=== PATIENT | female | born 1975 | race Caucasian/White ===

== ENCOUNTER → 2018-01-25 13:51 | Outpatient (CLI) | payer MEDICAID, SELFPAY ==
--- NOTE | 2018-01-25 13:55 | CT_ITS ---
STUDY: CT FACIAL BONES WITHOUT CONTRAST REASON FOR EXAM: Female, 42 years old. Evaluate for facial fracture. RADIATION DOSAGE (If Supplied By Facility): CTDIvol = ( 33.06 ) mGy, DLP = ( 840.25 ) mGycm TECHNIQUE: The patient was scanned in a multi detector CT scanner. Sagittal and coronal images were reconstructed. Individualized dose optimization techniques were used for this CT. COMPARISON: Prior comparison studies are not available for review at this time. FINDINGS: Normal soft tissue structures. Normal orbital shelton and orbital contents. There is deformity of the nasal bone that suggest sequela of fracture. This could be acute. The fracture appears comminuted. The mandible has a normal appearance. There is mild degenerative arthropathy of the temporomandibular joints. The shelton of the frontal sinuses, shelton of maxillary sinuses, pterygoid plates, and zygomatic arches have a normal appearance. There is mild anterolisthesis at C2-3. There is degenerative disc disease at C2-3. Atlantoaxial and atlantooccipital relationships are within normal limits. Normal visualized paranasal sinuses. CT/Sinus/Facial Bone IMPRESSION: Comminuted nasal bone fracture. Electronically Signed: Garima Celis MD at 9:04 EDT , Service support ,
== END ==
PROVIDERS: Family Provider Family Medicine; PCP Family Medicine; Visit Provider Otolaryngology
DX: S02.92XA Unspecified fracture of facial bones, initial encounter for closed fracture (principal)
CPT/HCPCS: 70486

== ENCOUNTER 2018-02-22 12:25 | Emergency (ER) | payer MEDICAID, SELFPAY ==
[2018-02-22 12:26] VITALS: BP 133/79; PULSE 76; RESP 16; TEMP 36.6; O2SAT 95; BMI 34.5
--- NOTE | 2018-02-22 12:42 | EKG12_ITS ---
Test Reason : SOB Blood Pressure : / mmHG Vent. Rate : 073 BPM Atrial Rate : 073 BPM P-R Int : 156 ms QRS Dur : 096 ms QT Int : 402 ms P-R-T Axes : 021 -24 -10 degrees QTc Int : 442 ms Normal sinus rhythm Nonspecific T wave abnormality Abnormal ECG Confirmed by ESAU ANDERSON ([id number]), supervising film or videotape editor ELEANOR FERRARI ([id number]) on 02/25/2018 10:24:37 AM Referred By: RAMÍREZ Confirmed By:ESAU ANDERSON
--- NOTE | 2018-02-22 12:50 | RAD_ITS ---
STUDY: X-RAY CHEST REASON FOR EXAM: Female, 42 years old. Chest pain. TECHNIQUE: Single AP portable view of the chest. COMPARISON: Comparison is made with prior study dated March 15, 2017. FINDINGS: EKG electrodes are seen. Stable mild degree of increased signal markings at the left lung base most likely representing scarring. There is no demonstrated pleural abnormality. Normal size heart. Normal mediastinum and ligia. Normal visualized pulmonary arteries. Normal visualized aortic arch and descending thoracic aorta. Normal visualized thoracic spine. Healed right rib fractures. There is no demonstrated abnormality of the visualized soft tissue structures of the upper abdomen. RAD/Chest 1 View (Portable) IMPRESSION: Stable examination showing probable linear scarring at the left base. Electronically Signed: Haroon Garcia MD at 13:14 EDT Tel [phone], Service support ,
[2018-02-22 13:20] LABS: Absolute Lymphocyte Count 2.57 X10^3/ul (0.83-4.51); Absolute Neutrophil Count 6.2 X10^3/uL (2.0-7.7); Basophil# 0.02 X10^3/uL; Basophil% 0.2 % (0-1); Hematocrit 39.4 % (37-47); Hemoglobin 13.4 g/dl (12.0-15.0); Lymphocyte # 2.57 X10^3/ul (4.0); Lymphocyte % 26.4 % (19-41); Mean Corpuscular Hgb 29.1 pg (27.0-32.0); Mean Corpuscular Volume 85.7 fL (81-99); Mean Platelet Vol. 10.2 fl (6.2-12.0); Monocyte# 0.79 X10^3/uL; Monocyte% 8.1 % (0-10); Neutrophil # 6.19 X10^3/uL (2.7-7.7); Neutrophil % 63.8 % (47-70); POSITIVE COUNT NO; POSITIVE DIFFERENTIAL NO; POSITIVE MORPHOLOGY NO; Platelet Count 363 K/mm3 (150-450); RBC Distribution Width CV 14.2 % (11.6-14.6); RBC Distribution Width SD 43.5 fl (35.1-43.9); White Blood Count 9.7 K/mm3 (4.4-11.0)
[2018-02-22] MEDS: 0.9% Normal Saline 1,000 ML 1000 ML IV (13:28)
[2018-02-22 13:36] LABS: Anion Gap 5 (5-15); BUN 5 mg/dL (7-18); BUN/Creat Ratio 7.6 RATIO (10-20); Calcium,Total 8.6 mg/dL (8.5-10.1); Chloride 107 mmol/L (98-107); Creatinine, Serum 0.65 mg/dL (0.55-1.02); EST Glomerular Filtration Rate 104 mL/min (>60); Est Glom Filt Rate - Afr Amer 126 mL/min (>60); Estimated Creatinine Clearance 107.41 ml/min; Glucose 84 mg/dL (74-106); Potassium 3.6 mmol/L (3.5-5.1); Sodium Level 138 mmol/L (136-145)
--- NOTE | 2018-02-22 14:29 | ED.DCSUM_ITS ---
- ER Visit Summary Date of Service: 02/22/18 Chief Complaint: Medication overdose History of Present Illness: The patient is a 42 F who presents after an accidental medication overdose. The patient takes 900 mg of Seroquel daily for schizophrenia. For some reason, the patient's roommate gave her an extra 800 mg this morning around 7 AM. The patient was sleepy so they took her to the primary care's doctor's office. Dr. Medeiros saw the patient and referred her here for evaluation. Patient is arousable to painful stimuli and will mumble some answers. Physical Examination: Vital signs are reviewed. Well-developed female who is sedated due to medications. She is arousable to painful stimuli. HEENT exam is unremarkable. Heart is regular rate and rhythm. Lungs clear to auscultation. Abdomen soft nontender. Skin exam normal. Neurologic exam reveals that she is alert and oriented to herself only. Arousable to pain. Moves all 4 extremities equally. Test Results: Laboratory studies unremarkable. Chest x-ray reveals chronic changes. EKG is normal sinus rhythm with no ST changes. Emergency Department Course and Treatment: The patient had labs which were normal. Patient was observed. At 1448, the patient was awake and talking. She is able to converse normally. She is asking for something for some pain which is chronic. I will give her naproxen here and for home. She will follow up with her PCP Treatment Plan: [] Disposition: Discharge Impression: Accidental medication overdose This note was generated with [employer] dictation software. It may contain incorrect words, spelling, and punctuation that were not noted in review of the chart prior to signing ED Disposition - Plan for ED Patient: Chief Complaint: Weakness Referrals: Phi Medeiros III, MD [Primary Care Provider] -
[2018-02-22 14:34] VITALS: BP 139/100; PULSE 74; RESP 12; O2SAT 98
--- NOTE | 2018-02-22 14:44 | CM.ED ---
Social Work Note Referral from Dr. Zapata for concerns of transport home. Enter pt's room and she is accompanied by a friend. Introduced self and role at [facility]. Pt states that she does have transportation home, and she needs to contact the transit transportation company to notify them that she has transportation. States she has had difficulty getting a hold of them. Requests that SW contact them. Pt denies that she has further needs. Requests to speak with the doctor to see if she can go home. Notified staff. Placed call to [employer] at [phone] and informed that the pt does not need transportation home. Pt to return home this date via private vehicle. Rand Thibodeaux, OVERNIGHT CASHIER, WATCH MECHANIC
--- NOTE | 2018-02-22 14:51 | ED.DEP ---
ED Disposition - Plan for ED Patient: Disposition: Home or Assisted Living Chief Complaint: Weakness Instructions: ED Drug React Adverse Other Prescriptions: Naproxen [Naprosyn] 500 mg PO BID PRN #20 tab Referrals: Phi Medeiros III, MD [Primary Care Provider] -
[2018-02-22 15:20] VITALS: BP 139/100
--- NOTE | 2018-02-22 16:12 | CASEMGMT ---
Social Work Note Face to face with pt and guest as they are now stating that their transportation fell through. Claim that they have contacted family and friends and do not have anyone that can provide transportation. Deny having money to pay for transportation home. Placed call to [facility] and left a vm. Placed call to [employer] who states that they do not accept vouchers or Medicaid for payment. Placed call to [facility] and spoke with research and development directorRae. States that they do have the pt as a client and she has a disability case manager, but will not provide cm's name. Inquire if she can have the cm reach out to the pt as she is here and has no transportation home. Per Rae she will reach out to the pt's cm and if she is unable to reach him will contact this social worker school to update. Will continue to follow and assist. Rand Thibodeaux, INDUSTRIAL INSULATOR, TRAY WORKER
--- NOTE | 2018-02-22 16:46 | CM.ED ---
Social Work Note Got ahold of [employer] transportation. They will be sending someone out for transport between now and 1809. States that someone will contact the pt within 15 minutes to confirm that transportation time and will pick her up at the main entrance. Information passed along to pt and her friend. Offer to get them snack as the have been here for several hours. Sandwiches, shortbread cookies and sprite provided. No further needs identified. Plan: Home via [employer] transportation. Rand Thibodeaux, FAMILY AND CONSUMER SCIENCE PROFESSOR, CAN CLOSING MACHINE TENDER
== END 2018-02-22 15:22 | disposition home or self-care (01) ==
PROVIDERS: Emergency Provider Emergency Medicine; Family Provider Family Medicine; PCP Family Medicine
DX: T43.591A Poisoning by other antipsychotics and neuroleptics, accidental (unintentional), initial encounter (principal); Y92.009 Unspecified place in unspecified non-institutional (private) residence as the place of occurrence of the external cause; F20.9 Schizophrenia, unspecified; Z72.0 Tobacco use; Z79.899 Other long term (current) drug therapy; Z79.51 Long term (current) use of inhaled steroids
CPT/HCPCS: 71045; 80048; 84484; 85025; 93005; 96360; 96361; 99285; J7030; A4216

== ENCOUNTER 2018-07-17 16:35 | Observation (INO) | payer MEDICAID, SELFPAY ==
[2018-07-17] VITALS (10 sets, daily range): BP systolic 101–144; BP diastolic 58–87; PULSE 71–80; RESP 10–20; TEMP 36.7–37.1; O2SAT 94–99; BMI 35.5
[2018-07-17] MEDS: LORazepam 2 MG/ML Syringe 1 MG IV ×2 (17:10→17:28)
[2018-07-17] MEDS: 0.9% Normal Saline 1,000 ML 150 ML IV (17:10)
[2018-07-17] MEDS: levETIRAcetam IV 100 ML 400 MG IV (17:10)
--- NOTE | 2018-07-17 17:15 | RAD_ITS ---
STUDY: X-RAY - RIGHT ELBOW REASON FOR EXAM: Female, 42 years old. Right elbow pain after seizure. TECHNIQUE: 3 view(s) of the elbow. COMPARISON: None. FINDINGS: Normal visualized humerus, radius and ulna. Normal radiocapitellar and ulnotrochlear articulations. The soft tissue structures are unremarkable. There is no demonstrated fracture. RAD/Elbow min 3 Views IMPRESSION: Normal x-ray examination of the right elbow. Electronically Signed: Robbie Cohen MD at 17:59 EST , Service support ,
[2018-07-17 17:25] LABS: Absolute Lymphocyte Count 2.52 X10^3/ul (0.83-4.51); Absolute Neutrophil Count 5.1 X10^3/uL (2.0-7.7); Basophil# 0.01 X10^3/uL; Basophil% 0.1 % (0-1); Eosinophil# 0.18 X10^3/uL; Eosinophils% 2.1 % (0-5); Hematocrit 37.8 % (37-47); Hemoglobin 12.6 g/dl (12.0-15.0); Lymphocyte # 2.52 X10^3/ul (4.0); Lymphocyte % 29.5 % (19-41); Mean Corp Hgb Conc 33.3 g/gl (32-36); Mean Corpuscular Volume 87.1 fL (81-99); Mean Platelet Vol. 10.2 fl (6.2-12.0); Monocyte# 0.74 X10^3/uL; Monocyte% 8.7 % (0-10); Neutrophil # 5.06 X10^3/uL (2.7-7.7); Neutrophil % 59.2 % (47-70); Platelet Count 377 K/mm3 (150-450); RBC Distribution Width CV 14.6 % (11.6-14.6); RBC Distribution Width SD 46.2 fl (35.1-43.9); Red Blood Count 4.34 M/mm3 (4.2-5.4); White Blood Count 8.5 K/mm3 (4.4-11.0)
[2018-07-17 17:26] LABS: POSITIVE COUNT NO; POSITIVE DIFFERENTIAL NO; POSITIVE MORPHOLOGY NO
[2018-07-17 17:39] LABS: AST(SGOT) 43 U/L (15-37); Alanine Aminotransfer ALT/SGPT 35 U/L (13-56); Albumin, Serum 3.7 g/dL (3.2-5.0); Alkaline Phosphatase 119 U/L (45-117); Anion Gap 8 (5-15); BUN 18 mg/dL (7-18); Calcium,Total 8.6 mg/dL (8.5-10.1); Chloride 102 mmol/L (98-107); Creatinine, Serum 1.38 mg/dL (0.55-1.02); EST Glomerular Filtration Rate 44 mL/min (>60); Est Glom Filt Rate - Afr Amer 53 mL/min (>60); Estimated Creatinine Clearance 50.59 ml/min; Globulin 3.6 g/dL (2.2-4.2); Glucose 72 mg/dL (74-106); Potassium 3.6 mmol/L (3.5-5.1); Protein, Total 7.3 g/dL (6.4-8.2); Sodium Level 135 mmol/L (136-145)
--- NOTE | 2018-07-17 17:57 | ED.RN ---
FRIEND INFORMS THIS RN THAT PT HAD 90 SECOND SEIZURE. PT SITTING IN BED WITH EYES CLOSED, ANSWERS SOME QUESTIONS BUT DOES NOT OPEN EYES. MD AWARE, MORE MEDS ORDERED.
[2018-07-17 18:04] LABS: Bacteria 0 SEEN /hpf (None Seen); Mucous, Urine 0 SEEN /hpf (<or=2+); Red Blood Cells-Urine 0 SEEN /hpf (0-5); Squamous Epithelial Cells - UA 0 SEEN /hpf (5-10); White Blood Cells 0 SEEN /hpf (0-5)
[2018-07-17 18:17] LABS: Color, Urine Yellow (Yellow); Glucose, Dipstick Normal (Normal); Ketone-Dipstick Negative (Negative); Leukocyte Esterase-Dipstick Negative /ul (Negative); Nitrite-Dipstick Negative (Negative); Occult Blood-Urine Negative /ul (Negative); Protein-Dipstick Negative (Negative); Urine Bilirubin Dipstick Negative (Negative); Urine Clarity Clear (Clear); Urine Urobilinogen Normal (Normal)
--- NOTE | 2018-07-17 19:03 | CT_ITS ---
STUDY: CT BRAIN WITHOUT CONTRAST REASON FOR EXAM: Female, 42 years old. Increasing seizures. Scattered cells/bipolar, unresponsive, snoring and gasping. RADIATION DOSAGE (If Supplied By Facility): CTDIvol = ( 44.99 ) mGy, DLP = ( 1625.96 ) mGycm TECHNIQUE: Transaxial CT imaging of the brain was performed without administration of intravenous contrast material. Individualized dose optimization techniques were used for this CT. COMPARISON: Prior head CT exam of January 03, 2016. FINDINGS: Normal soft tissue structures. Normal calvarium. Old nasal fracture deformity. Normal size ventricles and extra-axial spaces for the patient's age. Normal white matter tracts of the cerebral hemispheres. Normal basal ganglia and thalami. Normal brainstem. Normal cerebellum. There is no intracranial hemorrhage. There are no findings of an acute ischemic infarction. Normal visualized paranasal sinuses. CT/Brain/Head without Contrast IMPRESSION: Normal unenhanced CT scan of the brain. Electronically Signed: Leslie Conrad MD at 19:30 EST , Service support ,
--- NOTE | 2018-07-17 19:09 | ED.RN ---
DR. WILSON AWARE OF PATIENT'S BEING VERY SEDATED AFTER THE SECOND DOSE OF ATIVAN PRIOR TO MY ARRIVAL. HE ORDERED A CT OF HER HEAD.
--- NOTE | 2018-07-17 19:24 | NURSING ---
PATIENT DROPPED DOWN TO 85-86% ON NC WHILE IN XRAY. PATIENT WENT RIGHT BACK UP TO 94% WHEN PLACED BACK ON NON REBREATHER AND IS AT 99%. CURRENTLY AT [address] WILSON MADE AWARE.
--- NOTE | 2018-07-17 19:39 | NURSING ---
DR. WILSON REQUESTS BEDSIDE BLOOD GLUCOSE. THIS NURSE DID THAT AND IT WAS 114. DR. WILSON MADE AWARE.
[2018-07-17 19:41] LABS: Bedside Glucose 114 mg/dL (70-110)
--- NOTE | 2018-07-17 19:48 | NURSING ---
PATIENT IS STILL UNRESPONSIVE TO HER NAME OR TOUCH. VITALS ARE STABLE. SHE IS STILL ON A NON REBREATHER AND BREATHING WITH HER MOUTH WIDE OPEN. DR. KATIE SALCIDO.
[2018-07-17 20:06] LABS: Amphetamine Urine VISTA NEGATIVE (<1000 ng/mL); Barbiturate Urine VISTA NEGATIVE (< 200 ng/mL); Benzodiazepine Urine VISTA NEGATIVE (< 200 ng/mL); Cocaine Urine VISTA NEGATIVE (< 300 ng/mL); Ecstacy Urine VISTA NEGATIVE (< 500 ng/mL); Methadone Urine VISTA NEGATIVE (< 300 ng/mL); PCP Urine VISTA NEGATIVE (< 25 ng/mL); THC Urine VISTA POSITIVE (< 50 ng/mL); Vista UDS pH Range 6
--- NOTE | 2018-07-17 21:08 | ED.RN ---
IRINEO AT [phone] WAS CALLED AND TOLD THAT THE PATIENT WOULD BE ADMITTED. SHE DID NOT HAVE ACCESS TO THE PATIENT'S MEDICATIONS MEDICATIONS TO GIVE DOSAGES, BUT SAID PATIENT WOULD KNOW HER MEDICATIONS WHEN SHE WAKES UP. SHE WILL CALL BACK WHEN PATIENT IS ADMITTED TO SEE WHAT ROOM SHE WENT TO.
[2018-07-17] MEDS: 0.9% Normal Saline 1,000 ML 999 ML IV (21:14)
--- NOTE | 2018-07-17 21:14 | NURSING ---
PATIENT RECEIVED 500 CC'S OF NS RUNNING AT 150 CC'S PER HOUR WHEN THE NS BOLUS WAS ORDERED. I OPENED THAT BAG UP TO RUN AT 999CC'S HOUR AND THEN WILL HANG THE OTHER 500 CC'S.
--- NOTE | 2018-07-17 21:20 | HP.PCM_ITS ---
Problem List (1) Seizures Status: Acute History of Present Illness Date of Admission: 07/17/18 Chief Complaint: Multiple seizures History was obtained from the Emergency Department doctor and EMS paper work because patient is somnolent and can not provide History. Emergency department doctor stated that patient received a total of 2 mg of Ativan after which patient became somnolent. The patient is a 42 year old F with a significant history of epilepsy, COPD, paranoid schizophrenia, panic attacks, neuropathy, migraines and multiple hairline fractures who lives at the [facility] and presented because of multiple seizures that started a day before her admission. Also on the day of admission reportedly patient had 4-5 seizures within 2 hours. Patient reportedly told the emergency department doctor that she has grand mal seizures; absent seizures and petit mal seizures. She sees a neurologist in [place]. Patient takes marijuana that helps with her seizure activity. At the ED urine drug screen was positive for marijuana. Patient was noted to have severely elevated creatinine above her baseline. On presentation patient was given 1 mg of Ativan at the ED. Reportedly she had another episode where she was twitching and she was given another 1 mg of Ativan. The nurse at the ED was not convinced that the twitches at the ED were from seizure activity. At my examination patient was somnolent and was responding to painful stimuli by grimacing. She had a breathing mask on. Past Medical History Past Medical History (Chronic Problems): Chronic Problems COPD (chronic obstructive pulmonary disease) (Chronic) Tobacco use disorder (Chronic) Schizoaffective disorder (Chronic) HLD (hyperlipidemia) (Chronic) Type II diabetes mellitus, uncontrolled (Chronic) History of abdominal pain (Chronic) Allergies bupropion HCl [From Wellbutrin] Allergy (Verified 07/17/18 16:46) Other codeine phosphate [From Tylenol-Codeine #3] Allergy (Verified 07/17/18 16:46) Unknown etodolac [From Lodine] Allergy (Verified 07/17/18 16:46) Rash varenicline tartrate [From Chantix] Allergy (Verified 07/17/18 16:46) Other acetaminophen [From Darvocet-N 100] Adverse Reaction (Verified 07/17/18 16:46) Nausea codeine Adverse Reaction (Verified 07/17/18 16:46) Nausea propoxyphene napsylate [From Darvocet-N 100] Adverse Reaction (Verified 07/17/18 16:46) Nausea Home Medications: Ambulatory Orders Medication Instructions Recorded Pregabalin [Lyrica] 200 mg PO TID 01/03/16 Quetiapine Fumarate [Seroquel] 900 mg PO QHS 01/03/16 Albuterol Aerosols [Ventolin 1 dose INHALATION DAILY 03/15/17 Aerosols] Albuterol Inhaler [Ventolin Hfa 2 puff INHALATION Q4H PRN PRN 03/15/17 (SP)] Albuterol Inhaler [Ventolin Hfa] 1 puff INHALATION DAILY PRN 03/15/17 Amitriptyline HCl 100 mg PO QHS 03/15/17 Cetirizine HCl [Zyrtec] 10 mg PO DAILY 03/15/17 Citalopram [Celexa] 60 mg PO DAILY 03/15/17 DiphenhydrAMINE [Benadryl] 50 mg PO QHS PRN PRN 03/15/17 Fluticasone 0.05% [Flonase Nasal 2 sprays NASAL DAILY 03/15/17 [place]] Melatonin 5 mg SL QHS 03/15/17 Simethicone 180 mg PO TID 03/16/17 Topiramate [Topamax] 50 mg PO BID 03/16/17 Benzonatate [Tessalon Perle] 100 mg PO TID PRN PRN 02/22/18 Dexlansoprazole [Dexilant] 60 mg PO DAILY 02/22/18 Ibuprofen 600 mg PO Q6H PRN PRN 02/22/18 Ipratropium [Atrovent (SP)] 1 puff INHALATION 4X/DAY 02/22/18 Ketoconazole [Nizoral] 1 applic TOPICAL DAILY 02/22/18 Levetiracetam 1,000 mg PO BID 02/22/18 Magnesium Hydroxide [Milk Of 15 ml PO DAILY PRN PRN 02/22/18 Magnesia] Naproxen [Naprosyn] 500 mg PO BID PRN #20 tab 02/22/18 Promethazine HCl 25 mg PO Q6H PRN PRN 02/22/18 Surgical History: - - Carpal tunnel surgery, surgery for trigger finger and trigger thumb, facial reconstruction secondary to trauma, exploratory abdominal surgery, partial hysterectomy Psychiatric History: - - Schizoaffective disorder PROFESSIONAL ORGANIZER History: No pertinent PROFESSIONAL ORGANIZER history Lives: - - Lives at [facility]. Smoking Status: Current every day smoker - *Family History Maternal History Items: Hypertension Paternal History Items: Diabetes, High Cholesterol, Heart Disease Review of Systems Unable to obtain accurate/complete ROS d/t: secondary to somnolence VTE Information - Inpt Only VTE Present on Admission: No VTE Mechan Device Prophylaxis: None VTE Pharm Prophylaxis ordered?: Yes Patient Problems: Active and Suspected Problems Seizures (Acute) - Physical Exam General: - - Somnolent HEENT: Atraumatic, PERRLA, EOMI, Normocephalic Neck: Trachea Midline Lungs: Clear to auscultation Cardiovascular: Regular rate, No murmurs Abdomen: Bowel Sounds Present, Soft Extremities: No edema, Capillary Refill Less than 3 Seconds Skin: No rashes, No breakdown Musculoskeletal: No Muscle Wasting Neurological: - - Grimace to pain Psych/Mental Status: - - Somnolent Vital Signs Temp Pulse Resp BP Pulse Ox 98.8 F 75 11 L 134/87 H 96 07/17/18 16:42 07/17/18 20:37 07/17/18 20:37 07/17/18 20:37 07/17/18 20:37 Oxygen Flow Rate (L/min) 12 Oxygen Delivery Method Non-Rebreather Weight: 104.5 kg Body Mass Index (BMI) 35.5 Finger Stick Blood Glucose 88 Laboratory Tests Past 24 Hrs 07/17/18 07/17/18 07/17/18 17:10 17:10 17:45 WBC 8.5 RBC 4.34 Hgb 12.6 Hct 37.8 MCV 87.1 MCH 29.0 MCHC 33.3 RDW 14.6 RDW Differential 46.2 H Plt Count 377 MPV 10.2 Immature Gran % (Auto) 0.400 Neut % (Auto) 59.2 Lymph % (Auto) 29.5 Assumption % (Auto) 8.7 Eos % (Auto) 2.1 Baso % (Auto) 0.1 Absolute Neuts (auto) 5.1 Absolute Lymphs (auto) 2.52 Total Counted Not Reportable Sodium 135 L Potassium 3.6 Chloride 102 Carbon Dioxide 25.0 Anion Gap 8 BUN 18 Creatinine 1.38 H Estim Creat Clear Calc 50.59 Est GFR (MDRD) Af Amer 53 L Est GFR (MDRD) Non-Af 44 L BUN/Creatinine Ratio 13.0 Glucose 72 L Calcium 8.6 Total Bilirubin 0.20 AST 43 H ALT 35 Alkaline Phosphatase 119 H Total Protein 7.3 Albumin 3.7 Globulin 3.6 Albumin/Globulin Ratio 1.0 Urine Color Yellow Urine Clarity Clear Urine pH 6.0 Ur Specific Hollister 1.010 Urine Protein Negative Urine Glucose (UA) Normal Urine Ketones Negative Urine Occult Blood Negative Urine Nitrite Negative Urine Bilirubin Negative Urine Urobilinogen Normal Ur Leukocyte Esterase Negative Urine RBC 0 SEEN Urine WBC 0 SEEN Ur Squamous Epith Cells 0 SEEN Urine Bacteria 0 SEEN Urine Mucus 0 SEEN Urine Opiates Screen Urine Methadone Screen Ur Barbiturates Screen Ur Phencyclidine Scrn Ur Amphetamines Screen U Methamphetamin-MDMA U Benzodiazepines Scrn Urine Cocaine Screen U Cannabinoids Screen Ur Drug Screen Comment 07/17/18 17:45 WBC RBC Hgb Hct MCV MCH MCHC RDW RDW Differential Plt Count MPV Immature Gran % (Auto) Neut % (Auto) Lymph % (Auto) Assumption % (Auto) Eos % (Auto) Baso % (Auto) Absolute Neuts (auto) Absolute Lymphs (auto) Total Counted Sodium Potassium Chloride Carbon Dioxide Anion Gap BUN Creatinine Estim Creat Clear Calc Est GFR (MDRD) Af Amer Est GFR (MDRD) Non-Af BUN/Creatinine Ratio Glucose Calcium Total Bilirubin AST ALT Alkaline Phosphatase Total Protein Albumin Globulin Albumin/Globulin Ratio Urine Color Urine Clarity Urine pH Ur Specific Hollister Urine Protein Urine Glucose (UA) Urine Ketones Urine Occult Blood Urine Nitrite Urine Bilirubin Urine Urobilinogen Ur Leukocyte Esterase Urine RBC Urine WBC Ur Squamous Epith Cells Urine Bacteria Urine Mucus Urine Opiates Screen NEGATIVE Urine Methadone Screen NEGATIVE Ur Barbiturates Screen NEGATIVE Ur Phencyclidine Scrn NEGATIVE Ur Amphetamines Screen NEGATIVE U Methamphetamin-MDMA NEGATIVE U Benzodiazepines Scrn NEGATIVE Urine Cocaine Screen NEGATIVE U Cannabinoids Screen POSITIVE H Ur Drug Screen Comment POC Glucose 07/17/18 19:34 POC Glucose 114 H Assessment/Plan All Active Problems Seizures (Acute) Right foot pain (Acute) Fluid collection right foot (Acute) Rib contusion (Acute) The patient is a 42 year old F with a significant history of epilepsy, COPD, paranoid schizophrenia, panic attacks, neuropathy, migraines and multiple hairline fractures who lives at the [facility] and presented because of multiple seizures that started a day before his admission. Seizure activity Patient received a total of 2 mg Ativan at the ED A total of 1000 mg of Keppra was ordered at emergency department. On patient's home medication list is Keppra 1000 mg PO twice daily. Since patient is somnolent at this time will order 1000 mg Keppra IV twice daily. Since patient's home list shows multiple seizure meds and she still had a seizure will add Valproic acid IV. It is unclear whether she takes her home seizure meds. Ativan prn for seizure activity. Keppra level ordered. EEG ordered Prolactin level and CPK ordered. Will consult neurology to optimize management ERIC Creatinine on admission was 1.38 Review of old records shows baseline creatinine of around 0.7 On admission her blood glucose was 71. Gentle hydration with D5W half-normal saline ordered. Urine studies ordered. Avoid nephrotoxics COPD Does not appear to be in COPD exacerbation at this time. Albuterol as needed ordered. Paranoid Schizophrenia Since patient is somnolent we will hold her schizophrenic medications Tobacco Abuse Too somnolent to discuss tobacco cessation. DVT prophylaxis Subcutaneous heparin. Code Visit Inpatient E&M: 11088 Init Hosp L3
--- NOTE | 2018-07-17 21:28 | ED.VISSUMM ---
- ER Visit Summary Date of Service: 07/17/18 Chief Complaint: [Seizures History of Present Illness: The patient is a 42 F [presents to the emergency department complaint of seizures over the last several days. Patient apparently has had 5 seizures in the last 2 hours. Patient is staying at the [facility] currently and is here with 1 of her roommates who is able to give some of the history. Patient apparently has had twitching spells lasting minutes patient not postictal afterwards and does not soil herself. Patient did fall and have a seizure apparently last evening and she believes she was on the floor for about 2 hours and is now complaining of right elbow pain. Patient tells me that she has been compliant with her medications and normally takes Topamax 100 mg twice a day as well as Keppra thousand milligrams twice a day. Patient sees the neuro care center in [place] but cannot tell me the physician she sees there. Patient denies any recent illness. She denies any trauma to her head. Patient does have a history of bipolar disorder, schizophrenia, anxiety, migraines, asthma, and COPD. Patient tells me that she has seizures every day multiple times a day. Patient has been diagnosed with grand mal seizures as well as petit mal seizures.] Physical Examination: [HEENT-PERRLA, EOMI. Cranial nerves II through XII grossly intact. TMs clear. Mucous membranes moist. No adenopathy. Cardiovascular-regular rate and rhythm without murmur or ectopy Lungs-clear to auscultation, chest wall stable without crepitus or subcu emphysema Abdomen-normoactive bowel sounds, soft, nontender, no rebound or rigidity, no peritoneal signs. Neuro [id number] and heel wang testing within normal limits, negative Romberg, negative pronator drift, fundi benign Extremities-intact ?4, normal range of motion, normal pulses. Right elbow-patient has some diffuse tenderness over the olecranon. There is no obvious deformity. There is some faint erythema noted to the olecranon. She is nervously intact distally. Test Results: [CBC with differential obtained showed a white count of 8.5, hemoglobin 12.6, hematocrit 38, platelets 377. Chemistries unremarkable. BUN was 18 and creatinine 1.38. LFTs were unremarkable. Urinalysis was normal. Toxicology screen was positive for marijuana. X-rays of the right elbow showed no fractures. CT scan of the brain without contrast was unremarkable.] Emergency Department Course and Treatment: [On arrival patient did receive Keppra 500 mg's IV and I gave her 1 mg of Ativan. After initial treatment nursing staff stated that the visit her in the room and stated the patient had had another seizure but was not postictal afterwards. The nurse did see some twitching activity but she did not feel it was consistent with seizure activity. I did give patient another milligram of Ativan IV. After the second dose of Ativan patient became very somnolent and stopped responding appropriately and that is when the CT scan was ordered which was normal. Patient will open her eyes and attempt to speak to sternal rub. Repeat fingerstick blood sugar was in the 140s.] Treatment Plan: [Case was discussed with hospitalist will evaluate patient for admission. I did not witness any further seizure activity in the department.] Disposition: [Admit] Impression: [Recurrent seizures Mental status change-suspect related to Ativan.] This note was generated with [employer] dictation software. It may contain incorrect words, spelling, and punctuation that were not noted in review of the chart prior to signing ED Disposition - Plan for ED Patient: Chief Complaint: Seizure Referrals: Phi Medeiros III, MD [Primary Care Provider] -
--- NOTE | 2018-07-17 21:33 | ED.DCSUM_ITS ---
- ER Visit Summary Date of Service: 07/17/18 Chief Complaint: [Seizures History of Present Illness: The patient is a 42 F [presents to the emergency department complaint of seizures over the last several days. Patient apparently has had 5 seizures in the last 2 hours. Patient is staying at the [facility] currently and is here with 1 of her roommates who is able to give some of the history. Patient apparently has had twitching spells lasting minutes patient not postictal afterwards and does not soil herself. Patient did fall and have a seizure apparently last evening and she believes she was on the floor for about 2 hours and is now complaining of right elbow pain. Patient tells me that she has been compliant with her medications and normally takes Topamax 100 mg twice a day as well as Keppra thousand milligrams twice a day. Patient sees the neuro care center in [place] but cannot tell me the physician she sees there. Patient denies any recent illness. She denies any trauma to her head. Patient does have a history of bipolar disorder, schizophrenia, anxiety, migraines, asthma, and COPD. Patient tells me that she has seizures every day multiple times a day. Patient has been diagnosed with grand mal seizures as well as petit mal seizures.] Physical Examination: [HEENT-PERRLA, EOMI. Cranial nerves II through XII grossly intact. TMs clear. Mucous membranes moist. No adenopathy. Cardiovascular-regular rate and rhythm without murmur or ectopy Lungs-clear to auscultation, chest wall stable without crepitus or subcu emphysema Abdomen-normoactive bowel sounds, soft, nontender, no rebound or rigidity, no peritoneal signs. Neuro [id number] and heel wang testing within normal limits, negative Romberg, negative pronator drift, fundi benign Extremities-intact ?4, normal range of motion, normal pulses. Right elbow- patient has some diffuse tenderness over the olecranon. There is no obvious deformity. There is some faint erythema noted to the olecranon. She is nervously intact distally. Test Results: [CBC with differential obtained showed a white count of 8.5, hemoglobin 12.6, hematocrit 38, platelets 377. Chemistries unremarkable. BUN was 18 and creatinine 1.38. LFTs were unremarkable. Urinalysis was normal. Toxicology screen was positive for marijuana. X-rays of the right elbow showed no fractures. CT scan of the brain without contrast was unremarkable.] Emergency Department Course and Treatment: [On arrival patient did receive Keppra 500 mg's IV and I gave her 1 mg of Ativan. After initial treatment nursing staff stated that the visit her in the room and stated the patient had had another seizure but was not postictal afterwards. The nurse did see some twitching activity but she did not feel it was consistent with seizure activity. I did give patient another milligram of Ativan IV. After the second dose of Ativan patient became very somnolent and stopped responding appropriately and that is when the CT scan was ordered which was normal. Patient will open her eyes and attempt to speak to sternal rub. Repeat fingerstick blood sugar was in the 140s.] Treatment Plan: [Case was discussed with hospitalist will evaluate patient for admission. I did not witness any further seizure activity in the department.] Disposition: [Admit] Impression: [Recurrent seizures Mental status change-suspect related to Ativan.] This note was generated with Melophone dictation software. It may contain incorrect words, spelling, and punctuation that were not noted in review of the chart prior to signing ED Disposition - Plan for ED Patient: Chief Complaint: Seizure Referrals: Phi Medeiros III, MD [Primary Care Provider] -
--- NOTE | 2018-07-17 21:36 | ED.RN ---
PATIENT HASN'T HAD ANY SEIZURE FOR ME SINCE 1900. PATIENT IS STILL NOT RESPONSIVE TO VOICE OR TOUCH. SHE DID NOT WITHDRAWL FROM PAIN WHEN I STARTED ANOTHER IV. VITALS ARE STABLE. SHE IS STILL ON A NON REBREATHER MASK AT 12L O2.
[2018-07-17 21:50] LABS: Urine Sodium 7 mmol/L (Not Establ.)
[2018-07-17 22:41] LABS: CPK Total, Creatine Kinase 490 U/L (26-192); Prolactin 6.8 ng/mL
[2018-07-17] MEDS: Dext 5%-0.45% NS 1,000 ML 100 ML IV (23:05)
--- NOTE | 2018-07-17 23:13 | NURSING ---
Contacted Cali in pharmacy at this time as IV pump does not have a setting for Valproate Sodium 700mg/50mL. Cali said to run the medication using the mL/hr setting.
[2018-07-18] VITALS (13 sets, daily range): BP systolic 99–124; BP diastolic 47–74; PULSE 72–88; RESP 12–20; TEMP 36.4–37.1; O2SAT 93–97; BMI 35.9; BMI 36.0
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
[2018-07-18] MEDS: levETIRAcetam IV 100 ML 400 MG IV ×2 (05:39→22:27)
--- NOTE | 2018-07-18 05:51 | NURSING ---
Several attempts were made to completed medication list. Pt was too somnolent to give accurate information. At this time, pt states she knows some of her medication dosages, but not all of them.
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
[2018-07-18 06:49] LABS: Anion Gap 8 (5-15); BUN 12 mg/dL (7-18); BUN/Creat Ratio 11.7 RATIO (10-20); Calcium,Total 7.8 mg/dL (8.5-10.1); Chloride 108 mmol/L (98-107); Creatinine, Serum 1.03 mg/dL (0.55-1.02); EST Glomerular Filtration Rate 62 mL/min (>60); Est Glom Filt Rate - Afr Amer 75 mL/min (>60); Estimated Creatinine Clearance 67.78 ml/min; Glucose 89 mg/dL (74-106); Potassium 4.1 mmol/L (3.5-5.1); Sodium Level 139 mmol/L (136-145)
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
--- NOTE | 2018-07-18 07:40 | CPS ---
UPON ENTERING PT'S ROOM TO DO EEG, PT REQUESTED BREATHING TREATMENT. STATES SHE TAKES 2 INHALERS AT HOME. PRN ALBUTEROL NEB GIVEN
[2018-07-18] MEDS: Albuterol 2.5 MG/3 ML VIAL.NEB. INHALATION ×2 (07:45→16:02)
[2018-07-18] MEDS: Dext 5%-0.45% NS 1,000 ML 100 ML IV (10:04)
[2018-07-18] MEDS: Enoxaparin 40 MG/0.4 ML Syringe SC (10:04)
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
[2018-07-18] MEDS: LORazepam 2 MG/ML Syringe IV (11:04)
[2018-07-18] MEDS: QUEtiapine 100 MG Tablet 200 MG PO (11:49)
--- NOTE | 2018-07-18 12:06 | EEG ---
- Electroencephalogram Date of service 07/18/18 This is an 18 channel echoencephalogram performed with EKG reference leads. Hyperventilation was not performed the patient was unable to follow commands. Stimulation was not performed. Engine Cowling Installer's report indicates that the patient had apneic episodes during the recording. Patient experienced wakefulness and stage N1 and N2 sleep during the recording with no lateralizing or epileptiform changes. EKG is normal sinus rhythm throughout the recording. Impression: Normal awake and asleep electroencephalogram. It is noted that by history the patient reported 100 seizures on the day prior to this examination as well as daily seizures.
--- NOTE | 2018-07-18 12:11 | EEG_ITS ---
- Electroencephalogram Date of service 07/18/18 This is an 18 channel echoencephalogram performed with EKG reference leads. Hyperventilation was not performed the patient was unable to follow commands. Stimulation was not performed. Natural Gas Shothole Driller's report indicates that the patient had apneic episodes during the recording. Patient experienced wakefulness and stage N1 and N2 sleep during the recording with no lateralizing or epileptiform changes. EKG is normal sinus rhythm throughout the recording. Impression: Normal awake and asleep electroencephalogram. It is noted that by history the patient reported 100 seizures on the day prior to this examination as well as daily seizures.
--- NOTE | 2018-07-18 14:33 | CASEMGMT ---
SW has attempted numerous times to see patient and she has been sleeping. SW will follow up with patient. Karla IBRAHIM MSW
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
--- NOTE | 2018-07-18 16:34 | PCA ---
went into patients room cause bed exit going off. she jumped out of bed told me if i dont take the heart monitor off she will. I told her that she needs to wear it because we need to watch her heart. She jumped out of bed ran into bathroom locked the door wouldnt let me go in. She told me she isnt wearing that monitor that she is going to leave to go home that she isnt wearing anything or staying here. She is fully dressed and getting her coat on. she is leaving that she is fine and dont need to stay.. Gave her new blankets and comb she said she is going to eat and leave. Called the nurse too and let him know. He went to talk to her.
[2018-07-18] MEDS: Pregabalin 50 MG Capsule 200 MG PO ×2 (16:55→22:38)
[2018-07-18] MEDS: Citalopram 20 MG Tablet 60 MG PO (17:07)
[2018-07-18] MEDS: QUEtiapine 100 MG Tablet 400 MG PO ×2 (17:08→22:38)
--- NOTE | 2018-07-18 18:11 | NURSING ---
Patient wanting to leave to smoke and go home states would walk. instructed patient that she agreed with the md this am to stay tonight.
[2018-07-18] MEDS: Haloperidol Lactate 5 MG/ML Vial IV (18:32)
[2018-07-18] MEDS: 0.9% NaCl Peripheral Flush Adult/Peds IV ×3 (18:32→22:51)
--- NOTE | 2018-07-18 19:28 | PN_ITS ---
Patient Problems: Active and Suspected Problems Seizures (Acute) Subjective: Patient was seen and examined today, she became agitated this morning and I asked her if she wanted something for anxiety and she consented I gave her some IV Ativan and asked her to stay until tomorrow to make sure she underwent testing for her seizure disorder and saw the neurologist, patient consented and stated she would stay. 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 EEG did not show a true seizure focus. I received a call from nursing late this afternoon stating the patient was agitated again, I asked nursing to talk with her and see if she wanted something else for anxiety and I have ordered Haldol. Patient wanted to walk out of the hospital and walk home she does not appear to be thinking correctly and this morning she saw an inv isible man in her room. I have requested that crisis see the patient to determine if she would need psychiatric hospitalization. I have gone through her medication reconciliation and eliminated some medications. I talked with her family practitioner Dr. Phi Medeiros today by phone and discussed the medications. - Physical Exam General: Alert, No apparent distress, Well developed HEENT: Atraumatic, PERRLA, EOMI Oral: Moist Mucosa Neck: Supple, No Nuchal Rigidity, Trachea Midline, Thyroid Normal Size and Texture Lungs: Clear to auscultation, Normal air movement, No rhonchi, No wheeze, No rales Cardiovascular: Regular rate, Regular Rhythm, Normal S1, Normal S2, No murmurs, No Ectopic Activity Abdomen: Bowel Sounds Present, Soft, Non Tender, Non-Distended Extremities: No clubbing, No cyanosis, No edema Skin: No rashes, No breakdown Musculoskeletal: No Tenderness to Palpation of Joints or Extremities Neurological: Cranial nerves II-XII grossly intact, Neuro grossly intact, Sensory exam intact to light touch and pain, Coordination normal Psych/Mental Status: Agitated, Delusions Vital Signs Temp Pulse Resp BP Pulse Ox 98.7 F 88 20 H 102/55 L 95 07/18/18 15:09 07/18/18 16:02 07/18/18 16:02 07/18/18 15:09 07/18/18 15:09 Oxygen Flow Rate (L/min) 2 Oxygen Delivery Method Room Air Weight: 104.2 kg Body Mass Index (BMI) 35.9 Finger Stick Blood Glucose 88 Intake and Output for Last 24 Hours 07/16/18 07/17/18 07/18/18 23:59 23:59 23:59 Intake Total 168.1 / 168.1 1418 / 1418 Output Total 0 / 0 1325 / 1325 Balance 168.1 / 168.1 93 / 93 Laboratory Tests Past 24 Hrs 07/17/18 07/17/18 07/17/18 17:10 17:10 17:45 Sodium Potassium Chloride Carbon Dioxide Anion Gap BUN Creatinine Estim Creat Clear Calc Est GFR (MDRD) Af Amer Est GFR (MDRD) Non-Af BUN/Creatinine Ratio Glucose Calcium Total Creatine Kinase 490 H Prolactin 6.8 Ur Random Sodium Urine Creatinine Urine Opiates Screen NEGATIVE Urine Methadone Screen NEGATIVE Ur Barbiturates Screen NEGATIVE Levetiracetam Pending Ur Phencyclidine Scrn NEGATIVE Ur Amphetamines Screen NEGATIVE U Methamphetamin-MDMA NEGATIVE U Benzodiazepines Scrn NEGATIVE Urine Cocaine Screen NEGATIVE U Cannabinoids Screen POSITIVE H 07/17/18 07/17/18 07/18/18 17:45 17:45 06:10 Sodium 139 Potassium 4.1 Chloride 108 H Carbon Dioxide 23.0 Anion Gap 8 BUN 12 Creatinine 1.03 H Estim Creat Clear Calc 67.78 Est GFR (MDRD) Af Amer 75 Est GFR (MDRD) Non-Af 62 BUN/Creatinine Ratio 11.7 Glucose 89 Calcium 7.8 L Total Creatine Kinase Prolactin Ur Random Sodium 7 Urine Creatinine 45.00 Urine Opiates Screen Urine Methadone Screen Ur Barbiturates Screen Levetiracetam Ur Phencyclidine Scrn Ur Amphetamines Screen U Methamphetamin-MDMA U Benzodiazepines Scrn Urine Cocaine Screen U Cannabinoids Screen POC Glucose 07/17/18 19:34 POC Glucose 114 H Medical Necessity - Tobacco Use Smoking Status: Current every day smoker Tobacco Use: Cigarettes Assessment/Plan All Active Problems Seizures (Acute) Right foot pain (Resolved) Fluid collection right foot (Resolved) Rib contusion (Resolved) #1 seizure disorder-neurology feels as though the patient may have a non- epileptic seizure disorder, I will keep her on Keppra for the time being #2 probable schizoaffective disorder-patient may need IV antipsychotics, crisis will see the patient to see if she is appropriate for admission to the psychiatric facility #3 agitation secondary to #2 #4 COPD #5 chronic pain syndrome-I talked to her PCP today by phone, he states he has her on Lyrica for chronic pain, patient complains of diffuse muscle pains (questionable fibromyalgia) Code Visit Inpatient E&M: 61549 Subs Hosp L2
[2018-07-18] MEDS: QUEtiapine 100 MG Tablet PO (22:38)
[2018-07-18] MEDS: Loratadine 10 MG Tablet PO (22:38)
[2018-07-19] VITALS (7 sets, daily range): BP systolic 113–138; BP diastolic 57–80; PULSE 72–84; RESP 16–18; TEMP 36.4–37.1; O2SAT 94–98
[2018-07-19] MEDS: LORazepam 1 MG Tablet PO (05:02)
[2018-07-19] MEDS: Pregabalin 50 MG Capsule 200 MG PO ×2 (05:02→14:49)
[2018-07-19] MEDS: Ibuprofen 600 MG Tablet PO (05:03)
[2018-07-19] MEDS: Citalopram 20 MG Tablet 60 MG PO (09:34)
[2018-07-19] MEDS: Enoxaparin 40 MG/0.4 ML Syringe SC (09:36)
[2018-07-19] MEDS: levETIRAcetam IV 100 ML 400 MG IV (09:36)
[2018-07-19] MEDS: Pantoprazole Sodium 20 MG Tablet PO (09:37)
--- NOTE | 2018-07-19 14:03 | DCINST_ITS ---
- Discharge Diagnoses Current Active Problems: Current Active and Chronic Problems Seizures (Acute) You will use the following diet at home:: No restrictions Your food should be the consistency of: Regular Your liquids should be the consistency of: Regular/Thin Discharge Activity: Return to Normal Activity Weight Bearing Status: Full weight bearing Allergies/Adverse Reactions: Allergies bupropion HCl [From Wellbutrin] Allergy (Verified 07/17/18 16:46) Other codeine phosphate [From Tylenol-Codeine #3] Allergy (Verified 07/17/18 16:46) Unknown etodolac [From Lodine] Allergy (Verified 07/17/18 16:46) Rash varenicline tartrate [From Chantix] Allergy (Verified 07/17/18 16:46) Other acetaminophen [From Darvocet-N 100] Adverse Reaction (Verified 07/17/18 16:46) Nausea codeine Adverse Reaction (Verified 07/17/18 16:46) Nausea milk Adverse Reaction (Verified 07/18/18 05:49) Other propoxyphene napsylate [From Darvocet-N 100] Adverse Reaction (Verified 07/17/18 16:46) Nausea Medications to take at Discharge Pregabalin [Lyrica] 200 mg PO TID 01/03/16 Albuterol Inhaler [Ventolin Hfa] 2 puff INHALATION Q4H PRN PRN 03/15/17 Amitriptyline HCl 100 mg PO QHS 03/15/17 Cetirizine HCl [Zyrtec] 10 mg PO QHS 03/15/17 Ibuprofen 600 mg PO Q6H PRN PRN 02/22/18 Ipratropium [Atrovent Inhaler] 1 puff INHALATION 4X/DAY 02/22/18 Levetiracetam 1,000 mg PO BID 02/22/18 Citalopram [Celexa] 60 mg PO DAILY 07/18/18 Diphenhydramine HCl/Zinc Acet [Anti-Itch 2%-0.1% Cream] 35 gm TP TID PRN PRN 07/18/18 Melatonin 10 mg PO QHS PRN 07/18/18 Omeprazole [Prilosec] 20 mg PO DAILY 07/18/18 Quetiapine Fumarate [Seroquel] 100 mg PO QHS 07/18/18 Quetiapine Fumarate [Seroquel] 400 mg PO BID 07/18/18 Clonazepam [Klonopin] 2 mg PO TID PRN PRN #30 tablet 07/19/18 The following prescriptions were given: Clonazepam [Klonopin] 2 mg PO TID PRN PRN #30 tablet PRN Reason: Anxiety Primary Care Physician: Phi Medeiros III, MD [Primary Care Provider] - Please follow up with your Primary Care Physician in: in two weeks Test Results: Test results from this visit will be discussed in further detail at your follow- up appointment, if applicable. Please Follow Up With: Counseling center When: within next 10 days
--- NOTE | 2018-07-19 14:18 | CASEMGMT ---
Crisis came in and spoke with patient. He cleared her for discharge back to [facility]. He said she is well known to them. He said she wants to leave and is ready to go back to [facility] with her friends and significant other. Karla IBRAHIM MSW
--- NOTE | 2018-07-19 15:03 | CHAPLAIN ---
Type of Pastoral Visit _x__ Initial Visit ___ Follow-up Visit ___ On-call Visit ___ General Patient Visit ___ Spiritual Assessment ___ Family Conference ___ Bereavement ___ Rapid Response ___ Code Blue ___ Other (describe below) Pastoral Care Referral From _x__ Patient ___ Family ___ Nurse ___ Physician ___ Money Order Clerk ___ Sleeve Ironer ___ Other (describe below) Sacrament/Intervention _x__ Active listening ___ Anointing ___ Restorationist ___ Bereavement ___ Communion ___ Michelle exploration ___ ___ Life review _x__ Prayer ___ Reconciliation ___ Sacrament of Sick ___ Supportive presence ___ Wedding ___ Other (describe below) Pastoral Comments patient is dressed and waiting for discharge papers she says; SO of pt is with her in room; pt says that she is feeling better but that she does not have a walker yet and wonders how she will get one; [facility]; pt says that she would like a prayer from television audio engineer
--- NOTE | 2018-07-20 16:27 | DS.PCM_ITS ---
Discharge Date and Diagnosis - Problem List Patient Problems: Active and Suspected Problems Acute respiratory failure (Acute) Aspiration into airway (Acute) Encephalopathy (Acute) Right-sided epistaxis (Acute) Acute encephalopathy (Acute) Date of Admission: 07/17/18 Date of Discharge: 07/19/18 - Primary Discharge Diagnosis Active and Suspected Problems #1 nonepileptic seizures #2 schizophrenia #3 chronic obstructive pulmonary disease - Secondary Discharge Diagnosis Chronic Problems Seizures (Chronic) Tobacco use disorder (Chronic) Schizoaffective disorder (Chronic) HLD (hyperlipidemia) (Chronic) History of abdominal pain (Chronic) Hospital Course and Treatment Consultations 07/18/18 18:06 Crisis [Consult: Mental Health/Crisis] Routine Reason for consult?: feels harm to self Date Notified:: 07/18/18 Time notified:: 18:06 Operations: None, - - OR I&D per Podiatry. Procedures: Electroencephalogram Summary of Care Provided: The patient is a 42 year old F who was seen in the emergency room at [facility] after being brought in from the [facility] where she lives due to recurrent seizure-like activity. Patient is currently on seizure medications, she is a history of schizophrenia. Patient had labs performed in the emergency room which were remarkable for a creatinine of 1.38, CPK was elevated at 490, urinalysis was unremarkable, tox screen was positive for cannabinoids. CT of the brain was unremarkable. Patient received Keppra 500 mg IV and 1 mg of Ativan, patient had repeat seizure activity but was observed not to be post ictal. Nursing reported this activity did not appear to be consistent with seizure activity. Patient was given an additional milligram of Ativan. Patient was placed in observation status on PCU, the following morning the patient became agitated and demanded to leave although she had no way to leave the hospital and whether or was inclement. Patient consented to receive IV Ativan for anxiety, she stayed in the hospital and an EEG was performed which showed no evidence of seizure activity and she was seen by neurology who felt that the patient had non-epileptic seizure activity. The following day, I had case management see the patient who stated that the patient was active with local mental health and had been seen 2 weeks ago by a counselor, plans were made for follow-up at the counseling center and case management felt that the patient was stable for discharge. Patient remained anxious and requested medication for anxiety at the time of discharge, a prescription for Klonopin 2 mg #30 with instructions to use 1 3 times daily as needed severe anxiety was gi rhina to the patient. Physical exam: On examination she appeared in good health and spirits. Vital signs as documented. Skin warm and dry and without overt rashes. Neck without JVD. Lungs clear. Heart exam notable for regular rhythm, normal sounds and absence of murmurs, rubs or gallops. Abdomen unremarkable and without evidence of organomegaly, masses, or abdominal aortic enlargement. Extremities nonedematous. Neuro: Cranial nerves II through XII are grossly intact, there is no evidence of focal motor deficits, no evidence of seizure activity is noted. Psych: Patient appear to be agitated and upset, she was alert and oriented x3. On 07/19/18, patient was seen and examined felt to be in stable condition for discharge back to the [facility]. Patient Problems: Active and Suspected Problems Acute respiratory failure (Acute) Aspiration into airway (Acute) Encephalopathy (Acute) Right-sided epistaxis (Acute) Acute encephalopathy (Acute) - Physical Exam Vital Signs Temp Pulse Resp BP Pulse Ox 98.7 F 81 18 118/80 97 07/19/18 14:41 07/19/18 14:41 07/19/18 14:41 07/19/18 14:41 07/19/18 14:41 Oxygen Flow Rate (L/min) 2 Oxygen Delivery Method Room Air Weight: 104.2 kg Body Mass Index (BMI) 35.9 Finger Stick Blood Glucose 88 Intake and Output for Last 24 Hours 07/18/18 07/19/18 07/20/18 23:59 23:59 23:59 Intake Total 1530 / 1530 240 / 240 Output Total 1325 / 1325 Balance 205 / 205 240 / 240 Discharge Activity: Return to Normal Activity Weight Bearing Status: Full weight bearing Home Medications: Medications to take at Discharge Pregabalin [Lyrica] 200 mg PO TID 01/03/16 Albuterol Inhaler [Ventolin Hfa] 2 puff INHALATION Q4H PRN PRN 03/15/17 Amitriptyline HCl 100 mg PO QHS 03/15/17 Cetirizine HCl [Zyrtec] 10 mg PO QHS 03/15/17 Ibuprofen 600 mg PO Q6H PRN PRN 02/22/18 Ipratropium [Atrovent Inhaler] 1 puff INHALATION 4X/DAY 02/22/18 Levetiracetam 1,000 mg PO BID 02/22/18 Citalopram [Celexa] 60 mg PO DAILY 07/18/18 Diphenhydramine HCl/Zinc Acet [Anti-Itch 2%-0.1% Cream] 35 gm TP TID PRN PRN 07/18/18 Melatonin 10 mg PO QHS PRN 07/18/18 Omeprazole [Prilosec] 20 mg PO DAILY 07/18/18 Quetiapine Fumarate [Seroquel] 100 mg PO QHS 07/18/18 Quetiapine Fumarate [Seroquel] 400 mg PO BID 07/18/18 Clonazepam [Klonopin] 2 mg PO TID PRN PRN #30 tablet 07/19/18 Following Prescrptions Were Given to Patient: Clonazepam [Klonopin] 2 mg PO TID PRN PRN #30 tablet PRN Reason: Anxiety Primary Care Physician: Phi Medeiros III, MD [Primary Care Provider] - Please follow up with your Primary Care Physician in: in two weeks Please Follow Up With: Counseling center When: within next 10 days Please Follow Up With: Phi Medeiros III, MD When: 2 Weeks Disposition: Home Minutes spent on discharge:: 31 Patient Condition:: Stable Medical Necessity - Tobacco Use Smoking Status: Current every day smoker Tobacco Use: Cigarettes Meaningful Use Info Meaningful Use Diagnoses (Choose all that apply): None applicable Code Visit OBSV E&M: 82117 Observation care discharge
[2018-07-22 11:35] LABS: KEPPRA (LEVETIRACETAM) 37.5 ug/mL (10.0-40.0)
== END 2018-07-19 14:02 | disposition home or self-care (01) ==
LOC: ED 18:02 → PCU 21:33
PROVIDERS: Admitting Provider Hospitalist; Emergency Provider Emergency Medicine; Family Provider Family Medicine; PCP Family Medicine; Visit Provider Internal Medicine
DX: G40.89 Other seizures (principal); J96.00 Acute respiratory failure, unspecified whether with hypoxia or hypercapnia; J44.9 Chronic obstructive pulmonary disease, unspecified; F20.0 Paranoid schizophrenia; Z79.899 Other long term (current) drug therapy; G93.40 Encephalopathy, unspecified; G43.909 Migraine, unspecified, not intractable, without status migrainosus; G62.9 Polyneuropathy, unspecified; E78.5 Hyperlipidemia, unspecified; E11.65 Type 2 diabetes mellitus with hyperglycemia; F31.9 Bipolar disorder, unspecified; G40.409 Other generalized epilepsy and epileptic syndromes, not intractable, without status epilepticus; F17.210 Nicotine dependence, cigarettes, uncomplicated; G89.4 Chronic pain syndrome
CPT/HCPCS: 36415; 70450; 73080; 80048; 80053; 80177; 80307; 81001; 82550; 82570; 82962; 84146; 84300; 85025; 94640; 94762; 95819; 97162; 97165; 97802; 99251; 99285; 99406; J7030; J7040; A4216; G0463; J7799

== ENCOUNTER 2018-07-19 20:51 | Inpatient (IN) | payer MEDICAID, SELFPAY ==
[2018-07-18 01:24] VITALS: BMI 35.9
[2018-07-19] VITALS (8 sets, daily range): BP systolic 112–122; BP diastolic 58–76; PULSE 71–85; RESP 14–22; TEMP 35.3–36.1; O2SAT 91–100; BMI 39.7
--- NOTE | 2018-07-19 21:02 | EKG12_ITS ---
Test Reason : UNRESPONSIVE Blood Pressure : / mmHG Vent. Rate : 072 BPM Atrial Rate : 072 BPM P-R Int : 158 ms QRS Dur : 104 ms QT Int : 414 ms P-R-T Axes : 059 007 038 degrees QTc Int : 453 ms Normal sinus rhythm Normal ECG Confirmed by MARITZA CHAUDHARY MD ([id number]), desk editor RACHAEL DIXON ([id number]) on 07/24/2018 11:36:42 AM Referred By: DAVID Confirmed By:MARITZA CHAUDHARY MD
--- NOTE | 2018-07-19 21:02 | CT_ITS ---
STUDY: CT BRAIN WITHOUT CONTRAST REASON FOR EXAM: Female, 42 years old. Unresponsive. RADIATION DOSAGE (If Supplied By Facility): CTDIvol = ( 44.99 ) mGy, DLP = ( 1145.09 ) mGycm TECHNIQUE: Transaxial CT imaging of the brain was performed without administration of intravenous contrast material. Individualized dose optimization techniques were used for this CT. COMPARISON: 07/17/2018 FINDINGS: There is no acute bleed or infarct. There are normal white matter tracts. The ventricles are normal in configuration. There is no hydrocephalus. The visualized paranasal sinuses are clear. The mastoid air cells are well aerated. There is no skull fracture. CT/Brain/Head without Contrast IMPRESSION: No acute intracranial abnormality. Electronically Signed: Marino Cadet, at 22:10 EST Tel , Service support ,
--- NOTE | 2018-07-19 21:02 | ED.RN ---
RN CALLED FOR EKG, PULLED OLD EKGS FOR
[2018-07-19 21:21] LABS: Absolute Lymphocyte Count 2.54 X10^3/ul (0.83-4.51); Absolute Neutrophil Count 3.2 X10^3/uL (2.0-7.7); Basophil# 0.01 X10^3/uL; Basophil% 0.2 % (0-1); Eosinophil# 0.21 X10^3/uL; Eosinophils% 3.3 % (0-5); Hematocrit 37.2 % (37-47); Hemoglobin 11.9 g/dl (12.0-15.0); Lymphocyte # 2.54 X10^3/ul (4.0); Lymphocyte % 39.6 % (19-41); Mean Corpuscular Volume 90.7 fL (81-99); Mean Platelet Vol. 9.9 fl (6.2-12.0); Monocyte# 0.47 X10^3/uL; Monocyte% 7.3 % (0-10); Neutrophil # 3.16 X10^3/uL (2.7-7.7); Neutrophil % 49.3 % (47-70); POSITIVE COUNT NO; POSITIVE DIFFERENTIAL NO; POSITIVE MORPHOLOGY NO; Platelet Count 325 K/mm3 (150-450); RBC Distribution Width CV 14.9 % (11.6-14.6); RBC Distribution Width SD 49.7 fl (35.1-43.9); White Blood Count 6.4 K/mm3 (4.4-11.0)
[2018-07-19] MEDS: 0.9% Normal Saline 1,000 ML 250 ML IV (21:22)
[2018-07-19] MEDS: Propofol 10MG/Ml 1,000 MG/100 ML Bottle 6.708 MG CONT INF (21:22)
[2018-07-19 21:23] LABS: Bacteria 0 SEEN /hpf (None Seen); Mucous, Urine 0 SEEN /hpf (<or=2+); Red Blood Cells-Urine 0 SEEN /hpf (0-5); Squamous Epithelial Cells - UA 0 SEEN /hpf (5-10); White Blood Cells 0 SEEN /hpf (0-5)
[2018-07-19 21:23] LABS: Prothrombin Time (Protime)PT. 13.2 SECONDS (11.7-14.9)
[2018-07-19 21:24] LABS: Partial Thromboplast Time 36.1 Seconds (24.1-36.2)
[2018-07-19 21:35] LABS: AST(SGOT) 24 U/L (15-37); Alanine Aminotransfer ALT/SGPT 30 U/L (13-56); Albumin, Serum 3.4 g/dL (3.2-5.0); Alkaline Phosphatase 102 U/L (45-117); Anion Gap 6 (5-15); BUN 12 mg/dL (7-18); BUN/Creat Ratio 14.1 RATIO (10-20); Calcium,Total 8.3 mg/dL (8.5-10.1); Chloride 109 mmol/L (98-107); Creatinine, Serum 0.85 mg/dL (0.55-1.02); EST Glomerular Filtration Rate 77 mL/min (>60); Est Glom Filt Rate - Afr Amer 93 mL/min (>60); Estimated Creatinine Clearance 79.07 ml/min; Globulin 3.3 g/dL (2.2-4.2); Glucose 129 mg/dL (74-106); Potassium 3.8 mmol/L (3.5-5.1); Protein, Total 6.7 g/dL (6.4-8.2); Sodium Level 140 mmol/L (136-145)
[2018-07-19 21:38] LABS: Color, Urine Yellow (Yellow); Glucose, Dipstick Normal (Normal); Ketone-Dipstick Negative (Negative); Leukocyte Esterase-Dipstick Negative /ul (Negative); Nitrite-Dipstick Negative (Negative); Occult Blood-Urine Negative /ul (Negative); Protein-Dipstick Negative (Negative); Specific Gravity, Urine 1.005 (1.002-1.030); Urine Bilirubin Dipstick Negative (Negative); Urine Clarity Clear (Clear); Urine Urobilinogen Normal (Normal); Urine pH 6.5 (5.0 - 8.0)
--- NOTE | 2018-07-19 21:45 | RAD_ITS ---
STUDY: X-RAY CHEST REASON FOR EXAM: Female, 42 years old. Line placement TECHNIQUE: Frontal view of the chest COMPARISON: 02/22/2019 FINDINGS: There is an endotracheal tube noted with its tip in the right mainstem bronchus. This should be retracted approximately 4 cm. There is an enteric tube noted with its tip in the stomach. The lungs are clear. There are no pleural effusions. There is no pneumothorax. The heart is normal in size. The visualized osseous structures are within normal limits. RAD/Chest 1 View (Portable) IMPRESSION: Endotracheal tube tip in the right mainstem bronchus. This should be retracted approximately 4 cm. Enteric tube tip in the stomach. Clear lungs. N.B. : The above information has been verbally conveyed by Marino Cadet to Kalin Ramirez MD, on 07/19/2018 22:27:27 (ET). Electronically Signed: Marino Cadet, at 22:26 EST Tel , Service support ,
[2018-07-19 21:59] LABS: Amphetamine Urine VISTA NEGATIVE (<1000 ng/mL); Barbiturate Urine VISTA NEGATIVE (< 200 ng/mL); Benzodiazepine Urine VISTA NEGATIVE (< 200 ng/mL); Cocaine Urine VISTA NEGATIVE (< 300 ng/mL); Ecstacy Urine VISTA NEGATIVE (< 500 ng/mL); Methadone Urine VISTA NEGATIVE (< 300 ng/mL); PCP Urine VISTA NEGATIVE (< 25 ng/mL); THC Urine VISTA POSITIVE (< 50 ng/mL); Vista UDS pH Range 6
[2018-07-19 22:12] LABS: Lactic Acid 0.8 mmol/L (0.4-2.0)
[2018-07-19] MEDS: Succinylcholine Chloride 200 MG/10 ML Vial 100 MG IV (22:15)
--- NOTE | 2018-07-19 22:39 | ED.VISSUMM ---
- ER Visit Summary Date of Service: 07/19/18 Chief Complaint: Unresponsive History of Present Illness: The patient is a 42 F presents from [facility] for unresponsive emesis and hypoxia. Patient was discharged today for noted seizure. She is on Keppra. Reported by EMS is there eating dinner at 630. Staff checked on patient there is emesis and patient unresponsive. Patient was in the 70s on pulse ox. She is placed on a nonrebreather into the 80s. She was given Narcan with no response. There is no seizure activity. Right nasal trumpet by EMS. Records reviewed from her admission, she had a normal EEG. She was discharged on clonazepam. Later discussion with [facility] who called reported there was 3 pills missing from her short stay there. No additional information. Physical Examination: General: Patient unresponsive GCS is a 6. HEENT: Normocephalic, atraumatic. Pupils were not pinpoint. Symmetric. Reactive. Patient with emesis around the face nose and torso. Right nasal trumpet. Cardiovascular: Regular rate and rhythm, no murmurs Respiratory: Diminished breath sounds. Abdomen: Soft, nontender, nondistended Extremities: Nontender, no edema, pulses intact ?4 Neuro: Patient withdrawal to pain. Test Results: CT brain: Negative. Chest x-ray right tube and mainstem. OG in stomach region. White count 6.4 hemoglobin 0.9. Creatinine 0.85. INR 0. Liver enzymes normal. UA normal lactate 0.8. EKG sinus rate of [address] or T wave changes. Blood culture x2. Urine culture pending. Tox screen positive for THC. ABG: PH 7.28. PCO2 49. PaO2 29. bicarb 23. Emergency Department Course and Treatment: Patient GCS of 6, with emesis, concerns for aspiration with her hypoxemia. RSI performed direct visualization with no complications for intubation using 7.5 Luxembourgish was 23 cm at the lip. Secured held by respiratory. Sepsis workup initiated. Propofol drip and Unasyn IV started. On chest x-ray noted to be in right mainstem, pulled back 2 cm and reported by respiratory that it was 25 cm of the lips therefore went back to 23 cm. OG in the stomach region. Labs are stable vitals are stable on propofol. Reevaluation the patient reported by nursing after nasal trumpet was removed there was blood being suctioned by respiratory, and from OG in from the oral mucosa membranes. Evaluation noted injury to the right turbinate region. There is blood noted, therefore 5.5 cm Rhino Rocket was placed. Federal Agent Dr. Retana was updated. Will discuss with hospitalist Dr. Jennings for admission. ABG did return slightly acidotic. O2 turned down to 50%. Treatment Plan: [] Disposition: Admission Impression: 1. Acute respiratory failure 2. Aspiration 3. Encephalopathy 4. Iatrogenic right nasal bleed 5. Possible overdose of benzodiazepine This note was generated with [employer] dictation software. It may contain incorrect words, spelling, and punctuation that were not noted in review of the chart prior to signing ED Disposition - Plan for ED Patient: Disposition: Acute Care Hospital [facility] Chief Complaint: Unresponsive Diagnosis: Acute respiratory failure, Aspiration into airway, Encephalopathy, Right-sided epistaxis Referrals: Phi Medeiros III, MD [Primary Care Provider] -
--- NOTE | 2018-07-19 22:47 | ED.DCSUM_ITS ---
- ER Visit Summary Date of Service: 07/19/18 Chief Complaint: Unresponsive History of Present Illness: The patient is a 42 F presents from [facility] for unresponsive emesis and hypoxia. Patient was discharged today for noted seizure. She is on Keppra. Reported by EMS is there eating dinner at 630. Staff checked on patient there is emesis and patient unresponsive. Patient was in the 70s on pulse ox. She is placed on a nonrebreather into the 80s. She was given Narcan with no response. There is no seizure activity. Right nasal trumpet by EMS. Records reviewed from her admission, she had a normal EEG. She was discharged on clonazepam. Later discussion with [facility] who called reported there was 3 pills missing from her short stay there. No additional information. Physical Examination: General: Patient unresponsive GCS is a 6. HEENT: Normocephalic, atraumatic. Pupils were not pinpoint. Symmetric. Reactive. Patient with emesis around the face nose and torso. Right nasal trumpet. Cardiovascular: Regular rate and rhythm, no murmurs Respiratory: Diminished breath sounds. Abdomen: Soft, nontender, nondistended Extremities: Nontender, no edema, pulses intact ?4 Neuro: Patient withdrawal to pain. Test Results: CT brain: Negative. Chest x-ray right tube and mainstem. OG in stomach region. White count 6.4 hemoglobin 0.9. Creatinine 0.85. INR 0. Liver enzymes normal. UA normal lactate 0.8. EKG sinus rate of [address] or T wave changes. Blood culture x2. Urine culture pending. Tox screen positive for THC. ABG: PH 7.28. PCO2 49. PaO2 29. bicarb 23. Emergency Department Course and Treatment: Patient GCS of 6, with emesis, concerns for aspiration with her hypoxemia. RSI performed direct visualization with no complications for intubation using 7.5 Romanian was 23 cm at the lip. Secured held by respiratory. Sepsis workup initiated. Propofol drip and Unasyn IV started. On chest x-ray noted to be in right mainstem, pulled back 2 cm and reported by respiratory that it was 25 cm of the lips therefore went back to 23 cm. OG in the stomach region. Labs are stable vitals are stable on propofol. Reevaluation the patient reported by nursing after nasal trumpet was removed there was blood being suctioned by respiratory, and from OG in from the oral mucosa membranes. Evaluation noted injury to the right turbinate region. There is blood noted, therefore 5.5 cm Rhino Rocket was placed. Extension Service Supervisor Dr. Retana was updated. Will discuss with hospitalist Dr. Jennings for admission. ABG did return slightly acidotic. O2 turned down to 50%. Treatment Plan: [] Disposition: Admission Impression: 1. Acute respiratory failure 2. Aspiration 3. Encephalopathy 4. Iatrogenic right nasal bleed 5. Possible overdose of benzodiazepine This note was generated with [employer] dictation software. It may contain incorrect words, spelling, and punctuation that were not noted in review of the chart prior to signing ED Disposition - Plan for ED Patient: Disposition: Acute Care Hospital [facility] Chief Complaint: Unresponsive Diagnosis: Acute respiratory failure, Aspiration into airway, Encephalopathy, Right-sided epistaxis Referrals: Phi Medeiros III, MD [Primary Care Provider] -
[2018-07-19 22:51] LABS: Allen Test POS; Base Excess -3 mmol/L (-2 to +2); Bicarbonate 23.2 mmol/L (22-26); Blood Gas Specimen Type ART; FI02 100; Mode A-C; O2 Delivery Device Vent; PEEP 5; PO2 279 mmHG (75-100); RR 12; SITE R Radial; SO2 100 % (95-99); Time Given 2250; Total Carbon Dioxide 25 mmol/L; Vt 450; pCO2 49.2 mmHg (35-45); pH 7.28 (7.35-7.45)
--- NOTE | 2018-07-19 23:36 | HP.PCM_ITS ---
Problem List (1) Acute encephalopathy Status: Acute History of Present Illness Date of Admission: 07/19/18 Chief Complaint: unresponsiveness The patient is a 42 year old F with a significant history of epilepsy, COPD, paranoid schizophrenia, panic attacks, neuropathy, migraines and multiple hairline fractures who lives at the [facility] who was admitted for seizures on 07/18/2018 for seizure and discharged on 07/19/2018 back to the [facility]. Patient returned on the same day of discharge 07/19/2018 and at this time around with vomiting and unresponsiveness and with a Ronald coma scale of 6 at the emergency department for which reason she was intubated for airway protection. While at the emergency department a [facility] nurse called that patient is missing 3 of her 2 milligrams Ativan pills prescribed on 07/19/2018. However urinary drug screen at emergency department showed only marijuana without any benzodiazepine. But of note patient received benzodiazepine while inpatient 07/18/16-07/19/18. At emergency department as stated above patient was intubated and placed on propofol because of agitation. Also patient received Unasyn for possible developing aspiration pneumonia. Acute encephalopathy Different diagnosis include benzodiazepine overdose; nonconvulsive status epilepticus; metabolic encephalopathy or other. BMP is not remarkable. CMP ordered CBC is remarkable for mild anemia. Patient is intubated at this time. Importantly chest x-ray post intubation showed adequate endotracheal tube in right main bronchus this was pulled up by respiratory without a repeat chest x-ray. Repeat chest x-ray as necessary. Spontaneous awakening trial when indicated. For nonconvulsive status epilepticus, patient is already on propofol. Triglycerides in a.m. while patient is on propofol. ABGs with vent adjustments. Continue Unasyn prophylaxis for aspiration pneumonia. Importantly with her previous admission neurology was consulted. Neurology thought that the patient's issue was probably from psych; and recommended the patient to follow-up with psych. EEG on her previous admission was unremarkable. Repeat EEG not obtained at this time especially as patient is on propofol which will control seizures. ICU electrolyte replacement protocol as necessary. Audio Visual Facilities Engineer consult to optimize management of critically ill patient. Hypocalcemia Mild Ionized calcium ordered. History of seizures Patient on propofol at this time. Resume home seizure medication when patient is extubated. COPD Serial ABG as necessary to adjust vent settings. Scheduled DuoNeb and albuterol as needed. Paranoid Schizophrenia Home schizophrenia medication held since patient is intubated and sedated. Depression Home medication held secondary to above. Tobacco Abuse Consider smoking physician discussion when patient is alert. Nicotine patch not ordered at this time since patient is intubated and sedated GI prophylaxis Pepcid ordered. Feeding OG tube in place. Consider feeding when appropriate. DVT prophylaxis subcutaneous with Lovenox T Past Medical History Past Medical History (Chronic Problems): Chronic Problems COPD (chronic obstructive pulmonary disease) (Chronic) Tobacco use disorder (Chronic) Schizoaffective disorder (Chronic) HLD (hyperlipidemia) (Chronic) History of abdominal pain (Chronic) Allergies bupropion HCl [From Wellbutrin] Allergy (Verified 07/17/18 16:46) Other codeine phosphate [From Tylenol-Codeine #3] Allergy (Verified 07/17/18 16:46) Unknown etodolac [From Lodine] Allergy (Verified 07/17/18 16:46) Rash varenicline tartrate [From Chantix] Allergy (Verified 07/17/18 16:46) Other acetaminophen [From Darvocet-N 100] Adverse Reaction (Verified 07/17/18 16:46) Nausea codeine Adverse Reaction (Verified 07/17/18 16:46) Nausea milk Adverse Reaction (Verified 07/18/18 05:49) Other propoxyphene napsylate [From Darvocet-N 100] Adverse Reaction (Verified 07/17/18 16:46) Nausea Home Medications: Ambulatory Orders Medication Instructions Recorded Pregabalin [Lyrica] 200 mg PO TID 01/03/16 Albuterol Inhaler [Ventolin Hfa] 2 puff INHALATION Q4H PRN PRN 03/15/17 Amitriptyline HCl 100 mg PO QHS 03/15/17 Cetirizine HCl [Zyrtec] 10 mg PO QHS 03/15/17 Ibuprofen 600 mg PO Q6H PRN PRN 02/22/18 Ipratropium [Atrovent Inhaler] 1 puff INHALATION 4X/DAY 02/22/18 Levetiracetam 1,000 mg PO BID 02/22/18 Citalopram [Celexa] 60 mg PO DAILY 07/18/18 Diphenhydramine HCl/Zinc Acet 35 gm TP TID PRN PRN 07/18/18 [Anti-Itch 2%-0.1% Cream] Melatonin 10 mg PO QHS PRN 07/18/18 Omeprazole [Prilosec] 20 mg PO DAILY 07/18/18 Quetiapine Fumarate [Seroquel] 100 mg PO QHS 07/18/18 Quetiapine Fumarate [Seroquel] 400 mg PO BID 07/18/18 Clonazepam [Klonopin] 2 mg PO TID PRN PRN #30 tablet 07/19/18 Surgical History: - - Carpal tunnel surgery, surgery for trigger finger and trigger thumb, facial reconstruction secondary to trauma, exploratory abdominal surgery, partial hysterectomy Psychiatric History: - - 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 Smoking Status: Current every day smoker - *Family History Maternal History Items: Hypertension Paternal History Items: Diabetes, High Cholesterol, Heart Disease Review of Systems Unable to obtain accurate/complete ROS d/t: Sedation and intubation VTE Information - Inpt Only VTE Present on Admission: No VTE Mechan Device Prophylaxis: None VTE Pharm Prophylaxis ordered?: Yes Patient Problems: Active and Suspected Problems Acute respiratory failure (Acute) Aspiration into airway (Acute) Encephalopathy (Acute) Right-sided epistaxis (Acute) Acute encephalopathy (Acute) - Physical Exam General: - - Patient is sedated and intubated on mechanical ventilation. HEENT: Atraumatic, PERRLA, EOMI, Normocephalic, - - Old blood on nostrils and face from nasal trumpet placed by paramedics. Neck: No JVD, Negative Carotid Bruits, Trachea Midline Lungs: Clear to auscultation, Normal air movement Cardiovascular: Regular rate, No murmurs Abdomen: Bowel Sounds Present, Soft, Non Tender Extremities: No edema, Capillary Refill Less than 3 Seconds Skin: No rashes, No breakdown Musculoskeletal: No Tenderness to Palpation of Joints or Extremities Neurological: - - Intubated and sedated. With gag reflex. Psych/Mental Status: Normal Affect, Appropriate Vital Signs Temp Pulse Resp BP Pulse Ox 95.6 F L 71 14 117/76 100 07/19/18 22:33 07/19/18 22:33 07/19/18 22:33 07/19/18 22:33 07/19/18 22:33 Oxygen Flow Rate (L/min) 15 Oxygen Delivery Method Mechanical Ventilator Weight: 111.8 kg Body Mass Index (BMI) 39.7 Finger Stick Blood Glucose 88 Laboratory Tests Past 24 Hrs 07/19/18 07/19/18 07/19/18 20:55 20:55 20:55 WBC 6.4 RBC 4.10 L Hgb 11.9 L Hct 37.2 MCV 90.7 MCH 29.0 MCHC 32.0 RDW 14.9 H RDW Differential 49.7 H Plt Count 325 MPV 9.9 Immature Gran % (Auto) 0.300 Neut % (Auto) 49.3 Lymph % (Auto) 39.6 Kay % (Auto) 7.3 Eos % (Auto) 3.3 Baso % (Auto) 0.2 Absolute Neuts (auto) 3.2 Absolute Lymphs (auto) 2.54 Total Counted Not Reportable PT 13.2 INR 1.0 APTT 36.1 Specimen Type Sample Site pH Bicarbonate Actual POC Total CO2 Base Excess O2 Saturation O2 % ABG pCO2 ABG pO2 Ajit Test Respiration Rate O2 Delivery Device Vent Mode Tidal Volume POC PEEP Blood Gas Notified Whom Blood Gas Notified Time Sodium 140 Potassium 3.8 Chloride 109 H Carbon Dioxide 25.0 Anion Gap 6 BUN 12 Creatinine 0.85 Estim Creat Clear Calc 79.07 Est GFR (MDRD) Af Amer 93 Est GFR (MDRD) Non-Af 77 BUN/Creatinine Ratio 14.1 Glucose 129 H Lactic Acid Calcium 8.3 L Total Bilirubin 0.20 AST 24 ALT 30 Alkaline Phosphatase 102 Total Protein 6.7 Albumin 3.4 Globulin 3.3 Albumin/Globulin Ratio 1.0 Urine Color Urine Clarity Urine pH Ur Specific [place] Urine Protein Urine Glucose (UA) Urine Ketones Urine Occult Blood Urine Nitrite Urine Bilirubin Urine Urobilinogen Ur Leukocyte Esterase Urine RBC Urine WBC Ur Squamous Epith Cells Urine Bacteria Urine Mucus Urine Opiates Screen Urine Methadone Screen Ur Barbiturates Screen Ur Phencyclidine Scrn Ur Amphetamines Screen U Methamphetamin-MDMA U Benzodiazepines Scrn Urine Cocaine Screen U Cannabinoids Screen Ur Drug Screen Comment 07/19/18 07/19/18 07/19/18 21:15 21:18 21:18 WBC RBC Hgb Hct MCV MCH MCHC RDW RDW Differential Plt Count MPV Immature Gran % (Auto) Neut % (Auto) Lymph % (Auto) Kay % (Auto) Eos % (Auto) Baso % (Auto) Absolute Neuts (auto) Absolute Lymphs (auto) Total Counted PT INR APTT Specimen Type Sample Site pH Bicarbonate Actual POC Total CO2 Base Excess O2 Saturation O2 % ABG pCO2 ABG pO2 Ajit Test Respiration Rate O2 Delivery Device Vent Mode Tidal Volume POC PEEP Blood Gas Notified Whom Blood Gas Notified Time Sodium Potassium Chloride Carbon Dioxide Anion Gap BUN Creatinine Estim Creat Clear Calc Est GFR (MDRD) Af Amer Est GFR (MDRD) Non-Af BUN/Creatinine Ratio Glucose Lactic Acid 0.8 Calcium Total Bilirubin AST ALT Alkaline Phosphatase Total Protein Albumin Globulin Albumin/Globulin Ratio Urine Color Yellow Urine Clarity Clear Urine pH 6.5 Ur Specific [place] 1.005 Urine Protein Negative Urine Glucose (UA) Normal Urine Ketones Negative Urine Occult Blood Negative Urine Nitrite Negative Urine Bilirubin Negative Urine Urobilinogen Normal Ur Leukocyte Esterase Negative Urine RBC 0 SEEN Urine WBC 0 SEEN Ur Squamous Epith Cells 0 SEEN Urine Bacteria 0 SEEN Urine Mucus 0 SEEN Urine Opiates Screen NEGATIVE Urine Methadone Screen NEGATIVE Ur Barbiturates Screen NEGATIVE Ur Phencyclidine Scrn NEGATIVE Ur Amphetamines Screen NEGATIVE U Methamphetamin-MDMA NEGATIVE U Benzodiazepines Scrn NEGATIVE Urine Cocaine Screen NEGATIVE U Cannabinoids Screen POSITIVE H Ur Drug Screen Comment 07/19/18 22:44 WBC RBC Hgb Hct MCV MCH MCHC RDW RDW Differential Plt Count MPV Immature Gran % (Auto) Neut % (Auto) Lymph % (Auto) Kay % (Auto) Eos % (Auto) Baso % (Auto) Absolute Neuts (auto) Absolute Lymphs (auto) Total Counted PT INR APTT Specimen Type ART Sample Site R Radial pH 7.28 L Bicarbonate Actual 23.2 POC Total CO2 25 Base Excess -3 L O2 Saturation 100 H O2 % 100 ABG pCO2 49.2 H ABG pO2 279 H Ajit Test POS Respiration Rate 12 O2 Delivery Device Vent Vent Mode A-C Tidal Volume 450 POC PEEP 5 Blood Gas Notified Whom ED Blood Gas Notified Time 2250 Sodium Potassium Chloride Carbon Dioxide Anion Gap BUN Creatinine Estim Creat Clear Calc Est GFR (MDRD) Af Amer Est GFR (MDRD) Non-Af BUN/Creatinine Ratio Glucose Lactic Acid Calcium Total Bilirubin AST ALT Alkaline Phosphatase Total Protein Albumin Globulin Albumin/Globulin Ratio Urine Color Urine Clarity Urine pH Ur Specific [place] Urine Protein Urine Glucose (UA) Urine Ketones Urine Occult Blood Urine Nitrite Urine Bilirubin Urine Urobilinogen Ur Leukocyte Esterase Urine RBC Urine WBC Ur Squamous Epith Cells Urine Bacteria Urine Mucus Urine Opiates Screen Urine Methadone Screen Ur Barbiturates Screen Ur Phencyclidine Scrn Ur Amphetamines Screen U Methamphetamin-MDMA U Benzodiazepines Scrn Urine Cocaine Screen U Cannabinoids Screen Ur Drug Screen Comment Assessment/Plan All Active Problems Acute respiratory failure (Acute) Aspiration into airway (Acute) Encephalopathy (Acute) Right-sided epistaxis (Acute) Acute encephalopathy (Acute) Seizures (Acute) Right foot pain (Resolved) Fluid collection right foot (Resolved) Rib contusion (Resolved) The patient is a 42 year old F with a significant history of epilepsy, COPD, paranoid schizophrenia, panic attacks, neuropathy, migraines and multiple hairline fractures who lives at the [facility] [employer] who was admitted for seizures on 07/18/2018 for seizure and discharged on 07/19/2018 back to the [facility] [employer] returning because of unresponsiveness in the setting of vomiting; and with medicine Ativan pills. Acute encephalopathy Different diagnosis include benzodiazepine overdose; nonconvulsive status epilepticus; metabolic encephalopathy or other. BMP is not remarkable. CMP ordered CBC is remarkable for mild anemia. Patient is intubated at this time. Importantly chest x-ray post intubation showed adequate endotracheal tube in right main bronchus this was pulled up by respiratory without a repeat chest x-ray. Repeat chest x-ray as necessary. Spontaneous awakening trial when indicated. For nonconvulsive status epilepticus, patient is already on propofol. Triglycerides in a.m. while patient is on propofol. ABGs with vent adjustments. Continue Unasyn prophylaxis for aspiration pneumonia. Importantly with her previous admission neurology was consulted. Neurology thought that the patient's issue was probably from psych; and recommended the patient to follow-up with psych. EEG on her previous admission was unremarkable. Repeat EEG not obtained at this time especially as patient is on propofol which will control seizures. ICU electrolyte replacement protocol as necessary. Audio Visual Facilities Engineer consult to optimize management of critically ill patient. Hypocalcemia Mild Ionized calcium ordered. History of seizures Patient on propofol at this time. Resume home seizure medication when patient is extubated. COPD Serial ABG as necessary to adjust vent settings. Scheduled DuoNeb and albuterol as needed. Paranoid Schizophrenia Home schizophrenia medication held since patient is intubated and sedated. Depression Home medication held secondary to above. Tobacco Abuse Consider smoking physician discussion when patient is alert. Nicotine patch not ordered at this time since patient is intubated and sedated GI prophylaxis Pepcid ordered. Feeding OG tube in place. Consider feeding when appropriate. DVT prophylaxis subcutaneous with Lovenox Code Visit Inpatient E&M: 97133 Init Hosp L3
[2018-07-20] VITALS (45 sets, daily range): BP systolic 122–141; BP diastolic 65–91; PULSE 71–84; RESP 12–25; TEMP 35.4–37.9; O2SAT 93–100; BMI 38.9; BMI 39.8
[2018-07-20] MEDS: Propofol 10MG/Ml 1,000 MG/100 ML Bottle 6.708 MG CONT INF ×4 (00:42→19:34)
[2018-07-20] MEDS: 0.9% Normal Saline 1,000 ML 75 ML IV (00:49)
[2018-07-20 01:11] LABS: Base Excess -4 mmol/L (-2 to +2); Bicarbonate 22.2 mmol/L (22-26); Blood Gas Specimen Type ART; FI02 40; Mode A-C; O2 Delivery Device Vent; PEEP 5; PO2 82 mmHG (75-100); RR 12; SITE L Radial; SO2 94 % (95-99); Time Given 55; Total Carbon Dioxide 24 mmol/L; Vt 450; pCO2 45.9 mmHg (35-45); pH 7.29 (7.35-7.45)
[2018-07-20 01:24] LABS: CPK Total, Creatine Kinase 158 U/L (26-192); Triglycerides 284 mg/dL
[2018-07-20] MEDS: CHLORHEXIDINE GLUC 2% CLOTH 1 EACH TOWELETTE TOPICAL (04:18)
[2018-07-20 04:40] LABS: Hematocrit 33.9 % (37-47); Hemoglobin 10.9 g/dl (12.0-15.0); Mean Corp Hgb Conc 32.2 g/gl (32-36); Mean Corpuscular Hgb 29.4 pg (27.0-32.0); Mean Corpuscular Volume 91.4 fL (81-99); Mean Platelet Vol. 10.2 fl (6.2-12.0); Platelet Count 266 K/mm3 (150-450); RBC Distribution Width CV 14.8 % (11.6-14.6); RBC Distribution Width SD 48.5 fl (35.1-43.9); Red Blood Count 3.71 M/mm3 (4.2-5.4); White Blood Count 10.1 K/mm3 (4.4-11.0)
[2018-07-20 04:46] LABS: Scan Indicated on CBC? Y/N NO
[2018-07-20 04:54] LABS: AST(SGOT) 25 U/L (15-37); Alanine Aminotransfer ALT/SGPT 29 U/L (13-56); Albumin, Serum 2.9 g/dL (3.2-5.0); Alkaline Phosphatase 98 U/L (45-117); Anion Gap 8 (5-15); BUN 13 mg/dL (7-18); BUN/Creat Ratio 18.5 RATIO (10-20); Calcium,Total 8.1 mg/dL (8.5-10.1); Chloride 112 mmol/L (98-107); EST Glomerular Filtration Rate 96 mL/min (>60); Est Glom Filt Rate - Afr Amer 116 mL/min (>60); Estimated Creatinine Clearance 96.01 ml/min; Glucose 119 mg/dL (74-106); Magnesium 1.5 mg/dL (1.6-2.6); Potassium 3.6 mmol/L (3.5-5.1); Protein, Total 5.9 g/dL (6.4-8.2); Sodium Level 142 mmol/L (136-145)
[2018-07-20 04:59] LABS: Phosphorus 3.6 mg/dL (2.5-4.9)
--- NOTE | 2018-07-20 06:57 | RAD_ITS ---
STUDY: X-RAY CHEST REASON FOR EXAM: Female, 42 years old. ET tube repositioning TECHNIQUE: 1 view COMPARISON: July 19, 2018 FINDINGS: An ET tube and NG tube are in place. The tip of the ET tube is 1.5 cm above the kermit. The heart is normal. There is mild vascular congestion and platelike atelectatic changes in the left lung base Normal visualized thoracic spine. Normal visualized ribs, clavicles, and shoulders. There is no demonstrated abnormality of the visualized soft tissue structures of the upper abdomen. RAD/Chest 1 View (Portable) IMPRESSION: An NG tube and ET tube in position with the ET tube 1.5 cm above the kermit. Platelike atelectatic changes in the left lung base Electronically Signed: Willie Ellison MD at 8:04 EST Tel , Service support ,
--- NOTE | 2018-07-20 07:17 | PCM.CON.CC ---
Problem List (1) Acute respiratory failure Status: Acute Qualifiers: Respiratory failure complication: hypercapnia Qualified Code(s): J96.02 - Acute respiratory failure with hypercapnia (2) Aspiration into airway Status: Acute Qualifiers: Encounter type: initial encounter Qualified Code(s): T17.908A - Unspecified foreign body in respiratory tract, part unspecified causing other injury, initial encounter (3) Encephalopathy Status: Acute (4) Right-sided epistaxis Status: Acute (5) Seizures Status: Chronic (6) COPD (chronic obstructive pulmonary disease) Status: Suspected Qualifiers: COPD type: emphysema Emphysema type: centrilobular Qualified Code(s): J43.2 - Centrilobular emphysema (7) Tobacco use disorder Status: Chronic (8) Schizoaffective disorder Status: Chronic (9) HLD (hyperlipidemia) Status: Chronic (10) Type II diabetes mellitus, uncontrolled Status: Inactive Qualifiers: Coma presence: without coma (11) History of abdominal pain Status: Chronic Reason for Consult Date of Consultation: 07/20/18 Reason for Consultation: Acute respiratory failure History of Present Illness: The patient is a 42 year old F, with past medical history listed below, who presented to [facility] on 07/19/2018 after being found unresponsive. Patient was reportedly recently discharged from [facility] secondary to reported seizure activity. Patient is on Keppra at baseline. Patient was reportedly eating dinner at 6:30 PM and when staff checked on the patient she was found in emesis and unresponsive. Patient was reportedly saturating in the 70s on room air, but did improved to 80s and on nonrebreather. Patient was given Narcan with no response. Patient did not have any seizure activity at that time. Patient had a right nasal trumpet placed by EMS. In the emergency room, patient was noted to have a GCS of 6 with emesis. Patient was emergently intubated and initiated on Unasyn IV for presumed aspiration pneumonia. Patient was noted to have a right mainstem intubation, so ET tube was retracted. Significant blood was noted from the right nares and there was reported trauma to the right turbinate region. Patient does have a Rhino Rocket in place. Patient was transferred to the intensive care unit for further evaluation. On my evaluation, patient was not very responsive. Patient does not have any family at the bedside. No further information outside of electronic medical record and discussion with hospitalist are available. Patient reportedly was discharged with a benzodiazepine and reportedly 6 mg of Ativan were not accounted for. Unable to obtain a review of systems at this time. Past Medical History Past Medical History (Chronic Problems): Chronic Problems Seizures (Chronic) Tobacco use disorder (Chronic) Schizoaffective disorder (Chronic) HLD (hyperlipidemia) (Chronic) History of abdominal pain (Chronic) Allergies bupropion HCl [From Wellbutrin] Allergy (Verified 07/17/18 16:46) Other codeine phosphate [From Tylenol-Codeine #3] Allergy (Verified 07/17/18 16:46) Unknown etodolac [From Lodine] Allergy (Verified 07/17/18 16:46) Rash varenicline tartrate [From Chantix] Allergy (Verified 07/17/18 16:46) Other acetaminophen [From Darvocet-N 100] Adverse Reaction (Verified 07/17/18 16:46) Nausea codeine Adverse Reaction (Verified 07/17/18 16:46) Nausea milk Adverse Reaction (Verified 07/18/18 05:49) Other propoxyphene napsylate [From Darvocet-N 100] Adverse Reaction (Verified 07/17/18 16:46) Nausea Home Medications: Ambulatory Orders Medication Instructions Recorded Pregabalin [Lyrica] 200 mg PO TID 01/03/16 Albuterol Inhaler [Ventolin Hfa] 2 puff INHALATION Q4H PRN PRN 03/15/17 Amitriptyline HCl 100 mg PO QHS 03/15/17 Cetirizine HCl [Zyrtec] 10 mg PO QHS 03/15/17 Ibuprofen 600 mg PO Q6H PRN PRN 02/22/18 Ipratropium [Atrovent Inhaler] 1 puff INHALATION 4X/DAY 02/22/18 Levetiracetam 1,000 mg PO BID 02/22/18 Citalopram [Celexa] 60 mg PO DAILY 07/18/18 Diphenhydramine HCl/Zinc Acet 35 gm TP TID PRN PRN 07/18/18 [Anti-Itch 2%-0.1% Cream] Melatonin 10 mg PO QHS PRN 07/18/18 Omeprazole [Prilosec] 20 mg PO DAILY 07/18/18 Quetiapine Fumarate [Seroquel] 100 mg PO QHS 07/18/18 Quetiapine Fumarate [Seroquel] 400 mg PO BID 07/18/18 Clonazepam [Klonopin] 2 mg PO TID PRN PRN #30 tablet 07/19/18 Surgical History: - - Carpal tunnel surgery, surgery for trigger finger and trigger thumb, facial reconstruction secondary to trauma, exploratory abdominal surgery, partial hysterectomy Psychiatric History: - - Schizoaffective disorder 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 Initial chest x-ray did show a right mainstem intubation. Repeat chest x-ray after my evaluation shows a developing right lower lobe infiltrate and endotracheal tube just above the kermit. - Physical Exam General: No apparent distress, Lethargic, Non-Cooperative, - - RASS -3. Morbidly Obese HEENT: Atraumatic, PERRLA, EOMI, Normocephalic, - - Scleral injection Oral: Moist Mucosa, No Gingival or Mucosal Lesions/ Ulcerations Neck: Supple, No JVD, No Nodes, Trachea Midline Lungs: Diminished, Rhonchi - Right > Left Cardiovascular: Regular rate, Regular Rhythm, Normal S1, Normal S2, No murmurs, No rub noted, No Gallop Abdomen: Bowel Sounds Present, Soft, Non Tender, Non-Distended, Obese Extremities: No clubbing, No cyanosis, No edema, Capillary Refill Less than 3 Seconds Skin: No rashes, No breakdown Musculoskeletal: No Tenderness to Palpation of Joints or Extremities, No Muscle Wasting Lymphatic: No Cervical, Supraclavicular, or Inguinal Adenopathy Neurological: Cranial nerves II-XII grossly intact, Neuro grossly intact, Motor Exam 5/5 strength throughout Psych/Mental Status: Flat Affect Vital Signs Temp Pulse Resp BP Pulse Ox 36.9 C 81 18 138/84 H 97 07/20/18 07:00 07/20/18 07:00 07/20/18 07:00 07/20/18 07:00 07/20/18 07:00 Oxygen Flow Rate (L/min) 15 Oxygen Delivery Method Mechanical Ventilator Weight: 110.9 kg Body Mass Index (BMI) 38.9 Finger Stick Blood Glucose 88 Intake and Output for Last 24 Hours 07/18/18 07/19/18 07/20/18 23:59 23:59 23:59 Intake Total 973 / 973 Output Total 300 / 300 Balance 673 / 673 Laboratory Tests Past 24 Hrs 07/19/18 07/19/18 07/19/18 20:55 20:55 20:55 WBC 6.4 RBC 4.10 L Hgb 11.9 L Hct 37.2 MCV 90.7 MCH 29.0 MCHC 32.0 RDW 14.9 H RDW Differential 49.7 H Plt Count 325 MPV 9.9 Immature Gran % (Auto) 0.300 Neut % (Auto) 49.3 Lymph % (Auto) 39.6 [place] % (Auto) 7.3 Eos % (Auto) 3.3 Baso % (Auto) 0.2 Absolute Neuts (auto) 3.2 Absolute Lymphs (auto) 2.54 Total Counted Not Reportable PT 13.2 INR 1.0 APTT 36.1 Specimen Type Sample Site pH Bicarbonate Actual POC Total CO2 Base Excess O2 Saturation O2 % ABG pCO2 ABG pO2 Ajit Test Respiration Rate O2 Delivery Device Minute Volume Vent Mode Tidal Volume POC PEEP Blood Gas Notified Whom Blood Gas Notified Time Sodium 140 Potassium 3.8 Chloride 109 H Carbon Dioxide 25.0 Anion Gap 6 BUN 12 Creatinine 0.85 Estim Creat Clear Calc 79.07 Est GFR (MDRD) Af Amer 93 Est GFR (MDRD) Non-Af 77 BUN/Creatinine Ratio 14.1 Glucose 129 H Lactic Acid Calcium 8.3 L Ionized Calcium Phosphorus Magnesium Total Bilirubin 0.20 AST 24 ALT 30 Alkaline Phosphatase 102 Total Creatine Kinase Total Protein 6.7 Albumin 3.4 Globulin 3.3 Albumin/Globulin Ratio 1.0 Triglycerides Urine Color Urine Clarity Urine pH Ur Specific [place] Urine Protein Urine Glucose (UA) Urine Ketones Urine Occult Blood Urine Nitrite Urine Bilirubin Urine Urobilinogen Ur Leukocyte Esterase Urine RBC Urine WBC Ur Squamous Epith Cells Urine Bacteria Urine Mucus Urine Opiates Screen Urine Methadone Screen Ur Barbiturates Screen Ur Phencyclidine Scrn Ur Amphetamines Screen U Methamphetamin-MDMA U Benzodiazepines Scrn Urine Cocaine Screen U Cannabinoids Screen Ur Drug Screen Comment 07/19/18 07/19/18 07/19/18 20:55 21:15 21:18 WBC RBC Hgb Hct MCV MCH MCHC RDW RDW Differential Plt Count MPV Immature Gran % (Auto) Neut % (Auto) Lymph % (Auto) [place] % (Auto) Eos % (Auto) Baso % (Auto) Absolute Neuts (auto) Absolute Lymphs (auto) Total Counted PT INR APTT Specimen Type Sample Site pH Bicarbonate Actual POC Total CO2 Base Excess O2 Saturation O2 % ABG pCO2 ABG pO2 Ajit Test Respiration Rate O2 Delivery Device Minute Volume Vent Mode Tidal Volume POC PEEP Blood Gas Notified Whom Blood Gas Notified Time Sodium Potassium Chloride Carbon Dioxide Anion Gap BUN Creatinine Estim Creat Clear Calc Est GFR (MDRD) Af Amer Est GFR (MDRD) Non-Af BUN/Creatinine Ratio Glucose Lactic Acid 0.8 Calcium Ionized Calcium Phosphorus Magnesium Total Bilirubin AST ALT Alkaline Phosphatase Total Creatine Kinase 158 Total Protein Albumin Globulin Albumin/Globulin Ratio Triglycerides 284 H Urine Color Urine Clarity Urine pH Ur Specific [place] Urine Protein Urine Glucose (UA) Urine Ketones Urine Occult Blood Urine Nitrite Urine Bilirubin Urine Urobilinogen Ur Leukocyte Esterase Urine RBC Urine WBC Ur Squamous Epith Cells Urine Bacteria Urine Mucus Urine Opiates Screen NEGATIVE Urine Methadone Screen NEGATIVE Ur Barbiturates Screen NEGATIVE Ur Phencyclidine Scrn NEGATIVE Ur Amphetamines Screen NEGATIVE U Methamphetamin-MDMA NEGATIVE U Benzodiazepines Scrn NEGATIVE Urine Cocaine Screen NEGATIVE U Cannabinoids Screen POSITIVE H Ur Drug Screen Comment 07/19/18 07/19/18 07/20/18 21:18 22:44 01:05 WBC RBC Hgb Hct MCV MCH MCHC RDW RDW Differential Plt Count MPV Immature Gran % (Auto) Neut % (Auto) Lymph % (Auto) [place] % (Auto) Eos % (Auto) Baso % (Auto) Absolute Neuts (auto) Absolute Lymphs (auto) Total Counted PT INR APTT Specimen Type ART ART Sample Site R Radial L Radial pH 7.28 L 7.29 L Bicarbonate Actual 23.2 22.2 POC Total CO2 25 24 Base Excess -3 L -4 L O2 Saturation 100 H 94 L O2 % 100 40 ABG pCO2 49.2 H 45.9 H ABG pO2 279 H 82 Ajit Test POS Respiration Rate 12 12 O2 Delivery Device Vent Vent Minute Volume 8.00 Vent Mode A-C A-C Tidal Volume 450 450 POC PEEP 5 5 Blood Gas Notified Whom ED HOSP Blood Gas Notified Time 2250 55 Sodium Potassium Chloride Carbon Dioxide Anion Gap BUN Creatinine Estim Creat Clear Calc Est GFR (MDRD) Af Amer Est GFR (MDRD) Non-Af BUN/Creatinine Ratio Glucose Lactic Acid Calcium Ionized Calcium Phosphorus Magnesium Total Bilirubin AST ALT Alkaline Phosphatase Total Creatine Kinase Total Protein Albumin Globulin Albumin/Globulin Ratio Triglycerides Urine Color Yellow Urine Clarity Clear Urine pH 6.5 Ur Specific [place] 1.005 Urine Protein Negative Urine Glucose (UA) Normal Urine Ketones Negative Urine Occult Blood Negative Urine Nitrite Negative Urine Bilirubin Negative Urine Urobilinogen Normal Ur Leukocyte Esterase Negative Urine RBC 0 SEEN Urine WBC 0 SEEN Ur Squamous Epith Cells 0 SEEN Urine Bacteria 0 SEEN Urine Mucus 0 SEEN Urine Opiates Screen Urine Methadone Screen Ur Barbiturates Screen Ur Phencyclidine Scrn Ur Amphetamines Screen U Methamphetamin-MDMA U Benzodiazepines Scrn Urine Cocaine Screen U Cannabinoids Screen Ur Drug Screen Comment 07/20/18 07/20/18 07/20/18 04:13 04:13 04:13 WBC 10.1 RBC 3.71 L Hgb 10.9 L Hct 33.9 L MCV 91.4 MCH 29.4 MCHC 32.2 RDW 14.8 H RDW Differential 48.5 H Plt Count 266 MPV 10.2 Immature Gran % (Auto) Neut % (Auto) Lymph % (Auto) [place] % (Auto) Eos % (Auto) Baso % (Auto) Absolute Neuts (auto) Absolute Lymphs (auto) Total Counted PT INR APTT Specimen Type Sample Site pH Bicarbonate Actual POC Total CO2 Base Excess O2 Saturation O2 % ABG pCO2 ABG pO2 Ajit Test Respiration Rate O2 Delivery Device Minute Volume Vent Mode Tidal Volume POC PEEP Blood Gas Notified Whom Blood Gas Notified Time Sodium 142 Potassium 3.6 Chloride 112 H Carbon Dioxide 22.0 Anion Gap 8 BUN 13 Creatinine 0.70 Estim Creat Clear Calc 96.01 Est GFR (MDRD) Af Amer 116 Est GFR (MDRD) Non-Af 96 BUN/Creatinine Ratio 18.5 Glucose 119 H Lactic Acid Calcium 8.1 L Ionized Calcium Pending Phosphorus Magnesium 1.5 L Total Bilirubin 0.20 AST 25 ALT 29 Alkaline Phosphatase 98 Total Creatine Kinase Total Protein 5.9 L Albumin 2.9 L Globulin 3.0 Albumin/Globulin Ratio 1.0 Triglycerides Urine Color Urine Clarity Urine pH Ur Specific [place] Urine Protein Urine Glucose (UA) Urine Ketones Urine Occult Blood Urine Nitrite Urine Bilirubin Urine Urobilinogen Ur Leukocyte Esterase Urine RBC Urine WBC Ur Squamous Epith Cells Urine Bacteria Urine Mucus Urine Opiates Screen Urine Methadone Screen Ur Barbiturates Screen Ur Phencyclidine Scrn Ur Amphetamines Screen U Methamphetamin-MDMA U Benzodiazepines Scrn Urine Cocaine Screen U Cannabinoids Screen Ur Drug Screen Comment 07/20/18 04:15 WBC RBC Hgb Hct MCV MCH MCHC RDW RDW Differential Plt Count MPV Immature Gran % (Auto) Neut % (Auto) Lymph % (Auto) [place] % (Auto) Eos % (Auto) Baso % (Auto) Absolute Neuts (auto) Absolute Lymphs (auto) Total Counted PT INR APTT Specimen Type Sample Site pH Bicarbonate Actual POC Total CO2 Base Excess O2 Saturation O2 % ABG pCO2 ABG pO2 Ajit Test Respiration Rate O2 Delivery Device Minute Volume Vent Mode Tidal Volume POC PEEP Blood Gas Notified Whom Blood Gas Notified Time Sodium Potassium Chloride Carbon Dioxide Anion Gap BUN Creatinine Estim Creat Clear Calc Est GFR (MDRD) Af Amer Est GFR (MDRD) Non-Af BUN/Creatinine Ratio Glucose Lactic Acid Calcium Ionized Calcium Phosphorus 3.6 Magnesium Total Bilirubin AST ALT Alkaline Phosphatase Total Creatine Kinase Total Protein Albumin Globulin Albumin/Globulin Ratio Triglycerides Urine Color Urine Clarity Urine pH Ur Specific [place] Urine Protein Urine Glucose (UA) Urine Ketones Urine Occult Blood Urine Nitrite Urine Bilirubin Urine Urobilinogen Ur Leukocyte Esterase Urine RBC Urine WBC Ur Squamous Epith Cells Urine Bacteria Urine Mucus Urine Opiates Screen Urine Methadone Screen Ur Barbiturates Screen Ur Phencyclidine Scrn Ur Amphetamines Screen U Methamphetamin-MDMA U Benzodiazepines Scrn Urine Cocaine Screen U Cannabinoids Screen Ur Drug Screen Comment Clinical Impression(s) from Imaging Studies Brain CT 07/19/18 21:02 IMPRESSION: No acute intracranial abnormality. Electronically Signed: Marino Cadet, at 22:10 EST Tel , Service support , Chest X-Ray 07/19/18 21:45 IMPRESSION: Endotracheal tube tip in the right mainstem bronchus. This should be retracted approximately 4 cm. Enteric tube tip in the stomach. Clear lungs. N.B. : The above information has been verbally conveyed by Marino Cadet to Kalin Ramirez MD, on 07/19/2018 22:27:27 (ET). Electronically Signed: Marino Cadet, at 22:26 EST Tel , Service support , Assessment/Plan Active and Suspected Problems Acute respiratory failure (Acute) Aspiration into airway (Acute) Encephalopathy (Acute) Right-sided epistaxis (Acute) Acute encephalopathy (Acute) RECOMMENDATIONS: 1. Continue empiric antibiotics for aspiration 2. Wean oxygen as tolerated 3. Spontaneous breathing and awakening trials per protocol 4. Increased respiratory rate to 16 5. Monitor for seizure activity 6. Okay to initiate tube feeds IMPRESSIONS: 1. Acute hypoxic respiratory failure secondary to aspiration pneumonia Patient with a developing right lower lobe infiltrate. Patient's endotracheal tube is still at the kermit. This will need to be moved back 2 cm. Patient's minute ventilation will be increased. Patient should be on empiric antibiotics for aspiration pneumonia. No seizure activity has been noted. Spontaneous awakening and breathing trials per protocol. 2. Acute encephalopathy, unclear metabolic versus toxic Patient was found to be significantly hypoxic on EMS presentation. Unclear if this is related to benzodiazepine use versus hypoxemia. Patient is overly sedated at this time. Will attempt to decrease sedation. Patient does have a history of seizures, but no seizure activity is noted. 3. Hypocalcemia/reported COPD/paranoid schizophrenia/depression/history of tobacco abuse/seizure disorder Complicates care, management, recovery and prognosis. Will initiate tube feeds today. Nicotine patch can be provided if requested. Defer to hospitalist on neurology involvement. TIME: 35 minutes critical care time spent addressing patient's acute hypoxic respiratory failure, encephalopathy, review of all data and collaboration with care team (6:30 AM to 7:30 AM) Code Visit [id number]: [id number] Critical care first hour
--- NOTE | 2018-07-20 07:22 | CON.PCM_ITS ---
Problem List (1) Acute respiratory failure Status: Acute Qualifiers: Respiratory failure complication: hypercapnia Qualified Code(s): J96.02 - Acute respiratory failure with hypercapnia (2) Aspiration into airway Status: Acute Qualifiers: Encounter type: initial encounter Qualified Code(s): T17.908A - Unspecified foreign body in respiratory tract, part unspecified causing other injury, initial encounter (3) Encephalopathy Status: Acute (4) Right-sided epistaxis Status: Acute (5) Seizures Status: Chronic (6) COPD (chronic obstructive pulmonary disease) Status: Suspected Qualifiers: COPD type: emphysema Emphysema type: centrilobular Qualified Code(s): J43.2 - Centrilobular emphysema (7) Tobacco use disorder Status: Chronic (8) Schizoaffective disorder Status: Chronic (9) HLD (hyperlipidemia) Status: Chronic (10) Type II diabetes mellitus, uncontrolled Status: Inactive Qualifiers: Coma presence: without coma (11) History of abdominal pain Status: Chronic Reason for Consult Date of Consultation: 07/20/18 Reason for Consultation: Acute respiratory failure History of Present Illness: The patient is a 42 year old F, with past medical history listed below, who pres ented to [facility] on 07/19/2018 after being found unresponsive. Patient was reportedly recently discharged from [facility] secondary to reported seizure activity. Patient is on Keppra at baseline. Patient was reportedly eating dinner at 6:30 PM and when staff checked on the patient she was found in emesis and unresponsive. Patient was reportedly saturating in the 70s on room air, but did improved to 80s and on nonrebreather. Patient was given Narcan with no response. Patient did not have any seizure activity at that time. Patient had a right nasal trumpet placed by EMS. In the emergency room, patient was noted to have a GCS of 6 with emesis. Patient was emergently intubated and initiated on Unasyn IV for presumed aspiration pneumonia. Patient was noted to have a right mainstem intubation, so ET tube was retracted. Significant blood was noted from the right nares and there was reported trauma to the right turbinate region. Patient does have a Rhino Rocket in place. Patient was transferred to the intensive care unit for further evaluation. On my evaluation, patient was not very responsive. Patient does not have any family at the bedside. No further information outside of electronic medical record and discussion with hospitalist are available. Patient reportedly was discharged with a benzodiazepine and reportedly 6 mg of Ativan were not accounted for. Unable to obtain a review of systems at this time. Past Medical History Past Medical History (Chronic Problems): Chronic Problems Seizures (Chronic) Tobacco use disorder (Chronic) Schizoaffective disorder (Chronic) HLD (hyperlipidemia) (Chronic) History of abdominal pain (Chronic) Allergies bupropion HCl [From Wellbutrin] Allergy (Verified 07/17/18 16:46) Other codeine phosphate [From Tylenol-Codeine #3] Allergy (Verified 07/17/18 16:46) Unknown etodolac [From Lodine] Allergy (Verified 07/17/18 16:46) Rash varenicline tartrate [From Chantix] Allergy (Verified 07/17/18 16:46) Other acetaminophen [From Darvocet-N 100] Adverse Reaction (Verified 07/17/18 16:46) Nausea codeine Adverse Reaction (Verified 07/17/18 16:46) Nausea milk Adverse Reaction (Verified 07/18/18 05:49) Other propoxyphene napsylate [From Darvocet-N 100] Adverse Reaction (Verified 07/17/18 16:46) Nausea Home Medications: Ambulatory Orders Medication Instructions Recorded Pregabalin [Lyrica] 200 mg PO TID 01/03/16 Albuterol Inhaler [Ventolin Hfa] 2 puff INHALATION Q4H PRN PRN 03/15/17 Amitriptyline HCl 100 mg PO QHS 03/15/17 Cetirizine HCl [Zyrtec] 10 mg PO QHS 03/15/17 Ibuprofen 600 mg PO Q6H PRN PRN 02/22/18 Ipratropium [Atrovent Inhaler] 1 puff INHALATION 4X/DAY 02/22/18 Levetiracetam 1,000 mg PO BID 02/22/18 Citalopram [Celexa] 60 mg PO DAILY 07/18/18 Diphenhydramine HCl/Zinc Acet 35 gm TP TID PRN PRN 07/18/18 [Anti-Itch 2%-0.1% Cream] Melatonin 10 mg PO QHS PRN 07/18/18 Omeprazole [Prilosec] 20 mg PO DAILY 07/18/18 Quetiapine Fumarate [Seroquel] 100 mg PO QHS 07/18/18 Quetiapine Fumarate [Seroquel] 400 mg PO BID 07/18/18 Clonazepam [Klonopin] 2 mg PO TID PRN PRN #30 tablet 07/19/18 Surgical History: - - Carpal tunnel surgery, surgery for trigger finger and trigger thumb, facial reconstruction secondary to trauma, exploratory abdominal surgery, partial hysterectomy Psychiatric History: - - Schizoaffective disorder 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 Initial chest x-ray did show a right mainstem intubation. Repeat chest x-ray after my evaluation shows a developing right lower lobe infiltrate and endotracheal tube just above the kermit. - Physical Exam General: No apparent distress, Lethargic, Non-Cooperative, - - RASS -3. Morbidly Obese HEENT: Atraumatic, PERRLA, EOMI, Normocephalic, - - Scleral injection Oral: Moist Mucosa, No Gingival or Mucosal Lesions/ Ulcerations Neck: Supple, No JVD, No Nodes, Trachea Midline Lungs: Diminished, Rhonchi - Right > Left Cardiovascular: Regular rate, Regular Rhythm, Normal S1, Normal S2, No murmurs, No rub noted, No Gallop Abdomen: Bowel Sounds Present, Soft, Non Tender, Non-Distended, Obese Extremities: No clubbing, No cyanosis, No edema, Capillary Refill Less than 3 Seconds Skin: No rashes, No breakdown Musculoskeletal: No Tenderness to Palpation of Joints or Extremities, No Muscle Wasting Lymphatic: No Cervical, Supraclavicular, or Inguinal Adenopathy Neurological: Cranial nerves II-XII grossly intact, Neuro grossly intact, Motor Exam 5/5 strength throughout Psych/Mental Status: Flat Affect Vital Signs Temp Pulse Resp BP Pulse Ox 36.9 C 81 18 138/84 H 97 07/20/18 07:00 07/20/18 07:00 07/20/18 07:00 07/20/18 07:00 07/20/18 07:00 Oxygen Flow Rate (L/min) 15 Oxygen Delivery Method Mechanical Ventilator Weight: 110.9 kg Body Mass Index (BMI) 38.9 Finger Stick Blood Glucose 88 Intake and Output for Last 24 Hours 07/18/18 07/19/18 07/20/18 23:59 23:59 23:59 Intake Total 973 / 973 Output Total 300 / 300 Balance 673 / 673 Laboratory Tests Past 24 Hrs 07/19/18 07/19/18 07/19/18 20:55 20:55 20:55 WBC 6.4 RBC 4.10 L Hgb 11.9 L Hct 37.2 MCV 90.7 MCH 29.0 MCHC 32.0 RDW 14.9 H RDW Differential 49.7 H Plt Count 325 MPV 9.9 Immature Gran % (Auto) 0.300 Neut % (Auto) 49.3 Lymph % (Auto) 39.6 [place] % (Auto) 7.3 Eos % (Auto) 3.3 Baso % (Auto) 0.2 Absolute Neuts (auto) 3.2 Absolute Lymphs (auto) 2.54 Total Counted Not Reportable PT 13.2 INR 1.0 APTT 36.1 Specimen Type Sample Site pH Bicarbonate Actual POC Total CO2 Base Excess O2 Saturation O2 % ABG pCO2 ABG pO2 Ajit Test Respiration Rate O2 Delivery Device Minute Volume Vent Mode Tidal Volume POC PEEP Blood Gas Notified Whom Blood Gas Notified Time Sodium 140 Potassium 3.8 Chloride 109 H Carbon Dioxide 25.0 Anion Gap 6 BUN 12 Creatinine 0.85 Estim Creat Clear Calc 79.07 Est GFR (MDRD) Af Amer 93 Est GFR (MDRD) Non-Af 77 BUN/Creatinine Ratio 14.1 Glucose 129 H Lactic Acid Calcium 8.3 L Ionized Calcium Phosphorus Magnesium Total Bilirubin 0.20 AST 24 ALT 30 Alkaline Phosphatase 102 Total Creatine Kinase Total Protein 6.7 Albumin 3.4 Globulin 3.3 Albumin/Globulin Ratio 1.0 Triglycerides Urine Color Urine Clarity Urine pH Ur Specific [place] Urine Protein Urine Glucose (UA) Urine Ketones Urine Occult Blood Urine Nitrite Urine Bilirubin Urine Urobilinogen Ur Leukocyte Esterase Urine RBC Urine WBC Ur Squamous Epith Cells Urine Bacteria Urine Mucus Urine Opiates Screen Urine Methadone Screen Ur Barbiturates Screen Ur Phencyclidine Scrn Ur Amphetamines Screen U Methamphetamin-MDMA U Benzodiazepines Scrn Urine Cocaine Screen U Cannabinoids Screen Ur Drug Screen Comment 07/19/18 07/19/18 07/19/18 20:55 21:15 21:18 WBC RBC Hgb Hct MCV MCH MCHC RDW RDW Differential Plt Count MPV Immature Gran % (Auto) Neut % (Auto) Lymph % (Auto) [place] % (Auto) Eos % (Auto) Baso % (Auto) Absolute Neuts (auto) Absolute Lymphs (auto) Total Counted PT INR APTT Specimen Type Sample Site pH Bicarbonate Actual POC Total CO2 Base Excess O2 Saturation O2 % ABG pCO2 ABG pO2 Ajit Test Respiration Rate O2 Delivery Device Minute Volume Vent Mode Tidal Volume POC PEEP Blood Gas Notified Whom Blood Gas Notified Time Sodium Potassium Chloride Carbon Dioxide Anion Gap BUN Creatinine Estim Creat Clear Calc Est GFR (MDRD) Af Amer Est GFR (MDRD) Non-Af BUN/Creatinine Ratio Glucose Lactic Acid 0.8 Calcium Ionized Calcium Phosphorus Magnesium Total Bilirubin AST ALT Alkaline Phosphatase Total Creatine Kinase 158 Total Protein Albumin Globulin Albumin/Globulin Ratio Triglycerides 284 H Urine Color Urine Clarity Urine pH Ur Specific [place] Urine Protein Urine Glucose (UA) Urine Ketones Urine Occult Blood Urine Nitrite Urine Bilirubin Urine Urobilinogen Ur Leukocyte Esterase Urine RBC Urine WBC Ur Squamous Epith Cells Urine Bacteria Urine Mucus Urine Opiates Screen NEGATIVE Urine Methadone Screen NEGATIVE Ur Barbiturates Screen NEGATIVE Ur Phencyclidine Scrn NEGATIVE Ur Amphetamines Screen NEGATIVE U Methamphetamin-MDMA NEGATIVE U Benzodiazepines Scrn NEGATIVE Urine Cocaine Screen NEGATIVE U Cannabinoids Screen POSITIVE H Ur Drug Screen Comment 07/19/18 07/19/18 07/20/18 21:18 22:44 01:05 WBC RBC Hgb Hct MCV MCH MCHC RDW RDW Differential Plt Count MPV Immature Gran % (Auto) Neut % (Auto) Lymph % (Auto) [place] % (Auto) Eos % (Auto) Baso % (Auto) Absolute Neuts (auto) Absolute Lymphs (auto) Total Counted PT INR APTT Specimen Type ART ART Sample Site R Radial L Radial pH 7.28 L 7.29 L Bicarbonate Actual 23.2 22.2 POC Total CO2 25 24 Base Excess -3 L -4 L O2 Saturation 100 H 94 L O2 % 100 40 ABG pCO2 49.2 H 45.9 H ABG pO2 279 H 82 Ajit Test POS Respiration Rate 12 12 O2 Delivery Device Vent Vent Minute Volume 8.00 Vent Mode A-C A-C Tidal Volume 450 450 POC PEEP 5 5 Blood Gas Notified Whom ED HOSP Blood Gas Notified Time 2250 55 Sodium Potassium Chloride Carbon Dioxide Anion Gap BUN Creatinine Estim Creat Clear Calc Est GFR (MDRD) Af Amer Est GFR (MDRD) Non-Af BUN/Creatinine Ratio Glucose Lactic Acid Calcium Ionized Calcium Phosphorus Magnesium Total Bilirubin AST ALT Alkaline Phosphatase Total Creatine Kinase Total Protein Albumin Globulin Albumin/Globulin Ratio Triglycerides Urine Color Yellow Urine Clarity Clear Urine pH 6.5 Ur Specific [place] 1.005 Urine Protein Negative Urine Glucose (UA) Normal Urine Ketones Negative Urine Occult Blood Negative Urine Nitrite Negative Urine Bilirubin Negative Urine Urobilinogen Normal Ur Leukocyte Esterase Negative Urine RBC 0 SEEN Urine WBC 0 SEEN Ur Squamous Epith Cells 0 SEEN Urine Bacteria 0 SEEN Urine Mucus 0 SEEN Urine Opiates Screen Urine Methadone Screen Ur Barbiturates Screen Ur Phencyclidine Scrn Ur Amphetamines Screen U Methamphetamin-MDMA U Benzodiazepines Scrn Urine Cocaine Screen U Cannabinoids Screen Ur Drug Screen Comment 07/20/18 07/20/18 07/20/18 04:13 04:13 04:13 WBC 10.1 RBC 3.71 L Hgb 10.9 L Hct 33.9 L MCV 91.4 MCH 29.4 MCHC 32.2 RDW 14.8 H RDW Differential 48.5 H Plt Count 266 MPV 10.2 Immature Gran % (Auto) Neut % (Auto) Lymph % (Auto) [place] % (Auto) Eos % (Auto) Baso % (Auto) Absolute Neuts (auto) Absolute Lymphs (auto) Total Counted PT INR APTT Specimen Type Sample Site pH Bicarbonate Actual POC Total CO2 Base Excess O2 Saturation O2 % ABG pCO2 ABG pO2 Ajit Test Respiration Rate O2 Delivery Device Minute Volume Vent Mode Tidal Volume POC PEEP Blood Gas Notified Whom Blood Gas Notified Time Sodium 142 Potassium 3.6 Chloride 112 H Carbon Dioxide 22.0 Anion Gap 8 BUN 13 Creatinine 0.70 Estim Creat Clear Calc 96.01 Est GFR (MDRD) Af Amer 116 Est GFR (MDRD) Non-Af 96 BUN/Creatinine Ratio 18.5 Glucose 119 H Lactic Acid Calcium 8.1 L Ionized Calcium Pending Phosphorus Magnesium 1.5 L Total Bilirubin 0.20 AST 25 ALT 29 Alkaline Phosphatase 98 Total Creatine Kinase Total Protein 5.9 L Albumin 2.9 L Globulin 3.0 Albumin/Globulin Ratio 1.0 Triglycerides Urine Color Urine Clarity Urine pH Ur Specific [place] Urine Protein Urine Glucose (UA) Urine Ketones Urine Occult Blood Urine Nitrite Urine Bilirubin Urine Urobilinogen Ur Leukocyte Esterase Urine RBC Urine WBC Ur Squamous Epith Cells Urine Bacteria Urine Mucus Urine Opiates Screen Urine Methadone Screen Ur Barbiturates Screen Ur Phencyclidine Scrn Ur Amphetamines Screen U Methamphetamin-MDMA U Benzodiazepines Scrn Urine Cocaine Screen U Cannabinoids Screen Ur Drug Screen Comment 07/20/18 04:15 WBC RBC Hgb Hct MCV MCH MCHC RDW RDW Differential Plt Count MPV Immature Gran % (Auto) Neut % (Auto) Lymph % (Auto) [place] % (Auto) Eos % (Auto) Baso % (Auto) Absolute Neuts (auto) Absolute Lymphs (auto) Total Counted PT INR APTT Specimen Type Sample Site pH Bicarbonate Actual POC Total CO2 Base Excess O2 Saturation O2 % ABG pCO2 ABG pO2 Ajit Test Respiration Rate O2 Delivery Device Minute Volume Vent Mode Tidal Volume POC PEEP Blood Gas Notified Whom Blood Gas Notified Time Sodium Potassium Chloride Carbon Dioxide Anion Gap BUN Creatinine Estim Creat Clear Calc Est GFR (MDRD) Af Amer Est GFR (MDRD) Non-Af BUN/Creatinine Ratio Glucose Lactic Acid Calcium Ionized Calcium Phosphorus 3.6 Magnesium Total Bilirubin AST ALT Alkaline Phosphatase Total Creatine Kinase Total Protein Albumin Globulin Albumin/Globulin Ratio Triglycerides Urine Color Urine Clarity Urine pH Ur Specific [place] Urine Protein Urine Glucose (UA) Urine Ketones Urine Occult Blood Urine Nitrite Urine Bilirubin Urine Urobilinogen Ur Leukocyte Esterase Urine RBC Urine WBC Ur Squamous Epith Cells Urine Bacteria Urine Mucus Urine Opiates Screen Urine Methadone Screen Ur Barbiturates Screen Ur Phencyclidine Scrn Ur Amphetamines Screen U Methamphetamin-MDMA U Benzodiazepines Scrn Urine Cocaine Screen U Cannabinoids Screen Ur Drug Screen Comment Clinical Impression(s) from Imaging Studies Brain CT 07/19/18 21:02 IMPRESSION: No acute intracranial abnormality. Electronically Signed: Marino Cadet, at 22:10 EST Tel , Service support , Chest X-Ray 07/19/18 21:45 IMPRESSION: Endotracheal tube tip in the right mainstem bronchus. This should be retracted approximately 4 cm. Enteric tube tip in the stomach. Clear lungs. N.B. : The above information has been verbally conveyed by Marino Cadet to Kalin Ramirez MD, on 07/19/2018 22:27:27 (ET). Electronically Signed: Marino Cadet, at 22:26 EST Tel , Service support , Assessment/Plan Active and Suspected Problems Acute respiratory failure (Acute) Aspiration into airway (Acute) Encephalopathy (Acute) Right-sided epistaxis (Acute) Acute encephalopathy (Acute) RECOMMENDATIONS: 1. Continue empiric antibiotics for aspiration 2. Wean oxygen as tolerated 3. Spontaneous breathing and awakening trials per protocol 4. Increased respiratory rate to 16 5. Monitor for seizure activity 6. Okay to initiate tube feeds IMPRESSIONS: 1. Acute hypoxic respiratory failure secondary to aspiration pneumonia Patient with a developing right lower lobe infiltrate. Patient's endotracheal tube is still at the kermit. This will need to be moved back 2 cm. Patient's minute ventilation will be increased. Patient should be on empiric antibiotics for aspiration pneumonia. No seizure activity has been noted. Spontaneous awakening and breathing trials per protocol. 2. Acute encephalopathy, unclear metabolic versus toxic Patient was found to be significantly hypoxic on EMS presentation. Unclear if this is related to benzodiazepine use versus hypoxemia. Patient is overly sedated at this time. Will attempt to decrease sedation. Patient does have a history of seizures, but no seizure activity is noted. 3. Hypocalcemia/reported COPD/paranoid schizophrenia/depression/history of tobacco abuse/seizure disorder Complicates care, management, recovery and prognosis. Will initiate tube feeds today. Nicotine patch can be provided if requested. Defer to hospitalist on neurology involvement. TIME: 35 minutes critical care time spent addressing patient's acute hypoxic r espiratory failure, encephalopathy, review of all data and collaboration with care team (6:30 AM to 7:30 AM) Code Visit [id number]: [id number] Critical care first hour
--- NOTE | 2018-07-20 10:00 | CM.UR ---
This RN participated in interdisciplinary rounds on this patient. Patient is a readmission as she was discharged yesterday after being cleared by crisis. Was found unresponsive by staff at [facility]. currently intubated and plan for SBT tomorrow am. Did vomit during whatever happened leading her to be unresponsive and has aspiration pneumonia. CM will continue to follow for discharge planning. ? back to [facility]. Lucia Lopez RN, CCM.
[2018-07-20] MEDS: Famotidine 20 MG Tablet GT ×2 (10:37→21:30)
[2018-07-20] MEDS: Enoxaparin 40 MG/0.4 ML Syringe SC (10:37)
[2018-07-20] MEDS: Chlorhexidine 15 ML PO ×2 (10:38→21:30)
[2018-07-20] MEDS: fentaNYL drip 100 ML 5 MCG IV (13:07)
--- NOTE | 2018-07-20 13:31 | PN_ITS ---
Patient Problems: Active and Suspected Problems Acute respiratory failure (Acute) Aspiration into airway (Acute) Encephalopathy (Acute) Right-sided epistaxis (Acute) Acute encephalopathy (Acute) Subjective: Patient was seen and examined today in the ICU, I talked with pulmonary medicine about her care. Patient was admitted late last night through the emergency room and had to be intubated there due to being found unresponsive at the [facility] with a low pulse ox. Patient had been discharged yesterday afternoon from my service in the hospital after being admitted with seizure disorder. Patient has paranoid schizophrenia and was given a prescription for Klonopin at the time of discharge yesterday due to anxiety. She had been seen by crisis intervention yesterday afternoon and had been cleared for discharge back to live at the [facility]. Patient has a psychiatric history and is being seen by a psychiatrist and a psychologist at the counseling center. During her workup for seizure disorder before being discharged yesterday from the hospital here, patient had an EEG which show no evidence of seizure ac tivity. She was seen by neurology who felt that the patient had a nonepileptic seizure disorder but recommended continuation of her Keppra. Patient is currently on the ventilator and under light sedation at this time, her chest x-ray does not show any active infiltrates, she is being treated for presumed aspiration pneumonia. - Physical Exam General: No apparent distress, Well developed HEENT: Atraumatic, PERRLA, Normocephalic Oral: Moist Mucosa Neck: Supple, No Nuchal Rigidity, Trachea Midline, Thyroid Normal Size and Texture Lungs: Clear to auscultation, Normal air movement, No rhonchi, No wheeze, No rales Cardiovascular: Regular rate, Regular Rhythm, Normal S1, Normal S2, No murmurs, No Ectopic Activity, PMI Normal, No rub noted, No Gallop Abdomen: Bowel Sounds Present, Soft, Non Tender, Non-Distended Extremities: No clubbing, No cyanosis, No edema, Capillary Refill Less than 3 Seconds Skin: No rashes, No breakdown Neurological: - - Patient is sedated on ventilator Psych/Mental Status: - - Patient is sedated and on the ventilator Vital Signs Temp Pulse Resp BP Pulse Ox 99.3 F H 80 16 135/76 H 99 07/20/18 10:00 07/20/18 11:05 07/20/18 11:05 07/20/18 11:00 07/20/18 11:05 Oxygen Flow Rate (L/min) 15 Oxygen Delivery Method Mechanical Ventilator Weight: 110.9 kg Body Mass Index (BMI) 38.9 Finger Stick Blood Glucose 88 Intake and Output for Last 24 Hours 07/18/18 07/19/18 07/20/18 23:59 23:59 23:59 Intake Total 1003 / 1003 Output Total 300 / 300 Balance 703 / 703 Microbiology Past 72 Hours 07/19/18 21:18 Urine Culture - Preliminary Urine Catheter - Catheter Culture exhibits no growth. Laboratory Tests Past 24 Hrs 07/19/18 07/19/18 07/19/18 20:55 20:55 20:55 WBC 6.4 RBC 4.10 L Hgb 11.9 L Hct 37.2 MCV 90.7 MCH 29.0 MCHC 32.0 RDW 14.9 H RDW Differential 49.7 H Plt Count 325 MPV 9.9 Immature Gran % (Auto) 0.300 Neut % (Auto) 49.3 Lymph % (Auto) 39.6 Carbon % (Auto) 7.3 Eos % (Auto) 3.3 Baso % (Auto) 0.2 Absolute Neuts (auto) 3.2 Absolute Lymphs (auto) 2.54 Total Counted Not Reportable PT 13.2 INR 1.0 APTT 36.1 Specimen Type Sample Site pH Bicarbonate Actual POC Total CO2 Base Excess O2 Saturation O2 % ABG pCO2 ABG pO2 Ajit Test Respiration Rate O2 Delivery Device Minute Volume Vent Mode Tidal Volume POC PEEP Blood Gas Notified Whom Blood Gas Notified Time Sodium 140 Potassium 3.8 Chloride 109 H Carbon Dioxide 25.0 Anion Gap 6 BUN 12 Creatinine 0.85 Estim Creat Clear Calc 79.07 Est GFR (MDRD) Af Amer 93 Est GFR (MDRD) Non-Af 77 BUN/Creatinine Ratio 14.1 Glucose 129 H Lactic Acid Calcium 8.3 L Ionized Calcium Phosphorus Magnesium Total Bilirubin 0.20 AST 24 ALT 30 Alkaline Phosphatase 102 Total Creatine Kinase Total Protein 6.7 Albumin 3.4 Globulin 3.3 Albumin/Globulin Ratio 1.0 Triglycerides Urine Color Urine Clarity Urine pH Ur Specific [place] Urine Protein Urine Glucose (UA) Urine Ketones Urine Occult Blood Urine Nitrite Urine Bilirubin Urine Urobilinogen Ur Leukocyte Esterase Urine RBC Urine WBC Ur Squamous Epith Cells Urine Bacteria Urine Mucus Urine Opiates Screen Urine Methadone Screen Ur Barbiturates Screen Ur Phencyclidine Scrn Ur Amphetamines Screen U Methamphetamin-MDMA U Benzodiazepines Scrn Urine Cocaine Screen U Cannabinoids Screen Ur Drug Screen Comment 07/19/18 07/19/18 07/19/18 20:55 21:15 21:18 WBC RBC Hgb Hct MCV MCH MCHC RDW RDW Differential Plt Count MPV Immature Gran % (Auto) Neut % (Auto) Lymph % (Auto) Carbon % (Auto) Eos % (Auto) Baso % (Auto) Absolute Neuts (auto) Absolute Lymphs (auto) Total Counted PT INR APTT Specimen Type Sample Site pH Bicarbonate Actual POC Total CO2 Base Excess O2 Saturation O2 % ABG pCO2 ABG pO2 Ajit Test Respiration Rate O2 Delivery Device Minute Volume Vent Mode Tidal Volume POC PEEP Blood Gas Notified Whom Blood Gas Notified Time Sodium Potassium Chloride Carbon Dioxide Anion Gap BUN Creatinine Estim Creat Clear Calc Est GFR (MDRD) Af Amer Est GFR (MDRD) Non-Af BUN/Creatinine Ratio Glucose Lactic Acid 0.8 Calcium Ionized Calcium Phosphorus Magnesium Total Bilirubin AST ALT Alkaline Phosphatase Total Creatine Kinase 158 Total Protein Albumin Globulin Albumin/Globulin Ratio Triglycerides 284 H Urine Color Urine Clarity Urine pH Ur Specific [place] Urine Protein Urine Glucose (UA) Urine Ketones Urine Occult Blood Urine Nitrite Urine Bilirubin Urine Urobilinogen Ur Leukocyte Esterase Urine RBC Urine WBC Ur Squamous Epith Cells Urine Bacteria Urine Mucus Urine Opiates Screen NEGATIVE Urine Methadone Screen NEGATIVE Ur Barbiturates Screen NEGATIVE Ur Phencyclidine Scrn NEGATIVE Ur Amphetamines Screen NEGATIVE U Methamphetamin-MDMA NEGATIVE U Benzodiazepines Scrn NEGATIVE Urine Cocaine Screen NEGATIVE U Cannabinoids Screen POSITIVE H Ur Drug Screen Comment 07/19/18 07/19/18 07/20/18 21:18 22:44 01:05 WBC RBC Hgb Hct MCV MCH MCHC RDW RDW Differential Plt Count MPV Immature Gran % (Auto) Neut % (Auto) Lymph % (Auto) Carbon % (Auto) Eos % (Auto) Baso % (Auto) Absolute Neuts (auto) Absolute Lymphs (auto) Total Counted PT INR APTT Specimen Type ART ART Sample Site R Radial L Radial pH 7.28 L 7.29 L Bicarbonate Actual 23.2 22.2 POC Total CO2 25 24 Base Excess -3 L -4 L O2 Saturation 100 H 94 L O2 % 100 40 ABG pCO2 49.2 H 45.9 H ABG pO2 279 H 82 Ajit Test POS Respiration Rate 12 12 O2 Delivery Device Vent Vent Minute Volume 8.00 Vent Mode A-C A-C Tidal Volume 450 450 POC PEEP 5 5 Blood Gas Notified Whom ED MD [facility] Blood Gas Notified Time 2250 55 Sodium Potassium Chloride Carbon Dioxide Anion Gap BUN Creatinine Estim Creat Clear Calc Est GFR (MDRD) Af Amer Est GFR (MDRD) Non-Af BUN/Creatinine Ratio Glucose Lactic Acid Calcium Ionized Calcium Phosphorus Magnesium Total Bilirubin AST ALT Alkaline Phosphatase Total Creatine Kinase Total Protein Albumin Globulin Albumin/Globulin Ratio Triglycerides Urine Color Yellow Urine Clarity Clear Urine pH 6.5 Ur Specific [place] 1.005 Urine Protein Negative Urine Glucose (UA) Normal Urine Ketones Negative Urine Occult Blood Negative Urine Nitrite Negative Urine Bilirubin Negative Urine Urobilinogen Normal Ur Leukocyte Esterase Negative Urine RBC 0 SEEN Urine WBC 0 SEEN Ur Squamous Epith Cells 0 SEEN Urine Bacteria 0 SEEN Urine Mucus 0 SEEN Urine Opiates Screen Urine Methadone Screen Ur Barbiturates Screen Ur Phencyclidine Scrn Ur Amphetamines Screen U Methamphetamin-MDMA U Benzodiazepines Scrn Urine Cocaine Screen U Cannabinoids Screen Ur Drug Screen Comment 07/20/18 07/20/18 07/20/18 04:13 04:13 04:13 WBC 10.1 RBC 3.71 L Hgb 10.9 L Hct 33.9 L MCV 91.4 MCH 29.4 MCHC 32.2 RDW 14.8 H RDW Differential 48.5 H Plt Count 266 MPV 10.2 Immature Gran % (Auto) Neut % (Auto) Lymph % (Auto) Carbon % (Auto) Eos % (Auto) Baso % (Auto) Absolute Neuts (auto) Absolute Lymphs (auto) Total Counted PT INR APTT Specimen Type Sample Site pH Bicarbonate Actual POC Total CO2 Base Excess O2 Saturation O2 % ABG pCO2 ABG pO2 Ajit Test Respiration Rate O2 Delivery Device Minute Volume Vent Mode Tidal Volume POC PEEP Blood Gas Notified Whom Blood Gas Notified Time Sodium 142 Potassium 3.6 Chloride 112 H Carbon Dioxide 22.0 Anion Gap 8 BUN 13 Creatinine 0.70 Estim Creat Clear Calc 96.01 Est GFR (MDRD) Af Amer 116 Est GFR (MDRD) Non-Af 96 BUN/Creatinine Ratio 18.5 Glucose 119 H Lactic Acid Calcium 8.1 L Ionized Calcium Pending Phosphorus Magnesium 1.5 L Total Bilirubin 0.20 AST 25 ALT 29 Alkaline Phosphatase 98 Total Creatine Kinase Total Protein 5.9 L Albumin 2.9 L Globulin 3.0 Albumin/Globulin Ratio 1.0 Triglycerides Urine Color Urine Clarity Urine pH Ur Specific [place] Urine Protein Urine Glucose (UA) Urine Ketones Urine Occult Blood Urine Nitrite Urine Bilirubin Urine Urobilinogen Ur Leukocyte Esterase Urine RBC Urine WBC Ur Squamous Epith Cells Urine Bacteria Urine Mucus Urine Opiates Screen Urine Methadone Screen Ur Barbiturates Screen Ur Phencyclidine Scrn Ur Amphetamines Screen U Methamphetamin-MDMA U Benzodiazepines Scrn Urine Cocaine Screen U Cannabinoids Screen Ur Drug Screen Comment 07/20/18 04:15 WBC RBC Hgb Hct MCV MCH MCHC RDW RDW Differential Plt Count MPV Immature Gran % (Auto) Neut % (Auto) Lymph % (Auto) Carbon % (Auto) Eos % (Auto) Baso % (Auto) Absolute Neuts (auto) Absolute Lymphs (auto) Total Counted PT INR APTT Specimen Type Sample Site pH Bicarbonate Actual POC Total CO2 Base Excess O2 Saturation O2 % ABG pCO2 ABG pO2 Ajit Test Respiration Rate O2 Delivery Device Minute Volume Vent Mode Tidal Volume POC PEEP Blood Gas Notified Whom Blood Gas Notified Time Sodium Potassium Chloride Carbon Dioxide Anion Gap BUN Creatinine Estim Creat Clear Calc Est GFR (MDRD) Af Amer Est GFR (MDRD) Non-Af BUN/Creatinine Ratio Glucose Lactic Acid Calcium Ionized Calcium Phosphorus 3.6 Magnesium Total Bilirubin AST ALT Alkaline Phosphatase Total Creatine Kinase Total Protein Albumin Globulin Albumin/Globulin Ratio Triglycerides Urine Color Urine Clarity Urine pH Ur Specific [place] Urine Protein Urine Glucose (UA) Urine Ketones Urine Occult Blood Urine Nitrite Urine Bilirubin Urine Urobilinogen Ur Leukocyte Esterase Urine RBC Urine WBC Ur Squamous Epith Cells Urine Bacteria Urine Mucus Urine Opiates Screen Urine Methadone Screen Ur Barbiturates Screen Ur Phencyclidine Scrn Ur Amphetamines Screen U Methamphetamin-MDMA U Benzodiazepines Scrn Urine Cocaine Screen U Cannabinoids Screen Ur Drug Screen Comment Medical Necessity - Tobacco Use Smoking Status: Current every day smoker Assessment/Plan All Active Problems Acute respiratory failure (Acute) Aspiration into airway (Acute) Encephalopathy (Acute) Right-sided epistaxis (Acute) Acute encephalopathy (Acute) Right foot pain (Resolved) Fluid collection right foot (Resolved) Rib contusion (Resolved) #1 acute hypoxic respiratory failure-pulmonary medicine is managing her vent, patient's pulse ox is stable at this time #2 acute encephalopathy-most probably toxic in nature, it was documented that the patient was missing 3 Ativan from her medicine bottle, I was not aware the patient was taking Ativan, I gave her a prescription for Klonopin 2 mg to use 3 times daily as needed anxiety when she left the hospital yesterday. #3 nonepileptic seizure disorder #4 COPD #5 paranoid schizophrenia #6 presumed aspiration pneumonia-patient is currently on IV Unasyn Code Visit Inpatient E&M: 96568 Subs Hosp L2
[2018-07-20] MEDS: Vital AF 1.2 Cal Liquid 1,000 ML 20 ML GT (16:55)
[2018-07-20] MEDS: 0.9% NaCl IVPB Med Flush (250 mL) 15 ML IV (18:35)
[2018-07-21] VITALS (17 sets, daily range): BP systolic 100–137; BP diastolic 68–113; PULSE 72–80; RESP 12–23; TEMP 37.3–37.5; O2SAT 93–100
[2018-07-21] MEDS: Propofol 10MG/Ml 1,000 MG/100 ML Bottle 6.708 MG CONT INF (02:11)
[2018-07-21 04:31] LABS: Absolute Lymphocyte Count 1.73 X10^3/ul (0.83-4.51); Absolute Neutrophil Count 4.1 X10^3/uL (2.0-7.7); Basophil# 0.02 X10^3/uL; Basophil% 0.3 % (0-1); Eosinophil# 0.19 X10^3/uL; Eosinophils% 2.9 % (0-5); Hematocrit 33.3 % (37-47); Hemoglobin 10.7 g/dl (12.0-15.0); Lymphocyte # 1.73 X10^3/ul (4.0); Lymphocyte % 26.8 % (19-41); Mean Corp Hgb Conc 32.1 g/gl (32-36); Mean Corpuscular Volume 90.2 fL (81-99); Mean Platelet Vol. 10.3 fl (6.2-12.0); Monocyte% 6.2 % (0-10); Neutrophil # 4.11 X10^3/uL (2.7-7.7); Neutrophil % 63.6 % (47-70); Platelet Count 289 K/mm3 (150-450); RBC Distribution Width CV 14.8 % (11.6-14.6); RBC Distribution Width SD 48.1 fl (35.1-43.9); Red Blood Count 3.69 M/mm3 (4.2-5.4); White Blood Count 6.5 K/mm3 (4.4-11.0)
[2018-07-21 04:40] LABS: Anion Gap 9 (5-15); BUN 8 mg/dL (7-18); BUN/Creat Ratio 12.1 RATIO (10-20); Calcium,Total 7.6 mg/dL (8.5-10.1); Chloride 112 mmol/L (98-107); Creatinine, Serum 0.66 mg/dL (0.55-1.02); EST Glomerular Filtration Rate 103 mL/min (>60); Est Glom Filt Rate - Afr Amer 125 mL/min (>60); Estimated Creatinine Clearance 101.83 ml/min; Glucose 105 mg/dL (74-106); Magnesium 1.7 mg/dL (1.6-2.6); Phosphorus 2.7 mg/dL (2.5-4.9); Potassium 3.2 mmol/L (3.5-5.1); Sodium Level 144 mmol/L (136-145)
[2018-07-21 04:42] LABS: POSITIVE COUNT NO; POSITIVE DIFFERENTIAL NO; POSITIVE MORPHOLOGY NO
[2018-07-21] MEDS: CHLORHEXIDINE GLUC 2% CLOTH 1 EACH TOWELETTE TOPICAL (05:21)
[2018-07-21] MEDS: 0.9% NaCl Peripheral Flush Adult/Peds IV (05:21)
[2018-07-21 06:31] LABS: Base Excess -1 mmol/L (-2 to +2); Bicarbonate 23.9 mmol/L (22-26); Blood Gas Specimen Type ART; FI02 30; Mode CPAP PS; O2 Delivery Device Vent; PEEP 5; PO2 45 mmHG (75-100); PS 5; SITE R Radial; SO2 81 % (95-99); Time Given 624; Total Carbon Dioxide 25 mmol/L
--- NOTE | 2018-07-21 06:47 | PCM.PN.INT ---
Subjective: Patient did well overnight. No acute issues were reported. Patient able to tolerate spontaneous breathing trial this morning and was successfully extubated under my direct supervision. Patient is hoarse, but denies any pain at this time. Patient did have some fever overnight, but remained hemodynamically stable. General: Alert, Cooperative, No apparent distress, - - Obese. Hoarse voice. HEENT: Atraumatic, PERRLA, EOMI, Normocephalic, - - No scleral icterus or injection noted. Oral: Moist Mucosa, No Gingival or Mucosal Lesions/ Ulcerations Neck: Supple, No JVD, No Nodes, Trachea Midline Lungs: No wheeze, No rales, Diminished, Rhonchi - Right Cardiovascular: Regular rate, Regular Rhythm, Normal S1, Normal S2, No murmurs, No rub noted, No Gallop Abdomen: Bowel Sounds Present, Soft, Non Tender, Non-Distended, Obese Extremities: No cyanosis, Capillary Refill Less than 3 Seconds, Clubbing, Edema - Trace Skin: - - No significant change compared to previous Musculoskeletal: No Tenderness to Palpation of Joints or Extremities, No Muscle Wasting Lymphatic: No Cervical, Supraclavicular, or Inguinal Adenopathy Neurological: Cranial nerves II-XII grossly intact, Neuro grossly intact, Motor Exam 5/5 strength throughout Psych/Mental Status: Normal Affect, Appropriate Vital Signs Temp Pulse Resp BP Pulse Ox 37.4 C H 73 15 100/85 H 97 07/21/18 06:00 07/21/18 06:00 07/21/18 06:00 07/21/18 06:00 07/21/18 06:00 Oxygen Flow Rate (L/min) 15 Oxygen Delivery Method Mechanical Ventilator Weight: 109.6 kg Body Mass Index (BMI) 38.9 Finger Stick Blood Glucose 88 Intake and Output for Last 24 Hours 07/19/18 07/20/18 07/21/18 23:59 23:59 23:59 Intake Total 2923.5 / 2923.5 584.6 / 584.6 Output Total 2900 / 2900 400 / 400 Balance 23.5 / 23.5 184.6 / 184.6 Labs (Last 48 Hours) 07/19/18 07/19/18 07/19/18 20:55 20:55 20:55 WBC 6.4 RBC 4.10 L Hgb 11.9 L Hct 37.2 MCV 90.7 MCH 29.0 MCHC 32.0 RDW 14.9 H RDW Differential 49.7 H Plt Count 325 MPV 9.9 Immature Gran % (Auto) 0.300 Neut % (Auto) 49.3 Lymph % (Auto) 39.6 [place] % (Auto) 7.3 Eos % (Auto) 3.3 Baso % (Auto) 0.2 Absolute Neuts (auto) 3.2 Absolute Lymphs (auto) 2.54 Total Counted Not Reportable PT 13.2 INR 1.0 APTT 36.1 Specimen Type Sample Site pH Bicarbonate Actual POC Total CO2 Base Excess O2 Saturation O2 % ABG pCO2 ABG pO2 Ajit Test Respiration Rate O2 Delivery Device Minute Volume Vent Mode Tidal Volume POC PEEP POC Pressure Suppt Blood Gas Notified Whom Blood Gas Notified Time Sodium 140 Potassium 3.8 Chloride 109 H Carbon Dioxide 25.0 Anion Gap 6 BUN 12 Creatinine 0.85 Estim Creat Clear Calc 79.07 Est GFR (MDRD) Af Amer 93 Est GFR (MDRD) Non-Af 77 BUN/Creatinine Ratio 14.1 Glucose 129 H Lactic Acid Calcium 8.3 L Ionized Calcium Phosphorus Magnesium Total Bilirubin 0.20 AST 24 ALT 30 Alkaline Phosphatase 102 Total Creatine Kinase Total Protein 6.7 Albumin 3.4 Globulin 3.3 Albumin/Globulin Ratio 1.0 Triglycerides Urine Color Urine Clarity Urine pH Ur Specific [place] Urine Protein Urine Glucose (UA) Urine Ketones Urine Occult Blood Urine Nitrite Urine Bilirubin Urine Urobilinogen Ur Leukocyte Esterase Urine RBC Urine WBC Ur Squamous Epith Cells Urine Bacteria Urine Mucus Urine Opiates Screen Urine Methadone Screen Ur Barbiturates Screen Ur Phencyclidine Scrn Ur Amphetamines Screen U Methamphetamin-MDMA U Benzodiazepines Scrn Urine Cocaine Screen U Cannabinoids Screen Ur Drug Screen Comment 07/19/18 07/19/18 07/19/18 20:55 21:15 21:18 WBC RBC Hgb Hct MCV MCH MCHC RDW RDW Differential Plt Count MPV Immature Gran % (Auto) Neut % (Auto) Lymph % (Auto) [place] % (Auto) Eos % (Auto) Baso % (Auto) Absolute Neuts (auto) Absolute Lymphs (auto) Total Counted PT INR APTT Specimen Type Sample Site pH Bicarbonate Actual POC Total CO2 Base Excess O2 Saturation O2 % ABG pCO2 ABG pO2 Ajit Test Respiration Rate O2 Delivery Device Minute Volume Vent Mode Tidal Volume POC PEEP POC Pressure Suppt Blood Gas Notified Whom Blood Gas Notified Time Sodium Potassium Chloride Carbon Dioxide Anion Gap BUN Creatinine Estim Creat Clear Calc Est GFR (MDRD) Af Amer Est GFR (MDRD) Non-Af BUN/Creatinine Ratio Glucose Lactic Acid 0.8 Calcium Ionized Calcium Phosphorus Magnesium Total Bilirubin AST ALT Alkaline Phosphatase Total Creatine Kinase 158 Total Protein Albumin Globulin Albumin/Globulin Ratio Triglycerides 284 H Urine Color Urine Clarity Urine pH Ur Specific [place] Urine Protein Urine Glucose (UA) Urine Ketones Urine Occult Blood Urine Nitrite Urine Bilirubin Urine Urobilinogen Ur Leukocyte Esterase Urine RBC Urine WBC Ur Squamous Epith Cells Urine Bacteria Urine Mucus Urine Opiates Screen NEGATIVE Urine Methadone Screen NEGATIVE Ur Barbiturates Screen NEGATIVE Ur Phencyclidine Scrn NEGATIVE Ur Amphetamines Screen NEGATIVE U Methamphetamin-MDMA NEGATIVE U Benzodiazepines Scrn NEGATIVE Urine Cocaine Screen NEGATIVE U Cannabinoids Screen POSITIVE H Ur Drug Screen Comment 07/19/18 07/19/18 07/20/18 21:18 22:44 01:05 WBC RBC Hgb Hct MCV MCH MCHC RDW RDW Differential Plt Count MPV Immature Gran % (Auto) Neut % (Auto) Lymph % (Auto) [place] % (Auto) Eos % (Auto) Baso % (Auto) Absolute Neuts (auto) Absolute Lymphs (auto) Total Counted PT INR APTT Specimen Type ART ART Sample Site R Radial L Radial pH 7.28 L 7.29 L Bicarbonate Actual 23.2 22.2 POC Total CO2 25 24 Base Excess -3 L -4 L O2 Saturation 100 H 94 L O2 % 100 40 ABG pCO2 49.2 H 45.9 H ABG pO2 279 H 82 Ajit Test POS Respiration Rate 12 12 O2 Delivery Device Vent Vent Minute Volume 8.00 Vent Mode A-C A-C Tidal Volume 450 450 POC PEEP 5 5 POC Pressure Suppt Blood Gas Notified Whom ED HOSP Blood Gas Notified Time 2250 55 Sodium Potassium Chloride Carbon Dioxide Anion Gap BUN Creatinine Estim Creat Clear Calc Est GFR (MDRD) Af Amer Est GFR (MDRD) Non-Af BUN/Creatinine Ratio Glucose Lactic Acid Calcium Ionized Calcium Phosphorus Magnesium Total Bilirubin AST ALT Alkaline Phosphatase Total Creatine Kinase Total Protein Albumin Globulin Albumin/Globulin Ratio Triglycerides Urine Color Yellow Urine Clarity Clear Urine pH 6.5 Ur Specific [place] 1.005 Urine Protein Negative Urine Glucose (UA) Normal Urine Ketones Negative Urine Occult Blood Negative Urine Nitrite Negative Urine Bilirubin Negative Urine Urobilinogen Normal Ur Leukocyte Esterase Negative Urine RBC 0 SEEN Urine WBC 0 SEEN Ur Squamous Epith Cells 0 SEEN Urine Bacteria 0 SEEN Urine Mucus 0 SEEN Urine Opiates Screen Urine Methadone Screen Ur Barbiturates Screen Ur Phencyclidine Scrn Ur Amphetamines Screen U Methamphetamin-MDMA U Benzodiazepines Scrn Urine Cocaine Screen U Cannabinoids Screen Ur Drug Screen Comment 07/20/18 07/20/18 07/20/18 04:13 04:13 04:13 WBC 10.1 RBC 3.71 L Hgb 10.9 L Hct 33.9 L MCV 91.4 MCH 29.4 MCHC 32.2 RDW 14.8 H RDW Differential 48.5 H Plt Count 266 MPV 10.2 Immature Gran % (Auto) Neut % (Auto) Lymph % (Auto) [place] % (Auto) Eos % (Auto) Baso % (Auto) Absolute Neuts (auto) Absolute Lymphs (auto) Total Counted PT INR APTT Specimen Type Sample Site pH Bicarbonate Actual POC Total CO2 Base Excess O2 Saturation O2 % ABG pCO2 ABG pO2 Ajit Test Respiration Rate O2 Delivery Device Minute Volume Vent Mode Tidal Volume POC PEEP POC Pressure Suppt Blood Gas Notified Whom Blood Gas Notified Time Sodium 142 Potassium 3.6 Chloride 112 H Carbon Dioxide 22.0 Anion Gap 8 BUN 13 Creatinine 0.70 Estim Creat Clear Calc 96.01 Est GFR (MDRD) Af Amer 116 Est GFR (MDRD) Non-Af 96 BUN/Creatinine Ratio 18.5 Glucose 119 H Lactic Acid Calcium 8.1 L Ionized Calcium Pending Phosphorus Magnesium 1.5 L Total Bilirubin 0.20 AST 25 ALT 29 Alkaline Phosphatase 98 Total Creatine Kinase Total Protein 5.9 L Albumin 2.9 L Globulin 3.0 Albumin/Globulin Ratio 1.0 Triglycerides Urine Color Urine Clarity Urine pH Ur Specific [place] Urine Protein Urine Glucose (UA) Urine Ketones Urine Occult Blood Urine Nitrite Urine Bilirubin Urine Urobilinogen Ur Leukocyte Esterase Urine RBC Urine WBC Ur Squamous Epith Cells Urine Bacteria Urine Mucus Urine Opiates Screen Urine Methadone Screen Ur Barbiturates Screen Ur Phencyclidine Scrn Ur Amphetamines Screen U Methamphetamin-MDMA U Benzodiazepines Scrn Urine Cocaine Screen U Cannabinoids Screen Ur Drug Screen Comment 07/20/18 07/21/18 07/21/18 04:15 04:10 04:10 WBC 6.5 RBC 3.69 L Hgb 10.7 L Hct 33.3 L MCV 90.2 MCH 29.0 MCHC 32.1 RDW 14.8 H RDW Differential 48.1 H Plt Count 289 MPV 10.3 Immature Gran % (Auto) 0.200 Neut % (Auto) 63.6 Lymph % (Auto) 26.8 [place] % (Auto) 6.2 Eos % (Auto) 2.9 Baso % (Auto) 0.3 Absolute Neuts (auto) 4.1 Absolute Lymphs (auto) 1.73 Total Counted Not Reportable PT INR APTT Specimen Type Sample Site pH Bicarbonate Actual POC Total CO2 Base Excess O2 Saturation O2 % ABG pCO2 ABG pO2 Ajit Test Respiration Rate O2 Delivery Device Minute Volume Vent Mode Tidal Volume POC PEEP POC Pressure Suppt Blood Gas Notified Whom Blood Gas Notified Time Sodium 144 Potassium 3.2 L Chloride 112 H Carbon Dioxide 23.0 Anion Gap 9 BUN 8 Creatinine 0.66 Estim Creat Clear Calc 101.83 Est GFR (MDRD) Af Amer 125 Est GFR (MDRD) Non-Af 103 BUN/Creatinine Ratio 12.1 Glucose 105 Lactic Acid Calcium 7.6 L Ionized Calcium Phosphorus 3.6 2.7 Magnesium 1.7 Total Bilirubin AST ALT Alkaline Phosphatase Total Creatine Kinase Total Protein Albumin Globulin Albumin/Globulin Ratio Triglycerides Urine Color Urine Clarity Urine pH Ur Specific [place] Urine Protein Urine Glucose (UA) Urine Ketones Urine Occult Blood Urine Nitrite Urine Bilirubin Urine Urobilinogen Ur Leukocyte Esterase Urine RBC Urine WBC Ur Squamous Epith Cells Urine Bacteria Urine Mucus Urine Opiates Screen Urine Methadone Screen Ur Barbiturates Screen Ur Phencyclidine Scrn Ur Amphetamines Screen U Methamphetamin-MDMA U Benzodiazepines Scrn Urine Cocaine Screen U Cannabinoids Screen Ur Drug Screen Comment 07/21/18 06:25 WBC RBC Hgb Hct MCV MCH MCHC RDW RDW Differential Plt Count MPV Immature Gran % (Auto) Neut % (Auto) Lymph % (Auto) [place] % (Auto) Eos % (Auto) Baso % (Auto) Absolute Neuts (auto) Absolute Lymphs (auto) Total Counted PT INR APTT Specimen Type ART Sample Site R Radial pH 7.40 Bicarbonate Actual 23.9 POC Total CO2 25 Base Excess -1 O2 Saturation 81 L O2 % 30 ABG pCO2 39.0 ABG pO2 45 L Ajit Test NA Respiration Rate O2 Delivery Device Vent Minute Volume Vent Mode CPAP PS Tidal Volume POC PEEP 5 POC Pressure Suppt 5 Blood Gas Notified Whom ICU Blood Gas Notified Time 624 Sodium Potassium Chloride Carbon Dioxide Anion Gap BUN Creatinine Estim Creat Clear Calc Est GFR (MDRD) Af Amer Est GFR (MDRD) Non-Af BUN/Creatinine Ratio Glucose Lactic Acid Calcium Ionized Calcium Phosphorus Magnesium Total Bilirubin AST ALT Alkaline Phosphatase Total Creatine Kinase Total Protein Albumin Globulin Albumin/Globulin Ratio Triglycerides Urine Color Urine Clarity Urine pH Ur Specific [place] Urine Protein Urine Glucose (UA) Urine Ketones Urine Occult Blood Urine Nitrite Urine Bilirubin Urine Urobilinogen Ur Leukocyte Esterase Urine RBC Urine WBC Ur Squamous Epith Cells Urine Bacteria Urine Mucus Urine Opiates Screen Urine Methadone Screen Ur Barbiturates Screen Ur Phencyclidine Scrn Ur Amphetamines Screen U Methamphetamin-MDMA U Benzodiazepines Scrn Urine Cocaine Screen U Cannabinoids Screen Ur Drug Screen Comment Microbiology 07/19/18 21:18 Urine Catheter - Catheter Urine Culture - Preliminary Culture exhibits no growth. Clinical Impression(s) from Imaging Studies Chest X-Ray 07/20/18 06:57 IMPRESSION: An NG tube and ET tube in position with the ET tube 1.5 cm above the kermit. Platelike atelectatic changes in the left lung base Electronically Signed: Willie Ellison MD at 8:04 EST Tel , Service support , Medical Necessity - Tobacco Use Smoking Status: Current every day smoker Assessment/Plan All Active Problems Acute respiratory failure (Acute) Aspiration into airway (Acute) Encephalopathy (Acute) Right-sided epistaxis (Acute) Acute encephalopathy (Acute) Right foot pain (Resolved) Fluid collection right foot (Resolved) Rib contusion (Resolved) RECOMMENDATIONS: 1. Continue empiric antibiotics for aspiration for another 4 days 2. Wean oxygen as tolerated 3. Await bedside swallow evaluation, possibly transition to Augmentin 4. Increase activity as tolerated 5. Monitor for seizure activity IMPRESSIONS: 1. Acute hypoxic respiratory failure secondary to aspiration pneumonia Patient with a developing right lower lobe infiltrate. Patient able to be extubated earlier this morning. We will continue to monitor. Patient does have significant rhonchi, so pulmonary toileting will be vital. Possibly transition to p.o. antibiotics once patient passes bedside swallow evaluation. 2. Acute encephalopathy, unclear metabolic versus toxic Resolved > patient was found to be significantly hypoxic on EMS presentation. Unclear if this is related to benzodiazepine use versus hypoxemia. Patient is appropriate at this time. Patient does have a history of seizures, but no seizure activity is noted. 3. Hypocalcemia/reported COPD/paranoid schizophrenia/depression/history of tobacco abuse/seizure disorder Complicates care, management, recovery and prognosis. Will initiate tube feeds today. Nicotine patch can be provided if requested. Defer to hospitalist on neurology involvement. TIME: 32 minutes critical care time spent addressing patient's acute hypoxic respiratory failure, encephalopathy, review of all data and collaboration with care team (5:50 AM to 6:30 AM) Code Visit 9xxxx: [id number] Critical care first hour
--- NOTE | 2018-07-21 06:59 | NURSING ---
Patient extubated via respiratory therapist at 0634. Fentanyl, Propofol, and restraints discontinued at this time,2L NC placed, patient tolerated well.
--- NOTE | 2018-07-21 11:44 | NURSING ---
1120- AIR QUALITY SPECIALIST came and told RN that pt wishes to leave AMA. Pt had previously asked MD if she could go home and he advised against it. RN went to see pt who said that she was sure that she wanted to leave. RN tried to encourage pt to stay and due to being extubated hours ago. Pt persistent to leave. Dr. Dewey paged and notified. Advised by MD to remove rhinorocket before departure. 1130- rhinorocket removed by Darlene Carver RN 1136- pt left AMA with belongings, home medications, and dealmaker in hand.
--- NOTE | 2018-07-21 17:05 | DS.PCM_ITS ---
Discharge Date and Diagnosis Date of Admission: 07/19/18 Date of Discharge: 07/21/18 - Primary Discharge Diagnosis #1 acute hypoxic respiratory failure #2 acute encephalopathy-most probably toxic in nature secondary to medication (Klonopin, Lyrica, Seroquel), possibly overdose of Klonopin unintentional #3 nonepileptic seizure disorder #4 COPD #5 paranoid schizophrenia #6 presumed aspiration pneumonia - Secondary Discharge Diagnosis Chronic Problems Seizures (Chronic) Tobacco use disorder (Chronic) Schizoaffective disorder (Chronic) HLD (hyperlipidemia) (Chronic) History of abdominal pain (Chronic) Hospital Course and Treatment Operations: None, - - OR I&D per Podiatry. Procedures: None Summary of Care Provided: The patient is a 42 year old F seen in the emergency room at [facility] after being brought in from [facility] at which she resides due to unresponsiveness, hypoxia, and mental status change. Patient was found at the [facility] and it appeared that she had an episode of unwitnessed emesis and she was unresponsive. Patient's pulse ox was in the 70s, she was placed on a nonrebreather by squad and her pulse ox was in the 80s. A right nasal trumpet was placed by EMS and she was given Narcan with no response. In the emergency room, she underwent intubation due to hypoxia and concerns for aspiration, she underwent a CT of the brain which was unremarkable for any acute process, white blood cell count was normal at 6.4, liver enzymes were unremarkable, lactate was unremarkable, EKG showed normal sinus rhythm at 72, tox screen was positive for cannabinoids. ABG showed a pH of 7.28, PCO2 of 49, and PO2 of 279 on the ventilator. A Rhino Rocket was placed in the right nares due to epistaxis, Patient was given IV antibiotics due to concerns of aspiration pneumonia, she was transferred to ICU where she was seen by pulmonary medicine and monitor, she remained stable, on 07/21/18, she was extubated and was able be weaned off oxygen. Patient denied overdosing on any prescription drugs. Patient was examined by me on that date and initially agreed to stay and the plan was to transfer the patient to PCU for further care and reevaluate the patient on 07/22/18 for possible discharge back to the [facility]. However, patient felt that she wanted to be discharged AMA, she appeared to be alert enough to make that determination and understood that there were definite risks in taking this course. She called for transportation and was discharged AMA. I directed nursing to remove her Rhino Rocket before she was discharged. Physical exam: On examination she appeared in good health and spirits. Vital signs as documented. Skin warm and dry and without overt rashes. Neck without JVD. Lungs clear. Heart exam notable for regular rhythm, normal sounds and absence of murmurs, rubs or gallops. Abdomen unremarkable and without evidence of organomegaly, masses, or abdominal aortic enlargement. Extremities nonedematous. Neuro: Cranial nerves II through XII are grossly intact, no focal motor deficits were noted. Psych: Patient appeared calm at the time of my examination, she was alert, she was appropriate, and was oriented as to person and place. - Physical Exam Vital Signs Temp Pulse Resp BP Pulse Ox 99.3 F H 80 16 137/113 H 96 07/21/18 09:00 07/21/18 11:00 07/21/18 11:00 07/21/18 11:00 07/21/18 11:00 Oxygen Flow Rate (L/min) 2 Oxygen Delivery Method Room Air Weight: 109.6 kg Body Mass Index (BMI) 38.9 Finger Stick Blood Glucose 88 Intake and Output for Last 24 Hours 07/19/18 07/20/18 07/21/18 23:59 23:59 23:59 Intake Total 2923.5 / 2923.5 584.6 / 584.6 Output Total 2900 / 2900 400 / 400 Balance 23.5 / 23.5 184.6 / 184.6 Microbiology Past 72 Hours 07/20/18 19:45 Gram Stain - Final Sputum, Induced/Lukens 07/19/18 21:18 Urine Culture - Preliminary Urine Catheter - Catheter Culture exhibits no growth. Laboratory Tests Past 24 Hrs 07/21/18 07/21/18 07/21/18 04:10 04:10 06:25 WBC 6.5 RBC 3.69 L Hgb 10.7 L Hct 33.3 L MCV 90.2 MCH 29.0 MCHC 32.1 RDW 14.8 H RDW Differential 48.1 H Plt Count 289 MPV 10.3 Immature Gran % (Auto) 0.200 Neut % (Auto) 63.6 Lymph % (Auto) 26.8 [place] % (Auto) 6.2 Eos % (Auto) 2.9 Baso % (Auto) 0.3 Absolute Neuts (auto) 4.1 Absolute Lymphs (auto) 1.73 Total Counted Not Reportable Specimen Type ART Sample Site R Radial pH 7.40 Bicarbonate Actual 23.9 POC Total CO2 25 Base Excess -1 O2 Saturation 81 L O2 % 30 ABG pCO2 39.0 ABG pO2 45 L Ajit Test NA O2 Delivery Device Vent Vent Mode CPAP PS POC PEEP 5 POC Pressure Suppt 5 Blood Gas Notified Whom ICU MD Blood Gas Notified Time 624 Sodium 144 Potassium 3.2 L Chloride 112 H Carbon Dioxide 23.0 Anion Gap 9 BUN 8 Creatinine 0.66 Estim Creat Clear Calc 101.83 Est GFR (MDRD) Af Amer 125 Est GFR (MDRD) Non-Af 103 BUN/Creatinine Ratio 12.1 Glucose 105 Calcium 7.6 L Phosphorus 2.7 Magnesium 1.7 Home Medications: Medications to take at Discharge Pregabalin [Lyrica] 200 mg PO TID 01/03/16 Albuterol Inhaler [Ventolin Hfa] 2 puff INHALATION Q4H PRN PRN 03/15/17 Amitriptyline HCl 100 mg PO QHS 03/15/17 Cetirizine HCl [Zyrtec] 10 mg PO QHS 03/15/17 Ibuprofen 600 mg PO Q6H PRN PRN 02/22/18 Ipratropium [Atrovent Inhaler] 1 puff INHALATION 4X/DAY 02/22/18 Levetiracetam 1,000 mg PO BID 02/22/18 Citalopram [Celexa] 60 mg PO DAILY 07/18/18 Diphenhydramine HCl/Zinc Acet [Anti-Itch 2%-0.1% Cream] 35 gm TP TID PRN PRN 07/18/18 Melatonin 10 mg PO QHS PRN 07/18/18 Omeprazole [Prilosec] 20 mg PO DAILY 07/18/18 Quetiapine Fumarate [Seroquel] 100 mg PO QHS 07/18/18 Quetiapine Fumarate [Seroquel] 400 mg PO BID 07/18/18 Clonazepam [Klonopin] 2 mg PO TID PRN PRN #30 tablet 07/19/18 Primary Care Physician: Phi Medeiros III, MD [Primary Care Provider] - Disposition: Against Medical Advice Minutes spent on discharge:: 32 Patient Condition:: Stable Medical Necessity - Tobacco Use Smoking Status: Current every day smoker Meaningful Use Info Meaningful Use Diagnoses (Choose all that apply): None applicable Code Visit Inpatient E&M: 06370 Disch Hosp
== END 2018-07-21 11:35 | disposition left against medical advice (07) | DRG 133 ==
LOC: ED 22:48 → ICU 23:31
PROVIDERS: Internal Medicine Critical Care Medicine; Admitting Provider Hospitalist; Emergency Provider Emergency Medicine; Family Provider Family Medicine; PCP Family Medicine; Visit Provider Internal Medicine
DX: J96.01 Acute respiratory failure with hypoxia (principal); E83.51 Hypocalcemia; J69.0 Pneumonitis due to inhalation of food and vomit; T42.4X1A Poisoning by benzodiazepines, accidental (unintentional), initial encounter; G92 Toxic encephalopathy; F20.0 Paranoid schizophrenia; R04.0 Epistaxis; S09.92XA Unspecified injury of nose, initial encounter; Y84.8 Other medical procedures as the cause of abnormal reaction of the patient, or of later complication, without mention of misadventure at the time of the procedure; J44.9 Chronic obstructive pulmonary disease, unspecified; E78.5 Hyperlipidemia, unspecified; R40.2432 Glasgow coma scale score 3-8, at arrival to emergency department; Z79.899 Other long term (current) drug therapy; G43.909 Migraine, unspecified, not intractable, without status migrainosus; G62.9 Polyneuropathy, unspecified; E11.65 Type 2 diabetes mellitus with hyperglycemia; F31.9 Bipolar disorder, unspecified; G40.909 Epilepsy, unspecified, not intractable, without status epilepticus; F17.210 Nicotine dependence, cigarettes, uncomplicated; G89.4 Chronic pain syndrome
CPT/HCPCS: 31500; 31720; 36415; 36600; 51702; 70450; 71045; 73080; 80048; 80053; 80177; 80307; 81001; 82330; 82550; 82570; 82803; 82962; 83605; 83735; 84100; 84146; 84300; 84478; 85025; 85027; 85610; 85730; 87040; 87070; 87086; 87205; 93005; 94002; 94003; 94640; 94660; 94762; 95819; 95831; 96361; 96365; 96366; 96367; 96372; 96375; 96376; 97162; 97165; 97802; 99218; 99251; 99285; 99406; J7030; J7040; J7050; A4216; G0378; G0463; J0295; J7799

== ENCOUNTER 2018-07-25 22:58 | Emergency (ER) | payer MEDICAID, SELFPAY ==
[2018-07-20 00:22] VITALS: BMI 38.9
[2018-07-25 22:59] VITALS: BP 134/87; PULSE 71; RESP 18; TEMP 36.5; O2SAT 92; BMI 35.5
[2018-07-25 23:29] VITALS: O2SAT 77
--- NOTE | 2018-07-25 23:50 | EKG12_ITS ---
Test Reason : SOB Blood Pressure : / mmHG Vent. Rate : 067 BPM Atrial Rate : 067 BPM P-R Int : 168 ms QRS Dur : 104 ms QT Int : 452 ms P-R-T Axes : 047 000 033 degrees QTc Int : 477 ms Normal sinus rhythm Normal ECG Confirmed by JET VELÁZQUEZ, MARITZA ([id number]), newspaper editor managing ELEANOR FERRARI ([id number]) on 07/29/2018 10:20:37 AM Referred By: MIHAELA Confirmed By:MARITZA CHAUDHARY MD
--- NOTE | 2018-07-25 23:51 | ED.VISSUMM ---
- ER Visit Summary Date of Service: 07/25/18 Chief Complaint: Shortness of breath History of Present Illness: The patient is a 42 F with recent admission for respiratory failure and pneumonia who presents for shortness of breath. History is limited secondary to patient's somnolence due to taking her nighttime medications. Patient presents from the [facility] with complaint of shortness of breath. She has history of COPD, recent aspiration pneumonia, seizure disorder and schizophrenia. She states she has not felt well since she was discharged. She has a cough productive of green chunks with red streaks. She denies fever, chest pain, abdominal pain, nausea or vomiting. She is a smoker and uses marijuana. Denies any other drug use or alcohol use. Patient took her nighttime medications including antiseizure medications and Klonopin prior to presentation, and thus states she is very sleepy and groggy from this. Physical Examination: Vital signs: afebrile, hemodynamically stable,hypoxia on room air while sleeping, 96% on nasal cannula General: well nourished, well developed, in no distress, somnolent but awakens to tactile stimulation Skin: warm, dry, no rash, no pallor HEENT: normocephalic and atraumatic; PERRL, EOMI, dry mucous membranes Cardiovascular: regular rate and rhythm without murmurs, no peripheral edema, 2+ pulses all distal extremities Respiratory: No increased work of breathing, lungs are clear to auscultation bilaterally, no rales, rhonchi or wheezing Abdominal: Abdomen is soft, nontender with normoactive bowel sounds, no guarding or rebound, no masses MSK: Moves all extremities, no deformities, normal strength Neuro: somnolent but wakens to tactile stimulation, speech slow and slurred, oriented ?4. No facial droop, sensation and motor function intact and symmetric Test Results: [] Emergency Department Course and Treatment: Workup was initiated, including breathing treatments due to patient's complaint of shortness of breath. Shortly after the workup was initiated, while the nurse was trying to get patient to change into a gown, the patient became irate at having to change and chose to leave without any further treatment. She left prior to me being able to discuss her decision to leave AGAINST MEDICAL ADVICE. Patient did not sign any AMA paperwork. Treatment Plan: [] Disposition: [] Impression: Left AMA This note was generated with [employer] dictation software. It may contain incorrect words, spelling, and punctuation that were not noted in review of the chart prior to signing ED Disposition - Plan for ED Patient: Disposition: Against Medical Advice Chief Complaint: Shortness of Breath Referrals: Phi Medeiros III, MD [Primary Care Provider] -
[2018-07-26] MEDS: Ipratropium/Albuterol Sulfate 3 ML AMPUL.NEB INHALATION (00:03)
[2018-07-26] MEDS: Albuterol 2.5 MG/3 ML VIAL.NEB. INHALATION ×3 (00:03→00:12)
[2018-07-26 00:16] VITALS: PULSE 68; RESP 18
--- NOTE | 2018-07-26 00:19 | NURSING ---
PT REFUSED TO CHANGE INTO GOWN THEN BECAME VERBALLY ABUSIVE AND REFUSED ALL OTHER TREATMENT. PULLED OFF ALL MONITORS. REFUSED TO SIGN AMA FORM. LEFT ED AMBULATORY PRIOR TO SPEAKING WITH ER DR. NO S/S DISTRESS NOTED AT TIME OF ELOPEMENT.
== END 2018-07-26 00:24 | disposition left against medical advice (07) ==
PROVIDERS: Emergency Provider Emergency Medicine; Family Provider Family Medicine; PCP Family Medicine
DX: R06.02 Shortness of breath (principal); J44.9 Chronic obstructive pulmonary disease, unspecified; F20.9 Schizophrenia, unspecified; G40.909 Epilepsy, unspecified, not intractable, without status epilepticus; F17.200 Nicotine dependence, unspecified, uncomplicated; Z79.51 Long term (current) use of inhaled steroids; Z79.899 Other long term (current) drug therapy
CPT/HCPCS: 93005; 94640; 99283

== ENCOUNTER 2018-07-26 19:13 | Emergency (ER) | payer MEDICAID, SELFPAY ==
[2018-07-25 22:59] VITALS: BMI 35.5
[2018-07-26 19:13] VITALS: BP 90/50; PULSE 79; RESP 22; TEMP 36.4; O2SAT 98; BMI 37.3
--- NOTE | 2018-07-26 19:27 | CT_ITS ---
STUDY: CT BRAIN WITHOUT CONTRAST REASON FOR EXAM: Female, 42 years old. Seizures. Headaches. RADIATION DOSAGE (If Supplied By Facility): CTDIvol = ( 44.99 ) mGy, DLP = ( 829.85 ) mGycm TECHNIQUE: Transaxial CT imaging of the brain was performed without administration of intravenous contrast material. Individualized dose optimization techniques were used for this CT. COMPARISON: 07/19/2018. FINDINGS: Normal soft tissue structures. Normal calvarium. Normal size ventricles and extra-axial spaces for the patient's age. Normal white matter tracts of the cerebral hemispheres. Normal basal ganglia and thalami. Normal brainstem. Normal cerebellum. There is no intracranial hemorrhage. There are no findings of an acute ischemic infarction. Normal visualized paranasal sinuses. CT/Brain/Head without Contrast IMPRESSION: Normal unenhanced CT scan of the brain. Electronically Signed: Miles Hi MD at 20:30 EST , Service support ,
[2018-07-26] MEDS: Metoclopramide 10 MG/2 ML Vial 5 MG IV (19:37)
[2018-07-26] MEDS: 0.9% Normal Saline 1,000 ML 1000 ML IV (19:37)
[2018-07-26 19:38] LABS: Absolute Lymphocyte Count 2.76 X10^3/ul (0.83-4.51); Absolute Neutrophil Count 3.1 X10^3/uL (2.0-7.7); Basophil# 0.03 X10^3/uL; Basophil% 0.5 % (0-1); Eosinophil# 0.29 X10^3/uL; Eosinophils% 4.4 % (0-5); Hematocrit 36.1 % (37-47); Hemoglobin 11.9 g/dl (12.0-15.0); Lymphocyte # 2.76 X10^3/ul (4.0); Lymphocyte % 41.4 % (19-41); Mean Corpuscular Hgb 29.1 pg (27.0-32.0); Mean Corpuscular Volume 88.3 fL (81-99); Mean Platelet Vol. 9.3 fl (6.2-12.0); Monocyte# 0.43 X10^3/uL; Monocyte% 6.5 % (0-10); Neutrophil % 46.4 % (47-70); POSITIVE COUNT NO; POSITIVE DIFFERENTIAL NO; POSITIVE MORPHOLOGY NO; Platelet Count 396 K/mm3 (150-450); RBC Distribution Width CV 14.9 % (11.6-14.6); RBC Distribution Width SD 48.1 fl (35.1-43.9); Red Blood Count 4.09 M/mm3 (4.2-5.4); White Blood Count 6.7 K/mm3 (4.4-11.0)
[2018-07-26] MEDS: DiphenhydrAMINE 50 MG/ML Syringe 25 MG IV (19:38)
[2018-07-26] MEDS: Ketorolac 30 MG/ML Syringe IV (19:39)
--- NOTE | 2018-07-26 19:45 | NURSING ---
PT WATCHING TV AT A VERY LOUD LEVEL. ABLE TO HEAR TV ACROSS THE [place].
[2018-07-26 19:49] LABS: AST(SGOT) 14 U/L (15-37); Alanine Aminotransfer ALT/SGPT 28 U/L (13-56); Albumin, Serum 3.4 g/dL (3.2-5.0); Alkaline Phosphatase 128 U/L (45-117); Anion Gap 9 (5-15); BUN 11 mg/dL (7-18); BUN/Creat Ratio 13.2 RATIO (10-20); Calcium,Total 9.1 mg/dL (8.5-10.1); Chloride 109 mmol/L (98-107); Creatinine, Serum 0.83 mg/dL (0.55-1.02); EST Glomerular Filtration Rate 79 mL/min (>60); Est Glom Filt Rate - Afr Amer 95 mL/min (>60); Estimated Creatinine Clearance 84.11 ml/min; Globulin 3.6 g/dL (2.2-4.2); Glucose 100 mg/dL (74-106); Lipase 114 U/L (73-393); Potassium 3.8 mmol/L (3.5-5.1); Sodium Level 140 mmol/L (136-145)
[2018-07-26] MEDS: 0.9% Normal Saline 1,000 ML 150 ML IV (20:46)
[2018-07-26 21:13] VITALS: BP 112/61; PULSE 73; RESP 16; O2SAT 93
--- NOTE | 2018-07-26 21:39 | ED.VISSUMM ---
- ER Visit Summary Date of Service: 07/26/18 Chief Complaint: Increased frequency of seizures and a migraine History of Present Illness: The patient is a 42 F who reports vomiting this evening and having a migraine. She states she took her normal Topamax but the headache did not improve. She states that she has seizures that is worsened by anxiety. She is currently staying at the [facility] is under more stress than normal. She states that she has seizures daily. She is currently on Klonopin and Keppra. She states her last seizure was this morning. Past history significant for COPD, diabetes, high cholesterol, seizures, schizoaffective disorder. Physical Examination: Blood pressure is 90/50, temperature 97.6, heart rate 79, respiratory rate 20, pulse ox 98% on room air. Patient sitting upright in bed. She is alert and talkative. She is nontoxic appearing. Head neck examination is unremarkable with no meningismus. Heart is regular rate and rhythm. Lung sounds are clear. Abdomen is soft nontender. Neuro exam is unremarkable. Test Results: CT head is normal. CBC was normal white count. Hemoglobin is 11.9. Chemistry studies normal. LFTs significant only for alk phos of 128. Emergency Department Course and Treatment: Patient was given Toradol, Reglan, Benadryl, and IV fluids. On repeat evaluation she is sleeping comfortably. Once were able to get her awake she states her headache is improved. She will be discharged back to the [facility]. Treatment Plan: [] Disposition: Discharge Impression: Migraine, improved This note was generated with [employer] dictation software. It may contain incorrect words, spelling, and punctuation that were not noted in review of the chart prior to signing ED Disposition - Plan for ED Patient: Disposition: Home or Assisted Living Chief Complaint: Seizure Instructions: ED Headache Migraine Referrals: Phi Medeiros III, MD [Primary Care Provider] - 1 Week
[2018-07-26 22:00] VITALS: BP 105/72; PULSE 77; RESP 16
== END 2018-07-26 22:01 | disposition home or self-care (01) ==
PROVIDERS: Emergency Provider Emergency Medicine; Family Provider Family Medicine; PCP Family Medicine
DX: G43.909 Migraine, unspecified, not intractable, without status migrainosus (principal); R56.9 Unspecified convulsions; J44.9 Chronic obstructive pulmonary disease, unspecified; F25.9 Schizoaffective disorder, unspecified; E78.00 Pure hypercholesterolemia, unspecified; Z72.0 Tobacco use; Z79.51 Long term (current) use of inhaled steroids; Z79.899 Other long term (current) drug therapy
CPT/HCPCS: 70450; 80048; 80076; 83690; 85025; 96361; 96374; 96375; 99285; J7030; A4216

== ENCOUNTER 2018-09-08 14:57 | Emergency (ER) | payer MEDICAID, SELFPAY ==
[2018-09-08 14:59] VITALS: BP 126/95; PULSE 89; RESP 18; TEMP 37.3; O2SAT 96; BMI 35.3
--- NOTE | 2018-09-08 15:01 | ED.RN ---
PT ASKING TO LEAVE AGAINST MEDICAL ADVICE
--- NOTE | 2018-09-08 15:11 | ED.DCSUM_ITS ---
- ER Visit Summary Date of Service: 09/08/18 Chief Complaint: Chest pain History of Present Illness: The patient is a 42 F who reports sudden onset of stabbing left lower chest pain this afternoon. Patient states she had walked to a friend's house and had no pain while walking. After sitting there for luis armando roximately 20 minutes she had sudden onset of sharp stabbing pain to the left chest that radiated to her left arm. She denies shortness of breath. She denies cardiac history or history of PE. She does have history of COPD, diabetes, high cholesterol, seizures, schizoaffective disorder. Physical Examination: Vital signs are unremarkable. Patient is sitting upright in bed. She appears uncomfortable but she is in no acute distress. Head neck examination is normal. Heart is regular rate and rhythm. Lungs sounds are clear. She does have reproducible tenderness along the left sternal border. There is no crepitus. Abdomen is soft and nontender. Lower extremity examination reveals no calf tenderness or edema. Test Results: [] Emergency Department Course and Treatment: Prehospital EKG was reviewed and shows no sign of acute ischemia. I discussed with the patient the plan for blood work, x-ray, repeat EKG. At this time she is refusing any further workup. When asked why she simply states there is no point. I did discuss with her concern for cardiac etiology or pulmonary embolism. I did express to her that she can walk out the door and from these conditions. She voices understanding and agreement and can make her own decisions. She is choosing to sign out AGAINST MEDICAL ADVICE. Treatment Plan: [] Disposition: AMA Impression: Chest pain Addendum: When nurse took paperwork back to have the patient sign out AMA, she s tates she called for a ride but her ride refuses to pick her up until she gets checked out. She is now consenting to workup. CBC and chemistry studies are unremarkable. Troponin is negative. D-dimer is elevated at 1.67. Portable chest x-ray shows no acute disease. EKG is sinus at 77 with no sign of acute ischemia. CTA of the chest shows no evidence of PE or dissection. Groundglass opacities are noted in the lung base that is suspicious for pneumonia. Patient was given morphine, Toradol, Zofran here and is more comfortable on repeat evaluation. She had received aspirin and nitroglycerin with squad. Test results are discussed with the patient. She has had recurrent aspiration pneumonia and may very well have some scarring at her lung bases. At this time she has no fever, white count, cough, or shortness of breath. She will continue to monitor her symptoms and if she develops symptoms of pneumonia she will return for repeat exam. Disposition: Discharge Impression: Chest wall pain This note was generated with [employer] dictation software. It may contain incorrect words, spelling, and punctuation that were not noted in review of the chart prior to signing ED Disposition - Plan for ED Patient: Disposition: Home or Assisted Living Chief Complaint: Chest Pain Referrals: Phi Medeiros III, MD [Primary Care Provider] - As soon as possible Additional Instructions: You are choosing to sign out against medical advice. Medical work-up to determine the cause of your pain has not been performed. You have voiced understanding that you may be having a life-threatening condition and choose to not have a work-up performed. You may return at any time.
--- NOTE | 2018-09-08 15:17 | EKG12_ITS ---
Test Reason : CHEST PAIN Blood Pressure : / mmHG Vent. Rate : 077 BPM Atrial Rate : 077 BPM P-R Int : 144 ms QRS Dur : 096 ms QT Int : 376 ms P-R-T Axes : 052 002 027 degrees QTc Int : 425 ms Normal sinus rhythm Normal ECG Confirmed by JET VELÁZQUEZ, MARITZA ([id number]), assignment desk editor RACHAEL DIXON ([id number]) on 09/10/2018 9:22:30 AM Referred By: COLLEEN Confirmed By:MARITZA CHAUDHARY MD
--- NOTE | 2018-09-08 15:22 | RAD_ITS ---
STUDY: X-RAY CHEST REASON FOR EXAM: Female, 42 years old. Chest pain TECHNIQUE: AP COMPARISON: 07/20/2018 FINDINGS: The lungs are clear and expanded. There is no demonstrated pleural abnormality. Normal size heart. Normal mediastinum and ligia. Normal visualized pulmonary arteries. Normal visualized aortic arch and descending thoracic aorta. Normal visualized thoracic spine. Old right rib fractures noted. There is no demonstrated abnormality of the visualized soft tissue structures of the upper abdomen. RAD/Chest 1 View (Portable) IMPRESSION: Nonacute portable x-ray examination of the chest. Electronically Signed: Gustavo Tineo MD at 15:49 EST , Service support ,
[2018-09-08] MEDS: 0.9% Normal Saline 1,000 ML 150 ML IV (15:28)
[2018-09-08] MEDS: Ondansetron 4 MG/2 ML Vial IV (15:28)
--- NOTE | 2018-09-08 15:28 | ED.RN ---
RN IN TO SIGN AMA PAPERWORK WITH PATIENT. PATIENT STATES SHE JUST GOT OFF THE PHONE WITH FRIEND AND HER FRIEND WANTS HER TO BE TREATED. PATIENT NOW WISHES TO BE TREATED. DR. MACIAS NOTIFIED.
[2018-09-08] MEDS: Ketorolac 30 MG/ML Syringe IV (15:29)
[2018-09-08] MEDS: Morphine 4 MG/ML Syringe IV (15:30)
[2018-09-08 15:32] VITALS: O2SAT 97
[2018-09-08 15:37] LABS: Absolute Lymphocyte Count 0.92 X10^3/ul (0.83-4.51); Absolute Neutrophil Count 3.3 X10^3/uL (2.0-7.7); Basophil# 0.01 X10^3/uL; Basophil% 0.2 % (0-1); Eosinophil# 0.03 X10^3/uL; Eosinophils% 0.7 % (0-5); Hematocrit 38.8 % (37-47); Hemoglobin 12.8 g/dl (12.0-15.0); Lymphocyte # 0.92 X10^3/ul (4.0); Mean Corpuscular Hgb 28.8 pg (27.0-32.0); Mean Corpuscular Volume 87.2 fL (81-99); Mean Platelet Vol. 9.6 fl (6.2-12.0); Monocyte% 6.5 % (0-10); Neutrophil # 3.32 X10^3/uL (2.7-7.7); Neutrophil % 72.2 % (47-70); Platelet Count 294 K/mm3 (150-450); RBC Distribution Width CV 13.4 % (11.6-14.6); RBC Distribution Width SD 42.8 fl (35.1-43.9); Red Blood Count 4.45 M/mm3 (4.2-5.4); White Blood Count 4.6 K/mm3 (4.4-11.0)
[2018-09-08 15:41] LABS: POSITIVE COUNT NO; POSITIVE DIFFERENTIAL NO
[2018-09-08 15:42] LABS: POSITIVE MORPHOLOGY NO
[2018-09-08 15:47] LABS: D-Dimer Quantitative (DVT/PE) 1.67 FEU/ug/m (0.27-0.49)
--- NOTE | 2018-09-08 15:49 | CT_ITS ---
STUDY: CTA CHEST REASON FOR EXAM: Female, 42 years old. Standing chest pain radiating to the left arm. RADIATION DOSAGE (If Supplied By Facility): CTDIvol = ( 16 ) mGy, DLP = ( 590.77 ) mGycm TECHNIQUE: The examination was performed with the intravenous administration of 100CC ml of Isovue 370 contrast material. Post-processing of the angiographic images was performed, with multiplanar reformation and 3D reconstruction. Individualized dose optimization techniques were used for this CT. COMPARISON: None. FINDINGS: The heart and pericardium are normal. The aorta is normal in caliber, with no aneurysm or dissection. There is no mediastinal mass or adenopathy. There is no hilar or axillary adenopathy. There is no evidence of pulmonary embolus. Pulmonary arteries are unremarkable. There is no pleural effusion. Mild groundglass opacities are noted in the lung bases, greater on the left, suspicious for acute pneumonia. There is a 2.8 x 2.6 cm left adrenal nodule. CT density measures -3 Hounsfield units. This is consistent with benign adenoma. Demonstrated abdomen is otherwise unremarkable. There is no acute osseous abnormality. Old ununited fractures of the right seventh and eighth ribs are noted. There is no acute osseous abnormality. CT/CTA Chest W/WO Contrast IMPRESSION: No pulmonary embolism or arterial dissection. Groundglass opacities in the lung bases, suspicious for acute pneumonia. Left adrenal adenoma. Electronically Signed: Ninfa Henderson MD at 18:04 EST Tel , Service support ,
[2018-09-08 15:55] LABS: Anion Gap 6 (5-15); BUN 5 mg/dL (7-18); BUN/Creat Ratio 8.1 RATIO (10-20); Calcium,Total 8.3 mg/dL (8.5-10.1); Chloride 106 mmol/L (98-107); Creatinine, Serum 0.62 mg/dL (0.55-1.02); EST Glomerular Filtration Rate 112 mL/min (>60); Est Glom Filt Rate - Afr Amer 135 mL/min (>60); Glucose 90 mg/dL (74-106); Potassium 4.3 mmol/L (3.5-5.1); Sodium Level 137 mmol/L (136-145)
[2018-09-08 17:15] VITALS: BP 108/67; PULSE 78; RESP 14; O2SAT 96
--- NOTE | 2018-09-08 18:45 | ED.DEP ---
ED Disposition - Plan for ED Patient: Disposition: Home or Assisted Living Chief Complaint: Chest Pain Instructions: ED Strain Chest Wall Prescriptions: Ketorolac [Toradol] 10 mg PO Q6H PRN #14 tablet PRN Reason: Pain Referrals: Phi Medeiros III, MD [Primary Care Provider] - As soon as possible
[2018-09-08 18:47] VITALS: BP 100/62; PULSE 77; RESP 18; O2SAT 97
== END 2018-09-08 18:49 | disposition home or self-care (01) ==
PROVIDERS: Emergency Provider Emergency Medicine; Family Provider Family Medicine; PCP Family Medicine
DX: R07.89 Other chest pain (principal); J44.9 Chronic obstructive pulmonary disease, unspecified; F25.9 Schizoaffective disorder, unspecified; Z79.51 Long term (current) use of inhaled steroids; Z79.899 Other long term (current) drug therapy
CPT/HCPCS: 71045; 71275; 80048; 84484; 85025; 85379; 93005; 96361; 96374; 96375; 99285; Q9967; A4216; J2405

== ENCOUNTER → 2021-08-10 12:25 | Outpatient (CLI) | payer MEDICAID, SELFPAY ==
[2021-08-10 15:18] LABS: Absolute Lymphocyte Count 3.08 X10^3/uL (0.83-4.51); Absolute Neutrophil Count 4.8 X10^3/uL (2.0-7.7); Basophil# 0.05 X10^3/uL; Basophil% 0.6 % (0-1); Eosinophils% 4.5 % (0-5); Hematocrit 44.1 % (37-47); Hemoglobin 14.4 g/dL (12.0-15.0); Lymphocyte # 3.08 X10^3/ul (0.83-4.51); Lymphocyte % 34.5 % (19-41); Mean Corp Hgb Conc 32.7 g/dL (32-36); Mean Corpuscular Volume 85.6 fL (81-99); Mean Platelet Vol. 10.3 fl (6.2-12.0); Monocyte# 0.58 X10^3/uL; Monocyte% 6.5 % (0-10); NRBC Flagged by Analyzer 0 % (0-5); Neutrophil # 4.76 X10^3/uL (2.7-7.7); Neutrophil % 53.3 % (47-70); Platelet Count 388 K/mm3 (150-450); RBC Distribution Width CV 13.4 % (11.6-14.6); RBC Distribution Width SD 42.1 fl (35.1-43.9); Red Blood Count 5.15 M/mm3 (4.2-5.4); White Blood Count 8.9 K/mm3 (4.4-11.0)
[2021-08-10 15:36] LABS: Vitamin D,25 Hydroxy 24.4 ng/mL
[2021-08-10 15:42] LABS: ALB/GLOB Ratio 0.8 RATIO (0.9-2.4); AST(SGOT) 17 U/L (15-37); Alanine Aminotransfer ALT/SGPT 25 U/L (13-56); Albumin, Serum 3.5 g/dL (3.2-5.0); Alkaline Phosphatase 121 U/L (45-117); Anion Gap 8 (5-15); BUN 8 mg/dL (7-18); BUN/Creat Ratio 10.8 RATIO (10-20); Calcium,Total 9.1 mg/dL (8.5-10.1); Chloride 107 mmol/L (98-107); Creatinine, Serum 0.74 mg/dL (0.55-1.02); EST Glomerular Filtration Rate 89 mL/min (>60); Est Glom Filt Rate - Afr Amer 107 mL/min (>60); Globulin 4.3 g/dL (2.2-4.2); Glucose 92 mg/dL (74-106); Potassium 4.1 mmol/L (3.5-5.1); Protein, Total 7.8 g/dL (6.4-8.2); Sodium Level 137 mmol/L (136-145); Thyroid Stim Hormone (TSH) 0.69 uIU/mL (0.358-3.74)
[2021-08-10 15:47] LABS: Hemoglobin A1c 5.7 % (3.8-5.6)
== END ==
PROVIDERS: PCP Internal Medicine; Visit Provider Internal Medicine
DX: R10.12 Left upper quadrant pain (principal)
CPT/HCPCS: 36415; 80053; 82306; 83036; 84443; 85025

== ENCOUNTER → 2021-08-16 07:12 | Outpatient (CLI) | payer MEDICAID, SELFPAY ==
--- NOTE | 2021-08-16 07:15 | US_ITS ---
STUDY: ABDOMINAL ULTRASOUND REASON FOR EXAM: Female, 45 years old. One year history of mid abdominal pain. TECHNIQUE: Transabdominal ultrasound was performed with real-time and static garg scale imaging. TECHNICAL QUALITY: Adequate. COMPARISON: None. FINDINGS: Liver: The liver measures 17.9 cm. There is increased echogenicity consistent with fatty infiltration. The bile ducts are within normal limits. There is hepatic color flow. The direction of portal flow is hepatopetal. There is no demonstrated mass lesion. Portal vein measurement: Gallbladder: The patient is status post cholecystectomy. Common Bile Duct (C.B.D.): The common bile duct measures 3.7 mm. Pancreas: Normal size of the head, body and tail of the pancreas. There is increased echogenicity of the pancreas. There is no demonstrated pancreatic mass or cyst. Spleen: Normal size of the spleen. The spleen measures 10 cm x 4.7 cm x 4.7 cm. Right Kidney: Normal size of the right kidney. The right kidney measures 11.8 cm x 5.1 cm x 3.9 cm. Normal renal cortex. The right cortex measures 1.3 cm. There is no demonstrated renal mass or cyst. There is no right hydronephrosis. Left Kidney: Normal size of the left kidney. The left kidney measures 11 cm x 4.9 cm x 4.1 cm. Normal renal cortex. The left cortex measures 1.3 cm. There is no demonstrated renal mass or cyst. There is no left hydronephrosis. Aorta: Unremarkable I.V.C.: The IVC is patent. There is no ascites. US/Abdomen Complete IMPRESSION: Fatty infiltration of the liver. Status post cholecystectomy. Electronically Signed: Haroon Garcia MD at 9:36 EST , Service support ,
[2021-08-16 11:04] LABS: HIV - WCH Non-Reactive (Nonreactive); Hepatitis B Surface Antigen Non-Reactive (Nonreactive); Hepatitis C Antibody Non-Reactive (Nonreactive); Syphilis Antibodies Non-reactive
[2021-08-17 09:42] LABS: HSV 1 IgG 3.47 index (0.00-0.90); HSV 2 IgG 7.36 index (0.00-0.90)
[2021-08-18 00:06] LABS: Chlamydia By Nucleic Acid AMP Negative (Negative)
[2021-08-18 07:27] LABS: Gonococcus By Nucleic Acid AMP Negative (Negative)
[2021-08-22 20:05] LABS: HPV APTIMA, High Risk Negative (Negative)
== END ==
PROVIDERS: Nurse Practitioner Women's Health; PCP Internal Medicine; Referring Provider Surgery; Visit Provider Surgery
DX: N76.0 Acute vaginitis (principal); K76.0 Fatty (change of) liver, not elsewhere classified; R10.84 Generalized abdominal pain; Z20.2 Contact with and (suspected) exposure to infections with a predominantly sexual mode of transmission; Z90.49 Acquired absence of other specified parts of digestive tract
CPT/HCPCS: 36415; 76700; 86695; 86696; 86703; 86780; 86803; 87070; 87205; 87340; 87491; 87591; 87624; 88175; G0145

== ENCOUNTER → 2021-08-23 12:03 | Outpatient (CLI) | payer MEDICAID, SELFPAY ==
--- NOTE | 2021-08-23 12:06 | BI_ITS ---
MAMMOGRAPHY - BILATERAL SCREENING REASON FOR EXAM: Female, 45 years old. Routine annual screening examination. PERTINENT HISTORY: Great grandfather with breast cancer. TECHNIQUE: Digital bilateral breast celio (3D mammographic acquisition) in the CC and MLO projections. 2-D mediolateral oblique (MLO) and craniocaudad (CC) views of both breasts were obtained. CAD: Full Field Digital Mammography with Computer Added Detection was performed. COMPARISON: No comparison mammograms available at this time. If any prior films become available, an addendum to this report can be generated. FINDINGS: Breast Composition: There are scattered areas of fibroglandular density. There are no dominant masses or suspicious calcifications. No other significant abnormalities are identified. BI/SCRN MAMM (CAD)W/CELIO BILAT IMPRESSION: Negative screening mammogram. Yearly followup mammogram recommended. (A) ASSESSMENT CATEGORY: BIRADS Category 1: Negative. A letter regarding these results will be sent to the patient by the facility within 30 days. Approximately 10% of breast cancers are not detected by mammography. A normal mammogram should not delay biopsy of a clinically suspicious abnormality. [id number] Electronically Signed: Haroon Garcia MD at 12:55 EST , Service support ,
== END ==
PROVIDERS: PCP Internal Medicine; Referring Provider Nurse Practitioner Women's Health; Visit Provider Nurse Practitioner Women's Health
DX: Z12.31 Encounter for screening mammogram for malignant neoplasm of breast (principal)
CPT/HCPCS: 77063; 77067

== ENCOUNTER → 2021-09-01 08:04 | Outpatient (CLI) | payer MEDICAID, SELFPAY ==
--- NOTE | 2021-09-01 08:06 | CT_ITS ---
STUDY: CT ABDOMEN AND PELVIS WITH CONTRAST REASON FOR EXAM: Female, 45 years old. Cramping for one year RADIATION DOSAGE (If Supplied By Facility): CTDIvol = ( 17.76 ) mGy, DLP = ( 1251.35 ) mGycm TECHNIQUE: Transaxial images were obtained from the dome of the diaphragm to the symphysis pubis with oral contrast. Oral and amp; IV Readi-CAT and amp; 100mL Isovue-300 was administered. Sagittal and coronal images were reconstructed. Individualized dose optimization techniques were used for this CT. COMPARISON: Multiple prior comparison studies dating back to 2013 FINDINGS: The visualized lung bases are unremarkable. The visualized portions of the heart are within normal limits. Normal liver. Gallbladder is absent. Normal spleen. Normal pancreas. There is a small, circumscribed, smooth, low attenuation left adrenal mass, consistent with an adrenal adenoma, stable since 2013 (benign). No required imaging follow-up needed given high likelihood of benign nature. Normal right adrenal gland. Normal right kidney. Normal left kidney. Normal visualized stomach. Normal small intestine. There are multiple colonic diverticula consistent with diverticulosis. There is non-visualization of the appendix. There is diffuse atherosclerotic calcification of the abdominal aorta, without a demonstrated aneurysm. Normal inferior vena cava. Normal retroperitoneum. Normal urinary bladder. No pelvic adenopathy/mass. There is a small umbilical hernia containing fat. Normal osseous structures. CT/Abdomen/Pelvis WITH Contrast IMPRESSION: 1. No inflammatory process or bowel obstruction. 2. Colonic diverticulosis without evidence of diverticulitis. Electronically Signed: Gustavo Tineo MD (Brooks) at 10:53 EST , Service support ,
== END ==
PROVIDERS: PCP Internal Medicine; Referring Provider Surgery; Visit Provider Surgery
DX: R10.84 Generalized abdominal pain (principal)
CPT/HCPCS: 74177; Q9967

== ENCOUNTER 2021-09-19 06:12 | Day surgery (SDC) | payer MEDICAID, SELFPAY ==
--- NOTE | 2021-09-19 06:28 | HP.PCM_ITS ---
History and Physical Date of Admission: 09/19/21 Intake Visit Reasons: Upper Scope/Abdominal Pain Chief Complaint: abd pain, change in bowel habits Info Print Press Operator Required: No Is patient in pain?: Yes (generalized abd pain ) Pain scale (1-10): 5 Allergies Bleach (Sodium Hypochlorite) Allergy (Mild, Verified 08/12/21 08:23) short of breath lithium Allergy (Mild, Verified 08/12/21 08:23) unknown bupropion HCl [From Wellbutrin] Allergy (Verified 08/12/21 08:23) Other codeine phosphate [From Tylenol-Codeine #3] Allergy (Verified 08/12/21 08:23) Unknown etodolac [From Lodine] Allergy (Verified 08/12/21 08:23) Rash varenicline tartrate [From Chantix] Allergy (Verified 08/12/21 08:23) Other acetaminophen [From Darvocet-N 100] Adverse Reaction (Verified 08/12/21 08:23) Nausea codeine Adverse Reaction (Verified 08/12/21 08:23) Nausea propoxyphene napsylate [From Darvocet-N 100] Adverse Reaction (Verified 08/12/21 08:23) Nausea Medications albuterol sulfate 90 mcg/actuation aerosol inhaler 2 puff INHALATION Q6H PRN #8.5 g 08/10/21 [Rx Confirmed 08/12/21] buspirone 10 mg tablet 10 mg PO BID 08/10/21 [History Confirmed 08/12/21] clotrimazole-betamethasone 1 %-0.05 % topical cream 1 applic TOPICAL BID 10 Days #15 g 08/10/21 [Rx Confirmed 08/12/21] diphenhydramine HCl 25 mg tablet 25 mg PO QHS 08/10/21 [History Confirmed 08/12/21] ibuprofen 400 mg tablet 400 mg PO BID PRN #60 tab 08/10/21 [Rx Confirmed 08/12/21] lurasidone 20 mg tablet 20 mg PO DAILY 08/10/21 [History Confirmed 08/12/21] lurasidone 80 mg tablet 80 mg PO DAILY 08/10/21 [History Confirmed 08/12/21] melatonin 3 mg capsule 3 mg PO HS PRN 08/10/21 [History Confirmed 08/12/21] omeprazole 40 mg capsule,delayed release 40 mg PO DAILY #30 cap 08/10/21 [Rx Confirmed 08/12/21] sucralfate 1 gram tablet 1 g PO QACHS #30 tab 08/10/21 [Rx Confirmed 08/12/21] topiramate 50 mg tablet 50 mg PO BID 08/10/21 [History Confirmed 08/12/21] Is last menstrual period known: No Post menopausal: No Patient : No PFSH Medical History Cholecystectomy planned Neck fracture Surgical History History of carpal tunnel surgery History of colonoscopy Hx of appendectomy Status post emergency tracheotomy for assistance in breathing Status post reconstruction procedure Family History Other Asthma Cancer Heart disease Myocardial infarction Seizures Social History Smoking Status: Current every day smoker alcohol intake: never substance use type: does not use HPI HPI HPI: LOUIS BOO, is a 45 F who presents to the office today for surgical consultation regarding left upper quadrant pain. The patient is referred by Dr. Anali Dolan and a written copy my surgical consult recommendations will be returned to him. Chronic medical problems include schizoaffective disorder and hyperlipidemia and type 2 diabetes mellitus and chronic tobacco use and COPD. She is on ibuprofen for her milligrams twice daily as needed and omeprazole 40 mg daily in addition to her other medications. She apparently has moved here recently from [place]. She had been living on the streets there. She is on multiple psychiatric meds. She thinks she had a colonoscopy 6 or 7 years ago at the [facility]. She has had a previous cholecystectomy. As of August 10, 2021 white count was 8.9 with a hemoglobin 14.4 hematocrit 44.1 platelet count 388,000 with a normal shift. BUN 8 and creatinine 0.74. Liver function tests normal except for an alkaline phosphatase of 121 minimally elevated. The patient states that standing up sometimes will help with her severe crampy pain. She does noted bright red blood per rectum or melena. She points to the mid abdomen area. Only previous surgery was a laparoscopic cholecystectomy and remote appendectomy. She has a family history notable for grandfather who had colon cancer. She has had weight gain since her return from [place] as she has been eating better. She now is actually overweight. ROS General General: Yes weight change and fatigue; No appetite, colon cancer, breast cancer or weakness HEENT HEENT: Yes difficulty swallowing; No eye injury, eye surgery, swollen glands or hoarseness Endo Endocrine: No thyroid disease, diabetes mellitus, thyroid cancer, Hair loss, heat intolerance or cold intolerance Musc Musculoskeletal: Yes back problems and arthritis; No rheumatoid arthritis, gout or joint pain Cardio Cardiovascular: No murmur, pacemaker, heart disease, atrial fibrillation, high blood pressure, heart attack, heart stent, palpitations, shortness of breat with exertion or chest pain Psych Psychiatric: Yes depression and anxiety; No hearing voices Resp Respiratory: Yes shortness of breath, Yes sleep apnea, Yes cough, Yes COPD, Yes asthma, Yes emphysema and No wheezing Gastro Gastrointestinal: Yes abdominal pain, No nausea or vomiting, No diarrhea, Yes constipation, No blood in stool, Yes acid reflux, Yes hemorrhoids, No ulcers, No gallbladder problem and No black,tarry stools Kam Hematologic: No blood thinners, No blood disorders, No bleeding, No anemia and No blood clots Neuro Neurologic: No weakness Exam Const General: cooperative, comfortable and no acute distress Nutritional Appearance: obese Orientation: alert and awake Eyes General: appearance normal, both eyes and all related structures Neck Neck: normal visual inspection Chest Other: Increased anterior posterior diameter Resp Effort & Inspection: normal respiratory effort Other: Coarse bilaterally, Cardio Rate: regular rate Rhythm: regular rhythm GI Palpation: soft Other: Mildly tender to palpation left lower quadrant overlying the sigmoid colon, slight guarding, no mass, mild tenderness epigastric area. Normal bowel sounds Musc Cervical Spine: normal cervical lordosis Skin General: no rashes or lesions noted Neuro General: patient alert, patient awake and patient oriented x3 Extrem General: no calf tenderness Psych Speech and Movement: restless Assessment and Plan Assessment and Plan (1) Generalized abdominal pain: Status: Acute (2) COPD (chronic obstructive pulmonary disease): Status: Suspected Qualifiers: COPD type: emphysema Emphysema type: centrilobular Qualified Code(s): J43.2 - Centrilobular emphysema (3) Tobacco use disorder: Status: Chronic Plan - Dr. Americo Medeiros MD: Patient has coarse breath sounds. She does not use a home respiratory treatment as she does not have machinery. The patient reports that Dr. Anali Dolan is just prescribed for her an inhaler. I have strongly encouraged her to immediately initiate utilization. She is a chronic long-term cigarette smoker. I have vigorously encouraged her to cease Generalized abdominal pain. By Dr. Anali Dolan's report the patient was more tender overlying the epigastric left upper quadrant area. On my exam today she is most tender in the left lower quadrant. The patient herself generalizes the pain to the general mid abdomen complaining of severe cramping pain. Etiology is not clear. Symptoms ongoing for a year. I propose for her a abdominal pelvic CT scan with contrast. I propose for her a esophagogastroduodenoscopy with possible biopsy and colonoscopy with possible biopsy or polypectomy as indicated. She does present with a support person today. They are aware of technique, benefit, risk of alternatives. We will use monitored anesthesia care. I anticipate 2 days of clear liquids and 2-day bowel prep. I appreciate the opportunity of assisting with her surgical care Copy: Dr. Anali Medeiros M.D., F.A.C.S. Plan Details September 01, 2021 STUDY: CT ABDOMEN AND PELVIS WITH CONTRAST REASON FOR EXAM: Female, 45 years old. Cramping for one year RADIATION DOSAGE (If Supplied By Facility): CTDIvol = ( 17.76 ) mGy, DLP = ( 1251.35 ) mGycm TECHNIQUE: Transaxial images were obtained from the dome of the diaphragm to the symphysis pubis with oral contrast. Oral and amp; IV Readi-CAT and amp; 100mL Isovue-300 was administered. Sagittal and coronal images were reconstructed. Individualized dose optimization techniques were used for this CT. COMPARISON: Multiple prior comparison studies dating back to 2013 FINDINGS: The visualized lung bases are unremarkable. The visualized portions of the heart are within normal limits. Normal liver. Gallbladder is absent. Normal spleen. Normal pancreas. There is a small, circumscribed, smooth, low attenuation left adrenal mass, consistent with an adrenal adenoma, stable since 2013 (benign). No required imaging follow-up needed given high likelihood of benign nature. Normal right adrenal gland. Normal right kidney. Normal left kidney. Normal visualized stomach. Normal small intestine. There are multiple colonic diverticula consistent with diverticulosis. There is non-visualization of the appendix. There is diffuse atherosclerotic calcification of the abdominal aorta, without a demonstrated aneurysm. Normal inferior vena cava. Normal retroperitoneum. Normal urinary bladder. No pelvic adenopathy/mass. There is a small umbilical hernia containing fat. Normal osseous structures. CT/Abdomen/Pelvis WITH Contrast IMPRESSION: 1. No inflammatory process or bowel obstruction. 2. Colonic diverticulosis without evidence of diverticulitis. Electronically Signed: Gustavo Tineo MD ([place]) at 10:53 EST , Service support , I have re-examined the patient. There are no clinical changes since date of exam.
[2021-09-19 06:50] VITALS: BP 116/93; PULSE 85; RESP 16; TEMP 36.9; O2SAT 98; BMI 31.4
[2021-09-19] MEDS: Lactated Ringers 1,000 ML 15 ML IV (07:09)
--- NOTE | 2021-09-19 07:15 | EGD_PTH ---
PATIENT: LOUIS BOO LOC: EN U#:[id number] AGE/SX: 45/F ROOM: RE09/19/[address]: Dr. Americo Medeiros MD : 1975 BED: DIS: 09/19/2021 SPEC #: [id number] RECD: 09/19/21 09:45 STATUS: BISMARK GROVEFreddie #: [id number] LUIS: 09/19/21 07:[address]: Americo Medeiros DEPT: SURGICAL PATHOLOGY RECD BY: Laine Sharma ENTERED: 09/19/21 11:12 SP TYPE: EGD [facility] DR: Dr. Anali Dolan MD Tissues: A - Duodenum, NOS B - Gastric mucous membrane C - Esophagus, NOS D - Esophagus, NOS Procedures: Surgery Specimen Level IV HEADER OPERATION: Colonoscopy, EGD ([facility]) PRE-OP DIAGNOSIS: Generalized abdominal pain TISSUE SUBMITTED: A ? Duodenum biopsy, B ? Antrum biopsy for H. pylori and path, C ? Distal esophagus biopsy, D ? Mid esophagus biopsy MICROSCOPIC DIAGNOSIS A. Duodenum, biopsy: A fragment of duodenal mucosa, no pathologic diagnosis. B. Antrum, biopsy: Mild to moderate gastritis. See microscopic description and comment. C. Distal esophagus, biopsy: A fragment of squamous mucosa with mild chronic inflammation. D. Mid esophagus, biopsy: A fragment of squamous epithelium, no pathologic diagnosis. SJ:lissette 09/20/2021 COMMENT B. The results of immunohistochemistry for Helicobacter pylori will be reported separately ([id number]). MICROSCOPIC DESCRIPTION Slides are reviewed. B. The specimen shows fragments of gastric mucosa with chronic inflammatory cell infiltrates in the lamina propria consisting of lymphocytes and plasma cells, consistent with mild to moderate chronic gastritis. GROSS DESCRIPTION A - Received in fixative is one container labeled with the patient's name and designated duodenum biopsy. The specimen consists of one irregular fragment of light carmen soft tissue that measures 0.5 x 0.2 x 0.1 cm. The specimen is totally submitted in one cassette. B - Received in fixative is one container labeled with the patient's name and designated antrum biopsy. The specimen consists of one irregular fragment of light carmen soft tissue that measures 0.3 x 0.3 x .1 cm. The specimen is totally submitted in one cassette. C - Received in fixative is one container labeled with the patient's name and designated distal esophagus biopsy. The specimen consists of one irregular fragment of light carmen soft tissue that measures 0.3 x 0.3 x 0.1 cm. The specimen is totally submitted in one cassette. D - Received in fixative is one container labeled with the patient's name and designated mid esophagus biopsy. The specimen consists of one irregular fragment of light carmen soft tissue that measures 0.4 x 0.2 x 0.1 cm. The specimen is totally submitted in one cassette. / SJ:rg 09/19/2021 TC:3 CPT: 81134 x4
--- NOTE | 2021-09-19 07:15 | IMM_PTH ---
PATIENT: LOUIS BOO LOC: EN U#:[id number] AGE/SX: 45/F ROOM: RE09/19/[address]: Dr. Americo Medeiros MD : 1975 BED: DIS: 09/19/2021 SPEC #: [id number] RECD: 09/19/21 13:01 STATUS: BISMARK REFreddie #: [id number] LUIS: 09/19/21 07:[address]: Americo Medeiros DEPT: IMMUNOHISTOCHEMISTRY RECD BY: Merry Medeiros ENTERED: 09/19/21 13:02 SP TYPE: IMMUNO OTHR DR: Dr. Anali Dolan MD Tissues: B - Stomach, NOS Procedures: H Pylori (initial) PHYSICIAN & [place] [address] SPECIMEN INFORMATION: Tissue Source: B ? Antrum biopsy Clinical Info: Generalized abdominal pain Specimen Number: [id number] CPT code: 81229 METHODOLOGY: Deparaffinized sections of prefer/formalin-fixed tissue or PAP/DQ stained slides are incubated with monoclonal/polyclonal antibodies/oligonucleotide probes. Localization is made via biotin free immunoperoxidase method. Appropriate controls are performed and reacted as expected. Results on target cell population are indicated in the following table: RESULTS: ANTIBODY / CLONE RESULT Block B H Pylori (polyclonal) negative These tests were developed and their performance characteristics determined by [facility]. They may not have been cleared or approved by the U.S. Food and Drug Administration. The FDA has determined that such clearance or approval is not necessary. INTERPRETATION: B. Antrum biopsy: Negative for Helicobacter pylori organisms. SJ:lissette 09/20/2021
[2021-09-19 07:45] LABS: Amphetamine Urine VISTA NEGATIVE (<1000 ng/mL); Barbiturate Urine VISTA NEGATIVE (< 200 ng/mL); Benzodiazepine Urine VISTA NEGATIVE (< 200 ng/mL); Cocaine Urine VISTA NEGATIVE (< 300 ng/mL); Ecstacy Urine VISTA NEGATIVE (< 500 ng/mL); Methadone Urine VISTA NEGATIVE (< 300 ng/mL); PCP Urine VISTA NEGATIVE (< 25 ng/mL); THC Urine VISTA NEGATIVE (< 50 ng/mL); Vista UDS pH Range 6
--- NOTE | 2021-09-19 07:48 | OP.CCLET_ITS ---
09/19/2021 Anali Dolan [facility] [address] [place] [address] Re : Upper GI endoscopy procedure for Rae Bran Dear Dr. Dolan This procedure was performed on Sunday, September 19, 2021. My impressions and recommendations are as follows: Impressions : - LA Grade A reflux esophagitis. Biopsied. - Normal middle third of esophagus. Biopsied. - Small hiatal hernia. - Erythematous mucosa in the stomach. Biopsied. - Normal examined duodenum. Biopsied. Recommendations : - Discharge patient to home. - Resume previous diet. - Continue present medications. - Use sucralfate tablets 1 gram PO QID. My findings are described in the full procedure note, which is enclosed. If I can be of further assistance, please feel free to contact me at Doctor phone number(s): Work: . Sincerely, Americo Medeiros MD 09/19/2021 7:47:33 AM This report has been signed electronically.
--- NOTE | 2021-09-19 07:48 | OP.EGD_ITS ---
Patient Name: Rae Bran Procedure Date: 09/19/2021 7:14 AM Date of : 1975 Age: 45 Procedure: Upper GI endoscopy Indications: Generalized abdominal pain Providers: Americo Medeiros MD Medicines: See the Anesthesia note for documentation of the administered medications Complications: No immediate complications. Procedure: Pre-Anesthesia Assessment: - Prior to the procedure, a History and Physical was performed, and patient medications and allergies were reviewed. The patient's tolerance of previous anesthesia was also reviewed. The risks and benefits of the procedure and the sedation options and risks were discussed with the patient. All questions were answered, and informed consent was obtained. Prior Anticoagulants: The patient has taken no previous anticoagulant or antiplatelet agents. ASA Grade Assessment: II - A patient with mild systemic disease. After reviewing the risks and benefits, the patient was deemed in satisfactory condition to undergo the procedure. After obtaining informed consent, the endoscope was passed under direct vision. Throughout the procedure, the patient's blood pressure, pulse, and oxygen saturations were monitored continuously. The Endoscope was introduced through the mouth, and advanced to the second part of duodenum. The upper GI endoscopy was accomplished without difficulty. The patient tolerated the procedure well. Scope In: 7:22:40 AM Scope Out: 7:28:23 AM Total Procedure Duration Time 0 hours 5 minutes 43 seconds Findings: LA Grade A (one or more mucosal breaks less than 5 mm, not extending between tops of 2 mucosal folds) esophagitis with no bleeding was found 36 cm from the incisors. Biopsies were taken with a cold forceps for histology. The middle third of the esophagus was normal. Biopsies were taken with a cold forceps for histology. A small hiatal hernia was present. Diffuse mildly erythematous mucosa without bleeding was found in the entire examined stomach. Biopsies were taken with a cold forceps for histology. The examined duodenum was normal. Biopsies were taken with a cold forceps for histology. Impression: - LA Grade A reflux esophagitis. Biopsied. - Normal middle third of esophagus. Biopsied. - Small hiatal hernia. - Erythematous mucosa in the stomach. Biopsied. - Normal examined duodenum. Biopsied. Recommendation: - Discharge patient to home. - Resume previous diet. - Continue present medications. - Use sucralfate tablets 1 gram PO QID. Procedure Code(s): --- Professional --- 97059, Esophagogastroduodenoscopy, flexible, transoral; with biopsy, single or multiple Diagnosis Code(s): --- Professional --- K21.0, Gastro-esophageal reflux disease with esophagitis K44.9, Diaphragmatic hernia without obstruction or gangrene K31.89, Other diseases of stomach and duodenum R10.84, Generalized abdominal pain CPT copyright 2017 [employer]. All rights reserved. The codes documented in this report are preliminary and upon medical services assistant review may be revised to meet current compliance requirements. Americo Medeiros MD 09/19/2021 7:47:33 AM This report has been signed electronically. Number of Addenda: 0 Note Initiated On: 09/19/2021 7:14 AM
[2021-09-19 07:50] VITALS: BP 116/93; BP 93/71; PULSE 83; RESP 16; TEMP 36.2; O2SAT 96
--- NOTE | 2021-09-19 07:53 | OP.COLON_ITS ---
Patient Name: Rae Bran Procedure Date: 09/19/2021 7:28 AM Date of : 1975 Age: 45 Procedure: Colonoscopy Indications: Generalized abdominal pain Providers: Americo Medeiros MD Medicines: See the Anesthesia note for documentation of the administered medications Patient Profile: Last Colonoscopy: 5 years ago. Complications: No immediate complications. Procedure: Pre-Anesthesia Assessment: - Prior to the procedure, a History and Physical was performed, and patient medications and allergies were reviewed. The patient's tolerance of previous anesthesia was also reviewed. The risks and benefits of the procedure and the sedation options and risks were discussed with the patient. All questions were answered, and informed consent was obtained. Prior Anticoagulants: The patient has taken no previous anticoagulant or antiplatelet agents. ASA Grade Assessment: II - A patient with mild systemic disease. After reviewing the risks and benefits, the patient was deemed in satisfactory condition to undergo the procedure. After I obtained informed consent, the scope was passed under direct vision. Throughout the procedure, the patient's blood pressure, pulse, and oxygen saturations were monitored continuously. The colonoscope was introduced through the anus and advanced to the cecum, identified by appendiceal orifice and ileocecal valve. The colonoscopy was performed without difficulty. The patient tolerated the procedure well. The quality of the bowel preparation was good. The ileocecal valve and the appendiceal orifice were photographed. Scope In: 7:30:48 AM Scope Withdrawal Time 0 hours 6 minutes 28 seconds Scope Out: 7:43:15 AM Total Procedure Duration Time 0 hours 12 minutes 27 seconds Findings: Hemorrhoids were found on perianal exam. Multiple diverticula were found in the sigmoid colon and descending colon. The left colon was mildly tortuous. The exam was otherwise without abnormality. Impression: - Hemorrhoids found on perianal exam. - Diverticulosis in the sigmoid colon and in the descending colon. - Tortuous colon. - The examination was otherwise normal. - No specimens collected. Recommendation: - Discharge patient to home. - Resume previous diet. - Continue present medications. - Repeat colonoscopy in 10 years for screening purposes. Procedure Code(s): --- Professional --- 22735, Colonoscopy, flexible; diagnostic, including collection of specimen(s) by brushing or washing, when performed (separate procedure) Diagnosis Code(s): --- Professional --- K64.9, Unspecified hemorrhoids R10.84, Generalized abdominal pain K57.30, Diverticulosis of large intestine without perforation or abscess without bleeding Q43.8, Other specified congenital malformations of intestine CPT copyright 2017 [employer]. All rights reserved. The codes documented in this report are preliminary and upon certified professional coder review may be revised to meet current compliance requirements. Americo Medeiros MD 09/19/2021 7:52:39 AM This report has been signed electronically. Number of Addenda: 0 Note Initiated On: 09/19/2021 7:28 AM
--- NOTE | 2021-09-19 07:54 | OP.CCLET_ITS ---
09/19/2021 Anali Dolan [facility] [address] [place] [address] Re : Colonoscopy procedure for Rae Bran Dear Dr. Dolan This procedure was performed on Sunday, September 19, 2021. My impressions and recommendations are as follows: Impressions : - Hemorrhoids found on perianal exam. - Diverticulosis in the sigmoid colon and in the descending colon. - Tortuous colon. - The examination was otherwise normal. - No specimens collected. Recommendations : - Discharge patient to home. - Resume previous diet. - Continue present medications. - Repeat colonoscopy in 10 years for screening purposes. My findings are described in the full procedure note, which is enclosed. If I can be of further assistance, please feel free to contact me at Doctor phone number(s): Work: . Sincerely, Americo Medeiros MD 09/19/2021 7:52:39 AM This report has been signed electronically.
[2021-09-19 07:55] VITALS: BP 116/93; BP 94/61; PULSE 81; RESP 16; O2SAT 94
[2021-09-19 08:00] VITALS: BP 116/93; BP 99/74; PULSE 93; RESP 16; O2SAT 93
[2021-09-19 08:05] VITALS: BP 116/93; BP 96/61; PULSE 94; RESP 16; TEMP 36.2; O2SAT 95
[2021-09-19 08:44] VITALS: BP 116/93
== END 2021-09-19 23:59 | disposition home or self-care (01) ==
LOC: EN 06:13 → AC 06:17
PROVIDERS: Anesthesiology; PCP Internal Medicine; Referring Provider Internal Medicine; Visit Provider Surgery
PROC: 0DJD8ZZ Inspection of Lower Intestinal Tract, Via Natural or Artificial Opening Endoscopic (ICD-10-PCS; CPT 45378; principal; 2021-09-19 07:10)
DX: K29.70 Gastritis, unspecified, without bleeding (principal); F25.9 Schizoaffective disorder, unspecified; J44.9 Chronic obstructive pulmonary disease, unspecified; F31.9 Bipolar disorder, unspecified; E11.9 Type 2 diabetes mellitus without complications; K57.30 Diverticulosis of large intestine without perforation or abscess without bleeding; K64.9 Unspecified hemorrhoids; Z80.0 Family history of malignant neoplasm of digestive organs; E78.5 Hyperlipidemia, unspecified; K44.9 Diaphragmatic hernia without obstruction or gangrene; K21.00 Gastro-esophageal reflux disease with esophagitis, without bleeding; Z85.41 Personal history of malignant neoplasm of cervix uteri; F41.9 Anxiety disorder, unspecified; M19.90 Unspecified osteoarthritis, unspecified site; G43.909 Migraine, unspecified, not intractable, without status migrainosus; Z79.899 Other long term (current) drug therapy; Q43.8 Other specified congenital malformations of intestine
CPT/HCPCS: 45378; 43239; 80307; 88305; 88342; J7120; J2405

== ENCOUNTER → 2022-06-02 | Outpatient (CLI) | payer MEDICAID, SELFPAY ==
[2022-06-02 08:22] LABS: Absolute Lymphocyte Count 2.76 X10^3/uL (0.83-4.51); Absolute Neutrophil Count 5.3 X10^3/uL (2.0-7.7); Basophil# 0.05 X10^3/uL; Basophil% 0.5 % (0-1); Eosinophil# 0.37 X10^3/uL; Hematocrit 43.8 % (37-47); Hemoglobin 14.1 g/dL (12.0-15.0); Lymphocyte # 2.76 X10^3/ul (0.83-4.51); Lymphocyte % 29.6 % (19-41); Mean Corp Hgb Conc 32.2 g/dL (32-36); Mean Corpuscular Hgb 27.5 pg (27.0-32.0); Mean Corpuscular Volume 85.4 fL (81-99); Mean Platelet Vol. 9.7 fl (6.2-12.0); Monocyte% 8.6 % (0-10); NRBC Flagged by Analyzer 0 % (0-5); Neutrophil # 5.27 X10^3/uL (2.7-7.7); Neutrophil % 56.4 % (47-70); Platelet Count 437 K/mm3 (150-450); RBC Distribution Width CV 13.2 % (11.6-14.6); RBC Distribution Width SD 41.1 fl (35.1-43.9); Red Blood Count 5.13 M/mm3 (4.2-5.4); White Blood Count 9.3 K/mm3 (4.4-11.0)
[2022-06-02 08:37] LABS: Hemoglobin A1c 6.6 % (3.8-5.6)
[2022-06-02 08:50] LABS: Vitamin D,25 Hydroxy 23.8 ng/mL
[2022-06-02 09:02] LABS: ALB/GLOB Ratio 0.8 RATIO (0.9-2.4); AST(SGOT) 19 U/L (15-37); Alanine Aminotransfer ALT/SGPT 27 U/L (13-56); Albumin, Serum 3.4 g/dL (3.2-5.0); Alkaline Phosphatase 151 U/L (45-117); Anion Gap 6 (5-15); BUN 8 mg/dL (7-18); BUN/Creat Ratio 10.6 RATIO (10-20); Calcium,Total 9.1 mg/dL (8.5-10.1); Chloride 105 mmol/L (98-107); Cholesterol 229 mg/dL (200); Creatinine, Serum 0.76 mg/dL (0.55-1.02); EST Glomerular Filtration Rate 87 mL/min (>60); Est Glom Filt Rate - Afr Amer 105 mL/min (>60); Free T3 2.7 pg/mL (2.18-3.98); Globulin 4.2 g/dL (2.2-4.2); Glucose 152 mg/dL (74-106); High Density Lipoprotein 49 mg/dL; Potassium 3.9 mmol/L (3.5-5.1); Protein, Total 7.6 g/dL (6.4-8.2); Sodium Level 139 mmol/L (136-145); T4 Free Direct 1.19 ng/dL (0.76-1.46); Thyroid Stim Hormone (TSH) 1.25 uIU/mL (0.358-3.74); Triglycerides 283 mg/dL; Very Low Density Lipoprotein 57 mg/dL (5-40)
== END | disposition home or self-care (01) ==
PROVIDERS: PCP Internal Medicine; Referring Provider Internal Medicine; Visit Provider Internal Medicine
DX: E11.65 Type 2 diabetes mellitus with hyperglycemia (principal); F25.9 Schizoaffective disorder, unspecified; J44.9 Chronic obstructive pulmonary disease, unspecified; E78.5 Hyperlipidemia, unspecified; F17.200 Nicotine dependence, unspecified, uncomplicated
CPT/HCPCS: 36415; 80053; 80061; 82306; 83036; 84439; 84443; 84481; 85025

== ENCOUNTER → 2024-02-15 | Outpatient (CLI) | payer MEDICAID, SELFPAY ==
[2024-02-15 07:55] LABS: Absolute Lymphocyte Count 2.64 X10^3/uL (0.83-4.51); Absolute Neutrophil Count 4.9 X10^3/uL (2.0-7.7); Basophil# 0.05 X10^3/uL; Basophil% 0.6 % (0-1); Eosinophils% 4.6 % (0-5); Hematocrit 43.1 % (37-47); Hemoglobin 13.7 g/dL (12.0-15.0); Lymphocyte # 2.64 X10^3/ul (0.83-4.51); Lymphocyte % 30.6 % (19-41); Mean Corp Hgb Conc 31.8 g/dL (32-36); Mean Corpuscular Hgb 26.6 pg (27.0-32.0); Mean Corpuscular Volume 83.7 fL (81-99); Mean Platelet Vol. 9.8 fl (6.2-12.0); Monocyte# 0.54 X10^3/uL; Monocyte% 6.3 % (0-10); NRBC Flagged by Analyzer 0 % (0-5); Neutrophil # 4.94 X10^3/uL (2.7-7.7); Neutrophil % 57.2 % (47-70); Platelet Count 439 K/mm3 (150-450); RBC Distribution Width CV 14.2 % (11.6-14.6); RBC Distribution Width SD 43.6 fl (35.1-43.9); Red Blood Count 5.15 M/mm3 (4.2-5.4); White Blood Count 8.6 K/mm3 (4.4-11.0)
[2024-02-15 08:54] LABS: Vitamin B12 401 pg/mL (211-911); Vitamin D,25 Hydroxy 17.4 ng/mL
[2024-02-15 20:38] LABS: Hemoglobin A1c 7.6 % (3.8-5.6)
[2024-02-16 06:51] LABS: ALB/GLOB Ratio 0.8 RATIO (0.9-2.4); AST(SGOT) 21 U/L (15-37); Alanine Aminotransfer ALT/SGPT 27 U/L (13-56); Albumin, Serum 3.2 g/dL (3.2-5.0); Alkaline Phosphatase 145 U/L (45-117); Anion Gap 6 (5-15); BUN 5 mg/dL (7-18); BUN/Creat Ratio 7.4 RATIO (10-20); Chloride 106 mmol/L (98-107); Cholesterol 209 mg/dL (200); Creatinine, Serum 0.67 mg/dL (0.55-1.02); EST Glomerular Filtration Rate 99 mL/min (>60); Est Glom Filt Rate - Afr Amer 119 mL/min (>60); Globulin 3.9 g/dL (2.2-4.2); Glucose 200 mg/dL (74-106); High Density Lipoprotein 30 mg/dL; Potassium 4.3 mmol/L (3.5-5.1); Protein, Total 7.1 g/dL (6.4-8.2); Sodium Level 139 mmol/L (136-145); Thyroid Stim Hormone (TSH) 0.65 uIU/mL (0.358-3.74); Triglycerides 395 mg/dL; Very Low Density Lipoprotein 79 mg/dL (5-40)
== END | disposition home or self-care (01) ==
LOC: PAVLAB 07:40
PROVIDERS: PCP Internal Medicine; Visit Provider Internal Medicine
DX: R73.09 Other abnormal glucose (principal); F17.200 Nicotine dependence, unspecified, uncomplicated; R10.13 Epigastric pain; Z13.220 Encounter for screening for lipoid disorders; E55.9 Vitamin D deficiency, unspecified; E53.8 Deficiency of other specified B group vitamins
CPT/HCPCS: 36415; 80053; 80061; 82306; 82607; 83036; 84443; 85025

== ENCOUNTER → 2024-02-19 | Outpatient (CLI) | payer MEDICAID, SELFPAY ==
[2024-02-21 16:10] LABS: Alkaline Phosphatase, Serum 164 IU/L (44-121); Bone Fraction 33 % (14-68); Intestinal Fraction 0 % (0-18); Liver Fraction 67 % (18-85)
== END | disposition home or self-care (01) ==
LOC: LAB 07:32
PROVIDERS: PCP Internal Medicine; Referring Provider Internal Medicine; Visit Provider Internal Medicine
DX: R74.8 Abnormal levels of other serum enzymes (principal)
CPT/HCPCS: 36415; 84075; 84080

== ENCOUNTER → 2024-02-22 | Outpatient (CLI) | payer MEDICAID, SELFPAY ==
--- NOTE | 2024-02-22 07:32 | BI_ITS ---
MAMMOGRAPHY - BILATERAL SCREENING REASON FOR EXAM: Female, 48 years old. Routine annual screening examination. PERTINENT HISTORY: Great grandfather with breast cancer. TECHNIQUE: Digital bilateral breast celio (3D mammographic acquisition) in the CC and MLO projections. 2-D mediolateral oblique (MLO) and craniocaudad (CC) views of both breasts were obtained. CAD: Full Field Digital Mammography with Computer Added Detection was performed. COMPARISON: Comparison is made with prior study dated August 23, 2021. FINDINGS: Breast Composition: There are scattered areas of fibroglandular density. There are no dominant masses or suspicious calcifications. Stable small benign-appearing bilateral axillary lymph nodes. No other significant abnormalities are identified. There has been no significant change since the prior study. BI/SCRN MAMM (CAD)W/CELIO BILAT IMPRESSION: Stable bilateral screening mammogram. Yearly follow-up mammogram recommended. (A) ASSESSMENT CATEGORY: BIRADS Category 2: Benign. A letter regarding these results will be sent to the patient by the facility within 30 days. Approximately 10% of breast cancers are not detected by mammography. A normal mammogram should not delay biopsy of a clinically suspicious abnormality. [id number] Electronically Signed: Haroon Garcia MD at 8:37 EDT ,
== END | disposition home or self-care (01) ==
LOC: OPBI 07:30
PROVIDERS: PCP Internal Medicine; Visit Provider Internal Medicine
DX: Z12.31 Encounter for screening mammogram for malignant neoplasm of breast (principal); Z80.3 Family history of malignant neoplasm of breast
CPT/HCPCS: 77063; 77067

== ENCOUNTER → 2024-08-19 | Outpatient (CLI) | payer MEDICAID, SELFPAY ==
[2024-08-19 08:26] LABS: Absolute Lymphocyte Count 3.19 X10^3/uL (0.83-4.51); Absolute Neutrophil Count 6.8 X10^3/uL (2.0-7.7); Basophil# 0.06 X10^3/uL; Basophil% 0.5 % (0-1); Eosinophil# 0.31 X10^3/uL; Eosinophils% 2.8 % (0-5); Hematocrit 43.1 % (37-47); Hemoglobin 14.3 g/dL (12.0-15.0); Lymphocyte # 3.19 X10^3/ul (0.83-4.51); Lymphocyte % 28.4 % (19-41); Mean Corp Hgb Conc 33.2 g/dL (32-36); Mean Corpuscular Hgb 27.4 pg (27.0-32.0); Mean Corpuscular Volume 82.6 fL (81-99); Mean Platelet Vol. 9.6 fl (6.2-12.0); Monocyte# 0.81 X10^3/uL; Monocyte% 7.2 % (0-10); NRBC Flagged by Analyzer 0 % (0-5); Neutrophil # 6.79 X10^3/uL (2.7-7.7); Neutrophil % 60.4 % (47-70); Platelet Count 439 K/mm3 (150-450); RBC Distribution Width SD 41.8 fl (35.1-43.9); Red Blood Count 5.22 M/mm3 (4.2-5.4); White Blood Count 11.2 K/mm3 (4.4-11.0)
[2024-08-19 08:46] LABS: ALB/GLOB Ratio 0.8 RATIO (0.9-2.4); AST(SGOT) 14 U/L (15-37); Alanine Aminotransfer ALT/SGPT 27 U/L (13-56); Albumin, Serum 3.3 g/dL (3.2-5.0); Alkaline Phosphatase 158 U/L (45-117); Anion Gap 5 (5-15); BUN 7 mg/dL (7-18); BUN/Creat Ratio 9.2 RATIO (10-20); CPK Total, Creatine Kinase 58 U/L (26-192); Calcium,Total 9.1 mg/dL (8.5-10.1); Chloride 105 mmol/L (98-107); Cholesterol 207 mg/dL (200); Creatinine, Serum 0.76 mg/dL (0.55-1.02); EST Glomerular Filtration Rate 85 mL/min (>60); Est Glom Filt Rate - Afr Amer 103 mL/min (>60); Globulin 4.2 g/dL (2.2-4.2); Glucose 195 mg/dL (74-106); High Density Lipoprotein 40 mg/dL; Potassium 3.9 mmol/L (3.5-5.1); Protein, Total 7.5 g/dL (6.4-8.2); Sodium Level 136 mmol/L (136-145); Triglycerides 252 mg/dL; Very Low Density Lipoprotein 50 mg/dL (5-40)
[2024-08-19 08:52] LABS: Hemoglobin A1c 7.9 % (3.8-5.6)
[2024-08-19 09:16] LABS: Vitamin D,25 Hydroxy 27.2 ng/mL
[2024-08-20 04:07] LABS: Insulin Level 24.6 uIU/mL (2.6-24.9)
== END | disposition home or self-care (01) ==
PROVIDERS: PCP Internal Medicine; Referring Provider Internal Medicine; Visit Provider Internal Medicine
DX: R74.8 Abnormal levels of other serum enzymes (principal); J43.2 Centrilobular emphysema; E11.65 Type 2 diabetes mellitus with hyperglycemia; E78.5 Hyperlipidemia, unspecified; F17.200 Nicotine dependence, unspecified, uncomplicated; Z13.220 Encounter for screening for lipoid disorders; E55.9 Vitamin D deficiency, unspecified; M62.838 Other muscle spasm
CPT/HCPCS: 36415; 80053; 80061; 82306; 82550; 83036; 83525; 85025

== ENCOUNTER → 2024-11-20 | Outpatient (CLI) | payer MEDICAID, SELFPAY ==
[2024-11-20 08:36] LABS: Hemoglobin A1c 7.7 % (<=5.6)
[2024-11-20 16:17] LABS: Xtra Tube EP Lab EXTRA TUBE
== END | disposition home or self-care (01) ==
PROVIDERS: PCP Internal Medicine; Referring Provider Internal Medicine; Visit Provider Internal Medicine
DX: R73.9 Hyperglycemia, unspecified (principal)
CPT/HCPCS: 36415; 83036

== ENCOUNTER 2025-08-07 20:10 | Emergency (ER) | payer MEDICAID, SELFPAY ==
[2025-08-07 20:12] VITALS: BP 150/108; PULSE 74; RESP 20; TEMP 36.6; O2SAT 97; BMI 38.5
--- NOTE | 2025-08-07 20:36 | ED.VIS.LOWEX ---
HPI History of Present Illness HPI Narrative: Patient with bilateral hip and leg pain that began yesterday. Patient states she was started on prednisone for back pain. Patient states that approximately 4 hours after starting the prednisone she developed pain in her hips that radiated into her thighs. Patient describes it as sharp and stabbing. Patient states nothing makes it better nothing makes it worse. Patient admits to some numbness and tingling into her legs. Patient denies any trauma or injury. Patient denies any fevers or chills. 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 Patient is certain that there could be an infection with this. Patient has been using Neosporin ointment and a dressing for this. Chief Complaint: Lower Extremity Injury Informant: patient Onset/Context/Timing Onset: Yesterday Context: Sudden Onset Timing: Continuous Quality of Pain: Sharp Location: Bilateral hips Worsened by: Nothing Relieved by: Nothing Associated Symptoms Associated Symptoms: Positive for Parasthesia; Negative for Weakness or Loss of Funtion PFSH [facility] Medical History Rash Muscle spasm Wears glasses Wears dentures Cancer Schizophrenia Bipolar disorder Depression Anxiety Alcohol use Substance abuse Diabetes Arthritis Restless legs Back pain Migraine headache Injury of head and neck Seizures History of diverticulitis Gastric reflux Smoker CPAP (continuous positive airway pressure) dependence Shortness of breath on exertion COPD (chronic obstructive pulmonary disease) Chronic cough Leg cramps History of trigger finger 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 Neck fracture Cholecystectomy planned Home Medications ?Medication ?Instructions ?Recorded ?Last Taken ?Type nebulizer accessories #1 ea 10/03/21 Unknown Rx nebulizer and compressor #1 ea 10/03/21 Unknown Rx lurasidone 80 mg tablet (Latuda) 80 mg PO DAILY Mental health 02/14/24 Unknown History omeprazole 40 mg capsule,delayed 40 mg PO DAILY #90 caps 07/23/24 Unknown Rx release ibuprofen 400 mg tablet 400 mg PO BID PRN pain #60 tabs 09/30/24 Unknown Rx rizatriptan 10 mg tablet (Maxalt) See Rx Instructions PO .COMPLEX 01/12/25 Unknown Rx #10 tabs sitagliptin phosphate 50 1 tab PO ONCE #90 tabs 02/02/25 Unknown Rx mg-metformin 500 mg tablet cholecalciferol (vitamin D3) 50 50 mcg PO DAILY #90 caps 02/13/25 Unknown Rx mcg (2,000 unit) capsule cyclobenzaprine 10 mg tablet 10 mg PO BID PRN muscle spasm #30 05/26/25 Unknown Rx tabs hydrocodone-acetaminophen 5-325mg 1 tab PO Q6H PRN PRN Pain 3 days 08/07/25 Unknown Rx 5mg-325mg #10 TABLETS prednisone 10 mg tablet See Taper PO DAILY 08/07/25 Unknown History Allergy/AdvReac Type Severity Reaction Status Date / Time Bleach (Sodium Hypochlorite) Allergy Mild short of Verified 08/07/25 20:14 breath lithium Allergy Mild unknown Verified 08/07/25 20:14 bupropion HCl (From Allergy Other Verified 08/07/25 20:14 Wellbutrin) codeine phosphate (From Allergy Unknown Verified 08/07/25 20:14 Tylenol-Codeine #3) etodolac (From [place]) Allergy Rash Verified 08/07/25 20:14 varenicline tartrate (From Allergy Other Verified 08/07/25 20:14 Chantix) acetaminophen (From AdvReac Nausea Verified 08/07/25 20:14 Darvocet-N 100) codeine AdvReac Nausea Verified 08/07/25 20:14 propoxyphene napsylate (From AdvReac Nausea Verified 08/07/25 20:14 Darvocet-N 100) Family History Other Asthma Cancer Heart disease Myocardial infarction Seizures Surgical History History of partial hysterectomy Hx of foot surgery Hx laparoscopic cholecystectomy History of colonoscopy Status post emergency tracheotomy for assistance in breathing Status post reconstruction procedure History of carpal tunnel surgery Hx of appendectomy Social History household members: none current occupational status: unemployed Smoking Status: Current every day smoker tobacco type: cigarettes alcohol intake: never substance use type: does not use what type of physical activity do you participate in: none seatbelt use: always do you feel safe at home: Yes additional social history: single ROS ROS ED Constitutional Constitutional ED: Denies chills or fever(s) Eyes Eyes: Denies blurry vision or change in vision ENT ENT ED: Denies rhinorrhea or sore throat Cardiovascular Cardiovascular: Denies chest pain or palpitations Respiratory/Chest Respiratory/Chest: Denies cough or dyspnea Gastrointestinal Gastrointestinal: Denies nausea or vomiting Genitourinary Genitourinary ED: Denies dysuria or hematuria Musculoskeletal Musculoskeletal: Reports back pain; Denies neck pain Integumentary Denies abscess or rash Neurologic Neurologic: Denies headache(s) or weakness Allergic/Immunologic Allergic/Immunologic ED: Denies mouth swelling or urticaria EXAM Physical Exam Const Vital Signs: 08/07/25 20:12 08/07/25 20:40 Temperature 97.9 F Temperature Source Oral Pulse Rate 74 75 Respiratory Rate 20 H 18 Blood Pressure 150/108 H 114/74 Blood Pressure Mean 122 87 Pulse Ox 97 98 Oxygen Delivery Method Room Air Positive well nourished and well developed Constitutional Narrative: BMI is 38.6. General Appearance ED: well developed and NAD HEENT Reports moist mucous membranes Neck full ROM and supple GI non-tender and non-distended Palpation: soft Extremity Extremity Narrative: There is mild tenderness over the anterior aspects of the hips bilaterally. There is no bony crepitance or step-off. There is no pain with internal/external rotation of the lower extremities. Strength is 5/5 bilaterally in the lower extremities. There are no sensory deficits noted. There is a small puncture wound on the plantar aspect of the left foot near the calcaneus. There is no surrounding erythema. There is no minimal tenderness. There is no active bleeding noted. Neuro oriented x3, CN's II-XII intact bilaterally, moves all extremities and no sensory deficits noted Sensorium / Orientation: alert Motor Exam: strength 5/5 throughout MDM MDM MDM Narrative Medical decision making narrative: Differential diagnosis includes occult fracture, sprain, contusion, and radicular pain. X-rays of the pelvis will be obtained to assess for occult fracture. Lab Data Attestation: I reviewed the patient's lab results. Radiography Diagnostic Testing: Clinical Impression(s) from Imaging Studies Pelvis X-Ray 08/07/25 20:45 IMPRESSION: No acute osseous abnormalities. Reading Location: [address] X-rays of the pelvis were obtained. There is 1 view. On my independent interpretation, there is no acute fracture. There are no degenerative changes noted. Radiologist also interpreted the x-rays and agrees. Treatment and Re-Evaluation Narrative: Patient was given a dose of [place] here. Patient is feeling better on reevaluation. Patient was concerned that her blood sugar has been elevated recently. Patient was advised that this is from her prednisone. Patient was instructed to continue to monitor her blood sugars at home. Patient was instructed to follow-up with her primary care physician in 5 to 7 days. Patient was given a prescription for a short course of [place]. Patient and family understood and were agreeable with the plan. All questions were answered. Discharge Plan Triage Chief Complaint: Lower Extremity Injury ED Provider: Cali Goodman Dx/Rx/DC Orders Clinical Impression: Acute hip pain, bilateral, Tobacco use disorder Instructions: ED Arthralgia Prescriptions: New hydrocodone-acetaminophen 5-325 mg tablet 1 tab PO Q6H PRN PRN (Reason: Pain) 3 Days Qty: 10 0RF No Action (DME) nebulizer and compressor Device See Rx Instructions .ROUTE .MEDSUPPLY Qty: 1 0RF Rx Instructions: As directed (DME) nebulizer accessories Kit See Rx Instructions .ROUTE .MEDSUPPLY Qty: 1 0RF Rx Instructions: As directed lurasidone [Latuda] 80 mg tablet 80 mg PO DAILY prednisone 10 mg tablet See Taper PO DAILY Taper: Prednisone Taper 50 mg WITH BREAKFAST for 1 Day 40 mg WITH BREAKFAST for 1 Day 30 mg WITH BREAKFAST for 1 Day 20 mg WITH BREAKFAST for 1 Day 10 mg WITH BREAKFAST for 1 Day omeprazole 40 mg capsule,delayed release(DR/EC) 40 mg PO DAILY Qty: 90 3RF ibuprofen 400 mg tablet 400 mg PO BID PRN (Reason: pain) Qty: 60 1RF rizatriptan [Maxalt] 10 mg tablet See Rx Instructions PO .COMPLEX Qty: 10 2RF Rx Instructions: take 1 tab at onset of headache; if no relief may repeat 1 tab after at least 2 hrs; max = 2 tabs/24 hr PO sitagliptin phos-metformin 50-500 mg tablet 1 tab PO ONCE Qty: 90 3RF Rx Instructions: Take with supper. cholecalciferol (vitamin D3) 50 mcg (2,000 unit) capsule 50 mcg PO DAILY Qty: 90 3RF cyclobenzaprine 10 mg tablet 10 mg PO BID PRN (Reason: muscle spasm) Qty: 30 0RF Rx Instructions: Take 1/2 to 1 tab twice daily as needed for spasm. Primary Care Provider: Anali Dolan Referrals: Anali Dolan MD [Primary Care Provider, Internal Medicine - [facility]] - 5-7 Days Print Language: Telugu Disposition Disposition: Home, Self Care
[2025-08-07] MEDS: HYDROcodone Bitartrate/Apap 5/325 Tablet PO (20:37)
[2025-08-07 20:40] VITALS: BP 114/74; PULSE 75; RESP 18; O2SAT 98
--- NOTE | 2025-08-07 20:45 | RAD_ITS ---
PROCEDURE: PELVIS 1 OR 2 VIEWS 08/07/2025 REASON FOR EXAM: INJURY/PAIN TECHNIQUE: Procedure Code: RADPEL Modality: DX Procedure: PELVIS 1 OR 2 VIEWS FINDINGS: No evidence of acute fracture or dislocation. Mild degenerative changes of the bilateral hips. Degenerative changes of the partially visualized spine. RAD/Pelvis 1 or 2 Views IMPRESSION: No acute osseous abnormalities. Reading Location: [id number]
--- OUTSIDE RECORDS SUMMARY | 2025-08-07 20:59 | XMS RPT_ITS | CCD ---
Demographics Address [address] [place] [address] Home Phone Mobile Phone Preferred Language en Marital Status Single Uatsdin Affiliation Unknown Race White Ethnic Group Not or Lati no Author Organization [facility] Care Team Providers Care Medical Reception Name Role Phone CEBUL, LOWELL A III Unavailable Unavailable HUMBLE, IFDENCIO A Unavailable Unavailable HUMBLE, FIDENCIO A Unavailable Unavailable HUMBLE, FIDENCIO A Unavailable Unavailable JOSE CHAMBERLAIN Unavailable Unavailable DODSON, QASIM Unavailable Unavailable TABET, GILDARDO JOSHUA Unavailable Unavail able JOSE RAMON SHERMAN Unavailable Unavailable CEBUL, LOWELL A III Unavailable Unavailable CEBUL, LOWELL A III Unavailable Unavailable GAGARIN, LETY Unavailable Unavailable TINAJERO, CARINA Unavailable Unavailable JAMMOUL, ADHAM Unavailable Unavailable CEBUL, LOWELL A III Unavailable Unavailable DODSON, QASIM Unavailable Unavailable NO REFERRING DR Unavailable Unavailable HOUSE MED, AJIT Unavailable Unavailable HOUSE MED, AJIT Unavailable Unavailable Cresencio Hatch Unavailable Unavailabl e TESTRAKE, MICHAEL Unavailable Unavailable TESTRAKE, MICHAEL Unavailable Unavailable Iltchev, Mayco Unavailable Unavailable Iltchev, Mayco Unavailable Unavailable Iltchev, Mayco Unavailable Unavailable Kwan More Unavailable Unavailable Kimmy Lam Unavailable Unavailable DIXON, MELBA Unavailable Unavailable DIXON, MELBA Unavailable Unavailable CEBUL, LOWELL III Unavailable Unavailable DIXON, MELBA Unavailable Unavailable PROVIDER, UNKNOWN Unavailable Unavailable DIXON, MELBA Unavailable Unavailable DIXON, MELBA Unavailable Unavailable CEBUL, LOWELL III Unavailable Unavailable DIXON, MELBA Unavailable Unavailable PROVIDER, UNKNOWN Unavailable Unavailable EZRA, DARRON E Unavailable Unavailable EZRA, DARRON E Unavailable Unavailable CEBUL, LOWELL III Unavailable Unavailable CEBUL, LOWELL III Unavailable Unavailable EZRA, DARRON E Unavailable Unavailable PROVIDER, UNKNOWN Unavailable Unavailable CANTRELL, GUANAKO C Unavailable Unavailable CANTRELL, GUANAKO C Unavailable Unavailable CEBUL, LOWELL III Unavailable Unavailable CEBUL, LOWELL III Unavailable Unavailable CANTRELL, GUANAKO C Unavailable Unavailable PROVIDER, UNKNOWN Unavailable Unavailable ROSELYN, NATALIA T Unavailable Unavailable ROSELYN, NATALIA T Unavailable Unavailable CEBUL, LOWELL III Unavailable Unavailable ROSELYN, NATALIA T Unavailable Unavailable PROVIDER, UNKNOWN Unavailable Unavailable EZRA, DARRON E Unavailable Unavailable EZRA, DARRON E Unavailable Unavailable CEBUL, LOWELL III Unavailable Unavailable CEBUL, LOWELL III Unavailable Unavailable EZRA, DARRON E Unavailable Unavailable PROVIDER, UNKNOWN Unavailable Unavailable ROSELYN, NATALIA T Unavailable Unavailable ROSELYN, NATALIA T Unavailable Unavailable CEBUL, LOWELL III Unavailable Unavailable ROSELYN, NATALIA T Unavailable Unavailable PROVIDER, UNKNOWN Unavailable Unavailable EZRA, DARRON E Unavailable Unavailable EZRA, DARRON E Unavailable Unavailable CEBUL, LOWELL III Unavailable Unavailable CEBUL, LOWELL III Unavailable Unavailable EZRA, DARRON E Unavailable Unavailable PROVIDER, UNKNOWN Unavailable Unavailable DIDUR, LYDIA DO Unavailable Unavailable DIDUR, LYDIA DO Unavailable Unavailable CEBUL, LOWELL III Unavailable Unavailable CEBUL, LOWELL III Unavailable Unavailable DIDUR, LYDIA DO Unavailable Unavailable PROVIDER, UNKNOWN Unavailable Unavailable DIXON, MELBA Unavailable Unavailable DIXON, MELBA Unavailable Unavailable CEBUL, LOWELL III Unavailable Unavailable DIXON, MELBA Unavailable Unavailable PROVIDER, UNKNOWN Unavailable Unavailable DIXON, MELBA Unavailable Unavailable DIXON, MELBA Unavailable Unavailable CEBUL, LOWELL III Unavailable Unavailable CEBUL, LOWELL III Unavailable Unavailable DIXON, MELBA Unavailable Unavailable PROVIDER, UNKNOWN Unavailable Unavailable FELDMAN, DINESH DO Unavailable Unavailable FELDMAN, DINESH DO Unavailable Unavailable CEBUL, LOWELL III Unavailable Unavailable CEBUL, LOWELL III Unavailable Unavailable FELDMAN, DINESH DO Unavailable Unavailable PROVIDER, UNKNOWN Unavailable Unavailable POLLY BARKER MD Unavailable Unavailable POLLY BARKER MD Unavailable Unavailable CEBUL, LOWELL III Unavailable Unavailable CEBUL, LOWELL III Unavailable Unavailable POLLY BARKER MD Unavailable Unavailable PROVIDER, UNKNOWN Unavailable Unavailable Blaz FACILITIES AND GROUNDS DIRECTOR.[employer] Daniel Primary Care Provider Dr. Anali Dolan Primary Care Provider Dr. Anali Dolan Attending Provider [phone] Dr. Anali Dolan Referring Provider Blaalise FACILITIES AND GROUNDS DIRECTOR.[employer] Daniel Primary Care Provider Joyce FACILITIES AND GROUNDS DIRECTOR.[employer] Daniel Primary Care Provider MICHAEL JOHNSON Referring Unavailable MAYCO COOK Primary Care Unavailable MAYCO COOK Primary Care Unavailable MAYCO COOK Primary Care Unavailable MICHAEL JOHNSON Referring Unavailable MICHAEL JOHNSON Attending Unavailable MAYCO COOK Primary Care Unavailable Dr. Anali Dolan MD Primary Care Provider Magdaleno VELÁZQUEZ, Dr. Briones Attending Provider Dr. Anali Dolan MD Referring Provider Anali Dolan Primary Care Unavailable Anali Dolan Attending Unavailable Anali Dolan Referring Unavailable Anali Dolan Attending Unavailable Anali Dolan Primary Care Unavailable Anali Dolan Attending Unavailable Anali Dolan Primary Care Unavailable Anali Dolan Primary Care Unavailable Anali Dolan Attending Unavailable Anali Dolan Attending Unavailable Anali Dolan Primary Care Unavailable Anali Dolan Referring Unavailable Anali Dolan Attending Unavailable Anali Dolan Primary Care Unavailable Allergies Allergy Classification Reported Allergen(s) Allergy Type Date of Onset Reaction(s) Facility (3 sources) buPROPion; Translations: [WELLBUTRIN] Drug Allergy [facility] Repository (13 sources) codeine; Translations: [CODEINE] Drug Allergy 8 GI Upset [facility] Repository (1 source) etodolac; Translations: [LODINE] Drug Allergy [facility] Repository (2 sources) FLUoxetine; Translations: [PROZAC] Drug Allergy [facility] Repository (2 sources) gabapentin; Translations: [GABAPENTIN] Drug Allergy [facility] Repository (12 sources) lithium; Translations: [LITHIUM] Drug Allergy 5 Unknown [facility] Repository (1 source) metroNIDAZOLE; Translations: [FLAGYL] Drug Allergy [facility] Repository (1 source) simvastatin; Translations: [ZOCOR] Drug Allergy [facility] Repository (1 source) traMADol; Translations: [TRAMADOL] Drug Allergy [facility] Repository (2 sources) varenicline; Translations: [CHANTIX] Drug Allergy [facility] Repository (1 source) TYLENOL-CODEINE #3; Translations: [TYLENOL-CODEINE #3] Propensity to adverse reactions (disorder) [facility] Repository (1 source) DARVOCET-N 100; Translations: [DARVOCET-N 100] Propensity to adverse reactions (disorder) [facility] Repository (11 sources) buPROPion; Translations: [BUPROPION HCL] Drug Allergy 2 Other: See Comments [facility] Repository (12 sources) etodolac; Translations: [ETODOLAC] Drug Allergy 0 AOF, Rash [facility] Repository (8 sources) FLUoxetine; Translations: [FLUOXETINE HCL] Drug Allergy 5 Mental Status Change [facility] Repository (8 sources) metroNIDAZOLE; Translations: [METRONIDAZOLE HCL] Drug Allergy 4 Vomiting [facility] Repository (8 sources) simvastatin; Translations: [SIMVASTATIN] Drug Allergy 5 Other: See Comments [facility] Repository (8 sources) varenicline; Translations: [VARENICLINE] Drug Allergy 1 Mental Status Change [facility] Repository (8 sources) PROPOXYPHENE N-ACETAMINOPHEN; Translations: [PROPOXYPHENE N-ACETAMINOPHEN] Propensity to adverse reactions to drug (disorder) 0 GI Upset [facility] Repository (2 sources) acetaminophen Drug Allergy 7 AOF [facility] Repository (2 sources) propoxyphene Drug Allergy 7 AOF [facility] Repository (1 source) acetaminophen / propoxyphene Drug Allergy [facility] Repository (1 source) propoxyphene Drug Allergy [facility] Repository (1 source) TYLENOL W/CODEINE #3 Drug allergy (disorder) [facility] Repository (1 source) chanix Drug allergy (disorder) [facility] Repository (1 source) 12/12/16 (-) MRSA SCREEN; Translations: [12/12/16 (-) MRSA SCREEN] Propensity to adverse reactions (disorder) [facility] Repository (2 sources) Acetaminophen Drug Allergy 2 Nausea [facility] (3 sources) Codeine; Translations: [codeine phosphate] Drug Allergy 2 Unknown [facility] (2 sources) Hypochlorite Drug Allergy 2 short of breath [facility] (2 sources) Propoxyphene Drug Allergy 2 Nausea [facility] (3 sources) varenicline; Translations: [varenicline tartrate] Drug Allergy 2 Other [facility] (1 source) Bleach (Sodium Hypochlorite) Drug allergy (disorder) 5 [facility] Repository Medications Current Medications Medication Drug Class(es) Dates Sig (Normalized) Sig (Original) benzonatate 100 mg oral capsule (3 sources) Non-narcotic Antitussive Start: 10-15-2024 End: 10-30-2024 take 1 capsule by mouth every eight hours as needed for cough benzonatate (TESSALON PERLE) 100 mg capsule Indications: Influenza-like illness Take 1 capsule by mouth every 8 hours as needed for cough for up to 15 days. 30 capsule 10/15/2024 10/30/2024 Active Start: 02-22-2018 End: 07-19-2018 take 1 capsule by mouth three times daily as needed for cough Benzonatate 100 MG capsule Discontinued 100 mg PO 3 TIMES DAILY NEEDED as needed for Cough February 22, 2018 12:00am July 19, 2018 2:56pm benztropine mesylate 0.5 mg oral tablet (5 sources) Anticholinergic, Antihistamine Start: 09-16-2024 take 1 tablet by mouth every eight hours as needed benztropine (COGENTIN) 0.5 mg tablet Take 0.5 mg by mouth three times a day as needed. 09/16/2024 Active Start: 02-14-2024 End: 11-24-2024 Benztropine 0.5 mg tablet Di scontinued mg PO February 14, 2024 12:00am November 24, 2024 2:50pm cholecalciferol 0.05 mg oral capsule (5 sources) Vitamin D Start: 08-11-2024 take 1 capsule by mouth once Cholecalciferol, Vitamin D3, 50 mcg (2,000 unit) cap Take 1 capsule by mouth every afternoon. 08/11/2024 Active Start: 02-18-2024 take 1 capsule by mo [facility] once daily Cholecalciferol (Vitamin D3) 50 mcg (2,000 unit) capsule Active 50 ug PO DAILY 90 February 18, 2024 12:00am cyclobenzaprine hydrochloride 10 mg oral tablet (6 sources) Muscle Relaxant Start: 08-18-2024 End: 10-24-2024 take 0.5-1 tablets by mouth twice daily as needed for muscle spasms Cyclobenzaprine 10 mg tablet Active 10 mg PO TWICE A DAY as needed for muscle spasm October 24, 2024 12:40pm Take 1/2 to 1 tab twice daily as needed for spasm. ibuprofen 400 mg oral tablet (20 sources) Nonsteroidal Anti-inflammatory Drug Start: 08-10-2021 End: 08-10-2021 Ibuprofen 600 mg tablet Discontinued 400 mg PO EVERY 6 HOURS NEEDED as needed for Pain August 10, 2021 11:46am August 10, 2021 12:59pm Start: 08-10-2021 End: 08-10-2021 take 400 mg by mouth every six hours as needed Ibuprofen Discontinued 400 MG PO EVERY 6 HOURS NEEDED August 10, 2021 11:46am August 10, 2021 12:59pm Start: 08-10-2021 End: 09-30-2024 take 1 tablet by mouth twice daily as needed for pain Ibuprofen 400 mg tablet Active 400 mg PO TWICE A DAY as needed for pain September 30, 2024 11:04am Start: 03-15-2021 take 1 tablet by stalin th every six hours as needed ibuprofen (MOTRIN) 400 mg tablet Take 1 tablet by mouth every 6 hours as needed for Pain. 100 tablet 1 03/15/2021 Active Start: 02-22-2018 End: 08-10-2021 take 1 tablet by mouth every six hours as needed for pain Ibuprofen 600 MG tablet Discontinued 600 mg PO EVERY 6 HOURS NEEDED as needed for Pain February 22, 2018 12:00am August 10, 2021 11:47am Comment on above: Take 1 tablet by stalin th every 6 hours as needed for Pain. Inhalational Spacing Device (1 source) Start: 10-15-19 End: 10-15-19 Inhalational Spacing Device Indications: Asthma with COPD with exacerbation (HCC) 1 Device one time only for 1 dose. 1 Each 10/15/2024 10/15/2024 Active lurasidone hydrochloride 80 mg oral tablet (12 sources) Atypical Antipsychotic Start: 02-14-20 take 1 tablet by mouth once daily Lurasidone (Latuda) 80 mg tablet Active 80 mg PO DAILY February 14, 2024 12:00am Start: 08-10-2021 End: 08-10-2021 Lurasidone (Latuda) 80 mg ta blet Discontinued 80 mg PO DAILY August 10, 2021 1:00am August 10, 2021 12:01pm must administer with food (at least 350 calories) Start: 08-10-2021 End: 02-14-2024 Lurasidone (Latuda) 20 mg ta blet Discontinued 100 mg PO DAILY August 10, 2021 12:00pm February 14, 2024 12:55pm must administer with food (at least 350 calories) lurasidone (LATU DA) 20 mg tablet Take by mouth. Active Comment on above: Take by mouth. 24 hr metFORMIN hydrochloride 500 mg / SITagliptin 50 mg extended release oral tablet (6 sources) Biguanide, Dipeptidyl Peptidase 4 Inhibitor Start: 09-24-2024 take 1 tablet by mouth once daily JANUMET XR 50-500 mg TM24 TAKE ONE TABLET BY MOUTH EVERY DAY with SUPPER 09/24/2024 Active Start: 08-25-2024 Sitagliptin Ph os-Metformin 50-500 mg tablet Active 1 {tbl} PO ONCE August 25, 2024 1:00am Take with supper. Start: 08-25-2024 End: 08-25-2024 Sitagliptin Phos-Metformin 5 0-1,000 mg tablet, ER multiphase 24 hr Discontinued 1 {tbl} PO daily August 25, 2024 1:00am August 25, 2024 4:28pm Nebulizer Accessories (1 source) Start: 10-03-2021 Nebulizer Accessories Active 0 .ROUTE .MEDSUPPLY October 03, 2021 1:00am As directed Nebulizer Accessories kit (1 source) Start: 10-03-2021 Nebulizer Accessories kit Active 0 .ROUTE .MEDSUPPLY October 03, 2021 1:00am As directed Nebulizer And Compressor (1 source) Start: 10-03-2021 Nebulizer And Compressor Active 0 .ROUTE .MEDSUPPLY October 03, 2021 1:00am As directed Nebulizer And Compressor device (1 source) Start: 10-03-2021 Nebulizer And Compressor device Active 0 .ROUTE .MEDSUPPLY October 03, 2021 1:00am As directed omeprazole 40 mg delayed release oral capsule (17 sources) Proton Pump Inhibitor Start: 08-10-2021 End: 07-23-2024 take 1 capsule by mouth once daily Omeprazole 40 mg capsule,delayed release(DR/EC) Active 40 mg PO DAILY July 23, 2024 11:45am Start: 07-01-2018 End: 10-15-2024 omeprazole (PRILOSEC) 20 mg capsule Take 20 mg by mouth. 07/01/2018 10/15/2024 Discontinued omeprazole magne sium (PRILOSEC ORAL) Take by mouth. Active omeprazole magne sium (PRILOSEC ORAL) Take by mouth. 0 Active Comment on above: Take by mouth. rizatriptan 10 mg oral tablet (7 sources) Serotonin-1b and Serotonin-1d Receptor Agonist Start: 02-14-2024 End: 09-29-2024 take 1 tablet by mouth every two hours rizatriptan (MAXALT) 10 mg tablet take 1 tab at onset of headache; if no relief may repeat 1 tab after at least 2 hrs; max = 2 tabs/24 hr PO 09/29/2024 Active valbenazine 40 mg oral capsule (1 source) Start: 11-24-2024 take 1 capsule by mouth once daily Valbenazine (Ingrezza) 40 mg capsule Active 40 mg PO daily November 24, 2024 12:00am Completed/Discontinued Medications Medication Drug Class(es) Dates Sig (Normalized) Sig (Original) [id number] 200 actuat albuterol 0.09 mg/actuat metered dose inhaler (12 sources) beta2-Adrenergic Agonist Start: 08-10-2021 End: 02-14-2024 Albuterol Sulfate 90 mcg/actuation HFA aerosol inhaler Discontinued 2 NMA INHALATION EVERY 6 HOURS as needed for shortness of breath or wheezing 8.August 10, 2021 1:00pm February 14, 2024 12:58pm Start: 08-10-2021 End: 08-10-2021 take 1 puff(s) by inhalation every six hours Albuterol Sulfate Active 2 PUFF INHALATION EVERY 6 HOURS 8.August 10, 2021 1:00pm Start: 11-08-2020 End: 02-12-2025 take 2 puff(s) by inhalation every four hours as needed for wheezing albuterol HFA (PROVENTIL HFA, VENTOLIN HFA) 90 mcg/actuation inhaler Indications: Asthma with COPD with exacerbation (HCC) Inhale 2 Puffs as instructed every 4 hours as needed for wheezing/shortness of breath. 18 g 10/15/2024 Active Start: 03-15-2017 End: 08-10-2021 Albuterol Sulfate (Ventolin Hfa) 1 INHALER inhaler Discontinued 2 NMA INHALATION EVERY 4 HOURS NEEDED as needed for Sob &/Or Wheezing March 15, 2017 12:00am August 10, 2021 11:46am Start: 03-15-2017 End: 08-10-2021 take 1 puff(s) by inhalation every four hours as needed Albuterol Sulfate (Ventolin Hfa) 1 INHALER inhaler Discontinued 2 PUFF INHALATION EVERY 4 HOURS NEEDED March 15, 2017 12:00am August 10, 2021 11:46am Comment on above: Inhale 2 Puffs as in structed every 4 hours as needed for Wheezing/Shortness of Breath. albuterol 0.833 mg/ml / ipratropium bromide 0.167 mg/ml inhalation solution (2 sources) Anticholinergic, beta2-Adrenergic Agonist Start: End: take 1 mL by inhalation every eight hours as needed for wheezing Ipratropium-Albute rol 0.5 mg-3 mg(2.5 mg base)/3 mL solution for nebulization Discontinued 3 mL INHALATION Q8H as needed for shortness of breath or wheezing October 03, 2021 1:00am February 14, 2024 12:55pm Start: 10-03-2021 take 1 mL by inhalat ion every eight hours Ipratropium-Albuterol Active 3 ML INHALATION Q8H October 03, 2021 1:00am amitriptyline hydrochloride 100 mg oral tablet (10 sources) Tricyclic Antidepressant Start: 12-07-2017 End: 10-15-2024 take 1 tablet by mouth once daily at bedtime amitriptyline (ELAVIL) 100 mg tablet Take 100 mg by mouth daily at bedtime. 0 12/07/2017 10/15/2024 Discontinued Start: 06-05-2016 End: 10-15-2024 take 2 tablets by mouth once daily at bedtime amitriptyline (ELAVIL) 50 mg tablet Indications: Bipolar disorder, current episode mixed, moderate (HCC) Take 2 tablets by mouth daily at bedtime. 60 tablet 11 06/05/2016 10/15/2024 Discontinued Comment on above: Take 2 tablets by mo [facility] daily at bedtime. Take 100 mg by mouth daily at bedtime. amoxicillin 875 mg / clavulanate 125 mg oral tablet (5 sources) Penicillin-class Antibacterial Start: 10-10-2024 End: 10-17-2024 amoxicillin-clavulanate potassium (AUGMENTIN) 875-125 mg per tablet Take 1 tablet by mouth two times a day for 7 days. FOR 7 DAYS. 14 tablet 10/10/2024 10/15/2024 Discontinued Start: 10-14-2022 End: 10-21-2022 take 1 tablet by mouth twice daily amoxicillin-clavulanic acid (AUGMENTIN) 875-125 mg per tablet Take 1 tablet by mouth twice daily for 7 days. 14 tablet 0 10/14/2022 10/21/2022 Active Comment on above: Take 1 tablet by stalin twice daily for 7 days. azithromycin 250 mg oral tablet (2 sources) Macrolide Antimicrobial Start: 10-03-2021 End: 11-08-2021 Azithromycin 250 mg tablet Discontinued 0 PO .COMPLEX October 03, 2021 1:00am November 08, 2021 2:12pm For 250 mg dose pack: take 500 mg today (day 1), then 250 mg for 4 days (days 2-5) PO Start: 10-03-2021 End: 11-08-2021 Azithromycin Discontinued 0 PO .COMPLEX October 03, 2021 1:00am November 08, 2021 2:12pm For 250 mg dose pack: take 500 mg today (day 1), then 250 mg for 4 days (days 2-5) PO Benzotropine (1 source) Start: 08-25-2013 End: 08-25-2013 take 1 mg by mouth twice daily Benzotropine Discontinued 1 MG PO TWICE A DAY August 25, 2013 1:00am August 25, 2013 12:20pm Benzotropine 1 MG tablet (1 source) Start: 08-25-2013 End: 08-25-2013 take 1 tablet by mouth twice daily Benzotropine 1 MG tablet Discontinued 1 mg PO TWICE A DAY August 25, 2013 1:00am August 25, 2013 12:20pm betamethasone 0.5 mg/ml / clotrimazole 10 mg/ml topical cream (3 sources) Azole Antifungal, Corticosteroid Start: 08-18-2024 End: 11-24-2024 Clotrimazole-Betam ethasone 1-0.05 % cream Discontinued 1 NMA TOPICAL TWICE A DAY August 18, 2024 1:00am November 24, 2024 2:50pm apply to affected areas 7-10 days then stop. Start: 08-10-2021 End: 02-14-2024 Clotrimazole-Betamethasone 1 -0.05 % cream Discontinued 1 NMA TOPICAL TWICE A DAY 17 06August 10, 2021 1:00am February 14, 2024 12:55pm Start: 08-10-2021 Clotrimazole-B etamethasone Active 1 APPLIC TOPICAL TWICE A DAY 15 August 10, 2021 1:00am busPIRone hydrochloride 10 mg oral tablet (10 sources) Start: 08-10-2021 End: 05-10-2022 take 1 tablet by mouth twice daily Buspirone 10 mg tablet Discontinued 10 mg PO TWICE A DAY August 10, 2021 12:00pm May 10, 2022 1:56pm [facility] Start: 11-08-2020 take 1 tablet by stalin th three times daily as needed busPIRone (BUSPAR) 10 mg tablet Indications: Anxiety with depression Take 1 tablet by mouth three times daily as needed. 90 tablet 1 11/08/2020 Active Comment on above: Take 1 tablet by stalin th three times daily as needed. clotrimazole 10 mg/ml topical cream (5 sources) Azole Antifungal Start: 11-08-2020 End: 10-15-2024 clotrimazole (LOTRIMIN, CLOTRIM) 1 % cream Apply to affected area twice daily. 28 g 1 11/08/2020 10/15/2024 Discontinued Comment on above: Apply to affected ar ea twice daily. COMPOUNDED PRESCRIPTION (20 sources) Start: 11-26-2017 End: 10-15-2024 COMPOUNDED PRESCRIPTION Indications: Foot pain, right right ankle soft brace 1 Each 11/26/2017 10/15/2024 Discontinued Start: 11-26-2017 COMPOUNDED PRE SCRIPTION Indications: Foot pain, right right ankle soft brace 1 Each 11/26/2017 Active Start: 11-26-2017 COMPOUNDED PRE SCRIPTION Indications: Foot pain, right right ankle soft brace 1 Each 0 11/26/2017 Active Start: 09-24-2017 End: 10-15-2024 COMPOUNDED PRESCRIPTION Melanie cations: Degeneration of cervical intervertebral disc , Idiopathic peripheral neuropathy , Chronic pain of both knees Rollator for a large person, with seat and brakes 1 Each 09/24/2017 10/15/2024 Discontinued Start: 09-24-2017 End: 10-15-2024 COMPOUNDED PRESCRIPTION Melanie cations: COPD with chronic bronchitis (HCC) NEBULIZER FOR HOME USE. DX: J44.9 1 Each 09/24/2017 10/15/2024 Discontinued Start: 09-24-2017 COMPOUNDED PRE SCRIPTION Indications: Degeneration of cervical intervertebral disc , Idiopathic peripheral neuropathy , Chronic pain of both knees Rollator for a large person, with seat and brakes 1 Each 09/24/2017 Active Start: 09-24-2017 COMPOUNDED PRE SCRIPTION Indications: COPD with chronic bronchitis (HCC) NEBULIZER FOR HOME USE. DX: J44.9 1 Each 09/24/2017 Active Start: 09-24-2017 COMPOUNDED PRE SCRIPTION Indications: Degeneration of cervical intervertebral disc , Idiopathic peripheral neuropathy , Chronic pain of both knees Rollator for a large person, with seat and brakes 1 Each 0 09/24/2017 Active Start: 09-24-2017 COMPOUNDED PRE SCRIPTION Indications: COPD with chronic bronchitis (HCC) NEBULIZER FOR HOME USE. DX: J44.9 1 Each 0 09/24/2017 Active Start: 07-28-2016 End: 10-15-2024 COMPOUNDED PRESCRIPTION Melanie cations: Idiopathic peripheral neuropathy , Degeneration of cervical intervertebral disc shower bench 1 Each 0 07/28/2016 10/15/2024 Discontinued Start: 07-28-2016 COMPOUNDED PRE SCRIPTION Indications: Idiopathic peripheral neuropathy , Degeneration of cervical intervertebral disc shower bench 1 Each 0 07/28/2016 Active Start: 01-08-2015 End: 10-15-2024 COMPOUNDED PRESCRIPTION New mask and tubing for nebulizer. 2 Each 1 01/08/2015 10/15/2024 Discontinued Start: 01-08-2015 COMPOUNDED PRE SCRIPTION New mask and tubing for nebulizer. 2 Each 1 01/08/2015 Active Comment on above: New mask and tubing for nebulizer. shower bench Rollator for a large person, with seat and brakes NEBULIZER FOR HOME U SE. DX: J44.9 right ankle soft bra ce Diaper,Brief, Adult,Disposable (ADULT BRIEF - EXTRA LARGE) misc (5 sources) Start: 07-01-2018 End: 10-15-2024 Diaper,Brief, Adult,Disposable (ADULT BRIEF - EXTRA LARGE) misc Indications: Seizure disorder (HCC) , Urinary incontinence, unspecified type Large briefs ( one case of 60) Use as directed- change 3-4 times a day PRN incontinence. Diagnosis: G40.909 60 Each 11 07/01/2018 10/15/2024 Discontinued Start: 07-01-2018 Diaper,Brief, Adult,Disposable (ADULT BRIEF - EXTRA LARGE) misc Indications: Seizure disorder (HCC) , Urinary incontinence, unspecified type Large briefs ( one case of 60) Use as directed- change 3-4 times a day PRN incontinence. Diagnosis: G40.909 60 Each 11 07/01/2018 Active Comment on above: Large briefs ( one c ase of 60) Use as directed- change 3-4 times a day PRN incontinence. Diagnosis: G40.909 dicyclomine hydrochloride 20 mg oral tablet (2 sources) Anticholinergic Start: 013 End: take 1 tablet by mouth four times daily Dicyclomine (Bentyl) 20 MG tablet Discontinued 20 mg PO 4 TIMES DAILY July 10, 2013 1:00am August 25, 2013 12:20pm diphenhydrAMINE hydrochloride 25 mg oral tablet (4 sources) Histamine-1 Receptor Antagonist Start: 021 End: take 1 tablet by mouth at bedtime Diphenhydramine Hcl (Benadryl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 (From Wellbutrin) Allergy (Verified 11/24/24 14:45) Other codeine phosphate (From Tylenol-Codeine #3) Allergy (Verified 11/24/24 14:45) Unknown etodolac (From Lodine) Allergy (Verified 11/24/24 14:45) Rash varenicline tartrate (From Chantix) Allergy (Verified 11/24/24 14:45) Other acetaminophen (From Darvocet-N 100) Adverse Reaction (Verified 11/24/24 14:45) Nausea codeine Adverse Reaction (Verified 11/24/24 14:45) Nausea propoxyphene napsylate (From Darvocet-N 100) Adverse Reaction (Verified 11/24/24 14:45) Nausea Medications ???Medication ???Instructions ???Recorded ???Confirmed ???Type nebulizer accessories #1 ea 10/03/21 11/24/24 Rx nebulizer and compressor #1 ea 10/03/21 11/24/24 Rx lurasidone 80 mg tablet (Latuda) 80 mg PO DAILY Mental health 02/1311/24/24 History cholecalciferol (vitamin D3) 50 50 mcg PO DAILY #90 caps 02/18/24 11/24/24 Rx mcg (2,000 unit) capsule omeprazole 40 mg capsule,delayed 40 mg PO DAILY #90 caps 07/23/24 0 11/24/24 Rx release sitagliptin phosphate 50 1 tab PO ONCE #30 tabs 08/25/24 Rx mg-metformin 500 mg tablet rizatriptan 10 mg tablet (Maxalt) See Rx Instructions PO .COMPLEX 0 09/29/24 11/24/24 Rx #10 tabs ibuprofen 400 mg tablet 400 mg PO BID PRN pain #60 tabs 11/24/24 Rx cyclobenzaprine 10 mg tablet 10 mg PO BID PRN muscle spasm #30 10/24/24 11/24/24 Rx tabs valbenazine 40 mg capsule 40 mg PO QDAY 11/24/24 11/24/24 Hi story (Albert) [facility] Medical History Rash Muscle spasm Wears glasses Wears dentures Cancer Schizophrenia Bipolar disorder Depression Anxiety Alcohol use Substance abuse Diabetes Arthritis Restless legs Back pain Migraine headache Injury of head and neck Seizures History of diverticulitis Gastric reflux Smoker CPAP (continuous positive airway pressure) dependence Shortness of breath on exertion COPD (chronic obstructive pulmonary disease) Chronic cough Leg cramps History of trigger finger 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 Neck fracture Cholecystectomy planned Surgical History History of partial hysterectomy Hx of foot surgery Hx laparoscopic cholecystectomy History of colonoscopy Status post emergency tracheotomy for assistance in breathing Status post reconstruction procedure History of carpal tunnel surgery Hx of appendectomy Family History Other Asthma Cancer Heart disease Myocardial infarction Seizures Social History household members: none current occupational status: unemployed Smoking Status: Current every day smoker tobacco type: cigarettes alcohol intake: never substance use type: does not use what type of physical activity do you participate in: none seatbelt use: always do you feel safe at home: Yes additional social history: single Female Reproductive History Menstrual Ab spontaneous: 1 HPI HPI Chief Complaint: 3 M FU Details: LOUIS BRAN, is a 49 F who presents to the office today for short-term follow-up visit. 49-year-old female with a history of schizoaffective disorder followed by psychiatry. They manage her medications as per the chart. She has been borderline type II diabetic. We were watching A1c which had been typically right around 6 or little above. She was making good progress and continues to slowly make reasonable progress in terms of her diet. She was increasing her activity and again A1c has been stable, borderline. However in 2023, her A1c peri to 7.4 and then 7 (more content not included)... Normal [facility] Hemoglobin A1con 11-20-2024 HbA1c (Bld) [Mass fraction] 7.7 % Normal <=5.6 [facility] Comment on above: Performed By: #### L [id number] #### [facility] [address] [place], [address] Hemoglobin A1c percentageOrd ered By: Anali Dolan on 11-20-2024 HbA1c (Bld) [Mass fraction] 7.7 % >5.7 [facility] PVR ANK PRESS ANISHA VAS LABon 10-29-2024 PVR ANK PRESS ANISHA VAS LAB Non-Invasive Vascular Laboratory [facility] Lower Extremity Arterial Physiology Study Bilateral/Complete Date of service/time: 10/29/2024 3:39:40 PM Name: MS. LOUIS BRAN Date of : 1975 Age: 49 years Gender: F Clinical Indication Decreased pulses. TECHNIQUE -------- An arterial physiological examination was performed, including measurement of blood pressures using continuous wave Doppler and recording of plethysmographic with or without Doppler waveforms at the below-mentioned limb segments. FINDINGS -------- RIGHT SIDE AT REST Right Doppler Waveforms Dorsalis pedis: Multiphasic. Post tibial: Multiphasic. Right Pressures Brachial: 113 mmHg Ankle dorsalis pedis: 155 mmHg DORIS: 1.28 Ankle posterior tibial: 159 mmHg DORIS: 1.31 Digit: 116 mmHg Right PVR Waveforms Ankle: Normal. Digit: Normal. LEFT SIDE AT REST Left Doppler Waveforms Dorsalis pedis: Multiphasic. Post tibial: Multiphasic. Left Pressures Brachial: 121 mmHg Ankle dorsalis pedis: 133 mmHg DORIS: 1.10 Ankle posterior tibial: 147 mmHg DORIS: 1.21 Digit: 134 mmHg Left PVR Waveforms Ankle: Normal. Digit: Normal. IMPRESSION RIGHT SIDE Resting right ankle brachial index: 1.31 Right toe brachial index: 0.96 Normal ankle brachial index at rest in the right leg. Normal toe brachial index at rest in the right leg. Right ankle: Normal at rest. LEFT SIDE Resting left ankle brachial index: 1.21 Left toe brachial index: 1.11 Normal ankle brachial index at rest in the left leg. Normal toe brachial index at rest in the left leg. Left ankle: Normal at rest. Technologist: Otilia Platt RVT, RDTX Ordering physician: MICHAEL JOHNSON Interpreting physician: FRANCOIS Wong DO Final CC [employer] Medical Image : [id number] amicsSISUID See Link below for Image Normal [facility] CNOVon 10-15-2024 [facility] LOUIS BRAN ([id number]) 1975 F Date Time Provider Department 10/15/24 10:00 AM WILL ROSS [facility] During your visit today, we recorded the following information about you: Temperature Pulse Respiration Blood pressure 98.2 degrees 65/minute 21/minute 110/72 Weight 101.8 kg Will Ross MD 10/15/2024 10:19 AM Signed Patient presents with: Cough: Congestion, sore throat, NUNO x 3 days HPI: Feeling sick for starting 3 days ago. Positive symptoms: Cough, Sore throat, Nasal Congestion, Headache, Shortness of breath, Earache, Chills, Malaise, abdomen is sore from coughing, Negative symptoms: Vomiting, Diarrhea, OTC: Nyquil, Dayquil. 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 Cholecalciferol, Vitamin D3, 50 mcg (2,000 unit) cap Take 1 capsule by mouth every afternoon. cyclobenzaprine (FLEXERIL) 10 mg tablet Take ONE-HALF TO ONE tab twice daily as needed FOR spasm. rizatriptan (MAXALT) 10 mg tablet take 1 tab at onset of headache; if no relief may repeat 1 tab after at least 2 hrs; max = 2 tabs/24 hr PO JANUMET XR 50-500 mg TM24 TAKE ONE TABLET BY MOUTH EVERY DAY with SUPPER omeprazole magnesium (PRILOSEC ORAL) Take by mouth. lurasidone (LATUDA) 20 mg tablet Take by mouth. ibuprofen (MOTRIN) 400 mg tablet Take 1 tablet by mouth every 6 hours as needed for Pain. busPIRone (BUSPAR) 10 mg tablet Take 1 tablet by mouth three times daily as needed. (Patient not taking: Reported on 05/15/2022) No current facility-administered medications for this visit. ALLERGIES: ALLERGIES Allergen Reactions Chantix [Vareniclin* Mental Status Change Codeine GI Upset Darvocet A500 [Prop* GI Upset Flagyl [Metronidazo* Vomiting [place] Unknown Lodine [Etodolac] rash Prozac [Fluoxetine * Mental Status Change Wellbutrin [Bupropi* Other: See Comments lowers seizure threshold Zocor [Simvastatin] Other: See Comments myalgia VITALS: BP 110/72 Pulse 65 Temp 36.8 ?C (98.2 ?F) Resp 21 Wt 101.8 kg (224 lb 6.9 oz) LMP 02/01/2017 (LMP Unknown) SpO2 93% BMI 36.63 kg/m? PHYSICAL EXAM: GEN: mildly ill appearing HEENT: PERRL, EOMI, conjunctiva clear Ears: canals clear. TMs without erythema, bulge, or effusion Sinuses: non-tender frontal sinus, non-tender maxillary sinuses Throat: dry mucous membranes, mild erythema, no exudate Neck: supple, no thyromegaly, no lymphadenopathy HEART: regular rate, regular rhythm, no murmurs LUNGS: clear to auscultation, no wheezes or crackles, no increased WOB ASSESSMENT/PLAN: 1. Influenza-like illness - ICD9: 487.1, ICD10: J11.1 (primary diagnosis) - suspect influenza which is prevalent in the community. - Discussed supportive care treatment with rest, cold medicine, and analgesia. He is beyond the therapeutic window for Tamiflu and defers testing. - Red flags to seek further treatment include chest pain, shortness of breath, and lethargy; in the ER if severe. Requests - BENZONATATE 100 MG CAPSULE 2. Asthma with COPD with exacerbation ([facility]) - ICD9: 493.22, ICD10: J44.1 - ALBUTEROL SULFATE HFA 90 MCG/ACTUATION AEROSOL INHALER - INHALATIONAL SPACING DEVICE Will Ross MD Allergies As of Date: 10/15/2024 Noted Allergy Reaction CHANTIX (VARENICLINE) 01/12/2011 1 - Mental Status Change CODEINE 04/01/2008 8 - GI Upset DARVOCET A500 (PROPOXYPHENE N-VELVET*08/08/2010 8 - GI Upset FLAGYL (METRONIDAZOLE HCL) 11/12/2013 11 - Vomiting LITHIUM 09/01/2015 16 - Unknown LODINE (ETODOLAC) 02/03/2010 Comments: rash PROZAC (FLUOXETINE HCL) 09/01/2015 1 - Mental Status Change WELLBUTRIN (BUPROPION HCL) 08/07/2012 14 - Other: See Comments Comments: lowers seizure threshold ZOCOR (SIMVASTATIN) 09/30/2014 14 - Other: See Comments Comments: myalgia Date Reviewed: 10/15/2024 Reviewed by: Mary Bush MA - Fully Assessed Reason for Visit: Cough [28] Cmt: Congestion, sore throat, NUNO x 3 days Primary Visit Diagnosis:Influenza-l ginna illness [J11.1] Other Visit Diagnosis:Asthma with COPD with exacerbation (HCC) [J44.1] Order(s):albuterol HFA (PROVENTIL HFA, VENTOLIN HFA) (more content not included)... Normal [facility] CNOVon 10-10-2024 CNOV Office Visit ([facility] ) LOUIS BRAN ([id number]) 1975 F Date Time Provider Department 10/10/24 11:00 AM MICHAEL JOHNSON [facility] During your visit today, we recorded the following information about you: Rosanna Almaraz LPN 10/11/2024 7:10 AM Signed AMB ROOMING INTAKE FLOWSHEET DATA Risk Screening Do you have concerns about personal safety or safety in the home?: No Pain Pain Level: 6 Pain Location: Toe Description: Stabbing Duration Amount of Time: 4 Duration Units: Weeks Frequency: Intermittent Intervention/Comfort measure: Relaxation, Reposition Patient presents with: Right Great Toe - Nail Check, Established Patient, Follow Up [facility] Matthew 10/11/2024 7:10 AM Signed Initial Podiatric Office Visit: Chief Complaint: This 49 year old female who presents with chief complaint:right great toenail pain HPI Patient presents to clinic for evaluation of right hallux Complains of pain and swelling to right great toe, proximal nail fold This has been going on for 3 days or so. Patient denies any drainage Believes the nail is going to fall off. Newly diagnosed diabetic Smokes 1 pack of cigarettes/day. 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 Bipolar disorder, unspecified ([facility]) Fracture, talus closed 08/10/2010 Gastroesophageal reflux disease without esophagitis 04/06/2015 Hyperlipidemia LDL goal <100 06/16/2015 Obesity, unspecified 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 Cholecalciferol, Vitamin D3, 50 mcg (2,000 unit) cap Take 1 capsule by mouth every afternoon. omeprazole (PRILOSEC) 20 mg capsule Take 20 mg by mouth. rizatriptan (MAXALT) 10 mg tablet take 1 tab at onset of headache; if no relief may repeat 1 tab after at least 2 hrs; max = 2 tabs/24 hr PO JANUMET XR 50-500 mg TM24 TAKE ONE TABLET BY MOUTH EVERY DAY with SUPPER lurasidone (LATUDA) 20 mg tablet Take by mouth. ibuprofen (MOTRIN) 400 mg tablet Take 1 tablet by mouth every 6 hours as needed for Pain. cyclobenzaprine (FLEXERIL) 10 mg tablet Take ONE-HALF TO ONE tab twice daily as needed FOR spasm. melatonin 3 mg tablet Take by mouth. (Patient not taking: Reported on 10/10/2024) omeprazole magnesium (PRILOSEC ORAL) Take by mouth. albuterol HFA (PROVENTIL HFA, VENTOLIN HFA) 90 mcg/actuation inhaler Inhale 2 Puffs as instructed every 4 hours as needed for Wheezing/Shortness of Breath. (Patient not taking: Reported on 10/10/2024) busPIRone (BUSPAR) 10 mg tablet Take 1 tablet by mouth three times daily as needed. (Patient not taking: Reported on 05/15/2022) clotrimazole (LOTRIMIN, CLOTRIM) 1 % cream Apply to affected area twice daily. (Patient not taking: Reported on 05/15/2022) ATROVENT HFA 17 mcg/actuation inhaler INHALE 2 PUFFS DIRECTED FOUR TIMES A DAY (Patient not taking: No sig reported) Diaper,Brief, Adult,Disposable (ADULT BRIEF - EXTRA LARGE) misc Large briefs ( one case of 60) Use as directed- change 3-4 times a day PRN incontinence. Diagnosis: G40.909 (Patient not taking: No sig reported) Underpads 23 X 24 pads Use as directed, change 3-4 times a day PRN incontinence ( case of 200 ), Diagnosis: G40.909 (Patient not taking: No sig reported) Latex Gloves (LATEX GLOVES, LARGE) misc 2 Each twice daily. MILK OF MAGNESIA 400 mg/5 mL suspension Take 15 mL by mouth once daily as needed for Constipation. (Patient not taking: Reported on 05/15/2022) promethazine (PHENERGAN) 25 mg tablet Take 1 tablet by mouth every 6 hours as needed for Nausea/Vomiting. (Patient not taking: No sig reported) amitriptyline (ELAVIL) 100 mg tablet Take 100 mg by mouth daily at bedtime. (Patient not taking: No sig reported) COMPOUNDED PRESCRIPTION right ankle soft brace (Patient not taking: No sig reported) ketotifen fumarate (ZADITOR) 0.025 % (0.035 %) ophthalmic solution Use 1 Drop in both eyes twice daily. (Patient not taking: No sig reported) COMPOUNDED PRESCRIPTION Rollator for a large person, with seat and brakes (Patient not taking: No sig repo (more content not included)... Normal [facility] XR TOE 3V AP/LAT/OBL RTon XR TOE 3V AP/LAT/OBL RT * * *Final Repor t* * * DATE OF EXAM: Oct 10 2024 12:08PM [id number] [id number] - XR TOE 3V AP/LAT/OBL RT / PROCEDURE REASON: Ingrowing toenail of right foot * * * * Physician Interpretation * * * * EXAMINATION / TECHNIQUE: XR TOE 3V AP/LAT/OBL RT HISTORY: PT STATES RIGHT FOOT GREAT TOE NAIL INFECTION. ATTENTION PROXIMAL PHALANX OF GREAT TOE ON OBLI VIEW Ingrowing toenail of right foot COMPARISON: 04/04/2017. RESULT: No acute fracture or dislocation. Mild first MTP joint osteoarthritis. No osseous erosion or soft tissue calcifications. IMPRESSION: Mild first MTP joint osteoarthritis. Body And Frame Technician: PSCB Transcribe Date/Time: Oct 14 2024 9:21A Dictated by : GOLDEN KELSEY MD This examination was interpreted and the report reviewed and electronically signed by: GOLDEN KELSEY MD on Oct 14 2024 9:21AM EST [id number] Normal [facility] MR/BMS.[facility] 08-25-2024 MR/BMS.[facility] [address] [place] [address] OFFICE VISIT Date of Service: 08/25/24 MR#: [id number] Acct: [id number] Name: LOUIS BRAN Rep #: [id number] : 1975 Provider: Dr. Anali verdugo MD Age/Sex: 48/F Location: [facility] Status: Signed Intake Vital Signs 08/18/24 12:52 08/25/24 14:32 Height 5 ft 10 in 5 ft 10 in Weight: 225 lb 6 oz 230 lb 2 oz BMI 32.3 33.0 BP 124/84 H 122/82 H Blood Pressure Location Lt brachial Lt brachial Position Sitting Sitting Respiration 16 16 Pulse 86 77 Pulse Source Monitor Monitor Temp 98.4 F 98.2 F Temp Source Temporal Temporal Pulse Oximetry (%) 91 92 Oxygen Delivery Method room air room air Intake Visit Reasons: Discuss Type 2 Diabetes Chief Complaint: discuss type 2 diabetes Core Piler Required: No Accompanied by: Self Is patient in pain?: No Allergies Bleach (Sodium Hypochlorite) Allergy (Mild, Verified 08/25/24 14:18) short of breath lithium Allergy (Mild, Verified 08/25/24 14:18) unknown bupropion HCl (From Wellbutrin) Allergy (Verified 08/25/24 14:18) Other codeine phosphate (From Tylenol-Codeine #3) Allergy (Verified 08/25/24 14:18) Unknown etodolac (From Lodine) Allergy (Verified 08/25/24 14:18) Rash varenicline tartrate (From Chantix) Allergy (Verified 08/25/24 14:18) Other acetaminophen (From Darvocet-N 100) Adverse Reaction (Verified 08/25/24 14:18) Nausea codeine Adverse Reaction (Verified 08/25/24 14:18) Nausea propoxyphene napsylate (From Darvocet-N 100) Adverse Reaction (Verified 08/25/24 14:18) Nausea Medications ???Medication ???Instructions ???Recorded ???Confirmed ???Type nebulizer accessories #1 ea 10/03/21 08/25/24 Rx nebulizer and compressor #1 ea 10/03/21 08/25/24 Rx ibuprofen 400 mg tablet 400 mg PO BID PRN pain #60 tabs 02/12/23 08/25/24 Rx benztropine 0.5 mg tablet mg PO 02/14/24 08/25/24 History lurasidone 80 mg tablet (Latuda) 80 mg PO DAILY Mental health 02/14/24 08/25/24 History cholecalciferol (vitamin D3) 50 50 mcg PO DAILY #90 caps 02/18/24 08/25/24 Rx mcg (2,000 unit) capsule omeprazole 40 mg capsule,delayed 40 mg PO DAILY #90 caps 07/23/24 08/25/24 Rx release rizatriptan 10 mg tablet (Maxalt) See Rx Instructions PO .COMPLEX 07/23/24 08/25/24 Rx #10 tabs triamcinolone acetonide 0.1 % 1 applic topical BID #30 grams 07/23/24 08/25/24 Rx topical cream clotrimazole-betameth asone 1 1 applic topical BID #15 grams 08/18/24 08/25/24 Rx %-0.05 % topical cream cyclobenzaprine 10 mg tablet 10 mg PO BID PRN muscle spasm #30 08/18/24 08/25/24 Rx tabs sitagliptin phosphate 50 1 tab PO ONCE #30 tabs 08/25/24 08/25/24 Rx mg-metformin 500 mg tablet PFSH Medical History Rash Muscle spasm Wears glasses Wears dentures Cancer Schizophrenia Bipolar disorder Depression Anxiety Alcohol use Substance abuse Diabetes Arthritis Restless legs Back pain Migraine headache Injury of head and neck Seizures History of diverticulitis Gastric reflux Smoker CPAP (continuous positive airway pressure) dependence Shortness of breath on exertion COPD (chronic obstructive pulmonary disease) Chronic cough Leg cramps History of trigger finger 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 Neck fracture Cholecystectomy planned Surgical History History of partial hysterectomy Hx of foot surgery Hx laparoscopic cholecystectomy History of colonoscopy Status post emergency tracheotomy for assistance in breathing Status post reconstruction procedure History of carpal tunnel surgery Hx of appendectomy Family History Other Asthma Cancer Heart disease Myocardial infarction Seizures Social History household members: none current occupational status: unemployed Smoking Status: Current every day smoker tobacco type: cigarettes alcohol intake: never substance use type: does not use what type of physical activity do you participate in: none seatbelt use: always do you feel safe at home: Yes additional social history: single Female Reproductive History Menstrual Ab spontaneous: 1 HPI HPI Chief Complaint: discuss type 2 diabetes Details: LOUIS BRAN, is a 48 F who presents to the office today for short-term follow-up. Labs revealed A1c climbing, 7.9. This has been gradually increasing over the last several years. We spent considerable time discussing this. I think that is what is made this such a gradual climb because she actually was doing better in terms of her physical activ (more content not included)... Normal [facility] Miscellaneous Lab Procedureo n 08-21-20[place] [facility] [place] [facility] Comment on above: Order Comment: Labco rp: [id number] OxLDL LAV TOP FRZ PLASMALabco: [id number] OxLDL LAV TOP FRZ PLASMA Result Comment: TEST RESULTS LIMITS Oxidized LDL 47 ng/mL 10-170 TESTING PERFORMED AT [facility]. ORIGINAL REPORT ON FILE IN LAB CONTAINS ADDITIONAL TEST SITE INFORMATION. Performed By: #### L 500.4050, L100.0100, L500.4100, L501.3620, L501.9985, L3300.3500, L506.1000, L801.1541 ####[facility] [id number] [place], [place], [id number] Insulin Levelon 08-20-2024 INSULIN,FASTING 24.6 uIU/mL Normal 2.6-24.9 [facility] Comment on above: Result Comment: Perf ormed at: [address] [id number] Supervisor Dehydrogenation: Abrahan Conner PhD, Phone: [phone] Performed By: #### L 500.4050, L100.0100, L500.4100, L501.3620, L501.9985, L3300.3500, L506.1000, L801.1541 ####[facility] [id number] [place], [place], [id number] DOrdered By: Yuli Dolan on 08-19-2024 Vitamin D 25-Hydroxy 27.2 ng/mL [facility] Comment on above: Vitamin D 25(OH) Sta tus Range Deficiency <20 ng/mL (50nmol/L) Insufficiency 20 - 30 ng/mL (50 - 75 nmol/L) Sufficiency 30 - 100 ng/mL (75 - 250 nmol/L) Toxicity >100 ng/mL (>250 nmol/L) Absolute neutrophil countOrd ered By: Anali Hinojosachner on 08-19-2024 Neutrophils (Bld) [#/Vol] 6.8 10*3/uL 2.0-7.7 [facility] Albumin to globulin ratioOrd ered By: Anali Magdaleno on 08-19-2024 Albumin/Globulin [Mass ratio] 0.8 {ratio} Low 0.9-2.4 [facility] Basophil percentageOrdered B y: Anali Dolan on 08-19-2024 Basophils/100 WBC (Bld) 0.5 % 0-1 [facility] Bilirubin, totalOrdered By: Anali Magdaleno on 08-19-2024 Bilirubin [Mass/Vol] 0.50 mg/dL 0.20-1.00 [facility] Comment on above: For patients on eltr ombopag therapy, use of Dimension [place] TBIL is not recommended. Blood urea nitrogen (BUN)/cr eatinine ratioOrdered By: Anali Dolan on 08-19-2024 Urea nitrogen/Creatinine [Mass ratio] 9.2 mg/mg Low 10-20 [facility] CBC W/Diff, Automatedon 08-03 Absolute Lymph 3.19 X10 3/uL Normal 0.83-4.51 [facility] Comment on above: Performed By: #### L 500.4050, L100.0100, L500.4100, L501.3620, L501.9985, L3300.3500, L506.1000, L801.1541 #### [facility] [address] [place], [address] Absolute Neut 6.8 X10 3/uL Normal 2.0-7.7 [facility] Comment on above: Performed By: #### L 500.4050, L100.0100, L500.4100, L501.3620, L501.9985, L3300.3500, L506.1000, L801.1541 #### [facility] [address] [place], [address] Basophils/100 WBC (Bld) 0.5 % Normal 0-1 [facility] Comment on above: Performed By: #### L 500.4050, L100.0100, L500.4100, L501.3620, L501.9985, L3300.3500, L506.1000, L801.1541 #### [facility] [address] [place], [address] Eosinophils/100 WBC (Bld) 2.8 % Normal 0-5 [facility] Comment on above: Performed By: #### L 500.4050, L100.0100, L500.4100, L501.3620, L501.9985, L3300.3500, L506.1000, L801.1541 #### [facility] [address] [place], [address] Erythrocyte distribution width (RBC) [Ratio] 14.0 % Normal 11.6-14.6 [facility] Comment on above: Performed By: #### L 500.4050, L100.0100, L500.4100, L501.3620, L501.9985, L3300.3500, L506.1000, L801.1541 #### [facility] [address] [place], [address] Hematocrit (Bld) [Volume fraction] 43.1 % Normal 37-47 [facility] Comment on above: Performed By: #### L 500.4050, L100.0100, L500.4100, L501.3620, L501.9985, L3300.3500, L506.1000, L801.1541 #### [facility] [address] [place], [address] Hemoglobin (Bld) [Mass/Vol] 14.3 g/dL Normal 12.0-15.0 [facility] Comment on above: Performed By: #### L 500.4050, L100.0100, L500.4100, L501.3620, L501.9985, L3300.3500, L506.1000, L801.1541 #### [facility] [address] [place], [address] IG% 0.700 Normal 0.0-0.9 [facility] Comment on above: Result Comment: IG% - Immature Granulocytes (promyelocytes, myelocytes and metamyelocytes) > 1% indicates that a LEFT SHIFT is Present. Performed By: #### L 500.4050, L100.0100, L500.4100, L501.3620, L501.9985, L3300.3500, L506.1000, L801.1541 #### [facility] [address] [place], [address] Lymphocytes/100 WBC (Bld) 28.4 % Normal 19-41 [facility] Comment on above: Performed By: #### L 500.4050, L100.0100, L500.4100, L501.3620, L501.9985, L3300.3500, L506.1000, L801.1541 #### [facility] [address] [place], [address] MCH (RBC) [Entitic mass] 27.4 pg Normal 27.0-32.0 [facility] Comment on above: Performed By: #### L 500.4050, L100.0100, L500.4100, L501.3620, L501.9985, L3300.3500, L506.1000, L801.1541 #### [facility] [address] [facility] [address] [place], [address] MCHC (RBC) [Mass/Vol] 33.2 g/dL Normal 32-36 [facility] Comment on above: Performed By: #### L 500.4050, L100.0100, L500.4100, L501.3620, L501.9985, L3300.3500, L506.1000, L801.1541 #### [facility] [address] [place], [address] MCV (RBC) [Entitic vol] 82.6 fL Normal 81-99 [facility] Comment on above: Performed By: #### L 500.4050, L100.0100, L500.4100, L501.3620, L501.9985, L3300.3500, L506.1000, L801.1541 #### [facility] [address] [place], [address] Monocytes/100 WBC (Bld) 7.2 % Normal 0-10 [facility] Comment on above: Performed By: #### L 500.4050, L100.0100, L500.4100, L501.3620, L501.9985, L3300.3500, L506.1000, L801.1541 #### [facility] [address] [place], [address] Neutrophils/100 WBC (Bld) 60.4 % Normal 47-70 [facility] Comment on above: Performed By: #### L 500.4050, L100.0100, L500.4100, L501.3620, L501.9985, L3300.3500, L506.1000, L801.1541 #### [facility] [address] [place], [address] Nucleated RBC (Bld) [#/Vol] 0 10*3/uL Normal 0-5 [facility] Comment on above: Performed By: #### L 500.4050, L100.0100, L500.4100, L501.3620, L501.9985, L3300.3500, L506.1000, L801.1541 #### [facility] [address] [place], [address] Platelet mean volume (Bld) [Entitic vol] 9.6 fL Normal 6.2-12.0 [facility] Comment on above: Performed By: #### L 500.4050, L100.0100, L500.4100, L501.3620, L501.9985, L3300.3500, L506.1000, L801.1541 #### [facility] [address] [place], [address] Platelets (Bld) [#/Vol] 439 10*3/uL Normal 150-450 [facility] Comment on above: Performed By: #### L 500.4050, L100.0100, L500.4100, L501.3620, L501.9985, L3300.3500, L506.1000, L801.1541 #### [facility] [address] [place], [address] RBC (Bld) [#/Vol] 5.22 10*6/uL Normal 4.2-5.4 [facility] Comment on above: Performed By: #### L 500.4050, L100.0100, L500.4100, L501.3620, L501.9985, L3300.3500, L506.1000, L801.1541 #### [facility] [address] [place], [address] RDW SD 41.8 fl Normal 35.1-43.9 [facility] Comment on above: Performed By: #### L 500.4050, L100.0100, L500.4100, L501.3620, L501.9985, L3300.3500, L506.1000, L801.1541 #### [facility] [address] [place], [address] WBC (Bld) [#/Vol] 11.2 10*3/uL High 4.4-11.0 [facility] Comment on above: Performed By: #### L 500.4050, L100.0100, L500.4100, L501.3620, L501.9985, L3300.3500, L506.1000, L801.1541 #### [facility] [address] [place], [place], [id number] CPK Total, Creatine Kinaseon 08-19-2024 CPK TOTAL 58 U/L Normal 26-192 [facility] Comment on above: Performed By: #### L 500.4050, L100.0100, L500.4100, L501.3620, L501.9985, L3300.3500, L506.1000, L801.1541 #### [facility] [address] [place], [place], [id number] Carbon dioxide measurementOr dered By: Anali Dolan on 08-19-2024 CO2 [Moles/Vol] 26.0 mmol/L 21.0-32.0 [facility] Chloride measurementOrdered By: Anali Dolan on 08-19-2024 Chloride [Moles/Vol] 105 mmol/L 98-107 [facility] Comprehensive Metabolic Prof ilon 08-19-2024 Albumin [Mass/Vol] 3.3 g/dL Normal 3.2-5.0 [facility] Comment on above: Performed By: #### L 500.4050, L100.0100, L500.4100, L501.3620, L501.9985, L3300.3500, L506.1000, L801.1541 #### [facility] [address] [place], [place], [id number] (874) Albumin/Globulin [Mass ratio] 0.8 {ratio} Low 0.9-2.4 [facility] Comment on above: Performed By: #### L 500.4050, L100.0100, L500.4100, L501.3620, L501.9985, L3300.3500, L506.1000, L801.1541 #### [facility] [address], [address] ALK P 158 U/L High 45-117 [facility] Comment on above: Performed By: #### L 500.4050, L100.0100, L500.4100, L501.3620, L501.9985, L3300.3500, L506.1000, L801.1541 #### [facility] [address] [place], [address] ALT [Catalytic activity/Vol] 27 U/L Normal 13-56 [facility] Comment on above: Performed By: #### L 500.4050, L100.0100, L500.4100, L501.3620, L501.9985, L3300.3500, L506.1000, L801.1541 #### [facility] [address] [place], [address] AST [Catalytic activity/Vol] 14 U/L Low 15-37 [facility] Comment on above: Performed By: #### L 500.4050, L100.0100, L500.4100, L501.3620, L501.9985, L3300.3500, L506.1000, L801.1541 #### [facility] [address] [place], [address] Bilirubin [Mass/Vol] 0.50 mg/dL Normal 0.20-1.00 [facility] Comment on above: Result Comment: For patients on eltrombopag therapy, use of Dimension [place] TBIL is not recommended. Performed By: #### L 500.4050, L100.0100, L500.4100, L501.3620, L501.9985, L3300.3500, L506.1000, L801.1541 #### [facility] [address] [place], [address] BUN/CRE 9.2 RATIO Low 10-20 [facility] Comment on above: Performed By: #### L 500.4050, L100.0100, L500.4100, L501.3620, L501.9985, L3300.3500, L506.1000, L801.1541 #### [facility] [address] [place], [address] CA,Total 9.1 mg/dL Normal 8.5-10.1 [facility] Comment on above: Performed By: #### L 500.4050, L100.0100, L500.4100, L501.3620, L501.9985, L3300.3500, L506.1000, L801.1541 #### [facility] [address] [place], [address] Chloride [Moles/Vol] 105 mmol/L Normal 98-107 [facility] Comment on above: Performed By: #### L 500.4050, L100.0100, L500.4100, L501.3620, L501.9985, L3300.3500, L506.1000, L801.1541 #### [facility] [address] [place], [address] CO2 [Moles/Vol] 26.0 mmol/L Normal 21.0-32.0 [facility] Comment on above: Performed By: #### L 500.4050, L100.0100, L500.4100, L501.3620, L501.9985, L3300.3500, L506.1000, L801.1541 #### [facility] [address] [place], [address] Creatinine [Mass/Vol] 0.76 mg/dL Normal 0.55-1.02 [facility] Comment on above: Result Comment: The validity of the calculated GFR GFRAA in patients over 70 years has not been determined. Clinical correlation is essential. Performed By: #### L 500.4050, L100.0100, L500.4100, L501.3620, L501.9985, L3300.3500, L506.1000, L801.1541 #### [facility] [address] [place], [address] EST GFR - AA 103 mL/min Normal >60 [facility] Comment on above: Result Comment: Afri can Danish GFR Calc Performed By: #### L 500.4050, L100.0100, L500.4100, L501.3620, L501.9985, L3300.3500, L506.1000, L801.1541 #### [facility] [address] [place], [address] GAP 5 Normal 5-15 [facility] Comment on above: Performed By: #### L 500.4050, L100.0100, L500.4100, L501.3620, L501.9985, L3300.3500, L506.1000, L801.1541 #### [facility] [address] [place], [address] GFR/1.73 sq M.predicted among non-blacks MDRD (S/P/Bld) [Vol rate/Area] 85 mL/min/{1.73_m2} Normal >60 [facility] Comment on above: Result Comment: Non- GFR Calc Performed By: #### L 500.4050, L100.0100, L500.4100, L501.3620, L501.9985, L3300.3500, L506.1000, L801.1541 #### [facility] [address] [place], [address] Globulin (S) [Mass/Vol] 4.2 g/dL Normal 2.2-4.2 [facility] Comment on above: Performed By: #### L 500.4050, L100.0100, L500.4100, L501.3620, L501.9985, L3300.3500, L506.1000, L801.1541 #### [facility] [address] [place], [address] Glucose [Mass/Vol] 195 mg/dL High 74-106 [facility] Comment on above: Result Comment: Fast ing Glucose result greater than or equal to 126 mg/dL suggests DIABETES MELLITUS per A.D.A. criteria. Performed By: #### L 500.4050, L100.0100, L500.4100, L501.3620, L501.9985, L3300.3500, L506.1000, L801.1541 #### [facility] [address] [place], [address] Potassium [Moles/Vol] 3.9 mmol/L Normal 3.5-5.1 [facility] Comment on above: Performed By: #### L 500.4050, L100.0100, L500.4100, L501.3620, L501.9985, L3300.3500, L506.1000, L801.1541 #### [facility] [address] [place], [address] Sodium [Moles/Vol] 136 mmol/L Normal 136-145 [facility] Comment on above: Performed By: #### L 500.4050, L100.0100, L500.4100, L501.3620, L501.9985, L3300.3500, L506.1000, L801.1541 #### [facility] [address] [place], [address] T PROT 7.5 g/dL Normal 6.4-8.2 [facility] Comment on above: Performed By: #### L 500.4050, L100.0100, L500.4100, L501.3620, L501.9985, L3300.3500, L506.1000, L801.1541 #### [facility] [address] [place], [address] Urea nitrogen [Mass/Vol] 7 mg/dL Normal 7-18 [facility] Comment on above: Performed By: #### L 500.4050, L100.0100, L500.4100, L501.3620, L501.9985, L3300.3500, L506.1000, L801.1541 #### [facility] [address] [place], [address] Eosinophil percentageOrdered By: Anali Dolan on 08-19-2024 Eosinophils/100 WBC (Bld) 2.8 % 0-5 [facility] Erythrocyte distribution wid th ratioOrdered By: Anali Dolan on 08-19-2024 Erythrocyte distribution width (RBC) [Ratio] 14.0 % 11.6-14.6 [facility] Erythrocyte distribution wid th standard deviationOrdered By: Anali Dolan on 08-19-2024 Erythrocyte distribution width (RBC) [Entitic vol] 41.8 fL 35.1-43.9 [facility] Estimated glomerular filtrat ion rate (GFR) AmericanOrdered By: Anali Dolan on 08-19-2024 Estimated GFR (MDRD) Amer 103 mL/min >60 [facility] Comment on above: GFR Calc Glomerular filtration rate ( GFR) estimationOrdered By: Anali Dolan on 08-19-2024 Estimated GFR (MDRD) Non-Af Amer 85 mL/min >60 [facility] Comment on above: Non- GFR Calc Glucose measurementOrdered B y: Anali Dolan on 08-19-2024 Glucose [Mass/Vol] 195 mg/dL High 74-106 [facility] Comment on above: Fasting Glucose resu lt greater than or equal to 126 mg/dL suggests DIABETES MELLITUS per A.D.A. criteria. Hematocrit Auto (Bld) [Volum e fraction]Ordered By: Anali Dolan on 08-19-2024 Hematocrit (Bld) [Volume fraction] 43.1 % 37-47 [facility] Hemoglobin A1con 08-19-2024 HbA1c (Bld) [Mass fraction] 7.9 % High 3.8-5.6 [facility] Comment on above: Result Comment: Norm al < 5.7 % Prediabetic 5.7 - 6.4 % Diabetic >or= 6.5 % Please note range changes. Performed By: #### L 500.4050, L100.0100, L500.4100, L501.3620, L501.9985, L3300.3500, L506.1000, L801.1541 #### [facility] [address] [place], [place], [id number] Hemoglobin A1c percentageOrd ered By: Anali Dolan on 08-19-2024 HbA1c (Bld) [Mass fraction] 7.9 % High 3.8-5.6 [facility] Comment on above: Normal < 5.7 % Predi abetic 5.7 - 6.4 % Diabetic >or= 6.5 % Please note range changes. Hemoglobin measurementOrdere d By: Anali Dolan on 08-19-2024 Hemoglobin (Bld) [Mass/Vol] 14.3 g/dL 12.0-15.0 [facility] High density lipoprotein (HD L) measurementOrdered By: Anali Dolan on 08-19-2024 Cholesterol in HDL [Mass/Vol] 40 mg/dL >40 [facility] Comment on above: The drugs N-Acetylcy steine and Metamizole may falsely depress this assay. Reference Range HDL <40 mg/dL Low HDL Cholesterol HDL >or= 60 mg/dL High HDL Cholesterol Immature granulocytes/100 WB C Auto (Bld)Ordered By: Anali Dolan on 08-19-2024 Immature granulocytes/100 WBC (Bld) 0.700 % 0.0-0.9 [facility] Comment on above: IG% - Immature Granu locytes (promyelocytes, myelocytes and metamyelocytes) > 1% indicates that a LEFT SHIFT is Present. Insulin [Mass/Vol]Ordered By : Anali Dolan on 08-19-2024 Insulin Level 24.6 uIU/mL 2.6-24.9 [facility] Comment on above: Performed at: [address] [id number] Director: Abrahan Conner PhD, Phone: [phone] Laboratory - Chemistry and C hemistry - challengeOrdered By: Anali Dolan on 08-19-2024 AST [Catalytic activity/Vol] 14 U/L Low 15-37 [facility] Lipid Profileon 08-19-2024 Cholesterol [Mass/Vol] 207 mg/dL High 200 [facility] Comment on above: Result Comment: <200 mg/dL Desirable 200-240 mg/dL Borderline >240 mg/dL High Risk Performed By: #### L 500.4050, L100.0100, L500.4100, L501.3620, L501.9985, L3300.3500, L506.1000, L801.1541 #### [facility] [address] [place], [address] Cholesterol in HDL [Mass/Vol] 40 mg/dL Normal [facility] Comment on above: Result Comment: The drugs N-Acetylcysteine and Metamizole may falsely depress this assay. Reference Range HDL <40 mg/dL Low HDL Cholesterol HDL >or= 60 mg/dL High HDL Cholesterol Performed By: #### L 500.4050, L100.0100, L500.4100, L501.3620, L501.9985, L3300.3500, L506.1000, L801.1541 #### [facility] [address] [place], [address] Cholesterol in LDL [Mass/Vol] 117 mg/dL Normal 0-130 [facility] Comment on above: Performed By: #### L 500.4050, L100.0100, L500.4100, L501.3620, L501.9985, L3300.3500, L506.1000, L801.1541 #### [facility] [address] [place], [address] Cholesterol in VLDL [Mass/Vol] 50 mg/dL High 5-40 [facility] Comment on above: Performed By: #### L 500.4050, L100.0100, L500.4100, L501.3620, L501.9985, L3300.3500, L506.1000, L801.1541 #### [facility] [address] [place], [address] Triglyceride [Mass/Vol] 252 mg/dL High [facility] Comment on above: Result Comment: The drugs N-Acetylcysteine and Metamizole may falsely depress this assay. Serum Triglycerides Reference Interval Normal <150 mg/dL Borderline high 150 - 199 mg/dL High 200 - 499 mg/dL Very High > or = 500 mg/dL Performed By: #### L 500.4050, L100.0100, L500.4100, L501.3620, L501.9985, L3300.3500, L506.1000, L801.1541 #### [facility] [address] [facility] [address] [place], [address] Low density lipoprotein (LDL ) cholesterol measurementOrdered By: Anali Dolan on 08-19-2024 Cholesterol in LDL [Mass/Vol] 117 mg/dL 0-130 [facility] Lymphocytes Auto (Unsp spec) [#/Vol]Ordered By: Anali Dolan on 08-19-2024 Lymphocytes (Bld) [#/Vol] 3.19 10*3/uL 0.83-4.51 [facility] Lymphocytes/100 WBC Auto (Un sp spec)Ordered By: Anali Dolan on 08-19-2024 Lymphocytes/100 WBC (Bld) 28.4 % 19-41 [facility] MCV (mean corpuscular volume ) determinationOrdered By: Anali Dolan on 08-19-2024 MCV (RBC) [Entitic vol] 82.6 fL 81-99 [facility] Mean corpuscular hemoglobin (MCH) determinationOrdered By: Anali Dolan on 08-19-2024 MCH (RBC) [Entitic mass] 27.4 pg 27.0-32.0 [facility] Mean corpuscular hemoglobin concentration (MCHC) determinationOrdered By: Anali Dolan on 08-19-2024 MCHC (RBC) [Mass/Vol] 33.2 g/dL 32-36 [facility] Mean platelet volume determi nationOrdered By: Anali Dolan on 08-19-2024 Platelet mean volume (Bld) [Entitic vol] 9.6 fL 6.2-12.0 [facility] Miscellaneous procedureOrder ed By: Anali Dolan on 08-19-2024 Miscellaneous Test See comment [facility] Comment on above: TEST RESULTS LIMITSO xidized LDL 47 ng/mL 10-170 TESTING PERFORMED AT [facility]. ORIGINAL REPORT ON FILE IN LAB CONTAINS ADDITIONAL TEST SITE INFORMATION. Monocyte percentageOrdered B y: Anali Dolan on 08-19-2024 Monocytes/100 WBC (Bld) 7.2 % 0-10 [facility] Neutrophil percentageOrdered By: Anali Dolan on 08-19-2024 Neutrophils/100 WBC (Bld) 60.4 % 47-70 [facility] Nucleated red blood cell per centageOrdered By: Anali Dolan on 08-19-2024 Nucleated RBC/100 WBC (Bld) [Ratio] 0 % 0-5 [facility] Platelet countOrdered By: Tatiana Dolan on 08-19-2024 Platelets (Bld) [#/Vol] 439 10*3/uL 150-450 [facility] Potassium measurementOrdered By: Anali Dolan on 08-19-2024 Potassium [Moles/Vol] 3.9 mmol/L 3.5-5.1 [facility] RBC Auto (Bld) [#/Vol]Ordere d By: Anali Dolan on 08-19-2024 RBC (Bld) [#/Vol] 5.22 10*6/uL 4.2-5.4 [facility] Serum anion gap measurementO rdered By: Anali Dolan on 08-19-2024 Anion gap [Moles/Vol] 5 mmol/L 5-15 [facility] Serum globulin measurementOr dered By: Anali Dolan on 08-19-2024 Globulin (S) [Mass/Vol] 4.2 g/dL 2.2-4.2 [facility] Serum or plasma alanine elizabeth otransferase (ALT) measurementOrdered By: Anali Dolan on 08-19-2024 ALT [Catalytic activity/Vol] 27 U/L 13-56 [facility] Serum or plasma albumin ruy urement (mass/volume)Ordered By: Anali Dolan on 08-19-2024 Albumin [Mass/Vol] 3.3 g/dL 3.2-5.0 [facility] Serum or plasma alkaline susan sphatase measurementOrdered By: Anali Dolan on 08-19-2024 ALP [Catalytic activity/Vol] 158 U/L High 45-117 [facility] Serum or plasma calcium ruy urement (mass/volume)Ordered By: Anali Dolan on 08-19-2024 Calcium [Mass/Vol] 9.1 mg/dL 8.5-10.1 [facility] Serum or plasma cholesterol measurement (mass/volume)Ordered By: Anali Dolan on 08-19-2024 Cholesterol [Mass/Vol] 207 mg/dL High <200 [facility] Comment on above: <200 mg/dL Desirable 200-240 mg/dL Borderline >240 mg/dL High Risk Serum or plasma creatinine m easurement (mass/volume)Ordered By: Anali Dolan on 08-19-2024 Creatinine [Mass/Vol] 0.76 mg/dL 0.55-1.02 [facility] Comment on above: The validity of the calculated GFR & GFRAA in patients over 70 years has not been determined. Clinical correlation is essential. Serum or plasma urea nitroge n measurement (mass/volume)Ordered By: Anali Dolan on 08-19-2024 Urea nitrogen [Mass/Vol] 7 mg/dL 7-18 [facility] Sodium levelOrdered By: Lashawn Dolan on 08-19-2024 Sodium [Moles/Vol] 136 mmol/L 136-145 [facility] Total creatine kinase measur ementOrdered By: Anali Dolan on 08-19-2024 CK [Catalytic activity/Vol] 58 U/L 26-192 [facility] Total proteinOrdered By: Meche Dolan on 08-19-2024 Protein [Mass/Vol] 7.5 g/dL 6.4-8.2 [facility] Triglycerides measurementOrd ered By: Anali Dolan on 08-19-2024 Triglyceride [Mass/Vol] 252 mg/dL High <199 [facility] Comment on above: The drugs N-Acetylcy steine and Metamizole may falsely depress this assay.Serum Triglycerides Reference Interval Normal <150 mg/dL Borderline high 150 - 199 mg/dL High 200 - 499 mg/dL Very High > or = 500 mg/dL Very low density lipoprotein (VLDL) cholesterol measurementOrdered By: Anali Dolan on 08-19-2024 VLDL Cholesterol 50 mg/dL High 5-40 [facility] Vitamin D,25 Hydroxyon 08-19 Vitamin D 25-OH 27.2 ng/mL Normal [facility] Comment on above: Result Comment: Kari min D 25(OH) Status Range Deficiency <20 ng/mL (50nmol/L) Insufficiency 20 - 30 ng/mL (50 - 75 nmol/L) Sufficiency 30 - 100 ng/mL (75 - 250 nmol/L) Toxicity >100 ng/mL (>250 nmol/L) Performed By: #### L 500.4050, L100.0100, L500.4100, L501.3620, L501.9985, L3300.3500, L506.1000, L801.1541 #### [facility] [address] [place], [address] White blood cell (WBC) count Ordered By: Anali Dolan on 08-19-2024 WBC (Bld) [#/Vol] 11.2 10*3/uL High 4.4-11.0 [facility] MR/DANN.Tye 08-18-2024 MR/DANN.LINDA [facility] [address] [facility] [place] [address] OFFICE VISIT Date of Service: 08/18/24 MR#: [id number] Acct: [id number] Name: LOUIS BRAN Rep #: [id number] : 1975 Provider: Dr. Anali verdugo MD Age/Sex: 48/F [place] [facility] [place] Status: Signed Intake Vital Signs 02/14/24 13:01 08/18/24 12:52 Height 5 ft 10 in 5 ft 10 in Weight: 232 lb 225 lb 6 oz BMI 33.3 32.3 BP 115/79 124/84 H Blood Pressure Location Lt brachial Lt brachial Position Sitting Sitting Respiration 16 16 Pulse 58 L 86 Pulse Source Monitor Monitor Temp 98 F 98.4 F Temp Source Temporal Temporal Pulse Oximetry (%) 92 91 Oxygen Delivery Method room air Intake Visit Reasons: 6 M FU Chief Complaint: 6 m fu Core Piler Required: No Accompanied by: Self Is patient in pain?: No Allergies Bleach (Sodium Hypochlorite) Allergy (Mild, Verified 08/18/24 12:39) short of breath lithium Allergy (Mild, Verified 08/18/24 12:39) unknown bupropion HCl (From Wellbutrin) Allergy (Verified 08/18/24 12:39) Other codeine phosphate (From Tylenol-Codeine #3) Allergy (Verified 08/18/24 12:39) Unknown etodolac (From Lodine) Allergy (Verified 08/18/24 12:39) Rash varenicline tartrate (From Chantix) Allergy (Verified 08/18/24 12:39) Other acetaminophen (From Darvocet-N 100) Adverse Reaction (Verified 08/18/24 12:39) Nausea codeine Adverse Reaction (Verified 08/18/24 12:39) Nausea propoxyphene napsylate (From Darvocet-N 100) Adverse Reaction (Verified 08/18/24 12:39) Nausea Medications ???Medication ???Instructions ???Recorded ???Confirmed ???Type nebulizer accessories #1 ea 10/03/21 08/18/24 Rx nebulizer and compressor #1 ea 10/03/21 08/18/24 Rx ibuprofen 400 mg tablet 400 mg PO BID PRN pain #60 tabs 02/12/23 08/18/24 Rx benztropine 0.5 mg tablet mg PO 02/14/24 08/18/24 History lurasidone 80 mg tablet (Latuda) 80 mg PO DAILY Mental health 02/14/24 08/18/24 History cholecalciferol (vitamin D3) 50 50 mcg PO DAILY #90 caps 02/18/24 08/18/24 Rx mcg (2,000 unit) capsule omeprazole 40 mg capsule,delayed 40 mg PO DAILY #90 caps 07/23/24 08/18/24 Rx release rizatriptan 10 mg tablet (Maxalt) See Rx Instructions PO .COMPLEX 07/23/24 08/18/24 Rx #10 tabs triamcinolone acetonide 0.1 % 1 applic topical BID #30 grams 07/23/24 08/18/24 Rx topical cream clotrimazole-betameth asone 1 1 applic topical BID #15 grams 08/18/24 08/18/24 Rx %-0.05 % topical cream cyclobenzaprine 10 mg tablet 10 mg PO BID PRN muscle spasm #30 08/18/24 08/18/24 Rx tabs PFSH Medical History (Updated 08/18/24 @ 14:[address] 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 Neck fracture Cholecystectomy planned Surgical History History of partial hysterectomy Hx of foot surgery Hx laparoscopic cholecystectomy History of colonoscopy Status post emergency tracheotomy for assistance in breathing Status post reconstruction procedure History of carpal tunnel surgery Hx of appendectomy Family History Other Asthma Cancer Heart disease Myocardial infarction Seizures Social History household members: none current occupational status: unemployed Smoking Status: Current every day smoker tobacco type: cigarettes alcohol intake: never substance use type: does not use what type of physical activity do you participate in: none seatbelt use: always do you feel safe at home: Yes additional social history: single Female Reproductive History Menstrual Ab spontaneous: 1 HPI HPI Chief Complaint: 6 m fu Details: LOUIS BRAN, is a 48 F who presents to the office today for 6-month follow-up. 48-year-old female, type 2 diabetes, obesity, insulin resistance. She is also vitamin D deficient. She does follow with psychiatry as well. She is on Latuda, benztropine. She does get some spasm, muscle cramps around the rib cage area which is unusual. She states that is why they gave her benztropine but it does not seem to help she states. Would like to try a muscle relaxer. She is a long-term smoker. She has COPD, on nebulizer. (more content not included)... Normal [facility] Absolute lymphocyte counton 06-02-2022 Lymphocytes Auto (Unsp spec) [#/Vol] 2.76 10*3/uL 0.83-4.51 [facility] Work Phone: Basophil percentageon 2021 Basophils/100 WBC (Bld) 0.5 % 0-1 [facility] Work Phone: Bilirubin [Mass/Vol] 0.50 mg/dL 0.20-1.00 [facility] Work Phone: Comment on above: For patients on eltr ombopag therapy, use of Dimension [place] TBIL is not recommended. Chloride [Moles/Vol] 105 mmol/L 98-107 [facility] Work Phone: Cholesterol [Mass/Vol] 229 mg/dL <200 [facility] Work Phone: Comment on above: <200 mg/dL Desirable 200-240 mg/dL Borderline >240 mg/dL High Risk Eosinophils/100 WBC (Bld) 4.0 % 0-5 [facility] Work Phone: Glucose [Mass/Vol] 152 mg/dL 74-106 [facility] Work Phone: Comment on above: Fasting Glucose resu lt greater than or equal to 126 mg/dL suggests DIABETES MELLITUS per A.D.A. criteria. Neutrophils (Bld) [#/Vol] 5.3 10*3/uL 2.0-7.7 [facility] Work Phone: Neutrophils/100 WBC (Bld) 56.4 % 47-70 [facility] Work Phone: Potassium [Moles/Vol] 3.9 mmol/L 3.5-5.1 [facility] Work Phone: Protein [Mass/Vol] 7.6 g/dL 6.4-8.2 [facility] Work Phone: Sodium [Moles/Vol] 139 mmol/L 136-145 [facility] Work Phone: Triglyceride [Mass/Vol] 283 mg/dL <199 [facility] Work Phone: Comment on above: The drugs N-Acetylcy steine and Metamizole may falsely depress this assay.Serum Triglycerides Reference Interval Normal <150 mg/dL Borderline high 150 - 199 mg/dL High 200 - 499 mg/dL Very High > or = 500 mg/dL WBC (Bld) [#/Vol] 9.3 10*3/uL 4.4-11.0 [facility] Work Phone: Blood erythrocytes count (nu mber/volume)on 06-02-2022 RBC (Bld) [#/Vol] 5.13 10*6/uL 4.2-5.4 [facility] Work Phone: Blood hemoglobin measurement (mass/volume)on 06-02-2022 Hemoglobin (Bld) [Mass/Vol] 14.1 g/dL 12.0-15.0 [facility] Work Phone: Blood lymphocytes/100 leukoc yteson 06-02-2022 Lymphocytes/100 WBC (Bld) 29.6 % 19-41 [facility] Work Phone: Blood monocytes/100 leukocyt eson 06-02-2022 Monocytes/100 WBC (Bld) 8.6 % 0-10 [facility] Work Phone: Blood platelet mean volumeon 06-02-2022 Platelet mean volume (Bld) [Entitic vol] 9.7 fL 6.2-12.0 [facility] Work Phone: Determination of erythrocyte mean corpuscular volume (MCV)on 06-02-2022 MCV (RBC) [Entitic vol] 85.4 fL 81-99 [facility] Work Phone: Hematocrit Auto (Bld) [Volum e fraction]on 06-02-2022 Hematocrit (Bld) [Volume fraction] 43.8 % 37-47 [facility] Work Phone: Laboratory - Chemistry and C hemistry - challengeon 06-02-2022 ALP [Catalytic activity/Vol] 151 U/L 45-117 [facility] Work Phone: ALT [Catalytic activity/Vol] 27 U/L 13-56 [facility] Work Phone: CO2 [Moles/Vol] 28.0 mmol/L 21.0-32.0 [facility] Work Phone: [phone] Free T4 [Mass/Vol] 1.19 ng/dL 0.76-1.46 [facility] Work Phone: Globulin (S) [Mass/Vol] 4.2 g/dL 2.2-4.2 [facility] Work Phone: Urea nitrogen/Creatinine [Mass ratio] 10.6 mg/mg 10-20 [facility] Work Phone: Laboratory - Hematology and Cell countson 06-02-2022 Erythrocyte distribution width (RBC) [Entitic vol] 41.1 fL 35.1-43.9 [facility] Work Phone: Erythrocyte distribution width (RBC) [Ratio] 13.2 % 11.6-14.6 [facility] Work Phone: Immature granulocytes/100 WBC (Bld) 0.900 % 0.0-0.9 [facility] Work Phone: Comment on above: IG% - Immature Granu locytes (promyelocytes, myelocytes and metamyelocytes) > 1% indicates that a LEFT SHIFT is Present. MCH (RBC) [Entitic mass] 27.5 pg 27.0-32.0 [facility] Work Phone: Nucleated RBC/100 WBC (Bld) [Ratio] 0 % 0-5 [facility] Work Phone: MCHC Auto (RBC) [Mass/Vol]on 06-02-2022 MCHC (RBC) [Mass/Vol] 32.2 g/dL 32-36 [facility] Work Phone: No Panel Informationon 06-02 Estimated GFR (MDRD) Amer 105 mL/min >60 [facility] Work Phone: Comment on above: GFR Calc Estimated GFR (MDRD) Non-Af Amer 87 mL/min >60 [facility] Work Phone: Comment on above: Non- GFR Calc Free Triiodothyronine (T3) pg/dL 2.7 pg/mL 2.18-3.98 [facility] Work Phone: Thyroid Stimulating Hormone (TSH) 1.25 uIU/mL 0.358-3.74 [facility] Work Phone: Vitamin D 25-Hydroxy 23.8 ng/mL [facility] Work Phone: Comment on above: Vitamin D 25(OH) Sta tus Range Deficiency <20 ng/mL (50nmol/L) Insufficiency 20 - 30 ng/mL (50 - 75 nmol/L) Sufficiency 30 - 100 ng/mL (75 - 250 nmol/L) Toxicity >100 ng/mL (>250 nmol/L) Platelets bldon 06-02-2022 Platelets (Bld) [#/Vol] 437 10*3/uL 150-450 [facility] Work Phone: Serum or plasma albumin ruy urement (mass/volume)on 06-02-2022 Albumin [Mass/Vol] 3.4 g/dL 3.2-5.0 [facility] Work Phone: Serum or plasma albumin/glob ulin mass ratioon 06-02-2022 Albumin/Globulin [Mass ratio] 0.8 {ratio} 0.9-2.4 [facility] Work Phone: Serum or plasma calcium ruy urement (mass/volume)on 06-02-2022 Calcium [Mass/Vol] 9.1 mg/dL 8.5-10.1 [facility] Work Phone: Serum or plasma cholesterol in HDL measurement (mass/volume)on 06-02-2022 Cholesterol in HDL [Mass/Vol] 49 mg/dL >40 [facility] Work Phone: Comment on above: The drugs N-Acetylcy steine and Metamizole may falsely depress this assay. Reference Range HDL <40 mg/dL Low HDL Cholesterol HDL >or= 60 mg/dL High HDL Cholesterol Serum or plasma cholesterol in VLDL measurement (mass/volume)on 06-02-2022 Cholesterol in VLDL [Mass/Vol] 57 mg/dL 5-40 [facility] Work Phone: Serum or plasma creatinine m easurement (mass/volume)on 06-02-2022 Creatinine [Mass/Vol] 0.76 mg/dL 0.55-1.02 [facility] Work Phone: Comment on above: The validity of the calculated GFR & GFRAA in patients over 70 years has not been determined. Clinical correlation is essential. Serum or plasma low density lipoprotein (LDL) cholesterol measurement (mass/volume)on 06-02-2022 Cholesterol in LDL [Mass/Vol] 123 mg/dL 0-130 [facility] Work Phone: Serum or plasma urea nitroge n measurement (mass/volume)on 06-02-2022 Urea nitrogen [Mass/Vol] 8 mg/dL 7-18 [facility] Work Phone: Thin prep Papanicolaou smear with manual screeningon 06-02-2022 Thin prep Papanicolaou smear with manual screening 19 U/L 15-37 [facility] Work Phone: Thin prep Papanicolaou smear with manual screening 6 5-15 [facility] Work Phone: Whole blood hemoglobin A1c/t otal hemoglobin ratio (mass fraction)on 06-02-2022 HbA1c (Bld) [Mass fraction] 6.6 % 3.8-5.6 [facility] Work Phone: Comment on above: Normal < 5.7 % Predi abetic 5.7 - 6.4 % Diabetic >or= 6.5 % Please note range changes. EMERGENCY REPORTon 8 EMERGENCY REPORT [facility] EMERGENCY ROOM REPORT NAME ACCOUNT SEX AGE ADMIT DISCHARGE PT MED. RECORD# NUMBER DATE DATE TYPE SHANT [id number] F 42 05/29/18 05/29/18 3 LOUIS Yadav [id number] ROOM: ER DATE OF : 1975 DICTATING PHYSICIAN: Guanako Cantrell ADDENDUM: I assumed care of this patient upon my arrival at 7 o'clock. She was awaiting laboratory studies at that time. Those returned and were quite unremarkable. DIAGNOSTIC DATA: She had a troponin of less than 0.01. CBC and CMP were unremarkable. Magnesium was normal. Portable chest x-ray, per my reading, showed some possible atelectasis, possibility of a minimal left lower lobe infiltrate cannot be ruled out though felt unlikely. EMERGENCY DEPARTMENT COURSE/TREATMENT: I did give her another aerosol treatment. She was complaining of some heartburn type symptoms, which she has had recently. She was given some Protonix IV and some Zofran orally for complaint of nausea. She does have some cardiac risk factors, so probably does need further evaluation for heart disease. DIAGNOSIS: Chest discomfort, which seems most likely secondary to chronic obstructive pulmonary disease exacerbation and/or gastroesophageal reflux disease. PLAN/DISPOSITION: She will be discharged with a prescription for omeprazole, Zithromax, prednisone, and Compazine. She is to follow up with her family physician within the next several days, returning if symptoms worsen. Dictated By: Guanako Cantrell MD 05/29/18 07:56 JOB #: [id number] Transcribed By: am 05/29/18 15:05 Electronically signed by: POLINA Cantrell M.D. 06/12/18 07:38 Page 1 of 2 LOUIS BRAN Emergency Room Report Normal [facility] EMERGENCY REPORTon 8 EMERGENCY REPORT [facility] EMERGENCY ROOM REPORT NAME ACCOUNT SEX AGE ADMIT DISCHARGE PT MED. RECORD# NUMBER DATE DATE TYPE SHANT [id number] F 42 05/29/18 05/29/18 3 LOUIS Yadav [id number] ROOM: ER DATE OF : 1975 DICTATING PHYSICIAN: Polly Barker CHIEF COMPLAINT: Shortness of breath. HISTORY OF PRESENT ILLNESS: Louis Bran is a 42-year-old female with a past medical history significant for COPD, not on home oxygen, hypertension, obesity, and current every day smoker who presents for evaluation of shortness of breath. The patient states these symptoms started approximately midnight, 3 hours prior to presentation to the emergency department. She states that she does not know what she was doing when symptoms started, believes that she was already awake at the time of onset. The patient states that she does have a history of COPD, does have breathing treatments at home; however, did not use any medications prior to calling EMS. She states that she has some burning sensation to her left upper chest that radiates to her left shoulder. She states the pain is a 2 out of 10 in severity, she again did not take anything to try and alleviate symptoms prior to presentation. The patient denies any recent fever or chills. She states that she does not have a cough, denies any sputum production. She does complain of some nausea. She states that since having a cholecystectomy a few weeks ago, she has had significant problems with GERD, acid reflux, and nausea. She states that she has not had any episode of emesis. She did eat after onset of symptoms, prior to presenting to the emergency department. The patient denies any hemoptysis, leg swelling, recent travel. She denies any personal history of PE or DVT. PAST MEDICAL HISTORY: Significant for COPD, hypertension, obesity, and current smoker. MEDICATIONS: Per medication reconciliation list. ALLERGIES: The patient is allergic to Chantix, Darvocet, gabapentin, Prozac, and codeine. PHYSICAL EXAMINATION: This an obese female sitting comfortable on the cot, noted to be in no acute distress. She is hemodynamically stable, afebrile. Vital signs: The patient's blood pressure is 125/73, heart rate 84, respiratory rate 20, pulse oximetry 94% on room air, temperature 98.1. The patient does have chest tenderness to palpation to the left upper chest where she indicated that she had pain earlier. Lungs sounds are clear to auscultation. No wheezing, rales, or rhonchi. Abdomen is obese, soft with mild epigastric tenderness to palpation. No rebound or guarding. No c.v.a. Page 1 of 2 LOUIS BRAN Emergency Room Report tenderness or flank pain. The patient is moving all 4 extremities, no neurologic deficit. The patient with pulses that are bilaterally symmetric and equal to extremities x4. DIAGNOSTIC DATA: On patient arrival, triage EKG obtained that shows normal sinus rhythm. No ectopy or aberrancy. No acute ST or T wave changes indicative of ischemia, ventricular rate of 84 beats per minute. Portable chest x-ray done that shows no acute pulmonary process. At this time, laboratories were ordered to evaluate for COPD exacerbation versus possible ACS. EMERGENCY DEPARTMENT COURSE AND TREATMENT: At this time, we will obtain laboratories and imaging. EKG as above. We will obtain basic laboratory work, as well as a troponin secondary to patient complaining of chest pain. She does have a HEART score of 3. DIAGNOSIS: Pending. PLAN/DISPOSITION: At this time, the patient was signed out to morning team. Plan is for laboratory work follow up. The patient has a HEART score of 3, low risk at this time as long as workup is negative. If initial troponin is negative, we will plan for 3 hour troponin, delta troponin, to be obtained. If this value remains unchanged, the patient can follow up outpatient with her primary care physician in 2 to 3 days for further evaluation and management of her symptoms. She will be treated as a COPD exacerbation with plan for steroid burst at home, directed to continue home breathing treatments. Dictated By: Polly Barker MD 05/29/18 06:47 JOB #: [id number] Transcribed By: am 05/29/18 14:48 Electronically signed by: E-SIGN: DR. POLLY BARKER M.D. 05/31/18 00:27 Page 2 of 2 LOUIS BRAN Emergency Room Report Normal [facility] CBCon 05-29-2018 Basophils Auto #/vol (Bld) 0.10 x10EE3/UL Normal 0.00 - 0.10 [facility] Comment on above: Performed By: #### 2 [id number] ####[facility],[address] [place] [address]10 Basophils/100 WBC Auto (Bld) 1.0 % Normal 0.0 - 2.0 [facility] Comment on above: Performed By: #### 2 [id number] ####[facility] [place],[address] [place] [address] 70218 CBC Normal [facility] Comment on above: Result Comment: CBC- COMPLETE BLOOD COUNT Performed By: #### 2 [id number] ####[facility],[address] [place] [address] 52516 Eosinophils Auto #/vol (Bld) 0.20 x10EE3/UL Normal 0.00 - 0.50 [facility] Comment on above: Performed By: #### 2 [id number] ####[facility] [place],[address] [place] [address] 42186 Eosinophils/100 WBC Auto (Bld) 3.2 % Normal 0.0 - 7.0 [facility] Comment on above: Performed By: #### 2 [id number] ####[facility],[address] [place] [address] 96115 Erythrocyte distribution width Auto Ratio (RBC) 15.1 % Normal 12.0 - 15.6 [facility] Comment on above: Performed By: #### 2 [id number] ####[facility] [place],[address] [place] [address] 08528 Hematocrit Auto Volume Fraction (Bld) 37.1 % Normal 34.0 - 46.0 [facility] Comment on above: Performed By: #### 2 [id number] ####[facility],[address] [place] [address] 64663 Hemoglobin mass conc (Bld) 12.4 g/dL Normal 12.0 - 16.0 [facility] Comment on above: Performed By: #### 2 46793 ####[facility],[address] [place] [address] Lymphocytes Auto #/vol (Bld) 2.50 x10EE3/UL Normal 0.80 - 2.80 [facility] Comment on above: Performed By: #### 2 [id number] ####[facility],[address] [place] [address] Lymphocytes/100 WBC Auto (Bld) 36.0 % Normal 20.0 - 45.0 [facility] Comment on above: Performed By: #### 2 [id number] ####[facility],[address] [place] [address] MANUAL DIFF N/A Normal [facility] Comment on above: Performed By: #### 2 [id number] ####[facility],[address] [place] [address] MCH Auto Entitic mass (RBC) 29 pg Normal 27 - 33 [facility] Comment on above: Performed By: #### 2 [id number] ####[facility] [place],[address] [place] [address] MCHC Auto mass conc (RBC) 34 X10 3 Normal 32 - 36 [facility] Comment on above: Performed By: #### 2 [id number] ####[facility] [place],[address] [place] [address] MCV Auto Entitic volume (RBC) 86 fL Normal 80 - 99 [facility] Comment on above: Performed By: #### 2 82133 ####[place] [address] Monocytes Auto #/vol (Bld) 0.50 x10EE3/UL Normal 0.20 - 1.00 [facility] Comment on above: Performed By: #### 2 83458 ####[facility],[address] [place] [address] MONOS % 7.4 % Normal 0.0 - 10.0 [facility] Comment on above: Performed By: #### 2 76734 ####[facility] [place],[address] [place] [address] 39275 Morphology Interp Jonathan (Bld) N/A Normal [facility] Comment on above: Result Comment: {CD] Performed By: #### 2 20827 ####[facility] [place],[address] [place], [place] [id number] Neutrophils Auto #/vol (Bld) 3.70 x10EE3/UL Normal 1.50 - 7.10 [facility] Comment on above: Performed By: #### 2 74133 ####[facility] [place],[address] [place], [place] [id number] Neutrophils/100 WBC Auto (Bld) 52.4 % Normal 46.0 - 76.0 [facility] Comment on above: Performed By: #### 2 04452 ####[facility] [place],[address] [place], [place] [id number] Platelet mean volume Auto Entitic volume (Bld) 8.4 fL Normal 6.6 - 10.5 [facility] Comment on above: Result Comment: AUTO MATED DIFFERENTIAL Performed By: #### 2 70966 ####[facility],[address] [place] [address] 05188 Platelets Auto #/vol (Bld) 291 x10EE3/UL Normal 150 - 450 [facility] Comment on above: Performed By: #### 2 17000 ####[facility],[address] [place] [address] 05567 RBC Auto #/vol (Bld) 4.32 x 10EE6/UL Normal 4.10 - 5.3 0 [facility] Comment on above: Performed By: #### 2 28616 ####[facility] [place],[address] [place], [place] [id number] WBC Auto #/vol (Bld) 7.1 x 10EE3/UL Normal 4.5 - 10.8 [facility] Comment on above: Performed By: #### 2 92917 ####[facility] [place],[address] [place] [address] 47862 CHEST 1 VIEWon 05-29-2018 CHEST 1 VIEW [facility] [address] [place], [place] [address] Patient: LOUIS BRAN Phone#: : 1975 Age: 42 Gender: F Pt. Type: ER Account: [id number] Location: [id number] Ordering: POLLY BARKER Exam Date: 05/29/2018/5:56 Family Phys: LOWELL HINKLE Charge Code: [id number] Physician: Rock Order #: [id number] DLP Dose#: PROCEDURE: X-RAY CHEST 1 VIEW COMPARISON: [facility], XR, CHEST PA/LAT, 12/14/2016, 14:22. [facility], XR, CHEST 1 VIEW, 02/16/2018, 23:21. INDICATIONS: Chest Pain FINDINGS: LUNGS: Linear density along the left lung base, most likely represent atelectasis. Scarring in the left lung base. Patchy density in the right lung base. VASCULATURE: Normal. Unremarkable pulmonary vasculature. CARDIAC: Normal. No cardiac silhouette abnormality or cardiomegaly. MEDIASTINUM: Normal. No visible mass or adenopathy. PLEURA: Normal. No effusion or pleural thickening. BONES: There is evidence for remote right 7 rib fracture. OTHER: Monitoring leads project across the thorax. CONCLUSION: 1. Bibasilar atelectasis versus infiltrate. Dictated by: Tammy Julien MD on 05/29/2018 at 10:45 Approved by: Tammy Julien MD on 05/29/2018 at 10:45 Normal [facility] CMP with eGFRon 05-29-2018 Age Reported 42 years Normal [facility] Comment on above: Performed By: #### 2 [id number] ####[facility] [place],[address] [place] [address] 77072 Albumin mass conc 3.5 g/dL Normal 3.4 - 4.8 [facility] Comment on above: Performed By: #### 2 [id number] ####[facility],[address] [place] [address] 39462 Albumin/Globulin mass ratio 1.2 {ratio} Normal 0.9 - 1.6 [facility] [facility] [place] Comment on above: Performed By: #### 2 [id number] ####[facility] [place],[address] [place] [address] [id number] ALK PHOS 106 U/L Normal 38 - 126 [facility] [place] Comment on above: Performed By: #### 2 [id number] ####[facility] [place],[address] [place] [address] 68355 ALT/SGPT 13 U/L Normal 8 - 35 [facility] [place] Comment on above: Performed By: #### 2 [id number] ####[facility] [place],[address] [place] [address] 24654 Anion gap 3 molar conc 10 mmol/L Normal 10 - 20 [facility] Comment on above: Performed By: #### 2 03705 ####[facility] [place],[address] [place] [address] 57110 AST/SGOT 11 U/L Low 13 - 39 [facility] [place] Comment on above: Performed By: #### 2 07171 ####[facility] [place],[address] [place] [address] 54652 B/C RATIO 12 ratio Normal 0 - 30 [facility] [place] Comment on above: Performed By: #### 2 [id number] ####[facility] [place],[address] [place] [address] 10244 Bilirubin mass conc 0.3 mg/dL Normal 0.0 - 1.5 [facility] [place] Comment on above: Performed By: #### 2 78353 ####[facility] [place],[address] [place] [address] 02679 Calcium mass conc 8.7 mg/dL Normal 8.6 - 10.2 [facility] Comment on above: Performed By: #### 2 68580 ####[facility] [place],[address] [place] [address] 10100 Chloride molar conc 109 mmol/L High 98 - 107 [facility] [place] Comment on above: Performed By: #### 2 73309 ####[facility] [place],[address] [place] [address] 10771 CO2 molar conc 21.5 mmol/L Normal 21.0 - 31.0 [facility] Comment on above: Performed By: #### 2 [id number] ####[facility] [place],[address] [place] [address] 35518 Creatinine mass conc 0.6 mg/dL Normal 0.6 - 1.2 [facility] [place] Comment on above: Performed By: #### 2 49361 ####[facility] [place],[address] [place] [address] 05659 GFR/1.73 sq M predicted among non-blacks MDRD vol rate/area (S/P/Bld) Normal [facility] Comment on above: Result Comment: COMP REHENSIVE METABOLIC PANEL Performed By: #### 2 03201 ####[facility] [place],[address] [place] [address] 46405 GFR/1.73 sq M predicted among non-blacks MDRD vol rate/area (S/P/Bld) mL/min/{1.73_m2} Normal 60 - 999 [facility] Comment on above: Result Comment: ACCO RDING TO THE NATIONAL KIDNEY DISEASE EDUCATION PROGRAM(NKDE), A NORMAL eGFRIS A VALUE GREATER THAN OR EQUAL TO 60 ML/MIN/1.73 SQ METERS.CHRONIC KIDNEY DISEASE: <60mL/MIN/1.73 SQ METERSKIDNEY FAILURE: <15mL/MIN/1.73 SQ METERSTHIS TEST SHOULD ONLY BE USED FOR PATIENTS 18 YEARS OF AGE AND OLDER. Performed By: #### 2 77362 ####[facility] [place],[address] [place] [address] 10121 Globulin Calculated mass conc (S) 3.0 g/dL Normal 1.5 - 3.8 [facility] [place] Comment on above: Performed By: #### 2 50412 ####[facility] [place],[address] [place] [address] Glucose mass conc 118 mg/dL High 74 - 106 [facility] Comment on above: Performed By: #### 2 98583 ####[facility] [place],[address] [place] [address] Potassium molar conc 3.8 mmol/L Normal 3.5 - 5.1 [facility] [place] Comment on above: Performed By: #### 2 14437 ####[facility] [place],[address] [place] [address] Protein mass conc 6.5 g/dL Normal 6.4 - 8.3 [facility] Comment on above: Performed By: #### 2 64116 ####[facility] [place],[address] [place] [address] Sodium molar conc 137 mmol/L Normal 136 - 145 [facility] Comment on above: Performed By: #### 2 56092 ####[facility] [place],[address] [place] [address] Urea nitrogen mass conc 7 mg/dL Normal 6 - 20 [facility] Comment on above: Performed By: #### 2 12964 ####[facility] [place],[address] [place] [address] MAGNESIUMon 05-29-2018 Magnesium mass conc 2.2 mg/dL Normal 1.6 - 2.6 [facility] [place] Comment on above: Performed By: #### 2 59129 ####[facility] [place],[address] [place] [address] TROPONINon 05-29-2018 Troponin I.cardiac mass conc ng/mL Normal 0.00 - 0.05 [facility] [place] Comment on above: Result Comment: Elev ated troponin (above the 99th percentile) usually indicates myocardialischemia. Results must be interpreted within the clinical setting.1.Non-ischemic pathology can also cause elevated troponin levels (e.g., acute pulmonary embolism, myocarditis, pericarditis, heart failure, intracranial injury, rhabdomyolisis, sepsis, shock and renal insufficiency).2.Approximately 1% of healthy adults have elevated troponin levels.3.Analytical false positive results rarely occur(due to multiple interferences such as heterophile antibodies). Performed By: #### 2 71638 ####Jose Ramon [facility],[address] [place] [address] 84511 EMERGENCY REPORTon 8 EMERGENCY REPORT [facility] EMERGENCY ROOM REPORT NAME ACCOUNT SEX AGE ADMIT DISCHARGE PT MED. RECORD# NUMBER DATE DATE TYPE SHANT [id number] F 42 04/19/18 04/19/18 3 LOUIS Yadav [id number] ROOM: ER DATE OF : 1975 DICTATING PHYSICIAN: Dinesh Feldman CHIEF COMPLAINT: Pain at the incision site of where her gallbladder was removed 7 days ago. HISTORY OF PRESENT ILLNESS: Patient is well-known to the emergency room for coming in for multiple painful complaints on multiple visits multiple times per year. But she did in fact have her gallbladder removed by Dr. Melba Dixon on 04/12/2018. This was done laparoscopically and she is complaining that the most superior incision area is painful and tender. She states she had Percocet after surgery and she ran out of these on Sunday, and she cannot take the pain anymore so she called the ambulance which brought her to the emergency room tonight. Patient denies fever or chills. Patient states that movement makes her pain worse and laying still decreases her pain. She states she called her primary care doctor who told her to call her surgeon, and her surgeon said he could not call her in any pain medications and if she was that bad she should seek further medical care from her family doctor or go to the emergency room. PAST MEDICAL HISTORY: Patient has back pain, coronary artery disease, COPD, history of facial reconstruction surgery, history of multiple abdominal surgeries. She has also had tonsillectomy, appendectomy, cholecystectomy, and orthopedic surgeries. ALLERGIES: The patient has multiple allergies to medications. SOCIAL HISTORY: Patient lives with her fiance. She does smoke approximately 1 pack of cigarettes per day. She denies alcohol or recreational drug use. She states her immunizations are up to date. REVIEW OF SYSTEMS: Ten systems were reviewed as documented on the paper chart. PHYSICAL EXAMINATION: Patient is alert and oriented to person, place and time. Blood pressure 103/56, respirations 14, pulse 82, pulse oximetry 96% on room air. Head normal. Ears normal. Oral and nose negative. Eyes normal. Neck is soft and supple, negative nodes. Full range of motion. Heart is regular rate and rhythm without murmurs. Lungs scattered crackles at the bases and bronchovesicular sounds with forced cough. Patient states this is always how her lungs sound. Abdomen is protuberant. There are surgical scars consistent with her previous surgeries as well as a laparoscopic cholecystectomy that was performed 7 days ago. There are no nodes. There is no streaking. There is no discharge. There is minimal incision border Page 1 of 2 [facility] RB[facility] Emergency Room Report erythema that is consistent with healing incisions of this type. EMERGENCY DEPARTMENT COURSE AND TREATMENT: Patient was given 2 Percocet 5/325 mg to go 1 every 6 hours as needed for pain. She was given a prescription for 8 more. She should call her family doctor and her surgeon as soon as possible. Her OARRS was checked and is very questionable. She gets multiple prescriptions from multiple doctors. A number of these are very small amounts indicating that everyone is cautiously treating this patient for her subjective complaints with small amounts of medication to try to help her avoid becoming addicted. DIAGNOSIS: Postoperative pain status post cholecystectomy 7 days ago. PLAN/DISPOSITION: With this, all of the patient's questions were answered in detail and she was discharged to home in stable and unchanged condition. Dictated By: Dinesh Feldman DO 04/20/18 01:11 JOB #: [id number] Transcribed By: 04/20/18 15:45 Electronically signed by: DINESH FELDMAN DO 04/23/18 22:29 Page 2 of 2 [facility] Emergency Room Report Normal [facility] [place] OPERATIVE PROCEDURESon 04-15 Protein mass [facility] OPERATIVE REPORT NAME ACCOUNT SEX AGE ADMIT DISCHARGE PT MED. RECORD# NUMBER DATE DATE TYPE SHANT [id number] F 42 04/12/18 04/12/18 2 LOUIS Yadav [id number] ROOM: [facility] DATE OF : 1975 DICTATING PHYSICIAN: Melba Dixon DATE OF SURGERY: April 12, 2018. SURGEON: Melba Dixon M.D. CONTROL VALVE MECHANIC: BHARAT Reddy ANESTHESIOLOGIST: Armando Chaney M.D. ANESTHETIC: Local anesthesia approximately 40 mL of 0.25% Sensorcaine plain. PREOPERATIVE DIAGNOSIS: POSTOPERATIVE DIAGNOSIS: (1) Cholelithiasis. (2) Biliary colic. (3) Chronic cholecystitis. (4) Adhesions. OPERATION PERFORMED: (1) Laparoscopic cholecystectomy. (2) Lysis of adhesions. COMPLICATIONS: INTRAVENOUS FLUIDS: 2000 mL of crystalloid. ESTIMATED BLOOD LOSS: 8 mL. URINE OUTPUT: 500 mL. SPECIMEN: Gallbladder to pathology. DISPOSITION: Stable to Recovery. INDICATION: Louis Bran is a 42-year-old lady with abdominal pain worrisome for biliary colic. Cholelithiasis documented by radiology. DESCRIPTION OF OPERATION: After informed consent, intravenous fluids and antibiotics she was brought to the Operating Room and placed on the table in supine position with adequate padding at pressure points and time out verification was done. Page 1 of 3 [facility] BRAN Operative Report She was placed under anesthesia, prepped and draped in the usual sterile fashion and the abdomen again carefully palpated and demarcated. She had scars from the supraumbilical to the suprapubic area. Incision was made in the infraumbilical area, deepened to the underlying fascia which was very thick and leathery and difficult to grasp, and concern was for underlying adhesions or bowel stuck up to this area. Therefore, an epigastric incision was made, deepened to the underlying tissue and then carefully dissected. The inside was carefully palpated digitally to ensure there was no bowel or omentum included, and the large trocar was placed and anchored with #1 Vicryl. The abdomen was gently insufflated. There were lots of adhesions which were carefully and tediously dissected free so that the area around the gallbladder and around the trocar sites could be visualized. The original infraumbilical trocar site appeared to be covered with scar tissue and therefore an incision was made above the umbilicus midline longitudinally and deepened to the underlying fascia. This area was numbed up with 0.25% Sensorcaine. Then the Weck trocar was placed with good visualization and anchored with #1 Vicryl. The abdomen was carefully insufflated further and careful examination of the right wall allowed placement of the smaller trocars under good visualization. These areas were also numbed up locally with Sensorcaine. Then the area around the gallbladder was viewed. The gallbladder itself appeared distended. This is elevated superiorly laterally and in the area of the triangle of Calot there were adhesions, some of which were mature indicating prior inflammation. Dissection was carried down toward the triangle of Calot and eventually the cystic artery and its branches were dissected free, doubly cross-clamped proximally and divided distally with Harmonic scalpel. Cystic duct was eventually skeletonized and this was done very carefully and tediously because of the all of the tissue appeared to be rather fragile. Eventually the cystic duct was doubly cross-clamped proximally and distally with Weck polymer clips then sharply transected. Then using gentle traction and counter traction, the gallbladder was dissected free from the liver bed and oozing points coagulated. There was another large posterior structure/vessel which was cross-clamped doubly and divided with Harmonic scalpel. Otherwise, the liver bed appeared to be relatively unremarkable. The gallbladder itself was placed in a plastic bag and sent to pathology. The liver bed was checked for good hemostasis. The patient was placed in Trendelenburg and rotated to the right. The irrigant was suctioned and removed, and then the table was leveled again. The liver bed again was checked for good hemostasis. The trocars were removed under direct visualization and then the epigastric, infraumbilical fascia ledges, and supraumbilical fascia ledges were approximated with #1 Vicryl and #1 PDS in both wide and narrow sutures. Then the deeper layers were approximated with inverted interrupted #1 Vicryl and #1 PDS. The skin edges were brought in approximation with inverted interrupted #2 PDS and inverted interrupted 4-0 PDS through subcutaneous and subcuticular layers followed by Benzoin, Steri-Strips and sterile dressings. The patient tolerated the procedure well, was awakened and sent to the Recovery Room. The case will be discussed with the family in the waiting area and will be discussed with the patient when she is more Page 2 of 3 [facility] BRAN Operative Report awake. Dictated By: Melba Dixon MD 04/12/18 14:05 JOB #: [id number] Transcribed By: bakari 04/12/18 19:42 Electronically signed by: E-Sign Dr. Melba Dixon MD 04/15/18 09:08 Page 3 of 3 [facility] BRAN Operative Report Normal [facility] [place] HEMATOCRITon 04-12-2018 Hematocrit Auto Volume Fraction (Bld) 38.5 % Normal 34.0 - 46.0 [facility] [place] Comment on above: Result Comment: {HH] Performed By: #### 2 [id number] ####[facility] [place],[address] [place] [address] HEMOGLOBINon 04-12-2018 Hemoglobin mass conc (Bld) 13.4 g/dL Normal 12.0 - 16.0 [facility] [place] Comment on above: Result Comment: {HH] Performed By: #### 2 63216 ####[facility] [place],[address] [place] [address] SERUM QUALon 04-12 EXTERNAL QC DONE? YES Normal [facility] Comment on above: Performed By: #### 2 [id number] ####[facility] [place],[address] [place] [address] INTERNAL QC PASS Normal [facility] [place] Comment on above: Performed By: #### 2 [id number] ####[facility] [place],[address] [place] [address] SER Negative Normal NEGATIVE [facility] Comment on above: Performed By: #### 2 [id number] ####[facility] [place],[address] [place] [address] WRIST COMPLETE LTon 03-19-20 18 Neutrophils Auto #/vol (Bld) [place] [id number] Patient: LOUIS BRAN Phone#: : 1975 Age: 42 Gender: F Pt. Type: Out Account: [id number] Location: [facility] Ordering: MELBA DIXON Exam Date: 03/19/2018/13:04 Family Phys: LOWELL HINKLE Charge Code: [id number] Physician: Rock Order #: [id number] DLP Dose#: PROCEDURE: X-RAY WRIST LT COMPLETE MIN 3 VIEWS COMPARISON: None. INDICATIONS: Left wrist pain FINDINGS: BONES: Mild degenerative changes are present with narrowing of the radial scaphoid joint space. There is no evidence of acute bone abnormality. SOFT TISSUES: Negative. No visible soft tissue swelling. EFFUSION: None visible. OTHER: Negative. CONCLUSION: No acute disease. Dictated by: Alisia Leiva MD on 03/19/2018 at 13:48 Approved by: Alisia Leiva MD on 03/19/2018 at 13:48 Normal [facility] [place] EMERGENCY REPORTon 07-01-201 8 EMERGENCY REPORT [facility] EMERGENCY ROOM REPORT NAME ACCOUNT SEX AGE ADMIT DISCHARGE PT MED. RECORD# NUMBER DATE DATE TYPE SHANT [id number] F 42 02/26/18 02/26/18 Lizett Yadav [id number] ROOM: ER DATE OF : 1975 DICTATING PHYSICIAN: Lydia Heredia CHIEF COMPLAINT/HISTORY OF PRESENT ILLNESS: This is a 42-year-old white female complaining of lower lumbar region back pain. She states that she does have a history of seizure disorders and has had several seizures over the past few weeks and has fallen as a result causing her back pain. She most recently fell this morning. She presently rates her back pain as a 10 on a severity scale of 1 to 10. Described it as sharp in nature. The pain is worse with movement. Denies any loss of bowel or bladder control. Denies any radiation of the pain down the lower extremities. Denies any motor weakness. PAST MEDICAL HISTORY: COPD, asthma, schizophrenia, bipolar disorder, seizure disorder. PAST SURGICAL HISTORY: Appendectomy. ALLERGIES: She is allergic to Chantix, Darvocet, gabapentin, Prozac, Tylenol with codeine, codeine, Wellbutrin, propoxyphene. SOCIAL HISTORY: She is a smoker, 1 pack per day. She does admit to smoking marijuana. Denies alcohol use. She does live at home with family. REVIEW OF SYSTEMS: Denies any chest pain, shortness of breath, cough, sputum, wheezing, abdominal pain, nausea, vomiting, diarrhea, constipation, melena, hematochezia, headache, numbness, unsteady gait, weakness, neck or joint pain, but does complain of low back pain. Further review of systems negative. PHYSICAL EXAMINATION: Vital signs: Blood pressure 154/100, pulse 82, respirations 16, temperature 98.6, pulse oximetry 94%. The patient is alert and oriented x3. She does appear in some mild to moderate distress, secondary to low back pain, but she is pleasant and cooperative. HEENT: Head appears atraumatic. Pupils are equal and reactive to light. Red reflex intact bilaterally. Extraocular muscles intact. No conjunctival injection. No scleral icterus or lid edema. Nose exhibits no rhinorrhea or epistaxis. Mouth: Mucous membranes are moist. No pharyngeal erythema. Uvula is midline and elevates. Neck is supple. Trachea is midline. No JVD or lymphadenopathy. No posterior cervical tenderness. No nuchal rigidity. Lungs are clear to auscultation in all lung pineda. No adventitious sounds are noted. No accessory muscle use. CVS: Heart rate and rhythm is regular without murmur. Abdomen is soft and nontender with normoactive Page 1 of 2 [facility] Emergency Room Report bowel sounds x4 quadrants. No guarding or rigidity. No rebound. No palpable abdominal masses. No hepatosplenomegaly. Back exhibits some diffuse lower lumbar region tenderness on palpation. She is tender on the midline and the bilateral paraspinal muscle regions. There is some increased bilateral lumbar paraspinal muscle rigidity noted. No deformity. No ecchymosis. Extremities: No edema or cyanosis. Peripheral pulses are intact. No motor or sensory deficits are noted. Hand pitting machine operator strong and symmetric. Neurologic examination shows the patient to be alert and oriented x4. No motor or sensory deficits are noted. Normal speech. Patient is pleasant and cooperative. DIAGNOSTIC DATA: X-rays were obtained of lumbar spine. No fracture or subluxation noted. EMERGENCY DEPARTMENT COURSE AND TREATMENT: Patient was placed on Naprosyn 500 mg 1 p.o. b.i.d., dispense number 20 with no refill, Flexeril 10 mg 1 p.o. t.i.d., dispense number 30 with no refill. She is to rest. No heavy lifting or other exertional activities. Moist heat to low back 20 minutes at a time, 4 to 6 times per day. She is to take the medication as prescribed and follow up with her primary care physician, Dr. Lowell Parsons in 3 to 4 days for reevaluation. DIAGNOSIS: Lumbar strain. PLAN/DISPOSITION: The patient was discharged in a clinically stable condition. Nurse notes reviewed. Dictated By: Lydia Heredia DO 02/26/18 23:24 JOB #: [id number] Transcribed By: jennifer 02/27/18 12:17 Electronically signed by: E-Sign: Dr. Lydia Heredia D.O. 03/03/18 20:08 Page 2 of 2 [facility] Emergency Room Report Normal [facility] [place] EMERGENCY REPORTon 8 EMERGENCY REPORT [facility] EMERGENCY ROOM REPORT NAME ACCOUNT SEX AGE ADMIT DISCHARGE PT MED. RECORD# NUMBER DATE DATE TYPE SHANT [id number] F 42 02/21/18 02/21/18 3 LOUIS Yadav [id number] ROOM: ER DATE OF : 1975 DICTATING PHYSICIAN: Darron Jaramillo HISTORY OF PRESENT ILLNESS: The patient came in. The patient had right upper quadrant pain, nausea and vomiting and presents to the Emergency Department. She was just here for seizure disorder, for which she was transferred to [place]. She also complains of elbow pain. When she had her seizure, she says she hurt her elbow. PAST MEDICAL HISTORY: She does have a history of mental health issues, schizophrenia. She has had cervical cancer. PAST SURGICAL HISTORY: She has had an appendectomy, elbow surgery, foot surgery, and abscess. SOCIAL HISTORY: She does smoke. She occasionally uses marijuana. She denies alcohol use. REVIEW OF SYSTEMS: Ten systems were reviewed and were negative except as mentioned above. PHYSICAL EXAMINATION: She is an awake, alert and oriented female in no acute distress. She is afebrile. Pulse is 95, respirations 16, blood pressure 128/118, and pulse oximetry 95% on room air. Head is normocephalic, atraumatic. Eyes: Pupils are equal, round and reactive to light. Extraocular muscles are intact. Nares are patent. Throat has adequate oral moisture. Uvula is midline. Neck is supple without petechiae or rash. Heart rate is regular without murmur. S1 is equal to S2. No S3 or S4 appreciated. Lungs are clear to auscultation bilaterally. No rales, rhonchi or retractions. Abdomen is soft, nontender and nondistended. She had some minimal tenderness in the right upper quadrant. DIAGNOSTIC DATA: Ultrasound was unremarkable other than she had 2 gallstones. No obvious signs of cholelithiasis. Her white count was normal. Chemistries were unremarkable. Lipase was unremarkable. Her elbow x-ray is unremarkable. Page 1 of 2 [facility] BRAN Emergency Room Report DIAGNOSES: 1. Abdominal pain, cause not clear. 2. Elbow contusion on the right side. Dictated By: Darron Jaramillo DO 02/21/18 12:19 JOB #: [id number] Transcribed By: morro 02/21/18 12:34 Electronically signed by: POLINA Jaramillo D.O. 02/28/18 06:42 Page 2 of 2 [facility] Emergency Room Report Normal [facility] [place] LUMBO SACRAL COMPLETE MIN 4 VIEWSon 02-26-2018 Neutrophils Auto #/vol (Bld) [place] [id number] Patient: LOUIS BRAN. Phone#: : 1975 Age: 42 Gender: F Pt. Type: ER Account: [id number] Location: [facility] Ordering: LYDIA HEREDIA Exam Date: 02/26/2018/20:46 Family Phys: LOWELL HINKLE Charge Code: [id number] Physician: Rock Order #: [id number] DLP Dose#: PROCEDURE: X-RAY LUMBAR SPINE COMPLETE MIN 4 VIEWS COMPARISON: None. INDICATIONS: Back pain FINDINGS: BONES: Normal. No significant spondylosis, scoliosis, fracture, or visible bony lesion. DISC SPACES: There is mild disc height loss at L3-4 PARASPINOUS: Negative. No paraspinous abnormality is seen. OTHER: Negative. CONCLUSION: 1. No acute osseous abnormality. Dictated by: Tammy Julien MD on 02/27/2018 at 8:39 Approved by: Tammy Julien MD on 02/27/2018 at 8:39 Normal [facility] CBCon 02-21-2018 Basophils Auto #/vol (Bld) 0.10 x10EE3/UL Normal 0.00 - 0.10 [facility] Comment on above: Performed By: #### 2 01574 ####[facility] [place],[address] [place] [address] Basophils/100 WBC Auto (Bld) 0.7 % Normal 0.0 - 2.0 [facility] Comment on above: Performed By: #### 2 63612 ####[facility] [place],[address] [place] [address] 19810 CBC Normal [facility] Comment on above: Result Comment: CBC- COMPLETE BLOOD COUNT Performed By: #### 2 98540 ####[facility] [place],[address] [place] [address] 84227 Eosinophils Auto #/vol (Bld) 0.10 x10EE3/UL Normal 0.00 - 0.50 [facility] Comment on above: Performed By: #### 2 88003 ####[facility] [place],[address] [place] [address] 10554 Eosinophils/100 WBC Auto (Bld) 1.5 % Normal 0.0 - 7.0 [facility] Comment on above: Performed By: #### 2 37687 ####[facility] [place],[address] [place] [address] 51280 Erythrocyte distribution width Auto Ratio (RBC) 15.3 % Normal 12.0 - 15.6 [facility] Comment on above: Performed By: #### 2 20731 ####[facility] [place],[address] [place] [address] 70369 Hematocrit Auto Volume Fraction (Bld) 43.0 % Normal 34.0 - 46.0 [facility] Comment on above: Performed By: #### 2 63301 ####[facility] [place],[address] [place] [address] 37348 Hemoglobin mass conc (Bld) 14.6 g/dL Normal 12.0 - 16.0 [facility] Comment on above: Performed By: #### 2 53053 ####[facility] [place],[address] [place] [address] 52564 Lymphocytes Auto #/vol (Bld) 2.20 x10EE3/UL Normal 0.80 - 2.80 [facility] Comment on above: Performed By: #### 2 82896 ####[facility] [place],[address] [place] [address] 30612 Lymphocytes/100 WBC Auto (Bld) 25.4 % Normal 20.0 - 45.0 [facility] Comment on above: Performed By: #### 2 81294 ####[facility] [place],[address] [place] [address] MANUAL DIFF N/A Normal [facility] Comment on above: Performed By: #### 2 40187 ####[facility] [place],[address] [place] [address] MCH Auto Entitic mass (RBC) 29 pg Normal 27 - 33 [facility] Comment on above: Performed By: #### 2 60645 ####[facility] [place],[address] [place] [address] MCHC Auto mass conc (RBC) 34 X10 3 Normal 32 - 36 [facility] Comment on above: Performed By: #### 2 67343 ####[facility] [place],[address] [place] [address] MCV Auto Entitic volume (RBC) 85 fL Normal 80 - 99 [facility] Comment on above: Performed By: #### 2 05352 ####[facility] [place],[address] [place] [address] Monocytes Auto #/vol (Bld) 0.50 x10EE3/UL Normal 0.20 - 1.00 [facility] Comment on above: Performed By: #### 2 16171 ####[facility] [place],[address] [place] [address] MONOS % 6.0 % Normal 0.0 - 10.0 [facility] Comment on above: Performed By: #### 2 02582 ####[facility] [place],[address] [place] [address] Morphology Interp Jonathan (Bld) N/A Normal [facility] Comment on above: Result Comment: {CD] Performed By: #### 2 79437 ####[place] [address] Neutrophils Auto #/vol (Bld) 5.80 x10EE3/UL Normal 1.50 - 7.10 [facility] Comment on above: Performed By: #### 2 31809 ####[facility] [place],[address] [place] [address] 17289 Neutrophils/100 WBC Auto (Bld) 66.4 % Normal 46.0 - 76.0 [facility] Comment on above: Performed By: #### 2 48823 ####[facility] [place],[address] [place] [address] 27735 Platelet mean volume Auto Entitic volume (Bld) 8.7 fL Normal 6.6 - 10.5 [facility] Comment on above: Result Comment: AUTO MATED DIFFERENTIAL Performed By: #### 2 66465 ####[facility] [place],[address] [place] [address] 34250 Platelets Auto #/vol (Bld) 381 x10EE3/UL Normal 150 - 450 [facility] Comment on above: Performed By: #### 2 59677 ####[facility] [place],[address] [place] [address] 54865 RBC Auto #/vol (Bld) 5.05 x 10EE6/UL Normal 4.10 - 5.3 0 [facility] Comment on above: Performed By: #### 2 27303 ####[facility],[address] [place] [address] 82662 WBC Auto #/vol (Bld) 8.8 x 10EE3/UL Normal 4.5 - 10.8 [facility] Comment on above: Performed By: #### 2 79191 ####[facility] [place],[address] [place] [address] 15312 CMP with eGFRon 02-21-2018 Age Reported 42 years Normal [facility] Comment on above: Performed By: #### 2 26812 ####[facility] [place],[address] [place] [address] 58641 Albumin mass conc 4.2 g/dL Normal 3.4 - 4.8 [facility] Comment on above: Performed By: #### 2 93395 ####[facility],[address] [place] [address] 29993 Albumin/Globulin mass ratio 1.3 {ratio} Normal 0.9 - 1.6 [facility] Comment on above: Performed By: #### 2 00463 ####[facility],[address] [place] [address] 27132 ALK PHOS 120 U/L Normal 38 - 126 [facility] Comment on above: Performed By: #### 2 62915 ####[facility],[address] [place] [address] 98708 ALT/SGPT 15 U/L Normal 8 - 35 [facility] Comment on above: Performed By: #### 2 58977 ####[facility] [place],[address] [place] [address] 42267 Anion gap 3 molar conc 13 mmol/L Normal 10 - 20 [facility] Comment on above: Performed By: #### 2 59641 ####[facility] [place],[address] [place] [address] 68032 AST/SGOT 17 U/L Normal 13 - 39 [facility] Comment on above: Performed By: #### 2 29838 ####[facility] [place],[address] [place] [address] 17866 B/C RATIO 9 ratio Normal 0 - 30 [facility] Comment on above: Performed By: #### 2 10286 ####[facility],[address] [place] [address] 03090 Bilirubin mass conc 0.4 mg/dL Normal 0.0 - 1.5 [facility] Comment on above: Performed By: #### 2 34031 ####[facility],[address] [place] [address] 11287 Calcium mass conc 9.1 mg/dL Normal 8.6 - 10.2 [facility] Comment on above: Performed By: #### 2 15885 ####[facility] [place],[address] [place] [address] 60756 Chloride molar conc 103 mmol/L Normal 98 - 107 [facility] Comment on above: Performed By: #### 2 74223 ####[facility],[address] [place] [address] 24983 CO2 molar conc 24.3 mmol/L Normal 21.0 - 31.0 [facility] Comment on above: Performed By: #### 2 58546 ####[facility] [place],[address] [place], [place] [address] Creatinine mass conc 0.7 mg/dL Normal 0.6 - 1.2 [facility] Comment on above: Performed By: #### 2 94143 ####[facility],[address] [place] [address] 51043 GFR/1.73 sq M predicted among non-blacks MDRD vol rate/area (S/P/Bld) Normal [facility] Comment on above: Result Comment: COMP REHENSIVE METABOLIC PANEL Performed By: #### 2 31671 ####[facility],[address] [place] [address] 20408 GFR/1.73 sq M predicted among non-blacks MDRD vol rate/area (S/P/Bld) mL/min/{1.73_m2} Normal 60 - 999 [facility] Comment on above: Performed By: #### 2 81897 ####[facility],[address] [place] [address] 70389 Result Comment: ACCO RDING TO THE NATIONAL KIDNEY DISEASE EDUCATION PROGRAM(NKDE), A NORMAL eGFRIS A VALUE GREATER THAN OR EQUAL TO 60 ML/MIN/1.73 SQ METERS.CHRONIC KIDNEY DISEASE: <60mL/MIN/1.73 SQ METERSKIDNEY FAILURE: <15mL/MIN/1.73 SQ METERSTHIS TEST SHOULD ONLY BE USED FOR PATIENTS 18 YEARS OF AGE AND OLDER. Globulin Calculated mass conc (S) 3.3 g/dL Normal 1.5 - 3.8 [facility] Comment on above: Performed By: #### 2 28885 ####[facility],[address] [place] [address] 30264 Glucose mass conc 104 mg/dL Normal 74 - 106 [facility] Comment on above: Performed By: #### 2 28235 ####[facility],[address] [place] [address] 69984 Potassium molar conc 3.8 mmol/L Normal 3.5 - 5.1 [facility] Comment on above: Performed By: #### 2 42669 ####[facility],[address] [place] [address] 89183 Protein mass conc 7.5 g/dL Normal 6.4 - 8.3 [facility] Comment on above: Performed By: #### 2 84423 ####[facility] [place],[address] [place] [address] 89286 Sodium molar conc 136 mmol/L Normal 136 - 145 [facility] Comment on above: Performed By: #### 2 60885 ####[facility] [place],[address] [place] [address] 87481 Urea nitrogen mass conc 6 mg/dL Normal 6 - 20 [facility] Comment on above: Performed By: #### 2 85868 ####[facility],[address] [place] [address] 84073 ELBOW COMPLETE RTon 02-22-20 18 Neutrophils Auto #/vol (Bld) [place] [address] Patient: LOUIS BRAN Phone#: : 1975 Age: 42 Gender: F Pt. Type: ER Account: [id number] Location: [facility] Ordering: DARRON JARAMILLO Exam Date: 02/21/2018/11:14 Family Phys: LOWELL HINKLE Charge Code: [id number] Physician: Rock Order #: [id number] DLP Dose#: PROCEDURE: X-RAY ELBOW RT MIN 3 VIEWS COMPARISON: None. INDICATIONS: Trauma FINDINGS: BONES: Normal. No significant arthropathy or acute abnormality. SOFT TISSUES: There is dorsal and medial soft tissue edema. EFFUSION: None visible. OTHER: Negative. CONCLUSION: 1. There is no evidence of acute bone abnormality. Dictated by: Alisia Leiva MD on 02/21/2018 at 11:38 Approved by: Alisia Leiva MD on 02/21/2018 at 11:38 Normal [facility] LIPASEon 02-21-2018 Lipase enzyme act/vol 11.0 U/L Low 18.0 - 51.0 [facility] Comment on above: Performed By: #### 2 73603 ####[facility],[address] [place] [address] SERUM QUALon 02-21 EXTERNAL QC DONE? YES Normal [facility] Comment on above: Performed By: #### 2 93737 ####[facility],[address] [place] [address] INTERNAL QC PASS Normal [facility] Comment on above: Performed By: #### 2 67973 ####[facility],[address] [place] [address] SER Negative Normal NEGATIVE [facility] Comment on above: Performed By: #### 2 79748 ####[facility],[address] [place] [address] US RUQ (GB/PANCREAS)on 02-21 Neutrophils Auto #/vol (Bld) [place] [address] Patient: LOUIS BRAN Phone#: : 1975 Age: 42 Gender: F Pt. Type: Out Account: [id number] Location: [facility] Ordering: NATALIA DEMPSEY Exam Date: 02/21/2018/9:27 Family Phys: LOWELL HINKLE Charge Code: [id number] Physician: Rock Order #: [id number] P Dose#: PROCEDURE: RUQ (GB) ULTRASOUND COMPARISON: None. INDICATIONS: Cholelithisis FINDINGS: LIVER: Normal. Normal size and echotexture. No significant masses. BILIARY: Gallbladder is normal in size. Intraluminal calculi are present measuring approximately 12 mm in diameter. The common bile duct is normal at 3.9 mm. PANCREAS: The pancreas is obscured by bowel gas. RIGHT KIDNEY: Normal. No mass or obstruction. OTHER: Negative. CONCLUSION: 1. Cholelithiasis. DICTATED BY: ALISIA LEIVA MD ON 02/21/2018 AT 10:09 APPROVED BY: ALISIA LEIVA MD ON 02/21/2018 AT 10:09 Normal [facility] Depart Summaryon 02-19-2018 Depart Summary Normal [facility] ([place] Discharge Summaryon 02-20-20 18 Discharge Summary Normal [facility] [place] Summary Normal [facility] [place] EMERGENCY REPORTon 8 EMERGENCY REPORT [facility] EMERGENCY ROOM REPORT NAME ACCOUNT SEX AGE ADMIT DISCHARGE PT MED. RECORD# NUMBER DATE DATE TYPE SHANT [id number] F 42 02/16/18 02/17/18 3 LOUIS Yadav [id number] ROOM: ER DATE OF : 1975 DICTATING PHYSICIAN: Darron Jaramillo CHIEF COMPLAINT/HISTORY OF PRESENT ILLNESS: Patient came in. Patient had multiple seizures today. Apparently she had 1 outside in the gravel, which she had some bleeding of her arm and she presented to the emergency department. She is not really sure what exactly happened. She complained of pain to her head, right arm, right side. She said her tetanus is up-to-date. PAST MEDICAL HISTORY: She had multiple seizures before. She has also had a history of pseudoseizures. She has COPD, asthma, hypertension. PAST SURGICAL HISTORY: She had an appendectomy. SOCIAL HISTORY: She continues to smoke. She denies alcohol use. REVIEW OF SYSTEMS: Ten systems reviewed and negative except as mentioned above. PHYSICAL EXAMINATION: She is an wake, alert, oriented female in no acute distress. Afebrile. Pulse 84, respirations 16, blood pressure 143/88. Pulse oximetry 92% on room air. Head is normocephalic, atraumatic. Eyes: Pupils equal, round, reactive to light. Extraocular muscles intact. Nares are patent. Throat has good oral moisture. Uvula is midline. Neck is supple without petechiae or rash. Heart without murmur. S1 equals S2. No S3, S4 appreciated. Lungs are clear to auscultation bilaterally. No rales, rhonchi or retractions. Abdomen soft, nontender, nondistended. Skin is warm and dry. DIAGNOSTIC DATA: She had a CT, which showed no acute intracranial hemorrhage. She has a history of skull fracture. Sodium 134, BUN 9, creatinine 0.9. White count of 16,000. EMERGENCY DEPARTMENT COURSE AND TREATMENT: As soon as I left the room after examining her, she had another seizure. She was placed on oxygen. She was suctioned. Appeared to be a grand mal seizure. She was postictal. She complains of back pain. She always has back pain, which she says she takes Percocet for. She was given Percocet here. She was also given Ativan. She has been depressed but she is not homicidal or suicidal. She did not take her evening meds and she was given her Keppra and Topamax here. She does have an abrasion to her right arm, elbow area. Page 1 of 2 LOUIS BRAN Emergency Room Report DIAGNOSES: 1. Multiple seizures, uncontrolled. 2. Right arm abrasion. 3. Depression. PLAN/DISPOSITION: She will be admitted to the hospital. She will be transferred. She will be transferred up to [facility]. We do not have a Neurologist here, which I think with her history of seizure disorder, mental health issues, she would benefit from that. She has had at least 3 seizures today. Dictated By: Darron Jaramillo DO 02/17/18 00:48 JOB #: [id number] Transcribed By: jennifer 02/17/18 08:53 Electronically signed by: POLINA Jaramillo D.O. 02/19/18 11:04 Page 2 of 2 LOUIS BRAN Emergency Room Report Normal [facility] EMERGENCY REPORT [facility] EMERGENCY ROOM REPORT NAME ACCOUNT SEX AGE ADMIT DISCHARGE PT MED. RECORD# NUMBER DATE DATE TYPE SHANT [id number] F 42 02/16/18 02/17/18 3 LOUIS Yadav [id number] ROOM: ER DATE OF : 1975 DICTATING PHYSICIAN: Darron Jaramillo DIAGNOSTIC DATA: EKG shows rate of 79. No axis deviation. No obvious ST elevation or depression. DIAGNOSIS: _ _ _ _ _ EKG performed on December 17, 2017, see no obvious changes. Dictated By: Darron Jaramillo DO 02/17/18 00:58 JOB #: [id number] Transcribed By: jennifer 02/17/18 09:05 Electronically signed by: POLINA Jaramillo D.O. 02/19/18 11:04 Page 1 of 1 LOUIS BRAN Emergency Room Report Normal [facility] Inpatient Patient Summaryon 02-19-2018 Inpatient Patient Summary Normal [facility] ([place] KEPPRAon 02-19-2018 Acetaminophen mass conc 5.3 UG/ML Low 12.0-46.0 A [facility] ([place]) Comment on above: Result Comment: This test was developed and its performance characteristics determined by [facility] [place] ([facility] It has not been cleared or approved by the FDA. [facility] is regulated under CLIA as qualified to perform high-complexity testing. This test is used for clinical purposes. It should not be regarded as investigational or for research.Performed By:[facility] [place], [place] [address]Hqa Director: Dahlia Geiger M.D.IA#: [id number]#: Performed By: #### C JOHNNY MCGRAW ANEU, BMP, GFR ####[address] [address] .Auto Diffon 02-18-2018 Basophils Auto #/vol (Bld) 0.00 10 3/mcL Normal 0.00-0.27 [facility] ([place] Comment on above: Performed By: #### C BCJOHNNY ANEU, BMP, MG, GFR ####[address] [address] Basophils/100 WBC Auto (Bld) 0.5 % Normal 0.0-2.5 [facility] ([place] Comment on above: Performed By: #### C BCJOHNNY, ANEU, BMP, MG, GFR ####[address] [address] Eosinophils 0.10 10 3/mcL Normal 0.00-0.65 [facility] ([place] Comment on above: Performed By: #### C BC, ADIFF, ANEU, BMP, MG, GFR ####[address] [address] Eosinophils/100 leukocytes 2.8 % Normal 0.0-6.0 [facility] ([place] Comment on above: Performed By: #### C BC, ADIFF, ANEU, BMP, MG, GFR ####[address] [address] Lymphocytes 2.00 10 3/mcL Normal 0.90-4.32 [facility] ([place] Comment on above: Performed By: #### C BC, ADIFF, ANEU, BMP, MG, GFR ####[address] [address] Lymphocytes/100 leukocytes 41.4 % High 20.0-40.0 [facility] ([place] Comment on above: Performed By: #### C BC, ADIFF, ANEU, BMP, MG, GFR ####[address] [address] Monocytes 0.50 10 3/mcL Normal 0.09-1.40 [facility] ([place] Comment on above: Performed By: #### C BC, ADIFF, ANEU, BMP, MG, GFR ####[address] [address] Monocytes/100 leukocytes 10.0 % Normal 2.0-13.0 [facility] ([place] Comment on above: Performed By: #### C BC, ADIFF, ANEU, BMP, MG, GFR ####[address] [address] Neutrophils/100 WBC Auto (Bld) 45.3 % Low 50.0-75.0 [facility] ([place] Comment on above: Performed By: #### C BC, ADIFF, ANEU, BMP, MG, GFR ####[address] [address] .GFRon 02-18-2018 eGFR (non-black) mL/min/{1.73_m2} Normal [facility] ([place]) Comment on above: Result Comment: GFR Population mean for , Non- Americans Ages 20-29 = 116 mL/min/1.73 sq.m. Ages 30-39 = 107 mL/min/1.73 sq.m. Ages 40-49 = 99 mL/min/1.73 sq.m. Ages 50-59 = 93 mL/min/1.73 sq.m. Ages 60-69 = 85 mL/min/1.73 sq.m. Ages 70+ = 75 mL/min/1.73 sq.m.Chronic Kidney Disease: Less than 60 mL/min/1.73 square metersEnd Stage Renal Disease: Less than 15 mL/min/1.73 square meters Performed By: #### C BC, ADIFF, ANEU, BMP, MG, GFR ####[place] [address] .NEUABSon 02-18-2018 Neutrophils 2.20 10 3/mcL Low 2.25-8.10 [facility] ([place] Comment on above: Performed By: #### C BC, ADIFF, ANEU, BMP, MG, GFR ####[place] [address] BMPon 02-18-2018 BUN/Creatinine Ratio 11.3 ratio Normal 10.0-22.0 [facility] ([place]) Comment on above: Performed By: #### C BC, ADIFF, ANEU, BMP, MG, GFR ####[place] [address] Calcium 8.7 mg/dL Normal 8.4-10.1 [facility] ([place] Comment on above: Performed By: #### C BC, ADIFF, ANEU, BMP, MG, GFR ####[place] [address] Chloride 110 mmol/L Normal 98-110 [facility] ([place] Comment on above: Performed By: #### C BC, ADIFF, ANEU, BMP, MG, GFR ####[place] [address] CO2 23 mmol/L Normal 22-32 [facility] ([place] Comment on above: Performed By: #### C BC, ADIFF, ANEU, BMP, MG, GFR ####[place] [address] Creatinine 0.62 mg/dL Normal 0.50-1.20 [facility] ([place] Comment on above: Performed By: #### C BC, ADIFF, ANEU, BMP, MG, GFR ####[place] [address] Electrolyte Balance 7.0 mEq/L Normal 4.0-15.0 [facility] ([place]) Comment on above: Performed By: #### C BC, ADIFF, ANEU, BMP, MG, GFR ####[place] [address] Glucose mass conc 121 mg/dL High 70-110 [facility] ([place] Comment on above: Performed By: #### C BC, ADIFF, ANEU, BMP, MG, GFR ####[place] [address] Potassium molar conc 4.2 mmol/L Normal 3.5-5.0 [facility] ([place] Comment on above: Performed By: #### C BC, ADIFF, ANEU, BMP, MG, GFR ####[place] [address] Sodium 140 mmol/L Normal 136-145 [facility] ([place] Comment on above: Performed By: #### C BC, ADIFF, ANEU, BMP, MG, GFR ####[place] [address] Urea nitrogen 7.0 mg/dL Low 8.0-22.0 [facility] ([place]) Comment on above: Performed By: #### C BC, ADIFF, ANEU, BMP, MG, GFR ####[place] [address] CBCon 02-18-2018 Erythrocyte distribution width Auto Ratio (RBC) 15.4 % Normal 11.5-15.5 [facility] ([place] Comment on above: Performed By: #### C BC, ADIFF, ANEU, BMP, MG, GFR ####[place] [address] Erythrocytes (RBC) 4.28 10 6/mcL Normal 4.10-5.30 [facility] [place] Comment on above: Performed By: #### C BC, ADIFF, ANEU, BMP, MG, GFR ####[place] [address] Hematocrit (HCT) 37.3 % Normal 34.0-46.0 [facility] ([place] Comment on above: Performed By: #### C BC, ADIFF, ANEU, BMP, MG, GFR ####[place] [address] Hemoglobin mass conc (Bld) 12.3 G/dL Normal 12.0-16.0 [facility] ([place] Comment on above: Performed By: #### C BC, ADIFF, ANEU, BMP, MG, GFR ####[place] [address] MCH 28.8 pg Normal 27.0-33.0 [facility] ([place] Comment on above: Performed By: #### C BC, ADIFF, ANEU, BMP, MG, GFR ####[place] [address] MCHC mass conc (RBC) 33.1 G/dL Normal 32.0-36.0 [facility] ([place] Comment on above: Performed By: #### C BC, ADIFF, ANEU, BMP, MG, GFR ####[place] [address] MCV 87.1 fL Normal 80.0-99.0 [facility] ([place] Comment on above: Performed By: #### C BC, ADIFF, ANEU, BMP, MG, GFR ####[place] [address] Platelet mean volume (PMV) 8.2 fL Normal 6.6-10.5 [facility] ([place] Comment on above: Performed By: #### C BC, ADIFF, ANEU, BMP, MG, GFR ####[address] [address] Platelets 247 10 3/mcL Normal 150-450 [facility] ([place] Comment on above: Performed By: #### C BC, ADIFF, ANEU, BMP, MG, GFR ####[address] [address] WBC (Leukocytes) 4.90 10 3/mcL Normal 4.50-10.80 [facility] ([place] Comment on above: Performed By: #### C BC, ADIFF, ANEU, BMP, MG, GFR ####[address] [address] MGon 02-18-2018 Magnesium 2.0 mg/dL Normal 1.6-2.4 [facility] ([place] Comment on above: Performed By: #### C BC, ADIFF, ANEU, BMP, MG, GFR ####[address] [address] Neurology Progress Noteon Neurology Progress Note Normal A [facility] ([place]) Pat Eduon 02-18-2018 Pat Edu Normal [facility] ([place] .Auto Diffon 02-17-2018 Basophils Auto #/vol (Bld) 0.00 10 3/mcL Normal 0.00-0.27 [facility] ([place] Comment on above: Performed By: #### C BC, ADIFF, ANEU, BMP, GFR ####[address] [address] Basophils/100 WBC Auto (Bld) 0.3 % Normal 0.0-2.5 [facility] ([place] Comment on above: Performed By: #### C BC, ADIFF, ANEU, BMP, GFR ####[address] [address] Eosinophils 0.10 10 3/mcL Normal 0.00-0.65 [facility] ([place] Comment on above: Performed By: #### C BC, ADIFF, ANEU, BMP, GFR ####[address] [address] Eosinophils/100 leukocytes 1.4 % Normal 0.0-6.0 [facility] ([place] Comment on above: Performed By: #### C BC, ADIFF, ANEU, BMP, GFR ####[address] [address] Lymphocytes 3.00 10 3/mcL Normal 0.90-4.32 [facility] ([place] Comment on above: Performed By: #### C BC, ADIFF, ANEU, BMP, GFR ####[address] [address] Lymphocytes/100 leukocytes 31.0 % Normal 20.0-40.0 [facility] ([place] Comment on above: Performed By: #### C BC, ADIFF, ANEU, BMP, GFR ####[address] [address] Monocytes 0.70 10 3/mcL Normal 0.09-1.40 [facility] ([place] Comment on above: Performed By: #### C BC, ADIFF, ANEU, BMP, GFR ####[address] [address] Monocytes/100 leukocytes 7.2 % Normal 2.0-13.0 [facility] ([place] Comment on above: Performed By: #### C BC, ADIFF, ANEU, BMP, GFR ####[address] [address] Neutrophils/100 WBC Auto (Bld) 60.1 % Normal 50.0-75.0 [facility] ([place] Comment on above: Performed By: #### C BC, ADIFF, ANEU, BMP, GFR ####[address] [address] .GFRon 02-17-2018 eGFR (non-black) mL/min/{1.73_m2} Normal [facility] ([place]) Comment on above: Result Comment: GFR Population mean for , Non- Americans Ages 20-29 = 116 mL/min/1.73 sq.m. Ages 30-39 = 107 mL/min/1.73 sq.m. Ages 40-49 = 99 mL/min/1.73 sq.m. Ages 50-59 = 93 mL/min/1.73 sq.m. Ages 60-69 = 85 mL/min/1.73 sq.m. Ages 70+ = 75 mL/min/1.73 sq.m.Chronic Kidney Disease: Less than 60 mL/min/1.73 square metersEnd Stage Renal Disease: Less than 15 mL/min/1.73 square meters Performed By: #### C BC, ADIFF, ANEU, BMP, GFR ####[place] [address] .NEUABSon 02-17-2018 Neutrophils 5.90 10 3/mcL Normal 2.25-8.10 [facility] ([place] Comment on above: Performed By: #### C BC, ADIFF, ANEU, BMP, GFR ####[place] [address] BMPon 02-17-2018 BUN/Creatinine Ratio 9.4 ratio Low 10.0-22.0 [facility] ([place] Comment on above: Performed By: #### C BC, ADIFF, ANEU, BMP, GFR ####[place] [address] Calcium 8.7 mg/dL Normal 8.4-10.1 [facility] ([place] Comment on above: Performed By: #### C BC, ADIFF, ANEU, BMP, GFR ####[place] [address] Chloride 110 mmol/L Normal 98-110 [facility] ([place] Comment on above: Performed By: #### C BC, ADIFF, ANEU, BMP, GFR ####[place] [address] CO2 20 mmol/L Low 22-32 [facility] ([place] Comment on above: Performed By: #### C BC, ADIFF, ANEU, BMP, GFR ####[place] [address] Creatinine 0.64 mg/dL Normal 0.50-1.20 [facility] ([place] Comment on above: Performed By: #### C BC, ADIFF, ANEU, BMP, GFR ####[place] [address] Electrolyte Balance 11.0 mEq/L Normal 4.0-15.0 [facility] ([place] Comment on above: Performed By: #### C BC, ADIFF, ANEU, BMP, GFR ####[place] [address] Glucose mass conc 130 mg/dL High 70-110 [facility] ([place] Comment on above: Performed By: #### C BC, ADIFF, ANEU, BMP, GFR ####[place] [address] Potassium molar conc 3.4 mmol/L Low 3.5-5.0 [facility] ([place] Comment on above: Performed By: #### C BC, ADIFF, ANEU, BMP, GFR ####[place] [address] Sodium 141 mmol/L Normal 136-145 [facility] ([place] Comment on above: Performed By: #### C BC, ADIFF, ANEU, BMP, GFR ####[place] [address] Urea nitrogen 6.0 mg/dL Low 8.0-22.0 [facility] ([place] Comment on above: Performed By: #### C BC, ADIFF, ANEU, BMP, GFR ####[place] [address] CBCon 02-17-2018 Erythrocyte distribution width Auto Ratio (RBC) 15.0 % Normal 11.5-15.5 [facility] ([place] Comment on above: Performed By: #### C BC, ADIFF, ANEU, BMP, GFR ####[place] [address] Erythrocytes (RBC) 4.24 10 6/mcL Normal 4.10-5.30 [facility] [place] Comment [place]: Performed By: #### C BC, ADIFF, ANEU, BMP, GFR ####[place] [address] Hematocrit (HCT) 36.9 % Normal 34.0-46.0 [facility] ([place] Comment on above: Performed By: #### C BC, ADIFF, ANEU, BMP, GFR ####[address] [address] Hemoglobin mass conc (Bld) 12.5 G/dL Normal 12.0-16.0 [facility] ([place] Comment on above: Performed By: #### C BC, ADIFF, ANEU, BMP, GFR ####[place] [address] MCH 29.5 pg Normal 27.0-33.0 [facility] ([place] Comment on above: Performed By: #### C BC, ADIFF, ANEU, BMP, GFR ####[place] [address] MCHC mass conc (RBC) 33.9 G/dL Normal 32.0-36.0 [facility] ([place] Comment on above: Performed By: #### C BC, ADIFF, ANEU, BMP, GFR ####[place] [address] MCV 87.0 fL Normal 80.0-99.0 [facility] ([place] Comment on above: Performed By: #### C BC, ADIFF, ANEU, BMP, GFR ####[place] [address] Platelet mean volume (PMV) 8.2 fL Normal 6.6-10.5 [facility] ([place] Comment on above: Performed By: #### C BC, ADIFF, ANEU, BMP, GFR ####[place] [address] Platelets 321 10 3/mcL Normal 150-450 [facility] ([place] Comment on above: Performed By: #### C BC, ADIFF, ANEU, BMP, GFR ####[place] [address] WBC (Leukocytes) 9.80 10 3/mcL Normal 4.50-10.80 [facility] ([place] Comment on above: Performed By: #### C BC, ADIFF, ANEU, BMP, GFR ####[place] [address] Basophils Auto #/vol (Bld) 0.20 x10EE3/UL High 0.00 - 0.10 [facility] Comment on above: Performed By: #### 2 [id number] ####[facility] [place],[address] [place] [address] Basophils/100 WBC Auto (Bld) 1.2 % Normal 0.0 - 2.0 [facility] Comment on above: Performed By: #### 2 48598 ####[facility] [place],[address] [place] [address] CBC Normal [facility] Comment on above: Result Comment: CBC- COMPLETE BLOOD COUNT Performed By: #### 2 69032 ####[facility] [place],[address] [place] [address] Eosinophils Auto #/vol (Bld) 0.10 x10EE3/UL Normal 0.00 - 0.50 [facility] Comment on above: Performed By: #### 2 49250 ####[facility] [place],[address] [place] [address] Eosinophils/100 WBC Auto (Bld) 0.7 % Normal 0.0 - 7.0 [facility] Comment on above: Performed By: #### 2 79465 ####[facility] [place],[address] [place] [address] Erythrocyte distribution width Auto Ratio (RBC) 15.0 % Normal 12.0 - 15.6 [facility] Comment on above: Performed By: #### 2 19337 ####[facility],[address] [place] [address] Hematocrit Auto Volume Fraction (Bld) 39.8 % Normal 34.0 - 46.0 [facility] Comment on above: Performed By: #### 2 10622 ####[facility],[address] [place] [address] Hemoglobin mass conc (Bld) 13.8 g/dL Normal 12.0 - 16.0 [facility] Comment on above: Performed By: #### 2 43547 ####[facility],[address] [place] [address] Lymphocytes Auto #/vol (Bld) 4.50 x10EE3/UL High 0.80 - 2.80 [facility] Comment on above: Performed By: #### 2 74223 ####[facility] [place],[address] [place] [address] Lymphocytes/100 WBC Auto (Bld) 27.5 % Normal 20.0 - 45.0 [facility] Comment on above: Performed By: #### 2 82767 ####[facility] [place],[address] [place] [address] MANUAL DIFF N/A Normal [facility] Comment on above: Performed By: #### 2 10335 ####[facility] [place],[address] [place] [address] MCH Auto Entitic mass (RBC) 30 pg Normal 27 - 33 [facility] [place] Comment on above: Performed By: #### 2 06479 ####[facility] [place],[address] [place] [address] MCHC Auto mass conc (RBC) 35 X10 3 Normal 32 - 36 [facility] [place] Comment on above: Performed By: #### 2 85932 ####[facility] [place],[address] [place] [address] MCV Auto Entitic volume (RBC) 86 fL Normal 80 - 99 [facility] Comment on above: Performed By: #### 2 09561 ####[facility] [place],[address] [place] [address] Monocytes Auto #/vol (Bld) 0.80 x10EE3/UL Normal 0.20 - 1.00 [facility] [place] Comment on above: Performed By: #### 2 64154 ####[facility] [place],[address] [place] [address] MONOS % 4.8 % Normal 0.0 - 10.0 [facility] [place] Comment on above: Performed By: #### 2 99612 ####[facility] [place],[address] [place], [place] [address] Morphology Interp Jonathan (Bld) N/A Normal [facility] [place] Comment on above: Result Comment: {CD] Performed By: #### 2 55781 ####[facility] [place],[address] [place] [address] Neutrophils Auto #/vol (Bld) 10.80 x10EE3/UL High 1.50 - 7.10 [facility] Comment on above: Performed By: #### 2 70827 ####[facility] [place],[address] [place] [address] Neutrophils/100 WBC Auto (Bld) 65.8 % Normal 46.0 - 76.0 [facility] Comment on above: Performed By: #### 2 54970 ####[facility] [place],[address] [place], [place] [id number] Platelet mean volume Auto Entitic volume (Bld) 8.3 fL Normal 6.6 - 10.5 [facility] [place] Comment on above: Result Comment: AUTO MATED DIFFERENTIAL Performed By: #### 2 33941 ####[facility] [place],[address] [place] [address] Platelets Auto #/vol (Bld) 434 x10EE3/UL Normal 150 - 450 [facility] Comment on above: Performed By: #### 2 24281 ####[facility] [place],[address] [place] [address] RBC Auto #/vol (Bld) 4.63 x 10EE6/UL Normal 4.10 - 5.3 0 [facility] Comment on above: Performed By: #### 2 90850 ####[facility] [place],[address] [place] [address] WBC Auto #/vol (Bld) 16.5 x 10EE3/UL High 4.5 - 10.8 [facility] Comment on above: Performed By: #### 2 18099 ####[facility] [place],[address] [place] [address] CHEST 1 VIEWon 02-17-2018 CHEST 1 VIEW [facility] [address] [place] [address] Patient: LOUIS BRAN Phone#: : 1975 Age: 42 Gender: F Pt. Type: ER Account: [id number] Location: 2 Ordering: DARRON JARAMILLO Exam Date: 02/16/2018/23:21 Family Phys: LOWELL HINKLE Charge Code: [id number] Physician: Rock Order #: [id number] DLP Dose#: PROCEDURE: X-RAY CHEST 1 VIEW COMPARISON: [facility], XR, CHEST PA/LAT, 12/14/2016, 14:22. INDICATIONS: Seizure FINDINGS: LUNGS: Normal. No significant pulmonary parenchymal abnormalities. VASCULATURE: Normal. Unremarkable pulmonary vasculature. CARDIAC: Normal. No cardiac silhouette abnormality or cardiomegaly. MEDIASTINUM: Normal. No visible mass or adenopathy. PLEURA: Normal. No effusion or pleural thickening. BONES: Normal. No fracture or visible bony lesion. OTHER: Negative. CONCLUSION: No acute disease. Dictated by: Alisia Leiva MD on 02/17/2018 at 16:36 Approved by: Alisia Leiva MD on 02/17/2018 at 16:36 Normal [facility] CMP with eGFRon 02-17-2018 Age Reported 42 years Normal [facility] Comment on above: Performed By: #### 2 63373 ####[facility] [place],[address] [place] [address] Albumin mass conc 4.2 g/dL Normal 3.4 - 4.8 [facility] Comment on above: Performed By: #### 2 37661 ####[facility] [place],[address] [place], [place] [phone] Albumin/Globulin mass ratio 1.3 {ratio} Normal 0.9 - 1.6 [facility] Comment on above: Performed By: #### 2 00579 ####[facility] [place],[address] [place], [place] [phone] ALK PHOS 104 U/L Normal 38 - 126 [facility] Comment on above: Performed By: #### 2 54010 ####[facility] [place],[address] [place] [address] ALT/SGPT 12 U/L Normal 8 - 35 [facility] Comment on above: Performed By: #### 2 27946 ####[facility] [place],[address] [place], [place] [phone] Anion gap 3 molar conc 8 mmol/L Low 10 - 20 [facility] Comment on above: Performed By: #### 2 50333 ####[facility] [place],[address] [place] [address] AST/SGOT 14 U/L Normal 13 - 39 [facility] Comment on above: Performed By: #### 2 51957 ####[facility] [place],[address] [place], [place] [id number] B/C RATIO 10 ratio Normal 0 - 30 [facility] Comment on above: Performed By: #### 2 50765 ####[facility] [place],[address] [place] [address] Bilirubin mass conc 0.3 mg/dL Normal 0.0 - 1.5 [facility] Comment on above: Performed By: #### 2 06281 ####[facility] [place],[address] [place] [address] Calcium mass conc 9.1 mg/dL Normal 8.6 - 10.2 [facility] Comment on above: Performed By: #### 2 91708 ####[facility],[address] [place] [address] Chloride molar conc 110 mmol/L High 98 - 107 [facility] Comment on above: Performed By: #### 2 08302 ####[facility] [place],[address] [place] [address] CO2 molar conc 19.7 mmol/L Low 21.0 - 31.0 [facility] Comment on above: Performed By: #### 2 69021 ####[facility] [place],[address] [place] [address] Creatinine mass conc 0.9 mg/dL Normal 0.6 - 1.2 [facility] Comment on above: Performed By: #### 2 13753 ####[facility] [place],[address] [place] [address] GFR/1.73 sq M predicted among non-blacks MDRD vol rate/area (S/P/Bld) Normal [facility] Comment on above: Result Comment: COMP REHENSIVE METABOLIC PANEL Performed By: #### 2 56779 ####[facility] [place],[address] [place] [address] GFR/1.73 sq M predicted among non-blacks MDRD vol rate/area (S/P/Bld) mL/min/{1.73_m2} Normal 60 - 999 [facility] Comment on above: Result Comment: ACCO RDING TO THE NATIONAL KIDNEY DISEASE EDUCATION PROGRAM(NKDE), A NORMAL eGFRIS A VALUE GREATER THAN OR EQUAL TO 60 ML/MIN/1.73 SQ METERS.CHRONIC KIDNEY DISEASE: <60mL/MIN/1.73 SQ METERSKIDNEY FAILURE: <15mL/MIN/1.73 SQ METERSTHIS TEST SHOULD ONLY BE USED FOR PATIENTS 18 YEARS OF AGE AND OLDER. Performed By: #### 2 50069 ####[facility] [place],[address] [place] [address] Globulin Calculated mass conc (S) 3.2 g/dL Normal 1.5 - 3.8 [facility] Comment on above: Performed By: #### 2 08844 ####[facility] [place],[address] [place] [address] Glucose mass conc 139 mg/dL High 74 - 106 [facility] Comment on above: Performed By: #### 2 89819 ####[facility] [place],[address] [place], [place] [phone] Potassium molar conc 3.4 mmol/L Low 3.5 - 5.1 [facility] Comment on above: Performed By: #### 2 42598 ####[facility],[address] [place] [address] Protein mass conc 7.4 g/dL Normal 6.4 - 8.3 [facility] Comment on above: Performed By: #### 2 02895 ####[facility] [place],[address] [place] [address] Sodium molar conc 134 mmol/L Low 136 - 145 [facility] Comment on above: Performed By: #### 2 98018 ####[facility],[address] [place] [address] Urea nitrogen mass conc 9 mg/dL Normal 6 - 20 [facility] Comment on above: Performed By: #### 2 22931 ####[facility],[address] [place] [address] BRAIN W/O CONTRASTon 02-01 CT BRAIN W/O CONTRAST [place] [address] Patient: LOUIS BRAN Phone#: : 1975 Age: 42 Gender: F Pt. Type: ER Account: [id number] Location: [facility] Ordering: DARRON JARAMILLO Exam Date: 02/16/2018/23:17 Family Phys: LOWELL HINKLE Charge Code: [id number] Physician: Rock Order #: [id number] DLP Dose#: PROCEDURE: CT BRAIN WITHOUT CONTRAST COMPARISON: [facility], CT, BRAIN W/O CON, 12/17/2017, 20:51. INDICATIONS: Seizure TECHNIQUE: CT images were obtained without contrast material. All CT scans at this facility use dose modulation, iterative reconstruction, and/or weight based dosing when appropriate to reduce radiation dose to as low as reasonably achievable. IV CONTRAST: No IV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 does smoke. She denies alcohol use. REVIEW OF SYSTEMS: Ten systems reviewed and negative except as mentioned above. PHYSICAL EXAMINATION: She is an awake, alert, and oriented female in no acute distress. She is afebrile. Blood pressure 141/77, pulse 83, respirations 20, and pulse ox 96% on room air. Head is normocephalic and atraumatic. Eyes: Pupils are equal, round, and reactive to light. Extraocular muscles intact. Nares are patent. Throat has adequate oral moisture. Uvula is midline. Neck is supple without petechiae or rash. Heart without murmur. S1 equals S2. No S3 or S4 appreciated. Lungs are clear to auscultation bilaterally. No rales, rhonchi, or retractions. Abdomen is soft, nontender, and nondistended. Skin is warm and dry. DIAGNOSTIC DATA: The patient's troponin was negative. EKG shows a rate of 77, left axis deviation. No ST elevation or depression. White count was normal, H&H 13 and 40, platelet count was 323,000. The patient had a CT of the face that showed a comminuted nasal bone fracture. She has severe deformity of C3-C4 with remote healed fracture and also vertebral lucency through C3 vertebral body, suspect acute superimposed acute fracture. Her EKG shows a rate of 77, left axis deviation. No ST elevation or depression. Normal sinus rhythm. EMERGENCY DEPARTMENT COURSE AND TREATMENT/PLAN/DISPOS ITION: Page 1 of 2 LOUIS BRAN Emergency Room Report The patient will be transferred to [place] because she had a syncopal episode, but she is a trauma with her cervical fracture and nasal fracture and also a history of pseudoseizures. Dictated By: Darron Jaramillo DO TD: 12/18/17 12:45 JOB #: [id number] Transcribed by: demetra Electronically signed by: POLINA Jaramillo D.O. 12/25/17 01:36 Page 2 of 2 LOUIS BRAN Emergency Room Report Normal [facility] [place] LIPASEon 12-25-2017 Lipase enzyme act/vol 15.0 U/L Low 18.0 - 51.0 [facility] Comment on above: Performed By: #### 2 71885 ####[facility] [place],[address] [place] [address] URINALYSISon 12-25-2017 Bilirubin Negative Normal NORMAL: NEGATIVE [facility] [place] Comment on above: Performed By: #### 2 18324 ####[facility] [place],[address] [place] [address] Blood Negative Normal NORMAL: NEGATIVE [facility] [place] Comment on above: Performed By: #### 2 40532 ####[facility] [place],[address] [place] [address] Clarity clear Normal NORMAL: CLEAR [facility] [place] Comment on above: Performed By: #### 2 79955 ####[facility] [place],[address] [place] [address] Color p.yel Normal NORMAL: YELLOW [facility] [place] Comment on above: Performed By: #### 2 70927 ####[facility] [place],[address] [place] [address] Glucose NORM Normal NORMAL: NORMAL [facility] [place] Comment on above: Performed By: #### 2 70189 ####[facility] [place],[address] [place] [address] Ketone Negative Normal NORMAL: NEGATIVE [facility] [place] Comment on above: Performed By: #### 2 06310 ####[facility] [place],[address] [place], [place] [id number] Leukocytes Negative Normal NORMAL: NEGATIVE [facility] [place] Comment on above: Performed By: #### 2 58788 ####[facility] [place],[address] [place] [address] Microscopic NOT INDICATED Normal [facility] Comment on above: Performed By: #### 2 95539 ####[facility] [place],[address] [place] [address] Nitrite Negative Normal NORMAL: NEGATIVE [facility] [place] Comment on above: Performed By: #### 2 08146 ####[facility] [place],[address] [place] [address] ph 7 Normal NORMAL: 5.0-8.0 [facility] [place] Comment on above: Performed By: #### 2 37595 ####[facility] [place],[address] [place] [address] Protein mass conc Negative Normal NORMAL: NEGATIVE [facility] [place] Comment on above: Performed By: #### 2 21860 ####[facility] [place],[address] [place] [address] Sp [place] 1.005 Low NORMAL: 1.010-1.030 [facility] [place] Comment on above: Performed By: #### 2 91526 ####[facility] [place],[address] [place] [address] Specimen type UNSPECIFIED Normal [facility] Comment on above: Performed By: #### 2 69600 ####[facility] [place],[address] [place] [address]275 Urobilinog NORM Normal NORMAL: NORMAL [facility] [place] Comment on above: Performed By: #### 2 79832 ####[facility] [place],[address] [place] [address] Depart Summaryon 12-19-2017 Depart Summary Normal [facility]) Discharge Summaryon 12-20-19 18 Discharge Summary Normal [facility]) EEGon 12-19-2017 EEG Normal [facility]) History and Physicalon 12-19 [facility] and Physical [facility] Patient Summaryon 12-19-2017 Inpatient Patient Summary Normal [facility]) MRI BRAIN W/O CONTRASTon MRI BRAIN W/O CONTRAST ORIGINALI BRAIN W/O CONTRAST Clinical Statement: right temporal focus on EEG, seizure. TECHNIQUE: Diffusion images of the brain with ADC maps. COMPARISON: Post institution head CT 12/17/2017. FINDINGS: Diffusion imaging shows no hyperacute, acute, or early subacute infarction. Ventricles are stable. There is no large extra-axial fluid collection. There is heterogeneous soft tissue at the glabella consistent with the known soft tissue gas and swelling. IMPRESSION: Incomplete exam. No acute infarct. Interpreted By: Natalia SanchesPreliminary Report By: Natalia SanchesElectronicall y Signed By: Natalia Sanches Dictated Date: 12/19/2017 1:06:57 PM Prelim Date: 12/19/2017 1:06:57 PM Sign Date: 12/19/2017 1:11:09 PM Normal [facility] ([place]) Neurology Progress Noteon Neurology Progress Note Normal A [facility] ([place] Pat Eduon 12-19-2017 Pat Edu Normal [facility] [place] Progress Noteon 12-19-2017 Progress Note Normal [facility] [place] .Auto Diffon 12-18-2017 Basophils Auto #/vol (Bld) 0.00 10 3/mcL Normal 0.00-0.27 [facility] ([place] Comment on above: Performed By: #### C BC, ADIFF, ANEU, BMP, GFR ####[address] [address] Basophils/100 WBC Auto (Bld) 0.3 % Normal 0.0-2.5 [facility] ([place] Comment on above: Performed By: #### C BC, ADIFF, ANEU, BMP, GFR ####[address] [address] Eosinophils 0.10 10 3/mcL Normal 0.00-0.65 [facility] ([place] Comment on above: Performed By: #### C BC, ADIFF, ANEU, BMP, GFR ####[address] [address] Eosinophils/100 leukocytes 1.1 % Normal 0.0-6.0 [facility] ([place] Comment on above: Performed By: #### C BC, ADIFF, ANEU, BMP, GFR ####[address] [address] Lymphocytes 2.80 10 3/mcL Normal 0.90-4.32 [facility] ([place] Comment on above: Performed By: #### C BC, ADIFF, ANEU, BMP, GFR ####[address] [address] Lymphocytes/100 leukocytes 29.1 % Normal 20.0-40.0 [facility] ([place] Comment on above: Performed By: #### C BC, ADIFF, ANEU, BMP, GFR ####[address] [address] Monocytes 0.60 10 3/mcL Normal 0.09-1.40 [facility] ([place] Comment on above: Performed By: #### C BC, ADIFF, ANEU, BMP, GFR ####[address] [address] Monocytes/100 leukocytes 6.8 % Normal 2.0-13.0 [facility] ([place] Comment on above: Performed By: #### C BC, ADIFF, ANEU, BMP, GFR ####[address] [address] Neutrophils/100 WBC Auto (Bld) 62.7 % Normal 50.0-75.0 [facility] ([place] Comment on above: Performed By: #### C BC, ADIFF, ANEU, BMP, GFR ####[address] [address] .GFRon 12-18-2017 eGFR (non-black) mL/min/{1.73_m2} Normal [facility] ([place]) Comment on above: Result Comment: GFR Population mean for , Non- Americans Ages 20-29 = 116 mL/min/1.73 sq.m. Ages 30-39 = 107 mL/min/1.73 sq.m. Ages 40-49 = 99 mL/min/1.73 sq.m. Ages 50-59 = 93 mL/min/1.73 sq.m. Ages 60-69 = 85 mL/min/1.73 sq.m. Ages 70+ = 75 mL/min/1.73 sq.m.Chronic Kidney Disease: Less than 60 mL/min/1.73 square metersEnd Stage Renal Disease: Less than 15 mL/min/1.73 square meters Performed By: #### C BC, ADIFF, ANEU, BMP, GFR ####[place] [address] .NEUABSon 12-18-2017 Neutrophils 6.00 10 3/mcL Normal 2.25-8.10 [facility] ([place] Comment on above: Performed By: #### C BC, ADIFF, ANEU, BMP, GFR ####[place] [address] BMPon 12-18-2017 BUN/Creatinine Ratio 10.0 ratio Normal 10.0-22.0 [facility] ([place] Comment on above: Performed By: #### C BC, ADIFF, ANEU, BMP, GFR ####[place] [address] Calcium 9.2 mg/dL Normal 8.4-10.1 [facility] ([place] Comment on above: Performed By: #### C BC, ADIFF, ANEU, BMP, GFR ####[place] [address] Chloride 102 mmol/L Normal 98-110 [facility] ([place] Comment on above: Performed By: #### C BC, ADIFF, ANEU, BMP, GFR ####[place] [address] CO2 27 mmol/L Normal 22-32 [facility] ([place] Comment on above: Performed By: #### C BC, ADIFF, ANEU, BMP, GFR ####[place] [address] Creatinine 0.60 mg/dL Normal 0.50-1.20 [facility] ([place] Comment on above: Performed By: #### C BC, ADIFF, ANEU, BMP, GFR ####[place] [address] Electrolyte Balance 9.0 mEq/L Normal 4.0-15.0 [facility] ([place] Comment on above: Performed By: #### C BC, ADIFF, ANEU, BMP, GFR ####[place] [address] Glucose mass conc 78 mg/dL Normal 70-110 [facility] ([place] Comment on above: Performed By: #### C BC, ADIFF, ANEU, BMP, GFR ####[place] [address] Potassium molar conc 4.2 mmol/L Normal 3.5-5.0 [facility] ([place] Comment on above: Performed By: #### C BC, ADIFF, ANEU, BMP, GFR ####[place] [address] Sodium 138 mmol/L Normal 136-145 [facility] ([place] Comment on above: Performed By: #### C BC, ADIFF, ANEU, BMP, GFR ####[place] [address] Urea nitrogen 6.0 mg/dL Low 8.0-22.0 [facility] ([place] Comment on above: Performed By: #### C BC, ADIFF, ANEU, BMP, GFR ####[place] [address] CBCon 12-18-2017 Erythrocyte distribution width Auto Ratio (RBC) 15.0 % Normal 11.5-15.5 [facility] ([place] Comment on above: Performed By: #### C BC, ADIFF, ANEU, BMP, GFR ####[place] [address] Erythrocytes (RBC) 4.52 10 6/mcL Normal 4.10-5.30 [facility] [place] Comment on above: Performed By: #### C BC, ADIFF, ANEU, BMP, GFR ####[place] [address] Hematocrit (HCT) 39.2 % Normal 34.0-46.0 [facility] ([place] Comment on above: Performed By: #### C BC, ADIFF, ANEU, BMP, GFR ####[place] [address] Hemoglobin mass conc (Bld) 13.1 G/dL Normal 12.0-16.0 [facility] ([place] Comment on above: Performed By: #### C BC, ADIFF, ANEU, BMP, GFR ####[place] [address] MCH 28.8 pg Normal 27.0-33.0 [facility] ([place] Comment on above: Performed By: #### C BC, ADIFF, ANEU, BMP, GFR ####[place] [address] MCHC mass conc (RBC) 33.3 G/dL Normal 32.0-36.0 [facility] ([place] Comment on above: Performed By: #### C BC, ADIFF, ANEU, BMP, GFR ####[place] [address] MCV 86.5 fL Normal 80.0-99.0 [facility] ([place] Comment on above: Performed By: #### C BC, ADIFF, ANEU, BMP, GFR ####[place] [address] Platelet mean volume (PMV) 8.7 fL Normal 6.6-10.5 [facility] ([place] Comment on above: Performed By: #### C BC, ADIFF, ANEU, BMP, GFR ####[place] [address] Platelets 338 10 3/mcL Normal 150-450 [facility] ([place] Comment on above: Performed By: #### C BC, ADIFF, ANEU, BMP, GFR ####[place] [address] WBC (Leukocytes) 9.50 10 3/mcL Normal 4.50-10.80 [facility] ([place] Comment on above: Performed By: #### C BC, ADIFF, ANEU, BMP, GFR ####[place] [address] ED Note-Provideron 8 ED Note-Provider Normal [facility] ([place] History and Physicalon 12-18 History and Physical Normal [facility] ([place] Neurology Consultationon Neurology Consultation Normal [facility] ([place] Neurosurgery Consultationon 12-18-2017 Neurosurgery Consultation Normal [facility] ([place] Patient Summary Documentson 12-18-2017 Patient Summary Documents Normal [facility] ([place] TROPONINon 12-18-2017 Troponin I.cardiac mass conc ng/mL Normal 0.00 - 0.05 [facility] [place] Comment on above: Result Comment: Elev ated troponin (above the 99th percentile) usually indicates myocardialischemia. Results must be interpreted within the clinical setting.1.Non-ischemic pathology can also cause elevated troponin levels (e.g., acute pulmonary embolism, myocarditis, pericarditis, heart failure, intracranial injury, rhabdomyolisis, sepsis, shock and renal insufficiency).2.Approximately 1% of healthy adults have elevated troponin levels.3.Analytical false positive results rarely occur(due to multiple interferences such as heterophile antibodies). Performed By: #### 2 95856 ####[facility] [place],[address] [place] [address] XR HIP MINIMUM 2 VIEWS RIGHT on 12-18-2017 XR HIP MINIMUM 2 VIEWS RIGHT ORIGINALAP view pelvis with 2 views right hip CLINICAL STATEMENT: pain COMPARISON: None FINDINGS: AP view pelvis: The iliopectineal and ilioischial lines are intact. Mild joint space loss noted in the hips. The sacrum is grossly intact. The sacroiliac joints are not well evaluated. 2 views right hip: Mild joint space loss and spurring noted. No fracture or traumatic malalignment. IMPRESSION: Mild degenerative changes. No acute osseous abnormality Interpreted By: Wse Russoreliminary Report By: Wes Russo MDElectronically Signed By: Wes Russo MD Dictated Date: 12/18/2017 1:51:17 AM Prelim Date: 12/18/2017 1:51:17 AM Sign Date: 12/18/2017 1:52:51 AM Normal [facility] ([place]) CBCon 12-17-2017 Basophils Auto #/vol (Bld) 0.00 x10EE3/UL Normal 0.00 - 0.10 [facility] [place] Comment on above: Performed By: #### 2 31112 ####[facility] [place],[address] [place] [address] Basophils/100 WBC Auto (Bld) 0.3 % Normal 0.0 - 2.0 [facility] [place] Comment on above: Performed By: #### 2 13591 ####[facility] [place],[address] [place] [address] CBC Normal [facility] [place] Comment on above: Result Comment: CBC- COMPLETE BLOOD COUNT Performed By: #### 2 02643 ####[facility] [place],[address] [place] [address] Eosinophils Auto #/vol (Bld) 0.00 x10EE3/UL Normal 0.00 - 0.50 [facility] [place] Comment on above: Performed By: #### 2 44037 ####[facility] [place],[address] [place] [address] Eosinophils/100 WBC Auto (Bld) 0.5 % Normal 0.0 - 7.0 [facility] [place] Comment on above: Performed By: #### 2 55745 ####[facility] [place],[address] [place] [address] Erythrocyte distribution width Auto Ratio (RBC) 15.0 % Normal 12.0 - 15.6 [facility] Comment on above: Performed By: #### 2 29105 ####[facility] [place],[address] [place] [address] Hematocrit Auto Volume Fraction (Bld) 40.0 % Normal 34.0 - 46.0 [facility] [place] Comment on above: Performed By: #### 2 22468 ####[facility] [place],[address] [place] [address] Hemoglobin mass conc (Bld) 13.5 g/dL Normal 12.0 - 16.0 [facility] [place] Comment on above: Performed By: #### 2 95356 ####[facility] [place],[address] [place] [address] Lymphocytes Auto #/vol (Bld) 1.30 x10EE3/UL Normal 0.80 - 2.80 [facility] [place] Comment on above: Performed By: #### 2 78615 ####[facility] [place],[address] [place] [address] Lymphocytes/100 WBC Auto (Bld) 13.7 % Low 20.0 - 45.0 [facility] [place] Comment on above: Performed By: #### 2 14959 ####[facility] [place],[address] [place] [address] MANUAL DIFF N/A Normal [facility] [place] Comment on above: Performed By: #### 2 38952 ####[facility] [place],[address] [place] [address] MCH Auto Entitic mass (RBC) 29 pg Normal 27 - 33 [facility] [place] Comment on above: Performed By: #### 2 94123 ####[facility] [place],[address] [place] [address] MCHC Auto mass conc (RBC) 34 X10 3 Normal 32 - 36 [facility] [place] Comment on above: Performed By: #### 2 57081 ####[facility] [place],[address] [place] [address] MCV Auto Entitic volume (RBC) 85 fL Normal 80 - 99 [facility] [place] Comment on above: Performed By: #### 2 39154 ####[facility] [place],[address] [place] [address] Monocytes Auto #/vol (Bld) 0.40 x10EE3/UL Normal 0.20 - 1.00 [facility] [place] Comment on above: Performed By: #### 2 86895 ####[facility] [place],[address] [place] [address] MONOS % 4.8 % Normal 0.0 - 10.0 [facility] [place] Comment on above: Performed By: #### 2 82516 ####[facility] [place],[address] [place] [address] Morphology Interp Jonathan (Bld) N/A Normal [facility] [place] Comment on above: Result Comment: {CD] Performed By: #### 2 [id number] ####[place] [address] Neutrophils Auto #/vol (Bld) 7.50 x10EE3/UL High 1.50 - 7.10 [facility] [place] Comment on above: Performed By: #### 2 63145 ####[facility] [place],[address] [place] [address]65 Neutrophils/100 WBC Auto (Bld) 80.7 % High 46.0 - 76.0 [facility] [place] Comment on above: Performed By: #### 2 20092 ####[facility] [place],[address] [place] [address] 73287 Platelet mean volume Auto Entitic volume (Bld) 8.5 fL Normal 6.6 - 10.5 [facility] [place] Comment on above: Result Comment: AUTO MATED DIFFERENTIAL Performed By: #### 2 51761 ####[address] [address] Platelets Auto #/vol (Bld) 323 x10EE3/UL Normal 150 - 450 [facility] [place] Comment on above: Performed By: #### 2 11453 ####[facility] [place],[address] [place] [address] 54292 RBC Auto #/vol (Bld) 4.71 x 10EE6/UL Normal 4.10 - 5.3 0 [facility] [place] Comment on above: Performed By: #### 2 73141 ####[facility] [place],[address] [place] [address] 72303 WBC Auto #/vol (Bld) 9.3 x 10EE3/UL Normal 4.5 - 10.8 [facility] [place] Comment on above: Performed By: #### 2 23869 ####[facility] [place],[address] [place] [address] 34594 CMP with eGFRon 12-17-2017 Age Reported 42 years Normal [facility] Comment on above: Performed By: #### 2 70969 ####[facility] [place],[address] [place] [address] 55677 Albumin mass conc 3.8 g/dL Normal 3.4 - 4.8 [facility] Comment on above: Performed By: #### 2 64026 ####[facility] [place],[address] [place] [address] 37200 Albumin/Globulin mass ratio 1.2 {ratio} Normal 0.9 - 1.6 [facility] [place] Comment on above: Performed By: #### 2 98270 ####[facility] [place],[address] [place] [address] 47147 ALK PHOS 115 U/L Normal 38 - 126 [facility] [place] Comment on above: Performed By: #### 2 29859 ####[facility] [place],[address] [place] [address] 01816 ALT/SGPT 37 U/L High 8 - 35 [facility] [place] Comment on above: Performed By: #### 2 59133 ####[facility] [place],[address] [place] [address] 61454 Anion gap 3 molar conc 11 mmol/L Normal 10 - 20 [facility] Comment on above: Performed By: #### 2 68145 ####[facility] [place],[address] [place] [address] 20359 AST/SGOT 32 U/L Normal 13 - 39 [facility] [place] Comment on above: Performed By: #### 2 65713 ####[facility] [place],[address] [place] [address] 77066 B/C RATIO 9 ratio Normal 0 - 30 [facility] [place] Comment on above: Performed By: #### 2 81434 ####[facility] [place],[address] [place] [address] 16670 Bilirubin mass conc 0.3 mg/dL Normal 0.0 - 1.5 [facility] [place] Comment on above: Performed By: #### 2 04516 ####[facility] [place],[address] [place] [address] 14249 Calcium mass conc 9.2 mg/dL Normal 8.6 - 10.2 [facility] Comment on above: Performed By: #### 2 45481 ####[facility] [place],[address] [place] [address] 30201 Chloride molar conc 100 mmol/L Normal 98 - 107 [facility] [place] Comment on above: Performed By: #### 2 64961 ####[facility] [place],[address] [place] [address] 53809 CO2 molar conc 25.5 mmol/L Normal 21.0 - 31.0 [facility] Comment on above: Performed By: #### 2 34103 ####[facility] [place],[address] [place] [address] 90449 Creatinine mass conc 0.7 mg/dL Normal 0.6 - 1.2 [facility] [place] Comment on above: Performed By: #### 2 10887 ####[facility] [place],[address] [place] [address] 82334 GFR/1.73 sq M predicted among non-blacks MDRD vol rate/area (S/P/Bld) mL/min/{1.73_m2} Normal 60 - 999 [facility] Comment on above: Result Comment: ACCO RDING TO THE NATIONAL KIDNEY DISEASE EDUCATION PROGRAM(NKDE), A NORMAL eGFRIS A VALUE GREATER THAN OR EQUAL TO 60 ML/MIN/1.73 SQ METERS.CHRONIC KIDNEY DISEASE: <60mL/MIN/1.73 SQ METERSKIDNEY FAILURE: <15mL/MIN/1.73 SQ METERSTHIS TEST SHOULD ONLY BE USED FOR PATIENTS 18 YEARS OF AGE AND OLDER. Performed By: #### 2 32145 ####[facility] [place],[address] [place] [address] 97684 GFR/1.73 sq M predicted among non-blacks MDRD vol rate/area (S/P/Bld) Normal [facility] Comment on above: Result Comment: COMP REHENSIVE METABOLIC PANEL Performed By: #### 2 66503 ####[facility] [place],[address] [place] [address] 33584 Globulin Calculated mass conc (S) 3.1 g/dL Normal 1.5 - 3.8 [facility] [place] Comment on above: Performed By: #### 2 32044 ####[facility] [place],[address] [place] [address] 82297 Glucose mass conc 140 mg/dL High 74 - 106 [facility] Comment on above: Performed By: #### 2 80584 ####[facility] [place],[address] [place] [address] 05070 Potassium molar conc 3.9 mmol/L Normal 3.5 - 5.1 [facility] [place] Comment on above: Performed By: #### 2 00055 ####[facility] [place],[address] [place] [address] 14897 Protein mass conc 6.9 g/dL Normal 6.4 - 8.3 [facility] Comment on above: Performed By: #### 2 28239 ####[facility] [place],[address] [place] [address] 30700 Sodium molar conc 133 mmol/L Low 136 - 145 [facility] Comment on above: Performed By: #### 2 59593 ####[facility] [place],[address] [place] [address] 74798 Urea nitrogen mass conc 6 mg/dL Normal 6 - 20 [facility] Comment on above: Performed By: #### 2 00613 ####[facility] [place],[address] [place] [address] BRAIN W/O CONTRASTon 12-02 CT BRAIN W/O CONTRAST [place] [address] Patient: LOUIS BRAN Phone#: : 1975 Age: 42 Gender: F Pt. Type: ER Account: [id number] Location: [facility] Ordering: DARRON JARAMILLO Exam Date: 12/17/2017/20:51 Family Phys: LOWELL HINKLE Charge Code: [id number] Physician: Rock Order #: [id number] DLP Dose#: PROCEDURE: CT BRAIN WITHOUT CONTRAST COMPARISON: [facility], CT, BRAIN W/O CON, 03/31/2017, 15:27. INDICATIONS: Trauma TECHNIQUE: CT images were obtained without contrast material. All CT scans at this facility use dose modulation, iterative reconstruction, and/or weight based dosing when appropriate to reduce radiation dose to as low as reasonably achievable. IV CONTRAST: No IV contrast used,0ml TOTAL DOSE: 52.30 CTDIvol(mGy) FINDINGS: CEREBRUM: No edema, hemorrhage, mass, acute infarction, or inappropriate atrophy. CEREBELLUM: No edema, hemorrhage, mass, acute infarction, or inappropriate atrophy. BRAINSTEM: No edema, hemorrhage, mass, acute infarction, or inappropriate atrophy. CSF SPACES: Ventricles, cisterns, and sulci are appropriate for age. No hydrocephalus, subarachnoid hemorrhage, or mass. SKULL: No mass or other significant visible lesion. SINUSES: Limited views demonstrate no significant mucosal thickening or fluid. ORBITS: Limited views are unremarkable. OTHER: No fracture the nasal bridge is present. Subcutaneous air and soft tissue swelling overlying the nasal bridge is present. A sinus fracture is suspected although not visualized. CONCLUSION: 1. Nasal bridge fracture. 2. There is no evidence of acute intracranial abnormality. [place] [address] Patient: LOUIS BRAN Phone#: : 1975 Age: 42 Gender: F Pt. Type: ER Account: [id number] Location: [facility] Ordering: DARRON JARAMILLO Exam Date: 12/17/2017/20:51 Family Phys: LOWELL HINKLE Charge Code: [id number] Physician: Rock Order #: [id number] DLP Dose#: Dictated by: Alisia Leiva MD on 12/18/2017 at 8:33 Approved by: Alisia Leiva MD on 12/18/2017 at 8:33 Normal [facility] [place] CT CERVICAL W/O CONTRASTon 0 12-17-2017 CT CERVICAL W/O CONTRAST [place] [address] Patient: LOUIS BRAN Phone#: : 1975 Age: 42 Gender: F Pt. Type: ER Account: [id number] Location: 052 Ordering: [employer] Exam Date: 12/17/2017/20:51 Family Phys: LOWELL I. CEBUL Charge Code: [id number] Physician: Rock Order #: [id number] DLP Dose#: PROCEDURE: CT CERVICAL WITHOUT CONTRAST COMPARISON: [facility], XR, CERVICAL SPINE COMPLETE, 12/16/2014, 13:44. INDICATIONS: Trauma TECHNIQUE: Multi-planar CT images were created without intravenous contrast. All CT scans at this facility use dose modulation, iterative reconstruction, and/or weight based dosing when appropriate to reduce radiation dose to as low as reasonably achievable. IV CONTRAST: No IV contrast used,0ml TOTAL DOSE: 15.20 CTDIvol(mGy) FINDINGS: CRANIOCERVICAL AREA: Normal foramen magnum with no Chiari malformation. PARASPINAL AREA: Normal with no visible mass. BONES: Right pedicle at the C2 level. Bony hypertrophy is present at the right C2- 3 articular junction. On sagittal imaging there is a faint vertical lucency involving the right C3 vertebral body suspicious for superimposed acute fracture at the site previous healed fracture. There is otherwise no evidence of subluxation. No other acute fractures demonstrated. There is straightening of the normal cervical lordosis. CERVICAL DISC LEVELS: C2-C3: Acute nondisplaced fracture of the vertebral body superimposed on healed fracture is suspected. There is marked deformity at the right C2-3 articulation. C3-C4: No significant disc/facet abnormality, spinal stenosis, or foraminal stenosis. C4-C5: No significant disc/facet abnormality, spinal stenosis, or foraminal stenosis. C5-C6: No significant disc/facet abnormality, spinal stenosis, or foraminal stenosis. Continued Report - Page 2 of 2 Patient: LOUIS BRAN Phone#: : 1975 Age: 42 Gender: F Pt. Type: ER Account: [id number] Location: 052 Ordering: [employer] Exam Date: 12/17/2017/20:51 Family Phys: LOWELL I. CEBUL Charge Code: [id number] Physician: Rock Order #: [id number] DLP Dose#: C6-C7: No significant disc/facet abnormality, spinal stenosis, or foraminal stenosis. Mild central disc bulging is present. C7-T1: No significant disc/facet abnormality, spinal stenosis, or foraminal stenosis. CONCLUSION: 1. Marked deformity at the right articulation at C2-3 related to remote trauma. Superimposed acute fracture involving the right lateral aspect of the C3 vertebral body is suspected. Prior CT is not available for comparison. 2. Findings were discussed with Dr. Darron Jaramillo at the time of preliminary report. Dictated by: Alisia Leiva MD on 12/18/2017 at 8:52 Approved by: Alisia Leiva MD on 12/18/2017 at 8:52 Normal [facility] [place] CT FACIAL BONES W/O CONTRAST on 12-17-2017 CT FACIAL BONES W/O CONTRAST [place] [address] Patient: LOUIS BRAN Phone#: : 1975 Age: 42 Gender: F Pt. Type: ER Account: [id number] Location: [facility] Ordering: ADRRON JARAMILLO Exam Date: 12/17/2017/20:51 Family Phys: LOWELL HINKLE Charge Code: [id number] Physician: Rock Order #: [id number] DLP Dose#: PROCEDURE: CT FACIAL BONES WITHOUT CONTRAST COMPARISON: None. INDICATIONS: Trauma TECHNIQUE: After obtaining the patient's consent, CT images were created without non-ionic intravenous contrast. All CT scans at this facility use dose modulation, iterative reconstruction, and/or weight based dosing when appropriate to reduce radiation dose to as low as reasonably achievable. IV CONTRAST: No IV contrast used,0ml TOTAL DOSE: 27.80 CTDIvol(mGy) FINDINGS: FACIAL BONES: Normal. No bony lesion or fracture SINUSES: Mucosal thickening is present in the ethmoid and left maxillary sinus. NASAL FOSSA: There is nondisplaced comminuted fracture of the nasal bridge. There is soft tissue swelling and subcutaneous air overlying the nasal bridge. SKULL BASE: Normal. No mass or bone destruction. ORBITS: Normal. No visible mass, hematoma, edema or fracture. CAVERNOUS SINUS: Normal. Symmetric appearance with no visible lesion. SALIVARY GLANDS: Normal. The parotid and submandibular glands are unremarkable. OTHER: Normal. The nasopharynx, oropharynx, and oral cavity are unremarkable. No lymphadenopathy. CONCLUSION: Continued Report - Page 2 of 2 Patient: LOUIS BRAN Phone#: : 1975 Age: 42 Gender: F Pt. Type: ER Account: [id number] Location: 052 Ordering: DARRON JARAMILLO Exam Date: 12/17/2017/20:51 Family Phys: LOWELL HINKLE Charge Code: [id number] Physician: Rock Order #: [id number] DLP Dose#: 1. Comminuted fracture the nasal bridge. Soft tissue swelling and air is present overlying the nasal bone. Dictated by: Alisia Leiva MD on 12/18/2017 at 8:43 Approved by: Alisia Leiva MD on 12/18/2017 at 8:43 Normal [facility] [place] OPERATIVE PROCEDURESon 11-28 Protein mass [facility] OPERATIVE REPORT NAME ACCOUNT SEX AGE ADMIT DISCHARGE PT MED. RECORD# NUMBER DATE DATE TYPE SHANT [id number] F 42 11/27/17 11/27/17 2 LOUIS Yadav [id number] ROOM: [facility] DATE OF : 1975 DICTATING PHYSICIAN: Melba Dixon DATE OF SURGERY: 11/27/2017 SURGEON: Melba Dixon MD CONTROL VALVE MECHANIC: ANESTHESIOLOGIST: Dimitry Hancock CRNA ANESTHETIC: PREOPERATIVE DIAGNOSIS: Abdominal pain, hemorrhoids, diverticulosis. POSTOPERATIVE DIAGNOSIS: OPERATION PERFORMED: Colonoscopy. SPECIMEN: None. COMPLICATIONS: DISPOSITION: Stable to recovery. ESTIMATED BLOOD LOSS: None. INDICATIONS: Louis Batista is a 42-year-old lady with a history of recurrent abdominal pain and after informed consent, was brought to endoscopy, placed on a padded gurney. She had already been given a timeout and verification had been done. She was given intravenous sedation, additional sedation was titrated as needed throughout the procedure with monitoring. Digital examination showed external hemorrhoidal tags perhaps slightly decreased rectal tone, multiple internal tags, but no truly discrete mass. DESCRIPTION OF OPERATION: The Olympus CF-H1 190L flexible endoscope was introduced through the anal verge and carefully advanced protecting surrounding mucosa. Prep was not very good, but with copious irrigation and suctioning the view Page 1 of 2 LOUIS BRAN Operative Report improved. Scope was advanced through the rectal vault and into a rather tortuous sigmoid colon. A few scattered diverticula. Scope was advanced through the descending colon beyond the splenic flexure, transverse colon, hepatic flexure, ascending colon toward the ileocecal junction. Fluid, mucus and stool particles were irrigated and suctioned. The landmarks were noted. The scope was carefully rotated with irrigation and suctioning and back and forth movement. The colon was rather patulous, floppy, difficult to cannulate and required repeated repositioning and irrigation and suctioning, in fact over 2 whole canisters were used to suction, irrigate and clean the colon. Then the cecum and ascending, and transverse, descending and sigmoid colon again were carefully viewed as the scope was withdrawn with rotation, irrigation, suctioning and back and forth movement. The sigmoid colon was carefully viewed and then the rectal vault viewed with retroflexion. There were some internal hemorrhoids clearly visible. The scope was straightened out and withdrawn with decompression. There were internal and external hemorrhoids, but no tear, no fissure, no fungating mass. No angiodysplasia. No biopsies were taken. The hemorrhoids can be followed as an outpatient. The patient does have a few scattered diverticula. Scope was withdrawn and the patient tolerated the procedure well. Patient was sent to recovery in stable condition. Case will be discussed with her when she is more awake. D: Melba Dixon MD TD: 11/27/17 21:10 JOB #: [id number] Transcribed by: rd Electronically signed by: E-Sign Dr. Melba Dixon MD 11/28/17 19:07 Page 2 of 2 LOUIS BRAN Operative Report Normal [facility] [place] Protein mass [facility] OPERATIVE REPORT NAME ACCOUNT SEX AGE ADMIT DISCHARGE PT MED. RECORD# NUMBER DATE DATE TYPE SHANT [id number] F 42 11/27/17 11/27/17 Gonzalez Yadav [id number] ROOM: [facility] DATE OF : 1975 DICTATING PHYSICIAN: Melba Dixon ADDENDUM Correction for dictation #[id number] The correction should be at the end of the dictation where it says, The patient tolerated the procedure well. Add this statement: Patient can have repeat endoscopy in 10 years unless she has GI bleedings or other problems. D: Melba Dixon MD TD: 11/27/17 22:14 JOB #: [id number] Transcribed by: rd Electronically signed by: E-Sign Dr. Melba Dixon MD 11/28/17 19:07 Page 1 of 1 LOUIS BRAN Operative Report Normal [facility] [place] Protein mass [facility] OPERATIVE REPORT NAME ACCOUNT SEX AGE ADMIT DISCHARGE PT MED. RECORD# NUMBER DATE DATE TYPE SHANT [id number] F 42 11/27/17 11/27/17 2 LOUIS Yadav [id number] ROOM: [facility] DATE OF : 1975 DICTATING PHYSICIAN: Melba Dixon DATE OF SURGERY: 11/27/2017. SURGEON: Melba Dixon M.D. CONTROL VALVE MECHANIC: ANESTHESIOLOGIST: Dimitry Hancock C.R.N.A. ANESTHETIC: PREOPERATIVE DIAGNOSIS: Abdominal pain, hiatal hernia, esophagitis. POSTOPERATIVE DIAGNOSIS: OPERATION PERFORMED: EGD. COMPLICATIONS: ESTIMATED BLOOD LOSS: None. SPECIMEN: None. DISPOSITION: Stable. INDICATION: The patient is 42-year-old lady with abdominal pain on a recurrent basis. DESCRIPTION OF OPERATION: After informed consent she was brought to Endoscopy, placed on a padded gurney in the left lateral decubitus position with adequate padding at pressure points. A time out verification done. 2% viscous lidocaine was placed to the oropharynx, a bite block was placed. The patient was given intravenous sedation per Anesthesia with monitoring throughout. The Olympus GIF-HQ190 flexible endoscope was passed through the bite block and oropharynx into the esophagus and carefully advanced protecting the mucosa. The proximal esophagus is unremarkable with no mass. There is lots of mucous in the oropharynx, which was suctioned and some of this removed. Scope was advanced into the distal esophagus and there is a hiatal hernia with patch erythema but no ulcerations. Scope was passed Page 1 of 2 LOUIS BRAN Operative Report down the GE junction, retroflexed in the fundus and GE junction and hiatal hernia viewed from below. The scope was straightened out, advanced into the distal gastric body then on in to the second portion of the duodenum with irrigation and suctioning and back and forth movement. The scope is carefully withdrawn with irrigation suctioning, back and forth movement, bulb, pylorus and antrum are carefully viewed. The rest of the gastric body is viewed. There is no ulceration. No heaping up. No exposed muscle. No active bleeding. No angiodysplasia. Scope was withdrawn with decompression. The patient tolerated the procedure well and the case will be discussed with the patient when she is more awake. D: Melba Dixon MD TD: 11/28/17 08:08 JOB #: [id number] Transcribed by: so Electronically signed by: E-Sign Dr. Melba Dixon MD 11/28/17 19:07 Page 2 of 2 LOUIS BRAN Operative Report Normal [facility] [place] URINEon 11-27-2017 EXTERNAL QC DONE? YES Normal [facility] Comment on above: Performed By: #### 2 [id number] ####[facility] [place],[address] [place] [address] INTERNAL QC PASS Normal [facility] [place] Comment on above: Performed By: #### 2 [id number] ####[facility] [place],[address] [place] [address] UR Negative Normal NEGATIVE [facility] Comment on above: Performed By: #### 2 [id number] ####[facility] [place],[address] [place] [address] Vital Signs Date Time Vital Sign Value Performing Clinician Facility 11-24-2024 14:52-0400 Body height 177.[address] Anali Dolan MD Work Phone: [facility] 11-24-2024 14:52-0400 Body mass index (BMI) [Ratio] 33 kg/m2 Dr. Anali Dolan MD Work Phone: [facility] 11-24-2024 14:52-0400 Body temperature 98.6 [degF] Dr. Anali Dolan MD Work Phone: [facility] 11-24-2024 14:52-0400 Body weight 104.[address] Anali Dolan MD Work Phone: [facility] 11-24-2024 14:52-0400 Diastolic blood pressure 82 mm[Hg] Dr. Anali Dolan MD Work Phone: [facility] 11-24-2024 14:52-0400 Heart rate 71 /min Dr. Anali Dolan MD Work Phone: [facility] 11-24-2024 14:52-0400 Respiratory rate 16 /min Dr. Anali Dolan MD Work Phone: [facility] 11-24-2024 14:52-0400 SaO2% (BldA) [Mass fraction] 92 % Dr. Anali Dolan MD Work Phone: [facility] 11-24-2024 14:52-0400 Systolic blood pressure 126 mm[Hg] Dr. Anali Dolan MD Work Phone: [facility] 10-15-2024 10:00-0500 Body mass index (BMI) [Ratio] 36.63 kg/m2 Will Ross MD Work Phone: [facility] 10-15-2024 10:00-0500 Body temperature 98.2 [degF] Will Ross MD Work Phone: [facility] 10-15-2024 10:00-0500 Body weight 101.8 kg Will Ross MD Work Phone: [facility] 10-15-2024 10:00-0500 Diastolic blood pressure 72 mm[Hg] Will Ross MD Work Phone: [facility] 10-15-2024 10:00-0500 Heart rate 65 /min Will Ross MD Work Phone: [facility] 10-15-2024 10:00-0500 Respiratory rate 21 /min Will Ross MD Work Phone: [facility] 10-15-2024 10:00-0500 SaO2% (BldA) [Mass fraction] 93 % Will Ross MD Work Phone: [facility] 10-15-2024 10:00-0500 Systolic blood pressure 110 mm[Hg] Will Ross MD Work Phone: [facility] 08-25-2024 14:32-0500 Body mass index (BMI) [Ratio] 33 kg/m2 Dr. Anali Dolan MD Work Phone: [facility] 08-25-2024 14:32-0500 Body temperature 98.2 [degF] Dr. Anali Dolan MD Work Phone: [facility] 08-25-2024 14:32-0500 Body weight 104.[address] Anali Dolan MD Work Phone: [facility] 08-25-2024 14:32-0500 Diastolic blood pressure 82 mm[Hg] Dr. Anali Dolan MD Work Phone: [facility] 08-25-2024 14:32-0500 Heart rate 77 /min Dr. Anali Dolan MD Work Phone: [facility] 08-25-2024 14:32-0500 Respiratory rate 16 /min Dr. Anali Dolan MD Work Phone: [facility] 08-25-2024 14:32-0500 SaO2% (BldA) [Mass fraction] 92 % Dr. Anali Dolan MD Work Phone: [facility] 08-25-2024 14:32-0500 Systolic blood pressure 122 mm[Hg] Dr. Anali Dolan MD Work Phone: [facility] 08-18-2024 12:52-0500 Body mass index (BMI) [Ratio] 32.3 kg/m2 Dr. Anali Dolan MD Work Phone: [facility] 08-18-2024 12:52-0500 Body temperature 98.4 [degF] Dr. Anali Dolan MD Work Phone: [facility] 08-18-2024 12:52-0500 Body weight 102.[address] Anali Dolan MD Work Phone: [facility] 08-18-2024 12:52-0500 Diastolic blood pressure 84 mm[Hg] Dr. Anali Dolan MD Work Phone: [facility] 08-18-2024 12:52-0500 Heart rate 86 /min Dr. Anali Dolan MD Work Phone: [facility] 08-18-2024 12:52-0500 Respiratory rate 16 /min Dr. Anali Dolan MD Work Phone: [facility] 08-18-2024 12:52-0500 SaO2% (BldA) [Mass fraction] 91 % Dr. Anali Dolan MD Work Phone: [facility] 08-18-2024 12:52-0500 Systolic blood pressure 124 mm[Hg] Dr. Anali Dolan MD Work Phone: [facility] 10-14-2022 11:48-0500 Body temperature 97.81 [degF] Rand Salas FACILITIES AND GROUNDS DIRECTOR.GAMBLING DEALER Work Phone: [facility] 10-14-2022 11:48-0500 Body weight 103.87 kg Rand Salas FACILITIES AND GROUNDS DIRECTOR.GAMBLING DEALER Work Phone: [facility] 10-14-2022 11:48-0500 Diastolic blood pressure 60 mm[Hg] Rand Salas FACILITIES AND GROUNDS DIRECTOR.GAMBLING DEALER Work Phone: [facility] 10-14-2022 11:48-0500 Heart rate 110 /min Rand Salas FACILITIES AND GROUNDS DIRECTOR.GAMBLING DEALER Work Phone: [facility] 10-14-2022 11:48-0500 Respiratory rate 18 /min Rand Salas FACILITIES AND GROUNDS DIRECTOR.GAMBLING DEALER Work Phone: [facility] 10-14-2022 11:48-0500 SaO2% (BldA) [Mass fraction] 95 % Rand Salas FACILITIES AND GROUNDS DIRECTOR.GAMBLING DEALER Work Phone: [facility] 10-14-2022 11:48-0500 Systolic blood pressure 110 mm[Hg] Rand Salas FACILITIES AND GROUNDS DIRECTOR.GAMBLING DEALER Work Phone: [facility] 05-10-2022 13:54-0400 Body temperature 97.3 [degF] Dr. Anali Dolan Work Phone: [facility] Work Phone: 05-10-2022 13:54-0400 Body weight 101.[address] Anali Dolan Work Phone: [facility] Work Phone: 05-10-2022 13:54-0400 Diastolic blood pressure 86 mm[Hg] Dr. Anali Dolan Work Phone: [facility] Work Phone: 05-10-2022 13:54-0400 Heart rate 91 /min Dr. Anali Dolan Work Phone: [facility] Work Phone: 05-10-2022 13:54-0400 Respiratory rate 18 /min Dr. Anali Dolan Work Phone: [facility] Work Phone: 05-10-2022 13:54-0400 SaO2% (BldA) [Mass fraction] 92 % Dr. Anali Dolan Work Phone: [facility] Work Phone: 05-10-2022 13:54-0400 Systolic blood pressure 123 mm[Hg] Dr. Anali Dolan Work Phone: [facility] Work Phone: Encounters Encounter Date Encounter Type Care Provider Facility Start: 04-27-2025 ambulatory Anali Dolan Facility :[facility] Start: 11-24-2024 End: 11-24-[address] Anali Dolan MD -[facility] Work Phone: Start: 11-24-2024 End: 11-24-2024 ambulatory Anali Dolan Facility:[facility] Start: 11-20-2024 End: 11-20-[address] Anali Dolan MD Work Phone: [facility] Work Phone: Start: 11-20-2024 End: 11-20-[address] Anali Dolan MD -[facility] Start: 11-20-2024 End: 11-20-2024 ambulatory Anali Dolan Facility:[facility] Start: 10-29-2024 End: 10-29-2024 ambulatory MICHAEL JOHNSON Facility:[facility] Start: 10-15-2024 End: 10-15-2024 ambulatory MAYCO JOYCE Facility:[facility] Start: 10-15-2024 End: 10-15-2024 Office outpatient visit 25 minutes Will Ross MD Work Phone: [facility] Comment on above: Influenza-like illne ss (Primary Dx); Asthma with COPD with exacerbation (HCC) Start: 10-14-2024 End: 12-14-2024 Follow-up encounter Michael Johnson Work Phone: Podiatry Start: 10-10-2024 End: 10-10-2024 Subsequent hospital visit by physician [facility] Work Phone: Radiology Comment on above: Ingrowing toenail of right foot [L60.0] Start: 10-10-2024 End: 10-10-2024 ambulatory MAYCO COOK Facility:[facility] Start: 10-10-2024 End: 10-10-2024 Patient encounter procedure Michael Johnson Work Phone: Podiatry Comment on above: Ingrowing toenail of right foot (Primary Dx); Onychodystrophy; Diminished pulses in lower extremity Start: 08-25-2024 End: 08-25-[address] Anali Dolan MD -[facility] Work Phone: Start: 08-25-2024 End: 08-25-2024 ambulatory Anali Dolan Facility:[facility] Start: 08-19-2024 End: 08-19-[address] Anali Dolan MD -[facility] Start: 08-18-2024 End: 08-18-[address] Anali Dolan MD -[facility] Work Phone: Start: 08-18-2024 End: 08-19-2024 ambulatory Anali Dloan Facility:[facility] Start: 10-14-2022 End: 10-14-2022 Patient encounter procedure Rand Josue FARFANGAMBLING DEALER Work Phone: [facility] Comment on above: Acute otitis media, left (Primary Dx) Start: 06-02-2022 End: 06-02-[address] Anali Dolan Work Phone: [facility] Work Phone: Start: 06-02-2022 End: 06-02-[address] Anali Dolan Work Phone: [facility], [facility] Start: 05-10-2022 End: 05-10-[address] Anali Dolan Work Phone: [facility] Internal Medicine Start: 03-01-2022 ambulatory Mayco TRINH RN.GAMBLING DEALER, DNP Work Phone: Internal Medicine [facility] [place] Start: 05-29-2018 End: 05-29-2018 Emergency department patient visit POLLY BARKER [facility] Start: 04-20-2018 End: 04-20-2018 Emergency department patient visit DINESH YOO [facility] Start: 04-12-2018 End: 04-12-2018 Patient encounter MELBA DESTINY [facility] Start: 03-19-2018 End: 03-19-2018 Patient encounter MELBA DIXON [facility] Start: 02-26-2018 End: 02-27-2018 Emergency department patient visit LYDIA SOLIZ [facility] Start: 02-21-2018 End: 02-21-2018 Emergency department patient visit DARRON Magdaleno EZRA [facility] Start: 02-21-2018 End: 02-21-2018 Patient encounter NATALIA DEMPSEY [facility] Start: 02-17-2018 End: 02-19-2018 Ambulatory LOWELL A III CEBUL Facility:A Start: 02-17-2018 End: 02-17-2018 Emergency department patient visit DARRON Magdaleno EZRA [facility] Start: 02-11-2018 Patient encounter NATALIA Alejo [facility] Start: 01-23-2018 End: 01-23-2018 Emergency department patient visit JOSE RAMON Armando SHERMAN Facility:B Start: 12-25-2017 End: 12-25-2017 Emergency department patient visit GUANAKO CANTRELL [facility] Start: 12-18-2017 End: 12-19-2017 Ambulatory LOWELL A III CEBUL Facility:[facility] Start: 12-17-2017 End: 12-18-2017 Emergency department patient visit DARRON Sharla [facility] Start: 11-27-2017 End: 11-27-2017 Patient encounter MELBA [facility] Start: 11-15-2017 End: 11-15-2017 Patient encounter MELBA [facility] Start: 02-19-2017 End: 02-19-2017 Ambulatory [facility] Start: 11-30-2016 End: 12-01-2016 Evaluation and management of inpatient Mayco Trevinorafianoop Facility:[facility] Start: 01-22-2016 End: 01-22-[address] Facility:[facility] Procedures Date Procedure Procedure Detail Performing Clinician Start: 11-08-2020 Adult depression scr eening assessment Mayco Cook FACILITIES AND GROUNDS DIRECTOR.GAMBLING DEALER, DNP Work Phone: Start: 06-17-2018 Lipid 1996 panel - S paresh or Plasma [facility] Work Phone: Start: 02-17-2018 Urinalysis MELBA Gleason Comment on above: Result Comment: URIN ALYSIS Performed By: #### [id number] ####[facility],[address] [place] [address] Start: 12-25-2017 Urinalysis MELBA Gleason Comment on above: Result Comment: URIN ALYSIS Performed By: #### [id number] ####Jose Ramon [facility],[address] [place] [id number] Start: 07-24-2017 Mammography Mayco carrero APRN.TITA, FITO Work Phone: Start: 11-07-2013 Colonoscopy Mayco carrero APRN.TITA, FITO Work Phone: Plan of Treatment Date Care Activity Detail Author Start: 10-29-2024 End: 10-29-2024 Patient encounter procedure 10/29/2024 3:30 PM EST Office Visit [facility] [address] [place] [address] Diminished pulses in lower extremity [R09.89] [facility] Comment on above: Diminished pulses in lower extremity [R09.89] Start: 05-04-2024 Covid-19 Vaccine ( season) Covid-19 Vaccine ( season) [facility] Start: 05-04-2024 Influenza vaccination Influenza Vacc ine (#1) [facility] Start: 11-09-2023 DIABETES SCREEN [facility]EN [facility] Start: 11-09-2023 Diabetes Screening Diabetes Screenin g [facility] Start: 2023 Pneumococcal Vaccine : 50+ (3 of 3 - PCV20 or PCV21) Pneumococcal Vaccine: 50+ (3 of 3 - PCV20 or PCV21) [facility] Start: 2023 Shingrix Vaccine (1 of 2) Shingrix Vaccine (1 of 2) [facility] Start: 06-17-2023 Lipid panel Lipid Screening [facility] Start: 06-17-2023 LIPID SCREEN LIPID SCREEN [facility] Start: 11-26-2022 HPV TESTING HPV TESTING [facility] Start: 11-26-2022 PAP TESTING PAP TESTING [facility] Start: 11-26-2022 Screening for malign ant neoplasm of cervix Cervical Cancer Screening [facility] Start: 09-03-2022 DEPRESSION ASSESSMENT DEPRESSION ASS ESSMENT [facility] Start: 05-04-2022 Influenza vaccination INFLUENZA (#1) [facility] Start: 01-18-2022 ANNUAL PCP TEAM LICENSED OPTICAL DISPENSER KANE DISEASE VISIT ANNUAL PCP TEAM CHRONIC DISEASE VISIT [facility] Start: 11-08-2021 Adult depression screening assessment DEPRESSION SCREENING [facility] Start: 09-02-2021 COVID-19 VACCINE (3 - Booster for Marcela series) COVID-19 VACCINE (3 - Booster for Marcela series) [facility] Start: 2018 COLOGUARD (FIT-DNA) COLOGUARD (FIT-D NA) [facility] Start: 2018 Colonoscopy COLONOSCOPY [facility] Start: 2018 COLORECTAL CANCER SCREENING COLORECTAL CANCER SCREENING [facility] Start: [address] COLONOGRAPHY [facility] Start: 2018 FECAL OCCULT BLOOD FECAL OCCULT BLOO D [facility] Start: 2018 Screening for malign ant neoplasm of colon [facility] Start: 2018 SIGMOIDOSCOPY SIGMOIDOSCOPY [facility] Start: 07-24-2018 Mammography MAMMOGRAM [facility] Start: 07-24-2018 Screening for malign ant neoplasm of breast Mammogram Screening [facility] Start: 07-11-2012 PNEUMOCOCCAL (2 - PCV) PNEUMOCOCCAL (2 - PCV) [facility] Start: 2003 Zoledronic acid therapy ALPHA- 1 ANTITRYPSIN DEFICIENCY SCREENING [facility] Start: 1992 Hepatitis B Vaccine (1 of 3 - 19+ 3-dose series) Hepatitis B Vaccine (1 of 3 - 19+ 3-dose series) [facility] Start: 1992 Urine microalbumin profile [facility] Start: 1991 Depression Screening Depression Scre ening [facility] Start: 1991 SPIROMETRY SPIROMETRY [facility] Start: 03-27-1974 COVID-19 VACCINE (#1) COVID-19 VACCI NE (#1) [facility] Start: 1973 HEPATITIS B (1 of 3 - 3-dose series) HEPATITIS B (1 of 3 - 3-dose series) [facility] Comprehensive metabo lic 1999 panel - Serum or Plasma [facility] Hemoglobin A1c/Hemoglobin.total in Blood [facility] Lipid 1996 panel - S paresh or Plasma [facility] End: 03-31-2023 Screening mammography bi 2-view breast inc cad SCOTT SCREENING Radiology Routine Encounter for screening mammogram for breast cancer 1 Occurrences starting 03/01/2022 until 03/31/2023 [facility] Work Phone: Comment on above: 1 Occurrences starti ng 03/01/2022 until 03/31/2023 Thyroid stimulating hormone measurement [facility] End: 10-10-2025 US.doppler Extremity arteries - bilateral for physiologic artery study PVR [facility]K [facility] Routine Diminished pulses in lower extremity 1 Occurrences starting 10/10/2024 until 10/10/2025 [facility] Work Phone: Comment on above: 1 Occurrences starti ng 10/10/2024 until 10/10/2025 Vitamin D, 25-hydrox y measurement [facility] XR Toes - right 3 Views XR TOE A P/LAT/OBL RIGHT Radiology Routine Ingrowing toenail of right foot 10/10/2024 12:08 PM EST [facility] Work Phone: End: 11-09-2025 XR Toes - right 3 Views XR TOE AP/LAT/OBL RIGHT Radiology Routine Ingrowing toenail of right foot 1 Occurrences starting 10/10/2024 until 11/09/2025 [facility] Comment on above: 1 Occurrences starti ng 10/10/2024 until 11/09/2025 Immunizations Immunization Date Immunization Notes Care Provider Andrews godinez 07-08-2021 Covid (Moderna) Dr. Anali schreiber Work Phone: [facility] 07-08-[address] Anali Dolan Work Phone: [facility] 07-08-2021 influenza virus vacc ine, unspecified formulation [facility] Mob Work Phone: [facility] 01-20-2021 Covid ([facility]) Dr. Anali Dolan Work Phone: [facility] 07-11-[address] Anali Dolan Work Phone: [facility] 07-01-2018 influenza, injectabl e, quadrivalent, contains preservative Mayco Cook FACILITIES AND GROUNDS DIRECTOR.GAMBLING DEALER, DNP Work Phone: [facility] 07-24-2017 influenza, injectabl e, quadrivalent, contains preservative Mayco Cook FACILITIES AND GROUNDS DIRECTOR.[facility] Work Phone: [facility] 06-03-2017 pneumococcal conjuga te vaccine, [address] 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.[facility] Work Phone: [facility] 06-16-2015 influenza, injectabl e, quadrivalent, contains preservative Mayco Blaz FACILITIES AND GROUNDS DIRECTOR.[facility] Work Phone: [facility] Work Phone: 06-26-2013 influenza virus vacc ine, unspecified formulation Mayco Blaz FACILITIES AND GROUNDS DIRECTOR.[facility] Work Phone: [facility] 07-09-2012 influenza virus vacc ine, unspecified formulation Mayco Blaz FACILITIES AND GROUNDS DIRECTOR.[facility] Work Phone: [facility] 07-11-2011 influenza virus vacc ine, unspecified formulation Mayco Blaz FACILITIES AND GROUNDS DIRECTOR.[facility] Work Phone: [facility] Work Phone: 07-11-2011 pneumococcal polysaccharide vaccine, 23 valent Mayco Cook FACILITIES AND GROUNDS DIRECTOR.[facility] Work Phone: [facility] Work Phone: 08-10-2010 influenza virus vacc ine, unspecified formulation Mayco Blaz FACILITIES AND GROUNDS DIRECTOR.[facility] Work Phone: [facility] Payers Date Payer Category Payer Self-pay [id number] 2022 Medicaid [id number] 2022 Medicaid [id number] 2020 Medicaid [facility] [facility] MEDICAID [id number] 2020-Present [phone] [address] [place] [address] Medicaid [id number] 2020 Unknown [employer] CARD HMO OOS [id number] 2020-Present [phone] [address] [place] [address] HMO [id number] 2016 Medicaid [id number] 1973 Unknown [id number] 1973 Unknown [id number] [id number] 1973 Unknown [id number] [id number] 1973 Unknown [id number] [id number] 1973 Unknown [id number] [id number] 1973 Unknown [id number] [id number] 1973 Unknown [id number] [id number] 1973 Unknown [id number] [id number] 1973 Unknown [id number] [id number] 1973 Unknown [id number] [id number] 1973 Unknown [id number] [id number] 1973 Unknown [id number] [id number] 1973 Unknown [id number] [id number] Unknown [id number] [id number] Unknown [id number] [id number] Unknown [id number] [id number] Unknown [id number] [id number] Unknown [id number] [id number] Unknown [id number] Social History Date Type Detail Facility Start: 02-17-2016 End: 10-10-2024 Tobacco smoking status NHIS Smokes tobacco daily [facility] History of tobacco use Cigarette Smoker C [facility] Start: 02-17-2016 End: 09-16-2024 Cigarettes smoked current (pack per day) - Reported 0.5 [facility] Start: 02-17-2016 End: 10-10-2024 Tobacco use and exposure Smokeless tobacco non-user [facility] Start: 01-18-2021 End: 10-10-2024 Alcohol intake Current non-drinker of alcohol (finding) [facility] Start: 07-24-2017 End: 10-14-2022 Tobacco Comment smokes 5 cigs a day [facility] Start: 1975 Sex Assigned At Not on file C [facility] Start: 05-10-2022 Tobacco smoking stat us MSIS Unknown if ever smoked [facility] Work Phone: Start: 03-15-2017 None [facility] Start: 07-18-2018 - [facility] Start: 07-13-2021 Cigarettes [facility] Start: 1975 Sex Assigned At Female W [facility] Start: 09-16-2024 End: 10-10-2024 Tobacco use panel [facility] Adult Depression Screening Assessment 0 [facility] Start: 11-27-2024 Sex Female (finding) Rehana gleason [facility] Medical Equipment Procedure Code Equipment Code Equipment Origin al Text Equipment Identifier Dates [id number] Implant - [id number] Start: 02-19-2017 Comment on above: Description: flexgra ft Functional Status Date Assessment Result Facility 12-31-2017 Are you deaf, or do you have serious difficulty hearing No 12/31/2017 5:33 PM EDT Lowell Hinkle III, MD No [facility] 12-31-2017 Are you blind, or do you have serious difficulty seeing, even when wearing glasses No 12/31/2017 5:33 PM EDT Lowell Hinkle III, MD No [facility] 12-31-2017 Do you have serious difficulty walking or climbing stairs No 12/31/2017 5:33 PM EDT Lowell Hinkle III, MD No [facility] 12-31-2017 Do you have difficul ty dressing or bathing No 12/31/2017 5:33 PM EDT Lowell Hinkle III, MD No [facility] 12-31-2017 Because of a physica l, mental, or emotional condition, do you have difficulty doing errands alone such as visiting a physician's office or shopping No 12/31/2017 5:33 PM EDT Lowell Hinkle III, MD [facility] Mental Status Date Assessment Result Facility 12-31-2017 Because of a physica l, mental, or emotional condition, do you have serious difficulty concentrating, remembering, or making decisions No 12/31/2017 5:33 PM EDT Lowell Hinkle III, MD No [facility] Clinical Notes 12-21-2017 to 11-03-2024 Telephone Encounter - Testrakaelyn Michael - 11/03/2024 8:20 AM ESTTelephone Encounter - TestraMichael art - 11/03/2024 8:20 AM ESTTelephone Encounter - Testrakaelyn Michael - 11/03/2024 8:20 AM EST Note Date & Type Note Facility 11-03-2024 Telephone encounter Note I called patient to discuss her message to the nurses last week. She states redness is very minimal and there is no drainage. Offered patient to come in and remove the nail. For now, she feels the toe is improving. She is going to monitor Michael Johnson DPM [facility] Work Phone: 11-03-2024 Telephone encounter Note ----- Message from Rosanna Almaraz LPN sent at 10/30/2024 9:48 AM EST ----- ----- Message from Michael Johnson sent at 10/14/2024 11:25 AM EST ----- Please call patient to inform her that xrays do not show any evidence of infection or fracture [facility] 11-03-2024 Miscellaneous Notes I called patient to discuss her message to the nurses last week. She states redness is very minimal and there is no drainage. Offered patient to come in and remove the nail. For now, she feels the toe is improving. She is going to monitor Michael Johnson DPM ----- Message from Rosanna Almaraz LPN sent at 10/30/2024 9:48 AM EST ----- ----- Message from Michael Johnson sent at 10/14/2024 11:25 AM EST ----- Please call patient to inform her that xrays do not show any evidence of infection or fracture Patient notified of results. Patient verbalizes understanding. Patient states toe is still red. Please advise. Rosanna Almaraz LPN Called patient and informed her of below results. Patient verbalized understanding. States that her toe seems to be doing better after starting the antibiotics. documented in this encounter [facility] 10-30-2024 Telephone encounter Note Patient notified of results. Patient verbalizes understanding. Patient states toe is still red. Please advise. Rosanna Almaraz LPN [facility] 10-15-2024 Note HNO ID: [id number] Author: WILL ROSS MD Service: ? Author Type: Physician Type: Progress Notes Filed: 10/15/2024 10:19 Note Text: Patient presents with: Cough: Congestion, sore throat, NUNO x 3 days HPI: Feeling sick for starting 3 days ago. Positive symptoms: Cough, Sore throat, Nasal Congestion, Headache, Shortness of breath, Earache, Chills, Malaise, abdomen is sore from coughing, Negative symptoms: Vomiting, Diarrhea, OTC: Nyquil, Dayquil. 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 Cholecalciferol, Vitamin D3, 50 mcg (2,000 unit) cap Take 1 capsule by mouth every afternoon. cyclobenzaprine (FLEXERIL) 10 mg tablet Take ONE-HALF TO ONE tab twice daily as needed FOR spasm. rizatriptan (MAXALT) 10 mg tablet take 1 tab at onset of headache; if no relief may repeat 1 tab after at least 2 hrs; max = 2 tabs/24 hr PO JANUMET XR 50-500 mg TM24 TAKE ONE TABLET BY MOUTH EVERY DAY with SUPPER omeprazole magnesium (PRILOSEC ORAL) Take by mouth. lurasidone (LATUDA) 20 mg tablet Take by mouth. ibuprofen (MOTRIN) 400 mg tablet Take 1 tablet by mouth every 6 hours as needed for Pain. busPIRone (BUSPAR) 10 mg tablet Take 1 tablet by mouth three times daily as needed. (Patient not taking: Reported on 05/15/2022) No current facility-administered medications for this visit. ALLERGIES: ALLERGIES Allergen Reactions Chantix [Vareniclin* Mental Status Change Codeine GI Upset Darvocet A500 [Prop* GI Upset Flagyl [Metronidazo* Vomiting [place] Unknown Lodine [Etodolac] rash Prozac [Fluoxetine * Mental Status Change Wellbutrin [Bupropi* Other: See Comments lowers seizure threshold Zocor [Simvastatin] Other: See Comments myalgia VITALS: BP 110/72 Pulse 65 Temp 36.8 ?C (98.2 ?F) Resp 21 Wt 101.8 kg (224 lb 6.9 oz) LMP 02/01/2017 (LMP Unknown) SpO2 93% BMI 36.63 kg/m? PHYSICAL EXAM: GEN: mildly ill appearing HEENT: PERRL, EOMI, conjunctiva clear Ears: canals clear. TMs without erythema, bulge, or effusion Sinuses: non-tender frontal sinus, non-tender maxillary sinuses Throat: dry mucous membranes, mild erythema, no exudate Neck: supple, no thyromegaly, no lymphadenopathy HEART: regular rate, regular rhythm, no murmurs LUNGS: clear to auscultation, no wheezes or crackles, no increased WOB ASSESSMENT/PLAN: 1. Influenza-like illness - ICD9: 487.1, ICD10: J11.1 (primary diagnosis) - suspect influenza which is prevalent in the community. - Discussed supportive care treatment with rest, cold medicine, and analgesia. He is beyond the therapeutic window for Tamiflu and defers testing. - Red flags to seek further treatment include chest pain, shortness of breath, and lethargy; in the ER if severe. Requests - BENZONATATE 100 MG CAPSULE 2. Asthma with COPD with exacerbation (HCC) - ICD9: 493.22, ICD10: J44.1 - ALBUTEROL SULFATE HFA 90 MCG/ACTUATION AEROSOL INHALER - INHALATIONAL SPACING DEVICE Will Ross MD [facility] 10-15-2024 History of Presen t illness Narrative Patient presents with: Cough: Congestion, sore throat, NUNO x 3 days HPI: Feeling sick for starting 3 days ago. Positive symptoms: Cough, Sore throat, Nasal Congestion, Headache, Shortness of breath, Earache, Chills, Malaise, abdomen is sore from coughing, Negative symptoms: Vomiting, Diarrhea, OTC: Nyquil, Dayquil. 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 Cholecalciferol, Vitamin D3, 50 mcg (2,000 unit) cap Take 1 capsule by mouth every afternoon. cyclobenzaprine (FLEXERIL) 10 mg tablet Take ONE-HALF TO ONE tab twice daily as needed FOR spasm. rizatriptan (MAXALT) 10 mg tablet take 1 tab at onset of headache; if no relief may repeat 1 tab after at least 2 hrs; max = 2 tabs/24 hr PO JANUMET XR 50-500 mg TM24 TAKE ONE TABLET BY MOUTH EVERY DAY with SUPPER omeprazole magnesium (PRILOSEC ORAL) Take by mouth. lurasidone (LATUDA) 20 mg tablet Take by mouth. ibuprofen (MOTRIN) 400 mg tablet Take 1 tablet by mouth every 6 hours as needed for Pain. busPIRone (BUSPAR) 10 mg tablet Take 1 tablet by mouth three times daily as needed. (Patient not taking: Reported on 05/15/2022) No current facility-administered medications for this visit. ALLERGIES: ALLERGIES Allergen Reactions Chantix [Vareniclin* Mental Status Change Codeine GI Upset Darvocet A500 [Prop* GI Upset Flagyl [Metronidazo* Vomiting [place] Unknown Lodine [Etodolac] rash Prozac [Fluoxetine * Mental Status Change Wellbutrin [Bupropi* Other: See Comments lowers seizure threshold Zocor [Simvastatin] Other: See Comments myalgia VITALS: BP 110/72 Pulse 65 Temp 36.8 C (98.2 F) Resp 21 Wt 101.8 kg (224 lb 6.9 oz) LMP 02/01/2017 (LMP Unknown) SpO2 93% BMI 36.63 kg/m PHYSICAL EXAM: GEN: mildly ill appearing HEENT: PERRL, EOMI, conjunctiva clear Ears: canals clear. TMs without erythema, bulge, or effusion Sinuses: non-tender frontal sinus, non-tender maxillary sinuses Throat: dry mucous membranes, mild erythema, no exudate Neck: supple, no thyromegaly, no lymphadenopathy HEART: regular rate, regular rhythm, no murmurs LUNGS: clear to auscultation, no wheezes or crackles, no increased WOB ASSESSMENT/PLAN: 1. Influenza-like illness - ICD9: 487.1, ICD10: J11.1 (primary diagnosis) - suspect influenza which is prevalent in the community. - Discussed supportive care treatment with rest, cold medicine, and analgesia. He is beyond the therapeutic window for Tamiflu and defers testing. - Red flags to seek further treatment include chest pain, shortness of breath, and lethargy; in the ER if severe. Requests - BENZONATATE 100 MG CAPSULE 2. Asthma with COPD with exacerbation (HCC) - ICD9: 493.22, ICD10: J44.1 - ALBUTEROL SULFATE HFA 90 MCG/ACTUATION AEROSOL INHALER - INHALATIONAL SPACING DEVICE Will Ross MD documented in this encounter [facility] 10-14-2024 Progress note Formatting of t his note might be different from the original. Called patient and informed her of below results. Patient verbalized understanding. States that her toe seems to be doing better after starting the antibiotics. [facility] 10-10-2024 History of Presen t illness Narrative Radiology Service Progress Note PATIENT NAME: Louis Bran DATE OF SERVICE: October 10, 2024 TIME: 12:29 PM PATIENT IDENTITY VERIFICATION COMPLETED USING TWO (2) IDENTIFIERS: Name and Date of confirmed by patient verbally. FALL SCREENING: Has the patient had 2 falls in the last year or 1 fall with injury or currently using an Ambulatory Assistive Device (Walker, Cane, Wheelchair, Crutches, etc.)? No PATIENT GENDER DATA: Assigned female at . status: : No status: NO. PATIENT RELEVANT IMPLANT DATA REVIEWED: Not Applicable PATIENT PRESENTS WITH AN IMPLANTABLE OR ATTACHED TOP COLLAR BASTER: No RADIOLOGY DEPARTMENT: General X-ray: Exam(s) Completed: Lower Extremity X-Ray(s): Toes, Right, GREAT TOE ONLY PERIPHERAL IV DATA: Not applicable SIGNED BY: RT Pedro(Victorino) October 10, 2024 12:29 PM documented in this encounter [facility] 10-10-2024 Note HNO ID: [id number] Author: RISSA LEE RT(R) Service: ? Author Type: Technologist Type: Progress Notes Filed: 10/10/2024 12:29 Note Text: Radiology Service Progress Note PATIENT NAME: Louis Bran DATE OF SERVICE: October 10, 2024 TIME: 12:29 PM PATIENT IDENTITY VERIFICATION COMPLETED USING TWO (2) IDENTIFIERS: Name and Date of confirmed by patient verbally. FALL SCREENING: Has the patient had 2 falls in the last year or 1 fall with injury or currently using an Ambulatory Assistive Device (Walker, Cane, Wheelchair, Crutches, etc.)? No PATIENT GENDER DATA: Assigned female at . status: : No status: NO. PATIENT RELEVANT IMPLANT DATA REVIEWED: Not Applicable PATIENT PRESENTS WITH AN IMPLANTABLE OR ATTACHED TOP COLLAR BASTER: No RADIOLOGY DEPARTMENT: General X-ray: Exam(s) Completed: Lower Extremity X-Ray(s): Toes, Right, GREAT TOE ONLY PERIPHERAL IV DATA: Not applicable SIGNED BY: Rissa Lee RT(R) October 10, 2024 12:29 PM [facility] 10-10-2024 Instructions Michael Johnson - 10/10/2024 11:37 AM EST Soak your great toe in soap and water x 10 minutes daily (warm water) Take antibiotic as prescribed If condition fails to heal, consider nail removal Get circulation studies Diabetes Foot Care Instructions When you have diabetes, proper foot care is very important. Poor foot care may lead to amputation of a foot or leg. As a person with diabetes, you are more vulnerable to foot problems, because diabetes can damage your nerves and reduce blood flow to your feet. Here are some diabetes foot care tips to follow: Wash and Dry Your Feet Daily Use mild soaps Use warm water Pat your skin dry; do not rub. Thoroughly dry your feet. After washing, use lotion on your feet to prevent cracking. Do not put lotion between your toes. Examine Your Feet Each Day Check the tops and bottoms of your feet. Have someone else look at your feet if you cannot see them. Check for dry, cracked skin. Look for blisters, cuts, scratches, or other sores. Check for redness, increased warmth, or tenderness when touching any area of your feet. Check for ingrown toenails, corns, and calluses. If you get a blister or sore from your shoes, do not pop it. Apply a bandage and wear a different pair of shoes. Take Care of Your Toenails Cut toenails after bathing, when they are soft. Cut toenails straight across and smooth with a nail file. Avoid cutting into the corners of toes. Do not cut cuticles. If you have neuropathy (or decreased sensation in your feet) a refractory mixer should always cut your toenails. Be Careful When Exercising Walk and exercise in comfortable shoes. Do not exercise when you have open sores on your feet. Protect Your Feet With Shoes and Socks Never go barefoot. Always protect your feet by wearing shoes or hard-soled slippers or footwear. Avoid shoes with high heels and pointed toes. Avoid shoes that expose your toes or heels (such as open-toed shoes or sandals). These types of shoes increase your risk for injury and potential infections. Try on new footwear with the type of socks you usually wear. Do not wear new shoes for more than an hour at a time. Change your socks daily. Look and feel inside your shoes before putting them on to make sure there are no foreign objects or rough areas. Avoid tight socks. Wear natural-fiber socks (cotton, wool, or a cotton-wool blend). Wear special shoes if your health care provider recommends them. Wear shoes/boots that will protect your feet from various weather conditions (cold, moisture, etc.). Make sure your shoes fit properly. If you have neuropathy (nerve damage), you may not notice that your shoes are too tight. Perform the footwear test described below. Footwear Test Use this simple test to see if your shoes fit correctly: Stand on a piece of paper. (Make sure you are standing and not sitting, because your foot changes shape when you stand.) Trace the outline of your foot. Trace the outline of your shoe. Compare the tracings: Is the shoe too narrow? Is your foot crammed into the shoe? The shoe should be at least 1/2 inch longer than your longest toe and as wide as your foot. Proper Shoe Choices The following types of shoes are best for people with diabetes Closed toes and heels Leather uppers without a seam inside At least 1/2 inch extra space at the end of your longest toe Inside of shoe should be soft with no rough areas Outer sole should be made of stiff material Shoes should be at least as wide as your feet Tips for Foot Care in Diabetes Don't wait to treat a minor foot problem if you have diabetes. Follow your health care provider's guidelines and first aid guidelines. Report foot injuries and infections to your health care provider immediately. Check water temperature with your elbow, not your foot. Do not use a heating pad on your feet. Do not cross your legs. Do not self-treat your corns, calluses, or other foot problems. Go to your health care provider or refractory mixer to treat these conditions. documented in this encounter [facility] 10-10-2024 Note HNO ID: [id number] Author: MICHAEL JOHNSON, ? Service: ? Author Type: Physician Type: Progress Notes Filed: 10/11/2024 07:10 Note Text: Initial Podiatric Office Visit: Chief Complaint: This 49 year old female who presents with chief complaint:right great toenail pain HPI Patient presents to clinic for evaluation of right hallux Complains of pain and swelling to right great toe, proximal nail fold This has been going on for 3 days or so. Patient denies any drainage Believes the nail is going to fall off. Newly diagnosed diabetic Smokes 1 pack of cigarettes/day. 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 Bipolar disorder, unspecified ([facility]) Fracture, talus closed 08/10/2010 Gastroesophageal reflux disease without esophagitis 04/06/2015 Hyperlipidemia LDL goal <100 06/16/2015 Obesity, unspecified 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 Cholecalciferol, Vitamin D3, 50 mcg (2,000 unit) cap Take 1 capsule by mouth every afternoon. omeprazole (PRILOSEC) 20 mg capsule Take 20 mg by mouth. rizatriptan (MAXALT) 10 mg tablet take 1 tab at onset of headache; if no relief may repeat 1 tab after at least 2 hrs; max = 2 tabs/24 hr PO JANUMET XR 50-500 mg TM24 TAKE ONE TABLET BY MOUTH EVERY DAY with SUPPER lurasidone (LATUDA) 20 mg tablet Take by mouth. ibuprofen (MOTRIN) 400 mg tablet Take 1 tablet by mouth every 6 hours as needed for Pain. cyclobenzaprine (FLEXERIL) 10 mg tablet Take ONE-HALF TO ONE tab twice daily as needed FOR spasm. melatonin 3 mg tablet Take by mouth. (Patient not taking: Reported on 10/10/2024) omeprazole magnesium (PRILOSEC ORAL) Take by mouth. albuterol HFA (PROVENTIL HFA, VENTOLIN HFA) 90 mcg/actuation inhaler Inhale 2 Puffs as instructed every 4 hours as needed for Wheezing/Shortness of Breath. (Patient not taking: Reported on 10/10/2024) busPIRone (BUSPAR) 10 mg tablet Take 1 tablet by mouth three times daily as needed. (Patient not taking: Reported on 05/15/2022) clotrimazole (LOTRIMIN, CLOTRIM) 1 % cream Apply to affected area twice daily. (Patient not taking: Reported on 05/15/2022) ATROVENT HFA 17 mcg/actuation inhaler INHALE 2 PUFFS DIRECTED FOUR TIMES A DAY (Patient not taking: No sig reported) Diaper,Brief, Adult,Disposable (ADULT BRIEF - EXTRA LARGE) misc Large briefs ( one case of 60) Use as directed- change 3-4 times a day PRN incontinence. Diagnosis: G40.909 (Patient not taking: No sig reported) Underpads 23 X 24 pads Use as directed, change 3-4 times a day PRN incontinence ( case of 200 ), Diagnosis: G40.909 (Patient not taking: No sig reported) Latex Gloves (LATEX GLOVES, LARGE) misc 2 Each twice daily. MILK OF MAGNESIA 400 mg/5 mL suspension Take 15 mL by mouth once daily as needed for Constipation. (Patient not taking: Reported on 05/15/2022) promethazine (PHENERGAN) 25 mg tablet Take 1 tablet by mouth every 6 hours as needed for Nausea/Vomiting. (Patient not taking: No sig reported) amitriptyline (ELAVIL) 100 mg tablet Take 100 mg by mouth daily at bedtime. (Patient not taking: No sig reported) COMPOUNDED PRESCRIPTION right ankle soft brace (Patient not taking: No sig reported) ketotifen fumarate (ZADITOR) 0.025 % (0.035 %) ophthalmic solution Use 1 Drop in both eyes twice daily. (Patient not taking: No sig reported) COMPOUNDED PRESCRIPTION Rollator for a large person, with seat and brakes (Patient not taking: No sig reported) COMPOUNDED PRESCRIPTION NEBULIZER FOR HOME USE. DX: J44.9 (Patient not taking: No sig reported) QUEtiapine (SEROQUEL) 400 mg tablet (2x 400mg) + [id number] mg at bedtime (Patient not taking: No sig reported) QUEtiapine (SEROQUEL) 100 mg tablet (2x 400mg) + [id number] mg at bedtime (Patient not taking: No sig reported) COMPOUNDED PRESCRIPTION shower bench (Patient not taking: No sig reported) amitriptyline (ELAVIL) 50 mg tablet Take 2 tablets by mouth daily at bedtime. (Patient not taking: No sig reported) COMPOUNDED PRESCRIPTION New mask and tubing for nebulizer. (Patient not taking: No sig reported) No current facility-administered medi (more content not included)... [facility] 10-10-2024 History of Presen t illness Narrative Initial Podiatric Office Visit: Chief Complaint: This 49 year old female who presents with chief complaint:right great toenail pain HPI Patient presents to clinic for evaluation of right hallux Complains of pain and swelling to right great toe, proximal nail fold This has been going on for 3 days or so. Patient denies any drainage Believes the nail is going to fall off. Newly diagnosed diabetic Smokes 1 pack of cigarettes/day. 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 Bipolar disorder, unspecified (HCC) Fracture, talus closed 08/10/2010 Gastroesophageal reflux disease without esophagitis 04/06/2015 Hyperlipidemia LDL goal <100 06/16/2015 Obesity, unspecified 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 Cholecalciferol, Vitamin D3, 50 mcg (2,000 unit) cap Take 1 capsule by mouth every afternoon. omeprazole (PRILOSEC) 20 mg capsule Take 20 mg by mouth. rizatriptan (MAXALT) 10 mg tablet take 1 tab at onset of headache; if no relief may repeat 1 tab after at least 2 hrs; max = 2 tabs/24 hr PO JANUMET XR 50-500 mg TM24 TAKE ONE TABLET BY MOUTH EVERY DAY with SUPPER lurasidone (LATUDA) 20 mg tablet Take by mouth. ibuprofen (MOTRIN) 400 mg tablet Take 1 tablet by mouth every 6 hours as needed for Pain. cyclobenzaprine (FLEXERIL) 10 mg tablet Take ONE-HALF TO ONE tab twice daily as needed FOR spasm. melatonin 3 mg tablet Take by mouth. (Patient not taking: Reported on 10/10/2024) omeprazole magnesium (PRILOSEC ORAL) Take by mouth. albuterol HFA (PROVENTIL HFA, VENTOLIN HFA) 90 mcg/actuation inhaler Inhale 2 Puffs as instructed every 4 hours as needed for Wheezing/Shortness of Breath. (Patient not taking: Reported on 10/10/2024) busPIRone (BUSPAR) 10 mg tablet Take 1 tablet by mouth three times daily as needed. (Patient not taking: Reported on 05/15/2022) clotrimazole (LOTRIMIN, CLOTRIM) 1 % cream Apply to affected area twice daily. (Patient not taking: Reported on 05/15/2022) ATROVENT HFA 17 mcg/actuation inhaler INHALE 2 PUFFS DIRECTED FOUR TIMES A DAY (Patient not taking: No sig reported) Diaper,Brief, Adult,Disposable (ADULT BRIEF - EXTRA LARGE) misc Large briefs ( one case of 60) Use as directed- change 3-4 times a day PRN incontinence. Diagnosis: G40.909 (Patient not taking: No sig reported) Underpads 23 X 24 pads Use as directed, change 3-4 times a day PRN incontinence ( case of 200 ), Diagnosis: G40.909 (Patient not taking: No sig reported) Latex Gloves (LATEX GLOVES, LARGE) misc 2 Each twice daily. MILK OF MAGNESIA 400 mg/5 mL suspension Take 15 mL by mouth once daily as needed for Constipation. (Patient not taking: Reported on 05/15/2022) promethazine (PHENERGAN) 25 mg tablet Take 1 tablet by mouth every 6 hours as needed for Nausea/Vomiting. (Patient not taking: No sig reported) amitriptyline (ELAVIL) 100 mg tablet Take 100 mg by mouth daily at bedtime. (Patient not taking: No sig reported) COMPOUNDED PRESCRIPTION right ankle soft brace (Patient not taking: No sig reported) ketotifen fumarate (ZADITOR) 0.025 % (0.035 %) ophthalmic solution Use 1 Drop in both eyes twice daily. (Patient not taking: No sig reported) COMPOUNDED PRESCRIPTION Rollator for a large person, with seat and brakes (Patient not taking: No sig reported) COMPOUNDED PRESCRIPTION NEBULIZER FOR HOME USE. DX: J44.9 (Patient not taking: No sig reported) QUEtiapine (SEROQUEL) 400 mg tablet (2x 400mg) + [id number]=700 mg at bedtime (Patient not taking: No sig reported) QUEtiapine (SEROQUEL) 100 mg tablet (2x 400mg) + [id number] mg at bedtime (Patient not taking: No sig reported) COMPOUNDED PRESCRIPTION shower bench (Patient not taking: No sig reported) amitriptyline (ELAVIL) 50 mg tablet Take 2 tablets by mouth daily at bedtime. (Patient not taking: No sig reported) COMPOUNDED PRESCRIPTION New mask and tubing for nebulizer. (Patient not taking: No sig reported) No current facility-administered medications for this visit. ALLERGIES Allergen Reactions Chantix [Vareniclin* Mental Status Change Codeine GI Upset Darvocet A500 [Prop* GI Upset Flagyl [Metronidazo* Vomiting [place] Unknown Lodine [Etodolac] rash Prozac [Fluoxetine * Mental Status Change Wellbutrin [Bupropi* Other: See Comments lowers seizure threshold Zocor [Simvastatin] Other: See Comments myalgia PAST SURGICAL HISTORY Procedure Laterality Date APPENDECTOMY 06/2017 Jose Ramon Napoles CHOLECYSTECTOMY 04/2018 COLONOSCOPY FLX DX W/COLLJ SPEC WHEN PFRMD 06/05/12 Incomplete COLONOSCOPY FLX DX W/COLLJ SPEC WHEN PFRMD 11-07-13 ESOPHAGOGASTRODUODENOSCOPY TRANSORAL DIAGNOSTIC 10/09/2011 EGD facial reconstruction 11/1998 INCISE FINGER TENDON SHEATH Right 07/21/2016 Right trigger thumb release INCISE FINGER TENDON SHEATH Left 09/12/2016 Left trigger thumb and left index trigger finger releases NEUROPLASTY &/TRANSPOS MEDIAN NRV CARPAL TUNNE Right 07/21/2016 Right carpal tunnel release NEUROPLASTY &/TRANSPOS MEDIAN NRV CARPAL TUNNE Left 09/12/2016 Carpal tunnel decomp OFFICE LEEP PAST SURGICAL HISTORY OF 11/1998 abdominal surgery to explore internal bleeding PAST SURGICAL HISTORY OF cervical spine pain injections REM LESION TRUNK,ARM,LEG 0.6 -1.0CM 02/12/2010 Exc zach cyst inner left breast FAMILY HISTORY Problem Relation Age of Onset Lipids Mother other (FIBROMYALGIA) Mother Diabetes Father Heart Father other (LEUKEMIA) Brother other (OCD) Sister Diabetes Paternal Grandmother Cancer Maternal Grandmother brain Colon Cancer Maternal Grandfather Diabetes Paternal Grandfather Diabetes Paternal Aunt Social History Tobacco Use Smoking status: Every Day Current packs/day: 0.50 Average packs/day: 0.5 packs/day for 22.0 years (11.0 ttl pk-yrs) Types: Cigarettes Smokeless tobacco: Never Tobacco comments: smokes 5 cigs a day Substance Use Topics Alcohol use: No Drug use: Yes Comment: Marijuana - uses 1 or 2 times a month REVIEW OF SYSTEMS GENERAL: Negative for Malaise, significant weight loss, fever RESPIRATORY: Negative for cough, wheezing and shortness of breath CARDIOVASCULAR: Negative for chest pain, leg swelling and palpitations GI: Negative for abdominal discomfort, blood in stools or black stools and change in bowel habits : Negative for dysuria, frequency and incontinence MUSCULOSKELETAL: Negative for joint pain or swelling, back pain, and muscle pain. SKIN: Negative for lesions, rash, and itching. HEMATOLOGY/LYMPHOLOGY Negative for prolonged bleeding, bruising easily, and swollen nodes. ENDOCRINE: Negative for cold or heat intolerance, polyuria, polydipsia and goiter. NEURO: negative Physical Exam: Constitutional: Pt is a well developed 49 year old female who is alert, oriented and cooperative Eyes: Following during examination. No redness or drainage. Respiratory: RR normal and nonlabored. Even breathing. No evidence of distress or shortness of breath. Psychology: Patient is engaged during conversation. Normal affect and mood. Does not appear depressed or anxious during encounter. Vascular: Dorsalis pedis and posterior tibial pulses nonpalpable as b/l Capillary Fill time < 5 seconds to digits 1-5 b/l Skin temperature warm to cool proximal to distal b/l Hair growth present to digits Neurological: decreased light touch/epicritic sensation Vibratory sensation absent b/l decreased protective sensation + significant neurological deficits Dermatological: Right hallux nail is dystrophic. No lifting of right hallux nail plate is observed. There is swelling of proximal nail fold with a slight erythema appearance. No drainage is noted. Webspaces clean and dry 1-4 b/l. Skin appears dry. No open lesions present. Callus is present to b/l hallux Musculoskeletal/Orthopaedic: Patient has pain to palpation of right great toenail Foot type is neutral structurally AJ ROM is full with knee extended and flexed 1st MPJ is full when loaded and no pain or crepitus are noted with ROM. MTJ, STJ are full and free of pain and crepitus. +5/5 muscle strength dorsiflexion, plantarflexion, inversion, eversion b/l Radiographs: n/a ASSESSMENT: (L60.0) Ingrowing toenail of right foot (primary encounter diagnosis)\ (L60.3) Onychodystrophy (R09.89) Diminished pulses in lower extremity PLAN: 1. History and physical examination performed. 2. Discussed pain in right great toenail. I discussed possible infection of proximal nail fold, right great toe. I am going to place patient on an antibiotic. 3. We discussed removal of the great toenail. Concern for underlying vascular impairment as pulses are nonpalpable and skin is cold. Will obtain pvr. Will start antibiotic. Hold on removal at this time due to concern for pad. May require removal pending improvement with antibiotic and pvr. Michael Johnson DPM Podiatry [address] [facility] [address] Dept: [phone] Dept AMB ROOMING INTAKE FLOWSHEET DATA Risk Screening Do you have concerns about personal safety or safety in the home?: No Pain Pain Level: 6 Pain Location: Toe Description: Stabbing Duration Amount of Time: 4 Duration Units: Weeks Frequency: Intermittent Intervention/Comfort measure: Relaxation, Reposition Patient presents with: Right Great Toe - Nail Check, Established Patient, Follow Up Rosanna Almaraz LPN documented in this encounter [facility] 10-10-2024 Note HNO ID: [id number] Author: ROSANNA ALMARAZ LPN Service: ? Author Type: LICENSED NURSE Type: Progress Notes Filed: 10/11/2024 07:10 Note Text: AMB ROOMING INTAKE FLOWSHEET DATA Risk Screening Do you have concerns about personal safety or safety in the home?: No Pain Pain Level: 6 Pain Location: Toe Description: Stabbing Duration Amount of Time: 4 Duration Units: Weeks Frequency: Intermittent Intervention/Comfort measure: Relaxation, Reposition Patient presents with: Right Great Toe - Nail Check, Established Patient, Follow Up Rosanna Almaraz LPN [facility] 08-18-2024 Evaluation note Diagnosis Onset Date Resolution Muscle spasm acute August 12:38pm Rash acute August 18, 2024 12:38pm HLD (hyperlipidemia) chronic Dece mb 2023 12:38pm Schizoaffective disorder chronic August 18, 2024 12:38pm Tobacco use disorder chronic [facility] 2023 12:38pm COPD (chronic obstructive pulmonary disease) suspected August 12:38pm Type II diabetes mellitus, uncontrolled inactive August 18, 2024 12:38pm [facility] Work Phone: [phone] 149-634702-11-2023 History of Present illness Narrative* Rand Salas APRN.GAMBLING DEALER - 10/14/2022 11:52 AM EST This note was created using [employer]riter. Subjective Louis Bran is a 47 year old female. 47 year old female with PMH migraine, asthma, COPD, GERD, IBS, presents for ear pain. Acute onset 2 days ago Left ear +sharp Sore Denies accompanying URI sx. Denies cough Denies fever or chills Denies SOB or CP. Denies skin rash or lesions. The history is provided by the patient. No pediatric speech language pathologist was used. Ear Pain This is a new problem. The current episode started in the past 7 days. The problem occurs constantly. The problem has been gradually worsening. Pertinent negatives include no abdominal pain, anorexia, arthralgias, change in bowel habit, chest pain, chills, congestion, coughing, diaphoresis, fatigue, fever, headaches, joint swelling, myalgias, nausea, neck pain, numbness, rash, sore throat, swollen glands, urinary symptoms, vertigo, visual change, vomiting or weakness. Nothing aggravates the symptoms. She has tried nothing for the symptoms. The treatment provided no relief. 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 Bipolar disorder, unspecified (HCC) Fracture, talus closed 08/10/2010 Gastroesophageal reflux disease without esophagitis 04/06/2015 Hyperlipidemia LDL goal <100 06/16/2015 Obesity, unspecified 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HCC) COREEN (obstructive sleep apnea) Patellar tendinitis Peripheral neuropathy 01/09/2013 Seizure disorder (HCC) 07/30/2012 Statin intolerance 10/07/2014 Tracheostomy status ([facility]) Unspecified asthma(493.90) Unspecified schizophrenia, unspecified condition PAST SURGICAL HISTORY Procedure Laterality Date APPENDECTOMY 06/2017 Jose Ramon Napoles CHOLECYSTECTOMY 04/2018 COLONOSCOPY FLX DX W/COLLJ SPEC WHEN PFRMD 06/05/12 Incomplete COLONOSCOPY FLX DX W/COLLJ SPEC WHEN PFRMD 11-07-13 ESOPHAGOGASTRODUODENOSCOPY TRANSORAL DIAGNOSTIC 10/09/2011 EGD facial reconstruction 11/1998 INCISE FINGER TENDON SHEATH Right 07/21/2016 Right trigger thumb release INCISE FINGER TENDON SHEATH Left 09/12/2016 Left trigger thumb and left index trigger finger releases NEUROPLASTY &/TRANSPOS MEDIAN NRV CARPAL TUNNE Right 07/21/2016 Right carpal tunnel release NEUROPLASTY &/TRANSPOS MEDIAN NRV CARPAL TUNNE Left 09/12/2016 Carpal tunnel decomp OFFICE LEE PAST SURGICAL HISTORY OF 11/1998 abdominal surgery to explore internal bleeding PAST SURGICAL HISTORY OF cervical spine pain injections REM LESION TRUNK,ARM,LEG 0.6 -1.0CM 02/12/2010 Exc zach cyst inner left breast ALLERGIES Chantix [Varenicline], Codeine, Darvocet A500 [Propoxyphene N- Acetaminophen], Flagyl [Metronidazole Hcl], [place], Lodine [Etodolac], Prozac [Fluoxetine Hcl], Wellbutrin [Bupropion Hcl], and Zocor [Simvastatin] MEDICATIONS omeprazole magnesium (PRILOSEC ORAL) Take by mouth. lurasidone (LATUDA) 20 mg tablet Take by mouth. albuterol HFA (PROVENTIL HFA, VENTOLIN HFA) 90 mcg/actuation inhaler Inhale 2 Puffs as instructed every 4 hours as needed for Wheezing/Shortness of Breath. Latex Gloves (LATEX GLOVES, LARGE) misc 2 Each twice daily. melatonin 3 mg tablet Take by mouth. amoxicillin-clavulanic acid (AUGMENTIN) 875-125 mg per tablet Take 1 tablet by mouth twice daily for 7 days. ibuprofen (MOTRIN) 400 mg tablet Take 1 tablet by mouth every 6 hours as needed for Pain. (Patient not taking: Reported on 05/15/2022) busPIRone (BUSPAR) 10 mg tablet Take 1 tablet by mouth three times daily as needed. (Patient not taking: Reported on 05/15/2022) clotrimazole (LOTRIMIN, CLOTRIM) 1 % cream Apply to affected area twice daily. (Patient not taking:Reported on 05/15/2022) ATROVENT HFA 17 mcg/actuation inhaler INHALE 2 PUFFS DIRECTED FOUR TIMES A DAY (Patient not taking: No sig reported) Diaper,Brief, Adult,Disposable (ADULT BRIEF - EXTRA LARGE) misc Large briefs ( one case of 60) Use as directed- change 3-4 times a day PRN incontinence. Diagnosis: G40.909 (Patient not taking: No sigreported) Underpads 23 X 24 pads Use as directed, change 3-4 times a day PRN incontinence ( case of 200 ), Diagnosis: G40.909 (Patient not taking: No sig reported) MILK OF MAGNESIA 400 mg/5 mL suspension Take 15 mL by mouth once daily as needed for Constipation. (Patient not taking: Reported on 05/15/2022) promethazine (PHENERGAN) 25 mg tablet Take 1 tablet by mouth every 6 hours as needed for Nausea/Vomiting. (Patient not taking: No sig reported) amitriptyline (ELAVIL) 100 mg tablet Take 100 mg by mouth daily at bedtime. (Patient not taking: [place]ig reported) COMPOUNDED PRESCRIPTION right ankle soft brace (Patient not taking: No sig reported) ketotifen fumarate (ZADITOR) 0.025 % (0.035 %) ophthalmic solution Use 1 Drop in both eyes twice daily. (Patient not taking: No sig reported) COMPOUNDED PRESCRIPTION Rollator for a large person, with seat and brakes (Patient not taking: No sig reported) COMPOUNDED PRESCRIPTION NEBULIZER FOR HOME USE. DX: J44.9 (Patient not taking: No sig reported) QUEtiapine (SEROQUEL) 400 mg tablet (2x 400mg) + 083vd=058 mg at bedtime (Patient not taking: No sig reported) QUEtiapine (SEROQUEL) 100 mg tablet (2x 400mg) + 183vr=805 mg at bedtime (Patient not taking: No sig reported) COMPOUNDED PRESCRIPTION shower bench (Patient not taking: No sig reported) amitriptyline (ELAVIL) 50 mg tablet Take 2 tablets by mouth daily at bedtime. (Patient not taking: No sig reported) COMPOUNDED PRESCRIPTION New mask and tubing for nebulizer. (Patient not taking: No sig reported) FAMILY HISTORY Problem Relation Age of Onset Lipids Mother other (FIBROMYALGIA) Mother Diabetes Father Heart Father other (LEUKEMIA) Brother other (OCD) Sister Diabetes Paternal Grandmother Cancer Maternal Grandmother brain Colon Cancer Maternal Grandfather Diabetes Paternal Grandfather Diabetes Paternal Aunt Social History Tobacco Use Smoking status: Every Day Packs/day: 0.50 Years: 22.00 Pack years: 11.00 Types: Cigarettes Smokeless tobacco: Never Tobacco comments: smokes 5 cigs a day Substance Use Topics Alcohol use: No Drug use: Yes Comment: Marijuana - uses 1 or 2 times a month Review of Systems Constitutional: Negative for chills, diaphoresis, fatigue and fever. HENT: Positive for ear pain. Negative for congestion, ear discharge, nosebleeds, postnasal drip, rhinorrhea, sinus pressure, sinus pain and sore throat. Eyes: Negative for pain, discharge, redness and itching. Respiratory: Negative for apnea, cough, choking and chest tightness. Cardiovascular: Negative for chest pain, palpitations and leg swelling. Gastrointestinal: Negative for abdominal pain, anorexia, change in bowel habit, nausea and vomiting. Musculoskeletal: Negative for arthralgias, joint swelling, myalgias and neck pain. Skin: Negative for rash. Allergic/Immunologic: Negative for environmental allergies, food allergies and immunocompromised state. Neurological: Negative for dizziness, vertigo, facial asymmetry, weakness, numbness and headaches. Hematological: Negative for adenopathy. Does not bruise/bleed easily. Psychiatric/Behavioral: Negative for agitation and behavioral problems. Objective BP 110/60 Pulse 110 Temp 36.6 C (97.8 F) Resp 18 Wt 103.9 kg (229 lb) LMP 02/01/2017 (LMPUnknown) SpO2 95% BMI 37.38 kg/m Physical Exam Vitals and nursing note reviewed. Constitutional: General: She is not in acute distress. Appearance: Normal appearance. She is normal weight. She is not ill-appearing, toxic-appearing or diaphoretic. HENT: Head: Normocephalic and atraumatic. Right Ear: Tympanic membrane, ear canal and external ear normal. Left Ear: Ear canal and external ear normal. Ears: Comments: Left TM erythematous and bulging. Nose: Nose normal. No congestion or rhinorrhea. Mouth/Throat: Mouth: Mucous membranes are moist. Pharynx: No oropharyngeal exudate or posterior oropharyngeal erythema. Eyes: General: Right eye: No discharge. Left eye: No discharge. Extraocular Movements: Extraocular movements intact. Conjunctiva/sclera: Conjunctivae normal. Pupils: Pupils are equal, round, and reactive to light. Cardiovascular: Rate and Rhythm: Normal rate and regular rhythm. Pulses: Normal pulses. Heart sounds: Normal heart sounds. No murmur heard. No friction rub. Pulmonary: Effort: Pulmonary effort is normal. No respiratory distress. Breath sounds: Normal breath sounds. No stridor. No wheezing, rhonchi or rales. Chest: Chest wall: No tenderness. Abdominal: General: Abdomen is flat. There is no distension. Palpations: Abdomen is soft. There is no mass. Tenderness: There is no abdominal tenderness. There is no right CVA tenderness, left CVA tenderness, guarding or rebound. Hernia: No hernia is present. Musculoskeletal: General: No swelling, tenderness, deformity or signs of injury. Normal range of motion. Cervical back: Normal range of motion and neck supple. No rigidity. Right lower leg: No edema. Left lower leg: No edema. Lymphadenopathy: Cervical: No cervical adenopathy. Skin: General: Skin is warm and dry. Capillary Refill: Capillary refill takes less than 2 seconds. Coloration: Skin is not jaundiced or pale. Findings: No bruising, erythema, lesion or rash. Neurological: General: No focal deficit present. Mental Status: She is alert and oriented to person, place, and time. Cranial Nerves: No cranial nerve deficit. Sensory: No sensory deficit. Motor: No weakness. Coordination: Coordination normal. Gait: Gait normal. Psychiatric: Mood and Affect: Mood normal. Behavior: Behavior normal. Thought Content: Thought content normal. Judgment: Judgment normal. Assessment and Plan ASSESSMENT/PLAN: 1. Acute otitis media, left - ICD9: 382.9, ICD10: H66.92 - Will begin treatment with as per antibiotic as written, see orders - The patient should also be given OTC cough and cold meds as needed and warm salt water gargles, throat lozenges and/or OTC throat spray as needed for the first 5-7 days of treatment. - Supportive care with plenty of fluids, rest, and analgesia prn. - Follow up in 3-5 days if symptoms persist or worsen. Rand Salas APRN.TITA [facility] of Past illness Narrative* Problem Noted Date Resolved Date Seizure disorder 12/21/2017 09/20/2018 Overview: video EEG in 11/2016 document spells not associated with EEG changes. Trigger index finger of left hand 09/21/2016 2016 Trigger thumb of left hand 09/21/201609/27 Left carpal tunnel syndrome 09/21/201609/04 Pyoderma (skin infection) 08/15/20162016 Trigger thumb of right hand 06/26/201609/04 Right carpal tunnel syndrome 06/26/2016 Hypokalemia 01/22/2016 09/20/2018 Hyperlipidemia LDL goal <100 06/16/201503/2017 COPD with exacerbation 02/22/2015 7 Right rib fracture 11/12/2014 02/08/2015 Backache, unspecified 01/08/2012 10/07/2014 Acute gastritis without mention of hemorrhage 10/07/2014 Diabetes mellitus 06/23/2011 02/21/2013 Fracture, talus closed 08/10/2010 5 Unspecified closed fracture of ankle 03/21/2010 10/07/2014 Ankle sprain 02/17/2010 10/07/2014 Sebaceous cyst 02/01/2010 10/07/2014 Breast mass 01/17/2010 10/07/2014 Unspecified closed fracture of ankle 10/04/2009 02/17/2010 Ankle fracture 2009 02/17/2010 Esophageal reflux 05/25/2008 02/07/2017 GENERAL OSTEOARTHROSIS 02/19/2007 5 documented as of this encounter (statuses as of 03/06/2022) [facility] History of Past illness Narrative* Problem Noted Date Resolved Date Seizure disorder 12/21/2017 09/20/2018 Overview: video EEG in 11/2016 document spells not associated with EEG changes. Trigger index finger of left hand 09/21/2016 2016 Trigger thumb of left hand 09/21/201609/27 Left carpal tunnel syndrome 09/21/201609/04 Pyoderma (skin infection) 08/15/20162016 Trigger thumb of right hand 06/26/201609/04 Right carpal tunnel syndrome 06/26/2016 Hypokalemia 01/22/2016 09/20/2018 Hyperlipidemia LDL goal <100 06/16/201503/2017 COPD with exacerbation 02/22/2015 7 Right rib fracture 11/12/2014 02/08/2015 Backache, unspecified 01/08/2012 10/07/2014 Acute gastritis without mention of hemorrhage 10/07/2014 Diabetes mellitus 06/23/2011 02/21/2013 Fracture, talus closed 08/10/2010 5 Unspecified closed fracture of ankle 03/21/2010 10/07/2014 Ankle sprain 02/17/2010 10/07/2014 Sebaceous cyst 02/01/2010 10/07/2014 Breast mass 01/17/2010 10/07/2014 Unspecified closed fracture of ankle 10/04/2009 02/17/2010 Ankle fracture 2009 02/17/2010 Esophageal reflux 05/25/2008 02/07/2017 GENERAL OSTEOARTHROSIS 02/19/2007 5 documented as of this encounter (statuses as of 10/14/2022) [facility] Diagnosis Encounter for screening mammogram for [facility] cancer [facility] Diagnosis Onset Date Resolution Status COPD (chronic obstructive pulmonary disease) chronic HLD (hyperlipidemia) chronic Schizoaffective disorder chr onic Tobacco use disorder chronic [facility] Work Phone: Evaluation note* Diagnosis Acute otitis media, left- Primary Unspecified otitis media [facility]* Diagnosis Ingrowing toenail of right foot Ingrowing nail [facility]* Diagnosis Ingrowing toenail of right foot- Primary Ingrowing nail Onychodystrophy Other specified disease of nail Diminished pulses in lower extremity Other symptoms involving cardiovascular system [facility]* Diagnosis Influenza-like illness- Primary Influenza with other respiratory manifestations Asthma with COPD with exacerbation (HCC) Chronic obstructive asthma with exacerbation documented in this encounter [facility] for referral (narrative)* Diagnostic Procedure Only (Routine) - Pending Review Specialty Diagnoses / Procedures Referred By Leslie bee Referred To Contact [facility] Diagnoses Encounter for screening mammogram for breast cancer Procedures SCOTT SCREENING SCREENING MAMMOGRAPHY BI 2-VIEW BREAST INC Mayco Moctezuma, [facility].GAMBLING DEALER, DNP [address] [place] [address] [facility] [address] [place] [address] Referral ID Status Reason Start Date Expiration Date Visits Requested Visits Authorized [id number] Pending Review Auto-Generat ed Referral 03/01/2022 03/31/2023 1 1 [facility] (narrative)No reason for referral information availableWMercy [facility] Work Phone: Reason for visit Narrative* Diagnostic Procedure Only (Routine) - Closed Specialty Diagnoses / Procedures Referred By Contac t Referred To Contact [facility] Diagnoses Ingrowing toenail of right foot Procedures XR TOE AP/LAT/OBL RIGHT RADEX TOE MINIMUM 2 VIEWS Michael Johnson [address] [address] Phone: tel: fax: [place] [address] Referral ID Status Reason Start Date Expiration Date V isits Requested Visits Authorized [id number] Closed Auto-Generate d Referral 10/10/2024 11/09/2025 1 1 [facility] Summary Purpose Family History No Family History Records Found Relationship Condition Age at Onset Recorded Date/T milli Not Specified Cardiac disease Unknown Myocardial infarction Unknown Seizure Unknown Malignant neoplasm Unknown Asthma Unknown Advance Directives No Advanced Directives Records FoundDocuments on File Type Date 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 No September 14, 2021 3:59pm Chief Complaint and Reason for Visit Chief Complaint 6 M FU Reason for Visit COPD (chronic obstru ctive pulmonary disease) HLD (hyperlipidemia) Schizoaffective disorder Tobacco use disorder Chief Complaint Admit Date 6 M FU August 18, 2024 12:38pm Discuss Type 2 Diabetes August 25, 024 2:08pm 3 M FU November 24, 2024 2:4 4pm Reason for Visit Admit Date Muscle spasm August 18, 2024 12:38pm Rash August 18, 2024 12:38pm HLD (hyperlipidemia) August 18, 2024 12:38pm Schizoaffective disorder August 18, 2024 12:38pm Tobacco use disorder August 18, 2024 12:38pm COPD (chronic obstructive pulmonary dise ase) August 18, 2024 12:38pm Type II diabetes mellitus, uncontrolled August 18, 2024 12:38pm Additional Source Comments INFORMATION SOURCE (unrecogn ized section and content) DATE CREATED AUTHOR 02/20/2018 [facility] DATE CREATED AUTHOR AUTHOR'S ORGANIZ ATION 02/27/2018 [facility] DATE CREATED AUTHOR AUTHOR'S ORGANIZ ATION 02/27/2018 DATE CREATED AUTHOR AUTHOR'S ORGANIZ ATION 02/27/2018 [facility] DATE CREATED AUTHOR AUTHOR'S ORGANIZ ATION 07/07/2018 [facility] DATE CREATED AUTHOR AUTHOR'S ORGANIZ ATION 10/31/2024 [facility] DATE CREATED AUTHOR AUTHOR'S ORGANIZ ATION 04/26/2025 [facility] Source Comments (unrecognize d section and content) In the event this informatio n is protected by the Federal Confidentiality of Alcohol and Drug Abuse Patient Records regulations: The Federal rules restrict any use of the information to criminally investigate or prosecute any alcohol or drug abuse patient.[facility] Hospital[facility] the event this information is protected by the Federal Confidentiality of Alcohol and Drug Abuse Patient Records regulations: The Federal rules restrict any use of the information to criminally investigate or prosecute any alcohol or drug abuse patient.[facility] Hospital[facility] the event this information is protected by the Federal Confidentiality of Alcohol and Drug Abuse Patient Records regulations: The Federal rules restrict any use of the information to criminally investigate or prosecute any alcohol or drug abuse patient.[facility] HospitalIn the event this information is protected by the Federal Confidentiality of Alcohol and Drug Abuse Patient Records regulations: The Federal rules restrict any use of the information to criminally investigate or prosecute any alcohol or drug abuse patient.[facility] Hospital[facility] the event this information is protected by the Federal Confidentiality of Alcohol and Drug Abuse Patient Records regulations: The Federal rules restrict any use of the information to criminally investigate or prosecute any alcohol or drug abuse patient.[facility] Hospital[facility] the event this information is protected by the Federal Confidentiality of Alcohol and Drug Abuse Patient Records regulations: The Federal rules restrict any use of the information to criminally investigate or prosecute any alcohol or drug abuse patient.[facility] Care Teams (unrecognized sec tion and content) Medical Reception Relationship Specialty Start Date End Date Mayco Cook APRN.FITO RIVERS [address] [place] [address] PCP - General Family Practice 06/24/21 Medical Reception Relationship Specialty Start Date End Date Mayco Cook APRN.FITO RIVERS [address] [place] [address] PCP - General Family Medicine 06/24/21 Medical Reception Relationship Specialty Start Date End Date Mayco Cook APRN.FITO RIVERS [address] [facility] [place] [address] PCP - General Family Medicine 06/24/21 Medical Reception Relationship Specialty Start Date End Date Mayco Cook APRN.FITO RIVERS [address] [facility] [place] [address] PCP - General Family Medicine 06/24/21 Medical Reception Relationship Specialty Start Date End Date Mayco Cook APRN.FITO RIVERS [address] [facility] [place] [address] PCP - General Family Medicine 06/24/21 Team Status: Active Member Role Status Dates Dr. Lowell Hinkle III, MD Family Provider Active Dr. Anali Dolan MD Primary Care Provider Active Team Status: Inactive Member Role Status Dates Dr. Anali Dolan MD Primary Care Provider Active Start: August 18, 2024 End: August 18, 2024 Dr. Anali Dolan MD Attending Provider Active Start: August 18, 2024 End: August 18, 2024 Team Status: Inactive Member Role Status Dates Dr. Anali Dolan MD Primary Care Provider Active Start: August 19, 2024 End: August 19, 2024 Dr. Anali Dolan MD Attending Provider Active Start: August 19, 2024 End: August 19, 2024 Dr. Anali Dolan MD Referring Provider Active Start: August 19, 2024 End: August 19, 2024 Team Status: Inactive Member Role Status Dates Dr. Anali Dolan MD Primary Care Provider Active Start: August 25, 2024 End: August 25, 2024 Dr. Anali Dolan MD Attending Provider Active Start: August 25, 2024 End: August 25, 2024 Team Status: Inactive Member Role Status Dates Dr. Anali Dolan MD Primary Care Provider Active Start: November 20, 2024 End: November 20, 2024 Dr. Anali Dolan MD Attending Provider Active Start: November 20, 2024 End: November 20, 2024 Dr. Anali Dolan MD Referring Provider Active Start: November 20, 2024 End: November 20, 2024 Team Status: Inactive Member Role Status Dates Dr. Anali Dolan MD Primary Care Provider Active Start: November 24, 2024 End: November 24, 2024 Dr. Anali Dolan MD Attending Provider Active Start: November 24, 2024 End: November 24, 2024 Medical Reception Relationship Specialty Start Date End Date Mayco Cook APRN.G[employer]BLING [employer]ER, DNP [id number] [place] [address] PCP - General Family Medicine 06/24/21 Goals (unrecognized section and content) Goals may be documented in a n alternate sectionGoals may be documented in an alternate section Reason for Visit (unrecogniz ed section and content) Reason Comments Ear Pain left x 2 days Reason Comments Nail Check Established Patient Follow Up Reason Comments Cough Congestion, sore thr oat, NUNO x 3 days FOR RECORDS PERTAINING TO PATIENTS WHO ARE OR HAVE BEEN ENROLLED IN A CHEMICAL DEPENDENCY/SUBSTANCEABUSE PROGRAM, SOME INFORMATION MAY BE OMITTED. This clinical summary was aggregated from multiple sources. Caution should be exercised in using it in the provision of clinical care. This summary normalizes information from multiple sources, and as a consequence, information in this document may materially change the coding, format and clinical context of patient data. In addition, data may be omitted in some cases. CLINICAL DECISIONS SHOULD BE BASED ON THE PRIMARY CLINICAL RECORDS. [facility], [facility]. provides no warranty or guarantee of the accuracy or completeness of information in this document.
[2025-08-07 22:12] VITALS: BP 145/97; PULSE 68; RESP 20; TEMP 36.2; O2SAT 96
== END 2025-08-07 22:13 | disposition home or self-care (01) ==
PROVIDERS: Emergency Provider Emergency Medicine; PCP Internal Medicine; Visit Provider Emergency Medicine
DX: M25.551 Pain in right hip (principal); J44.9 Chronic obstructive pulmonary disease, unspecified; E11.9 Type 2 diabetes mellitus without complications; M25.552 Pain in left hip; F17.210 Nicotine dependence, cigarettes, uncomplicated; R20.0 Anesthesia of skin; R20.2 Paresthesia of skin; K21.9 Gastro-esophageal reflux disease without esophagitis
CPT/HCPCS: 72170; 82962; 99284

== ENCOUNTER → 2025-08-19 | Outpatient (CLI) | payer MEDICAID, SELFPAY ==
[2025-08-19 08:58] LABS: Hematocrit 46.2 % (37-47); Hemoglobin 14.8 g/dL (12.0-15.0); Immature Granulocytes Count 0.140 X10^3/uL (0.0-0.0); Mean Corp Hgb Conc 32.0 g/dL (32-36); Mean Corpuscular Volume 84.9 fL (81-99); Mean Platelet Vol. 9.5 fl (6.2-12.0); NRBC Flagged by Analyzer 0 % (0-5); Platelet Count 485 K/mm3 (150-450); RBC Distribution Width CV 14.0 % (11.6-14.6); RBC Distribution Width SD 42.9 fl (35.1-43.9); Red Blood Count 5.44 M/mm3 (4.2-5.4); White Blood Count 11.7 K/mm3 (4.4-11.0)
--- OUTSIDE RECORDS SUMMARY | 2025-08-19 09:14 | XMS RPT_ITS | CCD ---
Demographics Address [address] [place] [address] Home Phone Mobile Phone Preferred Language en Marital Status Single Christianity Affiliation Unknown Race White Ethnic Group Not or Lati no Author Organization 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 Anali Dolan Primary Care Provider Dr. Anali Dolan Attending Provider [phone] Dr. Anali Dolan Referring Provider [phone] Blaalise PLANNING RN.FITO RIVERS Daniel Primary Care Provider Joyce PLANNING RN.FITO RIVERS Daniel Primary Care Provider MICHAEL JOHNSON Referring Unavailable MAYCO COOK Primary Care Unavailable MAYCO OCOK Primary Care Unavailable MAYCO COOK Primary Care [...] (3 sources) buPROPion; Translations: [WELLBUTRIN] Drug Allergy [facility] Repository (13 sources) codeine; Translations: [CODEINE] Drug Allergy 8 GI Upset [facility] Repository (1 source) etodolac; Translations: [LODINE] Drug Allergy [facility] Repository (2 sources) FLUoxetine; Translations: [PROZAC] Drug Allergy [facility] Repository (2 sources) gabapentin; Translations: [GABAPENTIN] Drug Allergy [facility] Repository (12 sources) lithium; Translations: [LITHIUM] Drug Allergy 5 Unknown [facility] Repository (1 source) metroNIDAZOLE; Translations: [FLAGYL] Drug Allergy [facility] Repository (1 source) simvastatin; Translations: [ZOCOR] Drug Allergy [facility] Repository (1 source) traMADol; Translations: [TRAMADOL] Drug Allergy [facility] Repository (2 sources) varenicline; Translations: [CHANTIX] Drug Allergy [facility] Repository (1 source) TYLENOL-CODEINE #3; Translations: [TYLENOL-CODEINE #3] Propensity to adverse reactions (disorder) [facility] Repository (1 source) DARVOCET-N 100; Translations: [DARVOCET-N 100] Propensity to adverse reactions (disorder) [facility] Repository (11 sources) buPROPion; Translations: [BUPROPION HCL] Drug Allergy 2 Other: See Comments [facility] Repository (12 sources) etodolac; Translations: [ETODOLAC] Drug Allergy 0 AOF, Rash [facility] Repository (8 sources) FLUoxetine; Translations: [FLUOXETINE HCL] Drug Allergy 5 Mental Status Change [facility] Repository (8 sources) metroNIDAZOLE; Translations: [METRONIDAZOLE HCL] Drug Allergy 4 Vomiting [facility] Repository (8 sources) simvastatin; Translations: [SIMVASTATIN] Drug Allergy 5 Other: See Comments [facility] Repository (8 sources) varenicline; Translations: [VARENICLINE] Drug Allergy 1 Mental Status Change [facility] Repository (8 sources) PROPOXYPHENE N-ACETAMINOPHEN; Translations: [PROPOXYPHENE N-ACETAMINOPHEN] Propensity to adverse reactions to drug (disorder) 0 GI Upset [facility] Repository (2 sources) acetaminophen Drug Allergy 7 AOF [facility] Repository (2 sources) propoxyphene Drug Allergy 7 AOF [facility] Repository (1 source) acetaminophen / propoxyphene Drug Allergy [facility] Repository (1 source) propoxyphene Drug Allergy [facility] Repository (1 source) TYLENOL W/CODEINE #3 Drug allergy (disorder) [facility] Repository (1 source) chanix Drug allergy (disorder) [facility] Repository (1 source) 12/12/16 (-) MRSA SCREEN; Translations: [12/12/16 (-) MRSA SCREEN] Propensity to adverse reactions (disorder) [facility] Repository (2 sources) Acetaminophen Drug Allergy 2 Nausea [facility] (3 sources) Codeine; Translations: [codeine phosphate] Drug Allergy 2 Unknown [facility] (2 sources) Hypochlorite Drug Allergy 2 short of breath [facility] (2 sources) Propoxyphene Drug Allergy 2 Nausea [facility] (3 sources) varenicline; Translations: [varenicline tartrate] Drug Allergy 2 Other [facility] (1 source) Bleach (Sodium Hypochlorite) Drug allergy (disorder) 5 [facility] Repository Medications Current Medications Medication Drug Class(es) [...] Start: 02-18-2024 take 1 capsule by mo [facility] once daily Cholecalciferol (Vitamin D3) 50 mcg [...] Drug Class(es) Dates Sig (Normalized) Sig (Original) [id number] 200 actuat albuterol 0.09 mg/actuat metered dose [...] on above: Take 2 tablets by mo [facility] daily at bedtime. 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 [place] [address] OFFICE VISIT Date of Service: 11/24/24 MR#: [id number] Acct: [id number] Name: LOUIS BRAN Rep #: [id number] : 1975 Provider: Dr. Anali verdugo MD Age/Sex: 49/F [place] [facility] Status: Signed Intake Vital Signs 08/25/24 14:32 [...] M FU Chief Complaint: 3 M FU Gift Shop Clerk Required: No Accompanied by: Mother Is patient [...] PO QDAY 11/24/24 11/24/24 Hi story (Albert[facility] Medical History Rash Muscle spasm Wears glasses [...] then 7 (more content not included)... Normal [facility] Hemoglobin A1con 11-20-2024 HbA1c (Bld) [Mass fraction] 7.7 % Normal <=5.6 [facility] Comment on above: Performed By: #### L 501.9985 #### [facility] [address] [place], [address] Hemoglobin A1c percentageOrd ered By: Anali Dolan on 11-20-2024 HbA1c (Bld) [Mass fraction] 7.7 % >5.7 [facility] PVR ANK PRESS ANIHSA VAS LABon 10-29-2024 PVR ANK PRESS ANISHA VAS LAB Non-Invasive Vascular Laboratory [facility] Lower Extremity Arterial Physiology Study Bilateral/Complete Date [...] Normal at rest. Technologist: Otilia Platt RVT, RDOK Ordering physician: MICHAEL JOHNSON Interpreting physician: FRANCOIS Wong DO Final CC [employer] Medical Image : [id number] amicsSISUID See Link below for Image Normal [facility] CNOVon 10-15-2024 CNOV [facility] LOUIS BRAN ([id number]) 1975 F Date Time Provider Department 10/15/24 10:00 AM [facility] During your visit today, we recorded the [...] mention of panic attacks Bipolar disorder, unspecified ([facility]) Fracture, talus closed 08/10/2010 Gastroesophageal reflux disease without esophagitis 04/06/2015 Hyperlipidemia LDL goal <100 06/16/2015 Obesity, unspecified 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[facility]) COREEN (obstructive sleep apnea) Patellar tendinitis Peripheral neuropathy 01/09/2013 Seizure disorder ([facility]) 07/30/2012 Statin intolerance 10/07/2014 Tracheostomy status ([facility]) Unspecified asthma(493.90) Unspecified schizophrenia, unspecified condition MEDICATIONS: [...] A500 [Prop* GI Upset Flagyl [Metronidazo* Vomiting Schubert Unknown Lodine [Etodolac] rash Prozac [Fluoxetine * [...] CAPSULE 2. Asthma with COPD with exacerbation ([facility]) - ICD9: 493.22, ICD10: J44.1 - ALBUTEROL [...] VENTOLIN HFA) (more content not included)... 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 Bipolar disorder, unspecified ([facility]) Fracture, talus closed 08/10/2010 Gastroesophageal reflux disease without esophagitis 04/06/2015 Hyperlipidemia LDL goal <100 06/16/2015 Obesity, unspecified 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 Normal [facility] XR TOE 3V AP/LAT/OBL RTon XR TOE [...] calcifications. IMPRESSION: Mild first MTP joint osteoarthritis. Airset Molder: PSCB Transcribe Date/Time: Oct 14 2024 9:21A Dictated by : GOLDEN KELSEY MD This examination was interpreted and the report reviewed and electronically signed by: GOLDEN KELSEY MD on Oct 14 2024 9:21AM EST [id number] Normal [facility] MR/BMS.[facility] 08-25-2024 MR/BMS.[facility] [address] [place] [address] OFFICE VISIT Date of Service: 08/25/24 MR#: [id number] Acct: [id number] Name: LOUIS BRAN Rep #: [id number] : 1975 Provider: Dr. Anali verdugo MD Age/Sex: 48/F Location: [facility] Status: Signed Intake Vital Signs 08/18/24 12:52 [...] Diabetes Chief Complaint: discuss type 2 diabetes Gift Shop Clerk Required: No Accompanied by: Self Is patient [...] physical activ (more content not included)... Normal [facility] Miscellaneous Lab Procedureo n 08-21-2024 [facility] [place] Normal [facility] Comment on above: Order Comment: Labco rp: [id number] OxLDL LAV TOP FRZ PLASMALabco: [id number] OxLDL LAV TOP FRZ PLASMA Result Comment: TEST RESULTS LIMITS Oxidized LDL 47 ng/mL 10-170 TESTING PERFORMED AT [facility]. ORIGINAL REPORT ON FILE IN LAB CONTAINS ADDITIONAL TEST SITE INFORMATION. Performed By: #### L 500.4050, L100.0100, L500.4100, L501.3620, L501.9985, L3300.3500, L506.1000, L801.1541 ####[facility] [id number] [place], [place], [id number] Insulin Levelon 08-20-2024 INSULIN,FASTING 24.6 uIU/mL Normal 2.6-24.9 [facility] Comment on above: Result Comment: Perf ormed at: [address] [id number] Body Maker: Abrahan Conner PhD, Phone: [phone] Performed By: #### L 500.4050, L100.0100, L500.4100, L501.3620, L501.9985, L3300.3500, L506.1000, L801.1541 ####[facility] [id number] [place], [place], [id number] DOrdered By: Yuli Dolan on 08-19-2024 Vitamin D 25-Hydroxy 27.2 ng/mL [facility] Comment on above: Vitamin D 25([place]) Sta tus Range Deficiency <20 ng/mL (50nmol/L) Insufficiency 20 - 30 ng/mL (50 - 75 nmol/L) Sufficiency 30 - 100 ng/mL (75 - 250 nmol/L) Toxicity >100 ng/mL (>250 nmol/L) Absolute neutrophil countOrd ered By: Anali Hinojosachner on 08-19-2024 Neutrophils (Bld) [#/Vol] 6.8 10*3/uL 2.0-7.7 [facility] Albumin to globulin ratioOrd ered By: Anali Magdaleno on 08-19-2024 Albumin/Globulin [Mass ratio] 0.8 {ratio} Low 0.9-2.4 [facility] Basophil percentageOrdered B y: Anali Dolan on 08-19-2024 Basophils/100 WBC (Bld) 0.5 % 0-1 [facility] Bilirubin, totalOrdered By: Anali Magdaleno on 08-19-2024 Bilirubin [Mass/Vol] 0.50 mg/dL 0.20-1.00 [facility] Comment on above: For patients on eltr ombopag therapy, use of Dimension [place] TBIL is not recommended. Blood urea nitrogen (BUN)/cr eatinine ratioOrdered By: Anali Dolan on 08-19-2024 Urea nitrogen/Creatinine [Mass ratio] 9.2 mg/mg Low 10-20 [facility] CBC W/Diff, Automatedon 08-03 Absolute Lymph 3.19 X10 3/uL Normal 0.83-4.51 [facility] Comment on above: Performed By: #### L 500.4050, L100.0100, L500.4100, L501.3620, L501.9985, L3300.3500, L506.1000, L801.1541 #### [facility] [address] [place], [address] Absolute Neut 6.8 X10 3/uL Normal 2.0-7.7 [facility] Comment on above: Performed By: #### L 500.4050, L100.0100, L500.4100, L501.3620, L501.9985, L3300.3500, L506.1000, L801.1541 #### [facility] [address] [place], [address] Basophils/100 WBC (Bld) 0.5 % Normal 0-1 [facility] Comment on above: Performed By: #### L 500.4050, L100.0100, L500.4100, L501.3620, L501.9985, L3300.3500, L506.1000, L801.1541 #### [facility] [address] [place], [address] Eosinophils/100 WBC (Bld) 2.8 % Normal 0-5 [facility] Comment on above: Performed By: #### L 500.4050, L100.0100, L500.4100, L501.3620, L501.9985, L3300.3500, L506.1000, L801.1541 #### [facility] [address], [address] Erythrocyte distribution width (RBC) [Ratio] 14.0 % Normal 11.6-14.6 [facility] Comment on above: Performed By: #### L 500.4050, L100.0100, L500.4100, L501.3620, L501.9985, L3300.3500, L506.1000, L801.1541 #### [facility] [address] [place], [address] Hematocrit (Bld) [Volume fraction] 43.1 % Normal 37-47 [facility] Comment on above: Performed By: #### L 500.4050, L100.0100, L500.4100, L501.3620, L501.9985, L3300.3500, L506.1000, L801.1541 #### [facility] [address] [place], [address] Hemoglobin (Bld) [Mass/Vol] 14.3 g/dL Normal 12.0-15.0 [facility] Comment on above: Performed By: #### L 500.4050, L100.0100, L500.4100, L501.3620, L501.9985, L3300.3500, L506.1000, L801.1541 #### [facility] [address] [place], [address] IG% 0.700 Normal 0.0-0.9 [facility] Comment on above: Result Comment: IG% - Immature Granulocytes (promyelocytes, myelocytes and metamyelocytes) > 1% indicates that a LEFT SHIFT is Present. Performed By: #### L 500.4050, L100.0100, L500.4100, L501.3620, L501.9985, L3300.3500, L506.1000, L801.1541 #### [facility] [address] [place], [address] Lymphocytes/100 WBC (Bld) 28.4 % Normal 19-41 [facility] Comment on above: Performed By: #### L 500.4050, L100.0100, L500.4100, L501.3620, L501.9985, L3300.3500, L506.1000, L801.1541 #### [facility] [address] [place], [address] MCH (RBC) [Entitic mass] 27.4 pg Normal 27.0-32.0 [facility] Comment on above: Performed By: #### L 500.4050, L100.0100, L500.4100, L501.3620, L501.9985, L3300.3500, L506.1000, L801.1541 #### [facility] [address] [place], [address] MCHC (RBC) [Mass/Vol] 33.2 g/dL Normal 32-36 [facility] Comment on above: Performed By: #### L 500.4050, L100.0100, L500.4100, L501.3620, L501.9985, L3300.3500, L506.1000, L801.1541 #### [facility] [address] [place], [address] MCV (RBC) [Entitic vol] 82.6 fL Normal 81-99 [facility] Comment on above: Performed By: #### L 500.4050, L100.0100, L500.4100, L501.3620, L501.9985, L3300.3500, L506.1000, L801.1541 #### [facility] [address] [place], [address] Monocytes/100 WBC (Bld) 7.2 % Normal 0-10 [facility] Comment on above: Performed By: #### L 500.4050, L100.0100, L500.4100, L501.3620, L501.9985, L3300.3500, L506.1000, L801.1541 #### [facility] [address] [place], [address] Neutrophils/100 WBC (Bld) 60.4 % Normal 47-70 [facility] Comment on above: Performed By: #### L 500.4050, L100.0100, L500.4100, L501.3620, L501.9985, L3300.3500, L506.1000, L801.1541 #### [facility] [address] [place], [address] Nucleated RBC (Bld) [#/Vol] 0 10*3/uL Normal 0-5 [facility] Comment on above: Performed By: #### L 500.4050, L100.0100, L500.4100, L501.3620, L501.9985, L3300.3500, L506.1000, L801.1541 #### [facility] [address] [place], [address] Platelet mean volume (Bld) [Entitic vol] 9.6 fL Normal 6.2-12.0 [facility] Comment on above: Performed By: #### L 500.4050, L100.0100, L500.4100, L501.3620, L501.9985, L3300.3500, L506.1000, L801.1541 #### [facility] [address] [place], [address] Platelets (Bld) [#/Vol] 439 10*3/uL Normal 150-450 [facility] Comment on above: Performed By: #### L 500.4050, L100.0100, L500.4100, L501.3620, L501.9985, L3300.3500, L506.1000, L801.1541 #### [facility] [address] [place], [address] RBC (Bld) [#/Vol] 5.22 10*6/uL Normal 4.2-5.4 [facility] Comment on above: Performed By: #### L 500.4050, L100.0100, L500.4100, L501.3620, L501.9985, L3300.3500, L506.1000, L801.1541 #### [facility] [address] [place], [address] RDW SD 41.8 fl Normal 35.1-43.9 [facility] Comment on above: Performed By: #### L 500.4050, L100.0100, L500.4100, L501.3620, L501.9985, L3300.3500, L506.1000, L801.1541 #### [facility] [address] [place], [address] WBC (Bld) [#/Vol] 11.2 10*3/uL High 4.4-11.0 [facility] Comment on above: Performed By: #### L 500.4050, L100.0100, L500.4100, L501.3620, L501.9985, L3300.3500, L506.1000, L801.1541 #### [facility] [address] [place], [place], [id number] CPK Total, Creatine Kinaseon 08-19-2024 CPK TOTAL 58 U/L Normal 26-192 [facility] Comment on above: Performed By: #### L 500.4050, L100.0100, L500.4100, L501.3620, L501.9985, L3300.3500, L506.1000, L801.1541 #### [facility] [address] [place], [place], [id number] Carbon dioxide measurementOr dered By: Anali Dolan on 08-19-2024 CO2 [Moles/Vol] 26.0 mmol/L 21.0-32.0 [facility] Chloride measurementOrdered By: Anali Dolan on 08-19-2024 Chloride [Moles/Vol] 105 mmol/L 98-107 [facility] Comprehensive Metabolic Prof ilon 08-19-2024 Albumin [Mass/Vol] 3.3 g/dL Normal 3.2-5.0 [facility] Comment on above: Performed By: #### L 500.4050, L100.0100, L500.4100, L501.3620, L501.9985, L3300.3500, L506.1000, L801.1541 #### [facility] [address] [place], [place], [id number] ([address]) Albumin/Globulin [Mass ratio] 0.8 {ratio} Low 0.9-2.4 [facility] Comment on above: Performed By: #### L 500.4050, L100.0100, L500.4100, L501.3620, L501.9985, L3300.3500, L506.1000, L801.1541 #### [facility] [address] [place], [address] ALK P 158 U/L High 45-117 [facility] Comment on above: Performed By: #### L 500.4050, L100.0100, L500.4100, L501.3620, L501.9985, L3300.3500, L506.1000, L801.1541 #### [facility] [address] [place], [address] ALT [Catalytic activity/Vol] 27 U/L Normal 13-56 [facility] Comment on above: Performed By: #### L 500.4050, L100.0100, L500.4100, L501.3620, L501.9985, L3300.3500, L506.1000, L801.1541 #### [facility] [address] [place], [address] AST [Catalytic activity/Vol] 14 U/L Low 15-37 [facility] Comment on above: Performed By: #### L 500.4050, L100.0100, L500.4100, L501.3620, L501.9985, L3300.3500, L506.1000, L801.1541 #### [facility] [address] [place], [address] Bilirubin [Mass/Vol] 0.50 mg/dL Normal 0.20-1.00 [facility] Comment on above: Result Comment: For patients on eltrombopag therapy, use of Dimension [place] TBIL is not recommended. Performed By: #### L 500.4050, L100.0100, L500.4100, L501.3620, L501.9985, L3300.3500, L506.1000, L801.1541 #### [facility] [address] [place], [address] BUN/CRE 9.2 RATIO Low 10-20 [facility] Comment on above: Performed By: #### L 500.4050, L100.0100, L500.4100, L501.3620, L501.9985, L3300.3500, L506.1000, L801.1541 #### [facility] [address] [place], [address] CA,Total 9.1 mg/dL Normal 8.5-10.1 [facility] Comment on above: Performed By: #### L 500.4050, L100.0100, L500.4100, L501.3620, L501.9985, L3300.3500, L506.1000, L801.1541 #### [facility] [address] [place], [address] Chloride [Moles/Vol] 105 mmol/L Normal 98-107 [facility] Comment on above: Performed By: #### L 500.4050, L100.0100, L500.4100, L501.3620, L501.9985, L3300.3500, L506.1000, L801.1541 #### [facility] [address] [place], [address] CO2 [Moles/Vol] 26.0 mmol/L Normal 21.0-32.0 [facility] Comment on above: Performed By: #### L 500.4050, L100.0100, L500.4100, L501.3620, L501.9985, L3300.3500, L506.1000, L801.1541 #### [facility] [address] [place], [address] Creatinine [Mass/Vol] 0.76 mg/dL Normal 0.55-1.02 [facility] Comment on above: Result Comment: The validity of the calculated GFR GFRAA in patients over 70 years has not been determined. Clinical correlation is essential. Performed By: #### L 500.4050, L100.0100, L500.4100, L501.3620, L501.9985, L3300.3500, L506.1000, L801.1541 #### [facility] [address] [place], [address] EST GFR - AA 103 mL/min Normal >60 [facility] Comment on above: Result Comment: Afri can Nigerian GFR Calc Performed By: #### L 500.4050, L100.0100, L500.4100, L501.3620, L501.9985, L3300.3500, L506.1000, L801.1541 #### [facility] [address] [place], [address] GAP 5 Normal 5-15 [facility] Comment on above: Performed By: #### L 500.4050, L100.0100, L500.4100, L501.3620, L501.9985, L3300.3500, L506.1000, L801.1541 #### [facility] [address] [place], [address] GFR/1.73 sq M.predicted among non-blacks MDRD (S/P/Bld) [Vol rate/Area] 85 mL/min/{1.73_m2} Normal >60 [facility] Comment on above: Result Comment: Non- GFR Calc Performed By: #### L 500.4050, L100.0100, L500.4100, L501.3620, L501.9985, L3300.3500, L506.1000, L801.1541 #### [facility] [address] [place], [address] Globulin (S) [Mass/Vol] 4.2 g/dL Normal 2.2-4.2 [facility] Comment on above: Performed By: #### L 500.4050, L100.0100, L500.4100, L501.3620, L501.9985, L3300.3500, L506.1000, L801.1541 #### [facility] [address] [place], [address] Glucose [Mass/Vol] 195 mg/dL High 74-106 [facility] Comment on above: Result Comment: Fast ing Glucose result greater than or equal to 126 mg/dL suggests DIABETES MELLITUS per A.D.A. criteria. Performed By: #### L 500.4050, L100.0100, L500.4100, L501.3620, L501.9985, L3300.3500, L506.1000, L801.1541 #### [facility] [address] [place], [address] Potassium [Moles/Vol] 3.9 mmol/L Normal 3.5-5.1 [facility] Comment on above: Performed By: #### L 500.4050, L100.0100, L500.4100, L501.3620, L501.9985, L3300.3500, L506.1000, L801.1541 #### [facility] [address] [place], [address] Sodium [Moles/Vol] 136 mmol/L Normal 136-145 [facility] Comment on above: Performed By: #### L 500.4050, L100.0100, L500.4100, L501.3620, L501.9985, L3300.3500, L506.1000, L801.1541 #### [facility] [address] [place], [address] T PROT 7.5 g/dL Normal 6.4-8.2 [facility] Comment on above: Performed By: #### L 500.4050, L100.0100, L500.4100, L501.3620, L501.9985, L3300.3500, L506.1000, L801.1541 #### [facility] [address] [place], [address] Urea nitrogen [Mass/Vol] 7 mg/dL Normal 7-18 [facility] Comment on above: Performed By: #### L 500.4050, L100.0100, L500.4100, L501.3620, L501.9985, L3300.3500, L506.1000, L801.1541 #### [facility] [address] [place], [address] Eosinophil percentageOrdered By: Anali Dolan on 08-19-2024 Eosinophils/100 WBC (Bld) 2.8 % 0-5 [facility] Erythrocyte distribution wid th ratioOrdered By: Anali Dolan on 08-19-2024 Erythrocyte distribution width (RBC) [Ratio] 14.0 % 11.6-14.6 [facility] Erythrocyte distribution wid th standard deviationOrdered By: Anali Dolan on 08-19-2024 Erythrocyte distribution width (RBC) [Entitic vol] 41.8 fL 35.1-43.9 [facility] Estimated glomerular filtrat ion rate (GFR) AmericanOrdered By: Anali Dolan on 08-19-2024 Estimated GFR (MDRD) Amer 103 mL/min >60 [facility] Comment on above: GFR Calc Glomerular filtration rate ( GFR) estimationOrdered By: Anali Dolan on 08-19-2024 Estimated GFR (MDRD) Non-Af Amer 85 mL/min >60 [facility] Comment on above: Non- GFR Calc Glucose measurementOrdered B y: Anali Dolan on 08-19-2024 Glucose [Mass/Vol] 195 mg/dL High 74-106 [facility] Comment on above: Fasting Glucose resu lt greater than or equal to 126 mg/dL suggests DIABETES MELLITUS per A.D.A. criteria. Hematocrit Auto (Bld) [Volum e fraction]Ordered By: Anali Dolan on 08-19-2024 Hematocrit (Bld) [Volume fraction] 43.1 % 37-47 [facility] Hemoglobin A1con 08-19-2024 HbA1c (Bld) [Mass fraction] 7.9 % High 3.8-5.6 [facility] Comment on above: Result Comment: Norm al < 5.7 % Prediabetic 5.7 - 6.4 % Diabetic >or= 6.5 % Please note range changes. Performed By: #### L 500.4050, L100.0100, L500.4100, L501.3620, L501.9985, L3300.3500, L506.1000, L801.1541 #### [facility] [address] [place], [place], [id number] Hemoglobin A1c percentageOrd ered By: Anali Dolan on 08-19-2024 HbA1c (Bld) [Mass fraction] 7.9 % High 3.8-5.6 [facility] Comment on above: Normal < 5.7 % Predi abetic 5.7 - 6.4 % Diabetic >or= 6.5 % Please note range changes. Hemoglobin measurementOrdere d By: Anali Dolan on 08-19-2024 Hemoglobin (Bld) [Mass/Vol] 14.3 g/dL 12.0-15.0 [facility] High density lipoprotein (HD L) measurementOrdered By: Anali Dolan on 08-19-2024 Cholesterol in HDL [Mass/Vol] 40 mg/dL >40 [facility] Comment on above: The drugs N-Acetylcy steine and Metamizole may falsely depress this assay. Reference Range HDL <40 mg/dL Low HDL Cholesterol HDL >or= 60 mg/dL High HDL Cholesterol Immature granulocytes/100 WB C Auto (Bld)Ordered By: Anali Dolan on 08-19-2024 Immature granulocytes/100 WBC (Bld) 0.700 % 0.0-0.9 [facility] Comment on above: IG% - Immature Granu locytes (promyelocytes, myelocytes and metamyelocytes) > 1% indicates that a LEFT SHIFT is Present. Insulin [Mass/Vol]Ordered By : Anali Dolan on 08-19-2024 Insulin Level 24.6 uIU/mL 2.6-24.9 [facility] Comment on above: Performed at: [address] [id number] Director: Abrahan Conner PhD, Phone: [phone] Laboratory - Chemistry and C hemistry - challengeOrdered By: Anali Dolan on 08-19-2024 AST [Catalytic activity/Vol] 14 U/L Low 15-37 [facility] Lipid Profileon 08-19-2024 Cholesterol [Mass/Vol] 207 mg/dL High 200 [facility] Comment on above: Result Comment: <200 mg/dL Desirable 200-240 mg/dL Borderline >240 mg/dL High Risk Performed By: #### L 500.4050, L100.0100, L500.4100, L501.3620, L501.9985, L3300.3500, L506.1000, L801.1541 #### [facility] [address] [place], [address] Cholesterol in HDL [Mass/Vol] 40 mg/dL Normal [facility] Comment on above: Result Comment: The drugs N-Acetylcysteine and Metamizole may falsely depress this assay. Reference Range HDL <40 mg/dL Low HDL Cholesterol HDL >or= 60 mg/dL High HDL Cholesterol Performed By: #### L 500.4050, L100.0100, L500.4100, L501.3620, L501.9985, L3300.3500, L506.1000, L801.1541 #### [facility] [address] [place], [address] Cholesterol in LDL [Mass/Vol] 117 mg/dL Normal 0-130 [facility] Comment on above: Performed By: #### L 500.4050, L100.0100, L500.4100, L501.3620, L501.9985, L3300.3500, L506.1000, L801.1541 #### [facility] [address] [place], [address] Cholesterol in VLDL [Mass/Vol] 50 mg/dL High 5-40 [facility] Comment on above: Performed By: #### L 500.4050, L100.0100, L500.4100, L501.3620, L501.9985, L3300.3500, L506.1000, L801.1541 #### [facility] [address] [place], [address] Triglyceride [Mass/Vol] 252 mg/dL High [facility] Comment on above: Result Comment: The drugs N-Acetylcysteine and Metamizole may falsely depress this assay. Serum Triglycerides Reference Interval Normal <150 mg/dL Borderline high 150 - 199 mg/dL High 200 - 499 mg/dL Very High > or = 500 mg/dL Performed By: #### L 500.4050, L100.0100, L500.4100, L501.3620, L501.9985, L3300.3500, L506.1000, L801.1541 #### [facility] [address] [place], [address] Low density lipoprotein (LDL ) cholesterol measurementOrdered By: Anali Dolan on 08-19-2024 Cholesterol in LDL [Mass/Vol] 117 mg/dL 0-130 [facility] Lymphocytes Auto (Unsp spec) [#/Vol]Ordered By: Anali Dolan on 08-19-2024 Lymphocytes (Bld) [#/Vol] 3.19 10*3/uL 0.83-4.51 [facility] Lymphocytes/100 WBC Auto (Un sp spec)Ordered By: Anali Dolan on 08-19-2024 Lymphocytes/100 WBC (Bld) 28.4 % 19-41 [facility] MCV (mean corpuscular volume ) determinationOrdered By: Anali Dolan on 08-19-2024 MCV (RBC) [Entitic vol] 82.6 fL 81-99 [facility] Mean corpuscular hemoglobin (MCH) determinationOrdered By: Anali Dolan on 08-19-2024 MCH (RBC) [Entitic mass] 27.4 pg 27.0-32.0 [facility] Mean corpuscular hemoglobin concentration (MCHC) determinationOrdered By: Anali Dolan on 08-19-2024 MCHC (RBC) [Mass/Vol] 33.2 g/dL 32-36 [facility] Mean platelet volume determi nationOrdered By: Anali Dolan on 08-19-2024 Platelet mean volume (Bld) [Entitic vol] 9.6 fL 6.2-12.0 [facility] Miscellaneous procedureOrder ed By: Anali Dolan on 08-19-2024 Miscellaneous Test See comment [facility] Comment on above: TEST RESULTS LIMITSO xidized LDL 47 ng/mL 10-170 TESTING PERFORMED AT [facility]. ORIGINAL REPORT ON FILE IN LAB CONTAINS ADDITIONAL TEST SITE INFORMATION. Monocyte percentageOrdered B y: Anali Dolan on 08-19-2024 Monocytes/100 WBC (Bld) 7.2 % 0-10 [facility] Neutrophil percentageOrdered By: Anali Dolan on 08-19-2024 Neutrophils/100 WBC (Bld) 60.4 % 47-70 [facility] Nucleated red blood cell per centageOrdered By: Anali Dolan on 08-19-2024 Nucleated RBC/100 WBC (Bld) [Ratio] 0 % 0-5 [facility] Platelet countOrdered By: Tatiana Dolan on 08-19-2024 Platelets (Bld) [#/Vol] 439 10*3/uL 150-450 [facility] Potassium measurementOrdered By: Anali Dolan on 08-19-2024 Potassium [Moles/Vol] 3.9 mmol/L 3.5-5.1 [facility] RBC Auto (Bld) [#/Vol]Ordere d By: Anali Dolan on 08-19-2024 RBC (Bld) [#/Vol] 5.22 10*6/uL 4.2-5.4 [facility] Serum anion gap measurementO rdered By: Anali Dolan on 08-19-2024 Anion gap [Moles/Vol] 5 mmol/L 5-15 [facility] Serum globulin measurementOr dered By: Anali Dolan on 08-19-2024 Globulin (S) [Mass/Vol] 4.2 g/dL 2.2-4.2 [facility] Serum or plasma alanine elizabeth otransferase (ALT) measurementOrdered By: Anali Dolan on 08-19-2024 ALT [Catalytic activity/Vol] 27 U/L 13-56 [facility] Serum or plasma albumin ruy urement (mass/volume)Ordered By: Anali Dolan on 08-19-2024 Albumin [Mass/Vol] 3.3 g/dL 3.2-5.0 [facility] Serum or plasma alkaline susan sphatase measurementOrdered By: Anali Dolan on 08-19-2024 ALP [Catalytic activity/Vol] 158 U/L High 45-117 [facility] Serum or plasma calcium ruy urement (mass/volume)Ordered By: Anali Dolan on 08-19-2024 Calcium [Mass/Vol] 9.1 mg/dL 8.5-10.1 [facility] Serum or plasma cholesterol measurement (mass/volume)Ordered By: Anali Dolan on 08-19-2024 Cholesterol [Mass/Vol] 207 mg/dL High <200 [facility] Comment on above: <200 mg/dL Desirable 200-240 mg/dL Borderline >240 mg/dL High Risk Serum or plasma creatinine m easurement (mass/volume)Ordered By: Anali Dolan on 08-19-2024 Creatinine [Mass/Vol] 0.76 mg/dL 0.55-1.02 [facility] Comment on above: The validity of the calculated GFR & GFRAA in patients over 70 years has not been determined. Clinical correlation is essential. Serum or plasma urea nitroge n measurement (mass/volume)Ordered By: Anali Dolan on 08-19-2024 Urea nitrogen [Mass/Vol] 7 mg/dL 7-18 [facility] Sodium levelOrdered By: Lashawn Dolan on 08-19-2024 Sodium [Moles/Vol] 136 mmol/L 136-145 [facility] Total creatine kinase measur ementOrdered By: Anali Dolan on 08-19-2024 CK [Catalytic activity/Vol] 58 U/L 26-192 [facility] Total proteinOrdered By: Meche Dolan on 08-19-2024 Protein [Mass/Vol] 7.5 g/dL 6.4-8.2 [facility] Triglycerides measurementOrd ered By: Anali Dolan on 08-19-2024 Triglyceride [Mass/Vol] 252 mg/dL High <199 [facility] Comment on above: The drugs N-Acetylcy steine and Metamizole may falsely depress this assay.Serum Triglycerides Reference Interval Normal <150 mg/dL Borderline high 150 - 199 mg/dL High 200 - 499 mg/dL Very High > or = 500 mg/dL Very low density lipoprotein (VLDL) cholesterol measurementOrdered By: Anali Dolan on 08-19-2024 VLDL Cholesterol 50 mg/dL High 5-40 [facility] Vitamin D,25 Hydroxyon 08-19 Vitamin D 25-OH 27.2 ng/mL Normal [facility] Comment on above: Result Comment: Kari min D 25(OH) Status Range Deficiency <20 ng/mL (50nmol/L) Insufficiency 20 - 30 ng/mL (50 - 75 nmol/L) Sufficiency 30 - 100 ng/mL (75 - 250 nmol/L) Toxicity >100 ng/mL (>250 nmol/L) Performed By: #### L 500.4050, L100.0100, L500.4100, L501.3620, L501.9985, L3300.3500, L506.1000, L801.1541 #### [facility] [address] [place], [address] White blood cell (WBC) count Ordered By: Anali Dolan on 08-19-2024 WBC (Bld) [#/Vol] 11.2 10*3/uL High 4.4-11.0 [facility] MR/DANN.Tye 08-18-2024 MR/DANN.LINDA [facility] [address] [place] [address] OFFICE VISIT Date of Service: 08/18/24 MR#: [id number] Acct: [id number] Name: LOUIS BRAN Rep #: [id number] : 1975 Provider: Dr. Anali verdugo MD Age/Sex: 48/F [place] [facility] [place] Status: Signed Intake Vital Signs 02/14/24 13:01 [...] M FU Chief Complaint: 6 m fu Gift [employer] Required: No Accompanied by: Self Is patient [...] on nebulizer. (more content not included)... Normal [facility] Absolute lymphocyte counton 06-02-2022 Lymphocytes Auto (Unsp spec) [#/Vol] 2.76 10*3/uL 0.83-4.51 [facility] Work Phone: Basophil percentageon 2021 Basophils/100 WBC (Bld) 0.5 % 0-1 [facility] Work Phone: Bilirubin [Mass/Vol] 0.50 mg/dL 0.20-1.00 [facility] Work Phone: Comment on above: For patients on eltr ombopag therapy, use of Dimension [place] TBIL is not recommended. Chloride [Moles/Vol] 105 mmol/L 98-107 [facility] Work Phone: Cholesterol [Mass/Vol] 229 mg/dL <200 [facility] Work Phone: Comment on above: <200 mg/dL Desirable 200-240 mg/dL Borderline >240 mg/dL High Risk Eosinophils/100 WBC (Bld) 4.0 % 0-5 [facility] Work Phone: Glucose [Mass/Vol] 152 mg/dL 74-106 [facility] Work Phone: Comment on above: Fasting Glucose resu lt greater than or equal to 126 mg/dL suggests DIABETES MELLITUS per A.D.A. criteria. Neutrophils (Bld) [#/Vol] 5.3 10*3/uL 2.0-7.7 [facility] Work Phone: Neutrophils/100 WBC (Bld) 56.4 % 47-70 [facility] Work Phone: Potassium [Moles/Vol] 3.9 mmol/L 3.5-5.1 [facility] Work Phone: Protein [Mass/Vol] 7.6 g/dL 6.4-8.2 [facility] Work Phone: Sodium [Moles/Vol] 139 mmol/L 136-145 [facility] Work Phone: Triglyceride [Mass/Vol] 283 mg/dL <199 [facility] Work Phone: Comment on above: The drugs N-Acetylcy steine and Metamizole may falsely depress this assay.Serum Triglycerides Reference Interval Normal <150 mg/dL Borderline high 150 - 199 mg/dL High 200 - 499 mg/dL Very High > or = 500 mg/dL WBC (Bld) [#/Vol] 9.3 10*3/uL 4.4-11.0 [facility] Work Phone: Blood erythrocytes count (nu mber/volume)on 06-02-2022 RBC (Bld) [#/Vol] 5.13 10*6/uL 4.2-5.4 [facility] Work Phone: Blood hemoglobin measurement (mass/volume)on 06-02-2022 Hemoglobin (Bld) [Mass/Vol] 14.1 g/dL 12.0-15.0 [facility] Work Phone: Blood lymphocytes/100 leukoc yteson 06-02-2022 Lymphocytes/100 WBC (Bld) 29.6 % 19-41 [facility] Work Phone: Blood monocytes/100 leukocyt eson 06-02-2022 Monocytes/100 WBC (Bld) 8.6 % 0-10 [facility] Work Phone: Blood platelet mean volumeon 06-02-2022 Platelet mean volume (Bld) [Entitic vol] 9.7 fL 6.2-12.0 [facility] Work Phone: Determination of erythrocyte mean corpuscular volume (MCV)on 06-02-2022 MCV (RBC) [Entitic vol] 85.4 fL 81-99 [facility] Work Phone: Hematocrit Auto (Bld) [Volum e fraction]on 06-02-2022 Hematocrit (Bld) [Volume fraction] 43.8 % 37-47 [facility] Work Phone: Laboratory - Chemistry and C hemistry - challengeon 06-02-2022 ALP [Catalytic activity/Vol] 151 U/L 45-117 [facility] Work Phone: ALT [Catalytic activity/Vol] 27 U/L 13-56 [facility] Work Phone: CO2 [Moles/Vol] 28.0 mmol/L 21.0-32.0 [facility] Work Phone: Free T4 [Mass/Vol] 1.19 ng/dL 0.76-1.46 [facility] Work Phone: Globulin (S) [Mass/Vol] 4.2 g/dL 2.2-4.2 [facility] Work Phone: Urea nitrogen/Creatinine [Mass ratio] 10.6 mg/mg 10-20 [facility] Work Phone: Laboratory - Hematology and Cell countson 06-02-2022 Erythrocyte distribution width (RBC) [Entitic vol] 41.1 fL 35.1-43.9 [facility] Work Phone: Erythrocyte distribution width (RBC) [Ratio] 13.2 % 11.6-14.6 [facility] Work Phone: Immature granulocytes/100 WBC (Bld) 0.900 % 0.0-0.9 [facility] Work Phone: Comment on above: IG% - Immature Granu locytes (promyelocytes, myelocytes and metamyelocytes) > 1% indicates that a LEFT SHIFT is Present. MCH (RBC) [Entitic mass] 27.5 pg 27.0-32.0 [facility] Work Phone: Nucleated RBC/100 WBC (Bld) [Ratio] 0 % 0-5 [facility] Work Phone: MCHC Auto (RBC) [Mass/Vol]on 06-02-2022 MCHC (RBC) [Mass/Vol] 32.2 g/dL 32-36 [facility] Work Phone: No Panel Informationon 06-02 Estimated GFR (MDRD) Amer 105 mL/min >60 [facility] Work Phone: Comment on above: GFR Calc Estimated GFR (MDRD) Non-Af Amer 87 mL/min >60 [facility] Work Phone: Comment on above: Non- GFR Calc Free Triiodothyronine (T3) pg/dL 2.7 pg/mL 2.18-3.98 [facility] Work Phone: Thyroid Stimulating Hormone (TSH) 1.25 uIU/mL 0.358-3.74 [facility] Work Phone: Vitamin D 25-Hydroxy 23.8 ng/mL [facility] Work Phone: Comment on above: Vitamin D 25(OH) Sta tus Range Deficiency <20 ng/mL (50nmol/L) Insufficiency 20 - 30 ng/mL (50 - 75 nmol/L) Sufficiency 30 - 100 ng/mL (75 - 250 nmol/L) Toxicity >100 ng/mL (>250 nmol/L) Platelets bldon 06-02-2022 Platelets (Bld) [#/Vol] 437 10*3/uL 150-450 [facility] Work Phone: Serum or plasma albumin ruy urement (mass/volume)on 06-02-2022 Albumin [Mass/Vol] 3.4 g/dL 3.2-5.0 [facility] Work Phone: Serum or plasma albumin/glob ulin mass ratioon 06-02-2022 Albumin/Globulin [Mass ratio] 0.8 {ratio} 0.9-2.4 [facility] Work Phone: Serum or plasma calcium ruy urement (mass/volume)on 06-02-2022 Calcium [Mass/Vol] 9.1 mg/dL 8.5-10.1 [facility] Work Phone: Serum or plasma cholesterol in HDL measurement (mass/volume)on 06-02-2022 Cholesterol in HDL [Mass/Vol] 49 mg/dL >40 [facility] Work Phone: Comment on above: The drugs N-Acetylcy steine and Metamizole may falsely depress this assay. Reference Range HDL <40 mg/dL Low HDL Cholesterol HDL >or= 60 mg/dL High HDL Cholesterol Serum or plasma cholesterol in VLDL measurement (mass/volume)on 06-02-2022 Cholesterol in VLDL [Mass/Vol] 57 mg/dL 5-40 [facility] Work Phone: Serum or plasma creatinine m easurement (mass/volume)on 06-02-2022 Creatinine [Mass/Vol] 0.76 mg/dL 0.55-1.02 [facility] Work Phone: Comment on above: The validity of the calculated GFR & GFRAA in patients over 70 years has not been determined. Clinical correlation is essential. Serum or plasma low density lipoprotein (LDL) cholesterol measurement (mass/volume)on 06-02-2022 Cholesterol in LDL [Mass/Vol] 123 mg/dL 0-130 [facility] Work Phone: Serum or plasma urea nitroge n measurement (mass/volume)on 06-02-2022 Urea nitrogen [Mass/Vol] 8 mg/dL 7-18 [facility] Work Phone: Thin prep Papanicolaou smear with manual screeningon 06-02-2022 Thin prep Papanicolaou smear with manual screening 19 U/L 15-37 [facility] Work Phone: Thin prep Papanicolaou smear with manual screening 6 5-15 [facility] Work Phone: Whole blood hemoglobin A1c/t otal hemoglobin ratio (mass fraction)on 06-02-2022 HbA1c (Bld) [Mass fraction] 6.6 % 3.8-5.6 [facility] Work Phone: Comment on above: Normal < 5.7 % Predi abetic 5.7 - 6.4 % Diabetic >or= 6.5 % Please note range changes. EMERGENCY REPORTon 8 EMERGENCY REPORT [facility] EMERGENCY ROOM REPORT NAME ACCOUNT SEX AGE ADMIT DISCHARGE PT MED. RECORD# NUMBER DATE DATE TYPE SHANT [id number] F 42 05/29/18 05/29/18 3 LOUIS Yadav [id number] ROOM: ER DATE OF : 1975 DICTATING [...] Guanako Cantrell MD 05/29/18 07:56 JOB #: [id number] Transcribed By: am 05/29/18 15:05 Electronically signed by: POLINA Cantrell M.D. 06/12/18 07:38 Page 1 of 2 LOUIS BRAN Emergency Room Report Normal [facility] EMERGENCY REPORTon 8 EMERGENCY REPORT [facility] EMERGENCY ROOM REPORT NAME ACCOUNT SEX AGE ADMIT DISCHARGE PT MED. RECORD# NUMBER DATE DATE TYPE SHANT [id number] F 42 05/29/18 05/29/18 3 LOUIS Yadav [id number] ROOM: ER DATE OF : 1975 DICTATING [...] Polly Barker MD 05/29/18 06:47 JOB #: [id number] Transcribed By: am 05/29/18 14:48 Electronically signed by: E-SIGN: DR. POLLY BARKER M.D. 05/31/18 00:27 Page 2 of 2 LOUIS BRAN Emergency Room Report Normal [facility] CBCon 05-29-2018 Basophils Auto #/vol (Bld) 0.10 x10EE3/UL Normal 0.00 - 0.10 [facility] Comment on above: Performed By: #### 2 [id number] ####[facility],[address] [place] [address] Basophils/100 WBC Auto (Bld) 1.0 % Normal 0.0 - 2.0 [facility] Comment on above: Performed By: #### 2 60386 ####[facility],[address] [place] [address] CBC Normal [facility] Comment on above: Result Comment: CBC- COMPLETE BLOOD COUNT Performed By: #### 2 [id number] ####[facility],[address] [place] [address] Eosinophils Auto #/vol (Bld) 0.20 x10EE3/UL Normal 0.00 - 0.50 [facility] Comment on above: Performed By: #### 2 30860 ####[facility],[address] [place] [address] Eosinophils/100 WBC Auto (Bld) 3.2 % Normal 0.0 - 7.0 [facility] Comment on above: Performed By: #### 2 69003 ####[facility],[address] [place] [address] Erythrocyte distribution width Auto Ratio (RBC) 15.1 % Normal 12.0 - 15.6 [facility] Comment on above: Performed By: #### 2 57988 ####[facility],[address] [place] [address]221 Hematocrit Auto Volume Fraction (Bld) 37.1 % Normal 34.0 - 46.0 [facility] Comment on above: Performed By: #### 2 57122 ####[facility],[address] [place] [address]40 Hemoglobin mass conc (Bld) 12.4 g/dL Normal 12.0 - 16.0 [facility] Comment on above: Performed By: #### 2 23958 ####[facility],[address] [place] [address] Lymphocytes Auto #/vol (Bld) 2.50 x10EE3/UL Normal 0.80 - 2.80 [facility] Comment on above: Performed By: #### 2 27462 ####[facility],[address] [place] [address] Lymphocytes/100 WBC Auto (Bld) 36.0 % Normal 20.0 - 45.0 [facility] Comment on above: Performed By: #### 2 07499 ####[facility],[address] [place] [address] MANUAL DIFF N/A Normal [facility] Comment on above: Performed By: #### 2 44843 ####[facility],[address] [place] [address] MCH Auto Entitic mass (RBC) 29 pg Normal 27 - 33 [facility] Comment on above: Performed By: #### 2 66416 ####[facility],[address] [place] [address] MCHC Auto mass conc (RBC) 34 X10 3 Normal 32 - 36 [facility] Comment on above: Performed By: #### 2 13622 ####[facility],[address] [place] [address] MCV Auto Entitic volume (RBC) 86 fL Normal 80 - 99 [facility] Comment on above: Performed By: #### 2 [address]4076 ####[place] [address] Monocytes Auto #/vol (Bld) 0.50 x10EE3/UL Normal 0.20 - 1.00 [facility] Comment on above: Performed By: #### 2 03175 ####[facility],[address] [place] [address] MONOS % 7.4 % Normal 0.0 - 10.0 [facility] Comment on above: Performed By: #### 2 97526 ####[facility],[address] [place] [address] Morphology Interp Jonathan (Bld) N/A Normal [facility] Comment on above: Result Comment: {CD] Performed By: #### 2 18030 ####[facility],[address] [place], [place] [id number] Neutrophils Auto #/vol (Bld) 3.70 x10EE3/UL Normal 1.50 - 7.10 [facility] Comment on above: Performed By: #### 2 12449 ####[facility],[address] [place], [place] [id number] Neutrophils/100 WBC Auto (Bld) 52.4 % Normal 46.0 - 76.0 [facility] Comment on above: Performed By: #### 2 84414 ####[facility],[address] [place], [place] [id number] Platelet mean volume Auto Entitic volume (Bld) 8.4 fL Normal 6.6 - 10.5 [facility] Comment on above: Result Comment: AUTO MATED DIFFERENTIAL Performed By: #### 2 06824 ####[facility],[address] [place] [address]96 Platelets Auto #/vol (Bld) 291 x10EE3/UL Normal 150 - 450 [facility] Comment on above: Performed By: #### 2 59954 ####[facility],[address] [place] [address]1555 RBC Auto #/vol (Bld) 4.32 x 10EE6/UL Normal 4.10 - 5.3 0 [facility] Comment on above: Performed By: #### 2 64752 ####[facility],[address] [place], [place] [address] WBC Auto #/vol (Bld) 7.1 x 10EE3/UL Normal 4.5 - 10.8 [facility] Comment on above: Performed By: #### 2 00054 ####[facility],[address] [place] [address] 89400 CHEST 1 VIEWon 05-29-2018 CHEST 1 VIEW [facility] [address] [place], [place] [address] Patient: LOUIS BRAN Phone#: : 1975 Age: 42 Gender: F Pt. Type: ER Account: [id number] Location: [id number] Ordering: POLLY BARKER Exam Date: 05/29/2018/5:56 Family Phys: LOWELL HINKLE Charge Code: [id number] Physician: Grady Order #: [id number] DLP Dose#: PROCEDURE: X-RAY CHEST 1 VIEW COMPARISON: [facility], XR, CHEST PA/LAT, 12/14/2016, 14:22. [facility], XR, CHEST 1 VIEW, 02/16/2018, 23:21. [...] Julien MD on 05/29/2018 at 10:45 Normal [facility] CMP with eGFRon 05-29-2018 Age Reported 42 years Normal [facility] Comment on above: Performed By: #### 2 42692 ####[facility],[address] [place] [address] 84714 Albumin mass conc 3.5 g/dL Normal 3.4 - 4.8 [facility] Comment on above: Performed By: #### 2 81187 ####[facility],[address] [place] [address] 99366 Albumin/Globulin mass ratio 1.2 {ratio} Normal 0.9 - 1.6 [facility] Comment on above: Performed By: #### 2 80659 ####[facility],[address] [place] [address] 86059 ALK PHOS 106 U/L Normal 38 - 126 [facility] Comment on above: Performed By: #### 2 10465 ####[facility],[address] [place] [address] 23523 ALT/SGPT 13 U/L Normal 8 - 35 [facility] Comment on above: Performed By: #### 2 27384 ####[facility],[address] [place] [address] 03472 Anion gap 3 molar conc 10 mmol/L Normal 10 - 20 [facility] Comment on above: Performed By: #### 2 37663 ####[facility],[address] [place] [address] 09598 AST/SGOT 11 U/L Low 13 - 39 [facility] Comment on above: Performed By: #### 2 41061 ####[facility],[address] [place] [address] 57076 B/C RATIO 12 ratio Normal 0 - 30 [facility] Comment on above: Performed By: #### 2 46404 ####[facility],[address] [place] [address] 43870 Bilirubin mass conc 0.3 mg/dL Normal 0.0 - 1.5 [facility] Comment on above: Performed By: #### 2 45347 ####[facility],[address] [place] [address] 69745 Calcium mass conc 8.7 mg/dL Normal 8.6 - 10.2 [facility] Comment on above: Performed By: #### 2 61301 ####[facility],[address] [place] [address] 59694 Chloride molar conc 109 mmol/L High 98 - 107 [facility] Comment on above: Performed By: #### 2 44850 ####[facility],[address] [place] [address] 05571 CO2 molar conc 21.5 mmol/L Normal 21.0 - 31.[address] [facility] Comment on above: Performed By: #### 2 82126 ####[facility],[address] [place] [address] 75941 Creatinine mass conc 0.6 mg/dL Normal 0.6 - 1.2 [facility] Comment on above: Performed By: #### 2 39351 ####[facility],[address] [place] [address] 33893 GFR/1.73 sq M predicted among non-blacks MDRD vol rate/area (S/P/Bld) Normal [facility] Comment on above: Result Comment: COMP REHENSIVE METABOLIC PANEL Performed By: #### 2 02849 ####[facility],[address] [place] [address] 17579 GFR/1.73 sq M predicted among non-blacks MDRD vol rate/area (S/P/Bld) mL/min/{1.73_m2} Normal 60 - 999 [facility] Comment on above: Result Comment: ACCO RDING TO THE NATIONAL KIDNEY DISEASE EDUCATION PROGRAM(NKDE), A NORMAL eGFRIS A VALUE GREATER THAN OR EQUAL TO 60 ML/MIN/1.73 SQ METERS.CHRONIC KIDNEY DISEASE: <60mL/MIN/1.73 SQ METERSKIDNEY FAILURE: <15mL/MIN/1.73 SQ METERSTHIS TEST SHOULD ONLY BE USED FOR PATIENTS 18 YEARS OF AGE AND OLDER. Performed By: #### 2 28474 ####[facility],[address] [place] [address] 54175 Globulin Calculated mass conc (S) 3.0 g/dL Normal 1.5 - 3.8 [facility] Comment on above: Performed By: #### 2 25533 ####[facility],[address] [place] [address] Glucose mass conc 118 mg/dL High 74 - 106 [facility] Comment on above: Performed By: #### 2 58633 ####[facility],[address] [place] [address] Potassium molar conc 3.8 mmol/L Normal 3.5 - 5.1 [facility] Comment on above: Performed By: #### 2 58628 ####[facility],[address] [place] [address] Protein mass conc 6.5 g/dL Normal 6.4 - 8.3 [facility] Comment on above: Performed By: #### 2 27118 ####[facility],[address] [place] [address] Sodium molar conc 137 mmol/L Normal 136 - 145 [facility] Comment on above: Performed By: #### 2 34357 ####[facility],[address] [place] [address] Urea nitrogen mass conc 7 mg/dL Normal 6 - 20 [facility] Comment on above: Performed By: #### 2 30184 ####[facility],[address] [place] [address] MAGNESIUMon 05-29-2018 Magnesium mass conc 2.2 mg/dL Normal 1.6 - 2.6 [facility] Comment on above: Performed By: #### 2 92677 ####[facility],[address] [place] [address] TROPONINon 05-29-2018 Troponin I.cardiac mass conc ng/mL Normal 0.00 - 0.05 [facility] Comment on above: Result Comment: Elev ated [...] as heterophile antibodies). Performed By: #### 2 81612 ####Jose Ramon [facility],[address] [place] [address] 31469 EMERGENCY REPORTon 8 EMERGENCY REPORT [facility] EMERGENCY ROOM REPORT NAME ACCOUNT SEX AGE ADMIT DISCHARGE PT MED. RECORD# NUMBER DATE DATE TYPE SHANT [id number] F 42 04/19/18 04/19/18 3 LOUIS Yadav [id number] ROOM: ER DATE OF : 1975 DICTATING [...] incision border Page 1 of 2 LOUIS BRAN Emergency Room Report erythema that is consistent [...] Dinesh Feldman DO 04/20/18 01:11 JOB #: [id number] Transcribed By: 04/20/18 15:45 Electronically signed by: DINESH FELDMAN DO 04/23/18 22:29 Page 2 of 2 LOUIS BRAN Emergency Room Report Normal [facility] OPERATIVE PROCEDURESon 04-15 Protein mass [facility] OPERATIVE REPORT NAME ACCOUNT SEX AGE ADMIT DISCHARGE PT MED. RECORD# NUMBER DATE DATE TYPE SHANT [id number] F 42 04/12/18 04/12/18 2 LOUIS Yadav [id number] ROOM: [facility] DATE OF : 1975 DICTATING PHYSICIAN: Melba Dixon DATE OF SURGERY: April 12, 2018. SURGEON: Melba Dixon M.D. LIFE GUARD: BHARAT Reddy ANESTHESIOLOGIST: Armando Chaney M.D. ANESTHETIC: [...] Melba Dixon MD 04/12/18 14:05 JOB #: [id number] Transcribed By: bakari 04/12/18 19:42 Electronically signed by: E-Sign Dr. Melba Dixon MD 04/15/18 09:08 Page 3 of 3 LOUIS BRAN Operative Report Normal [facility] HEMATOCRITon 04-12-2018 Hematocrit Auto Volume Fraction (Bld) 38.5 % Normal 34.0 - 46.0 [facility] Comment on above: Result Comment: {HH] Performed By: #### 2 85183 ####[facility],[address] [place] [address] HEMOGLOBINon 04-12-2018 Hemoglobin mass conc (Bld) 13.4 g/dL Normal 12.0 - 16.0 [facility] Comment on above: Result Comment: {HH] Performed By: #### 2 72509 ####[facility],[address] [place] [address] SERUM QUALon 04-12 EXTERNAL QC DONE? YES Normal [facility] Comment on above: Performed By: #### 2 14452 ####[facility],[address] [place] [address] INTERNAL QC PASS Normal [facility] Comment on above: Performed By: #### 2 37903 ####[facility],[address] [place] [address] SER Negative Normal NEGATIVE [facility] Comment on above: Performed By: #### 2 38477 ####[facility],[address] [place] [address] WRIST COMPLETE LTon 03-19-20 18 Neutrophils Auto #/vol (Bld) [place] [address] Patient: LOUIS BRAN Phone#: : 1975 Age: 42 Gender: F Pt. 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 RECORD# NUMBER DATE DATE TYPE SHANT [id number] F 42 02/26/18 02/26/18 Lizett Yadav [id number] ROOM: ER DATE OF : 1975 DICTATING [...] motor or sensory deficits are noted. 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 Neurologic examination shows [...] Lydia Heredia DO 02/26/18 23:24 JOB #: [id number] Transcribed By: jennifer 02/27/18 12:17 Electronically signed by: E-Sign: Dr. Lydia Heredia D.O. 03/03/18 20:08 Page 2 of 2 LOUIS BRAN Emergency Room Report Normal [facility] EMERGENCY REPORTon 8 EMERGENCY REPORT [facility] EMERGENCY ROOM REPORT NAME ACCOUNT SEX AGE ADMIT DISCHARGE PT MED. RECORD# NUMBER DATE DATE TYPE SHANT [id number] F 42 02/21/18 02/21/18 3 LOUIS Yadav [id number] ROOM: ER DATE OF : 1975 DICTATING PHYSICIAN: Darron Jaramillo HISTORY OF PRESENT ILLNESS: The patient came in. The patient had right upper quadrant pain, nausea and vomiting and presents to the Emergency Department. She was just here for seizure disorder, for which she was transferred to [place]. She also complains of elbow pain. When [...] Darron Jaramillo DO 02/21/18 12:19 JOB #: [id number] Transcribed By: morro 02/21/18 12:34 Electronically signed by: POLINA Jaramillo D.O. 02/28/18 06:42 Page 2 of 2 LOUIS BRAN Emergency Room Report Normal [facility] LUMBO SACRAL COMPLETE MIN 4 VIEWSon 02-26-2018 Neutrophils Auto #/vol (Bld) [place] [address] Patient: LOUIS BRAN. Phone#: : 1975 Age: 42 Gender: F Pt. Type: ER Account: [id number] Location: [facility] Ordering: LYDIA HEREDIA Exam Date: 02/26/2018/20:46 Family Phys: LOWELL HINKLE Charge Code: [id number] Physician: Grady Order #: [id number] DLP Dose#: PROCEDURE: X-RAY LUMBAR SPINE COMPLETE [...] Julien MD on 02/27/2018 at 8:39 Normal [facility] CBCon 02-21-2018 Basophils Auto #/vol (Bld) 0.10 x10EE3/UL Normal 0.00 - 0.10 [facility] Comment on above: Performed By: #### 2 04358 ####[facility],[address] [place] [address] Basophils/100 WBC Auto (Bld) 0.7 % Normal 0.0 - 2.0 [facility] Comment on above: Performed By: #### 2 89594 ####[facility],[address] [place] [address] 11705 CBC Normal [facility] Comment on above: Result Comment: CBC- COMPLETE BLOOD COUNT Performed By: #### 2 40999 ####[facility],[address] [place] [address] 03606 Eosinophils Auto #/vol (Bld) 0.10 x10EE3/UL Normal 0.00 - 0.50 [facility] Comment on above: Performed By: #### 2 66852 ####[facility],[address] [place] [address] 51748 Eosinophils/100 WBC Auto (Bld) 1.5 % Normal 0.0 - 7.0 [facility] Comment on above: Performed By: #### 2 13186 ####[facility],[address] [place] [address] 01560 Erythrocyte distribution width Auto Ratio (RBC) 15.3 % Normal 12.0 - 15.6 [facility] Comment on above: Performed By: #### 2 04443 ####[facility],[address] [place] [address] 83139 Hematocrit Auto Volume Fraction (Bld) 43.0 % Normal 34.0 - 46.0 [facility] Comment on above: Performed By: #### 2 02371 ####[facility],[address] [place] [address] 46628 Hemoglobin mass conc (Bld) 14.6 g/dL Normal 12.0 - 16.0 [facility] Comment on above: Performed By: #### 2 86073 ####[facility],[address] [place] [address] 78938 Lymphocytes Auto #/vol (Bld) 2.20 x10EE3/UL Normal 0.80 - 2.80 [facility] Comment on above: Performed By: #### 2 56624 ####[facility],[address] [place] [address] 29076 Lymphocytes/100 WBC Auto (Bld) 25.4 % Normal 20.0 - 45.0 [facility] Comment on above: Performed By: #### 2 25624 ####[facility],[address] [place] [address] MANUAL DIFF N/A Normal [facility] Comment on above: Performed By: #### 2 73275 ####[facility],[address] [place] [address] MCH Auto Entitic mass (RBC) 29 pg Normal 27 - 33 [facility] Comment on above: Performed By: #### 2 04094 ####[facility],[address] [place] [address] MCHC Auto mass conc (RBC) 34 X10 3 Normal 32 - 36 [facility] Comment on above: Performed By: #### 2 47144 ####[facility],[address] [place] [address] MCV Auto Entitic volume (RBC) 85 fL Normal 80 - 99 [facility] Comment on above: Performed By: #### 2 99126 ####[facility],[address] [place] [address] Monocytes Auto #/vol (Bld) 0.50 x10EE3/UL Normal 0.20 - 1.00 [facility] Comment on above: Performed By: #### 2 49105 ####[facility],[address] [place] [address] MONOS % 6.0 % Normal 0.0 - 10.0 [facility] Comment on above: Performed By: #### 2 62526 ####[facility],[address] [place] [address] Morphology Interp Jonathan (Bld) N/A Normal [facility] Comment on above: Result Comment: {CD] Performed By: #### 2 18541 ####[place] [address] Neutrophils Auto #/vol (Bld) 5.80 x10EE3/UL Normal 1.50 - 7.10 [facility] Comment on above: Performed By: #### 2 46142 ####[facility],[address] [place] [address] 79021 Neutrophils/100 WBC Auto (Bld) 66.4 % Normal 46.0 - 76.0 [facility] Comment on above: Performed By: #### 2 60284 ####[facility],[address] [place] [address] 84244 Platelet mean volume Auto Entitic volume (Bld) 8.7 fL Normal 6.6 - 10.5 [facility] Comment on above: Result Comment: AUTO MATED DIFFERENTIAL Performed By: #### 2 05763 ####[facility],[address] [place] [address] 81747 Platelets Auto #/vol (Bld) 381 x10EE3/UL Normal 150 - 450 [facility] Comment on above: Performed By: #### 2 40853 ####[facility],[address] [place] [address] 96495 RBC Auto #/vol (Bld) 5.05 x 10EE6/UL Normal 4.10 - 5.3 0 [facility] Comment on above: Performed By: #### 2 95098 ####[facility],[address] [place] [address] 08587 WBC Auto #/vol (Bld) 8.8 x 10EE3/UL Normal 4.5 - 10.8 [facility] Comment on above: Performed By: #### 2 94318 ####[facility],[address] [place] [address] 19866 CMP with eGFRon 02-21-2018 Age Reported 42 years Normal [facility] Comment on above: Performed By: #### 2 26005 ####[facility],[address] [place] [address] 39429 Albumin mass conc 4.2 g/dL Normal 3.4 - 4.8 [facility] Comment on above: Performed By: #### 2 53816 ####[facility],[address] [place] [address] 55256 Albumin/Globulin mass ratio 1.3 {ratio} Normal 0.9 - 1.6 [facility] Comment on above: Performed By: #### 2 39973 ####[facility],[address] [place] [address] 48868 ALK PHOS 120 U/L Normal 38 - 126 [facility] Comment on above: Performed By: #### 2 39814 ####[facility],[address] [place] [address] 83842 ALT/SGPT 15 U/L Normal 8 - 35 [facility] Comment on above: Performed By: #### 2 15809 ####[facility],[address] [place] [address] 39414 Anion gap 3 molar conc 13 mmol/L Normal 10 - 20 [facility] Comment on above: Performed By: #### 2 75396 ####[facility],[address] [place] [address] 04057 AST/SGOT 17 U/L Normal 13 - 39 [facility] Comment on above: Performed By: #### 2 61299 ####[facility],[address] [place] [address] 64153 B/C RATIO 9 ratio Normal 0 - 30 [facility] Comment on above: Performed By: #### 2 82467 ####[facility],[address] [place] [address] 15487 Bilirubin mass conc 0.4 mg/dL Normal 0.0 - 1.5 [facility] Comment on above: Performed By: #### 2 18822 ####[facility],[address] [place] [address] 63519 Calcium mass conc 9.1 mg/dL Normal 8.6 - 10.2 [facility] Comment on above: Performed By: #### 2 98099 ####[facility],[address] [place] [address] 00916 Chloride molar conc 103 mmol/L Normal 98 - 107 [facility] Comment on above: Performed By: #### 2 83652 ####[facility],[address] [place] [address] 00313 CO2 molar conc 24.3 mmol/L Normal 21.0 - 31.[address] [facility] Comment on above: Performed By: #### 2 32717 ####[facility],[address] [place], [place] [address] Creatinine mass conc 0.7 mg/dL Normal 0.6 - 1.2 [facility] Comment on above: Performed By: #### 2 16133 ####[facility],[address] [place] [address] 51617 GFR/1.73 sq M predicted among non-blacks MDRD vol rate/area (S/P/Bld) Normal [facility] Comment on above: Result Comment: COMP REHENSIVE METABOLIC PANEL Performed By: #### 2 96083 ####[facility],[address] [place] [address] 99217 GFR/1.73 sq M predicted among non-blacks MDRD vol rate/area (S/P/Bld) mL/min/{1.73_m2} Normal 60 - 999 [facility] Comment on above: Performed By: #### 2 30289 ####[facility],[address] [place] [address] 88275 Result Comment: ACCO RDING TO THE NATIONAL KIDNEY DISEASE EDUCATION PROGRAM(NKDE), A NORMAL eGFRIS A VALUE GREATER THAN OR EQUAL TO 60 ML/MIN/1.73 SQ METERS.CHRONIC KIDNEY DISEASE: <60mL/MIN/1.73 SQ METERSKIDNEY FAILURE: <15mL/MIN/1.73 SQ METERSTHIS TEST SHOULD ONLY BE USED FOR PATIENTS 18 YEARS OF AGE AND OLDER. Globulin Calculated mass conc (S) 3.3 g/dL Normal 1.5 - 3.8 [facility] Comment on above: Performed By: #### 2 33947 ####[facility],[address] [place] [address] 10229 Glucose mass conc 104 mg/dL Normal 74 - 106 [facility] Comment on above: Performed By: #### 2 84690 ####[facility],[address] [place] [address] 50581 Potassium molar conc 3.8 mmol/L Normal 3.5 - 5.1 [facility] Comment on above: Performed By: #### 2 73806 ####[facility],[address] [place] [address] 73700 Protein mass conc 7.5 g/dL Normal 6.4 - 8.3 [facility] Comment on above: Performed By: #### 2 14224 ####[facility],[address] [place] [address] 99082 Sodium molar conc 136 mmol/L Normal 136 - 145 [facility] Comment on above: Performed By: #### 2 31897 ####[facility],[address] [place] [address] 66595 Urea nitrogen mass conc 6 mg/dL Normal 6 - 20 [facility] Comment on above: Performed By: #### 2 80681 ####[facility],[address] [place] [address] 21564 ELBOW COMPLETE RTon 02-22-20 18 Neutrophils Auto #/vol (Bld) [place] [address] Patient: LOUIS BRAN Phone#: : 1975 Age: 42 Gender: F Pt. Type: ER Account: [id number] Location: [facility] Ordering: DARRON JARAMILLO Exam Date: 02/21/2018/11:14 Family Phys: LOWELL HINKLE Charge Code: [id number] Physician: Grady Order #: [id number] DLP Dose#: PROCEDURE: X-RAY ELBOW RT MIN [...] Leiva MD on 02/21/2018 at 11:38 Normal [facility] LIPASEon 02-21-2018 Lipase enzyme act/vol 11.0 U/L Low 18.0 - 51.0 [facility] Comment on above: Performed By: #### 2 43066 ####[facility],[address] [place] [address] SERUM QUALon 02-21 EXTERNAL QC DONE? YES Normal [facility] Comment on above: Performed By: #### 2 60953 ####[facility],[address] [place] [address] INTERNAL QC PASS Normal [facility] Comment on above: Performed By: #### 2 59204 ####[facility],[address] [place] [address] SER Negative Normal NEGATIVE [facility] Comment on above: Performed By: #### 2 31393 ####[facility],[address] [place] [address] US RUQ (GB/PANCREAS)on 02-21 Neutrophils Auto #/vol (Bld) [place] [address] Patient: LOUIS BRAN Phone#: : 1975 Age: 42 Gender: F Pt. Type: Out Account: [id number] Location: [facility] Ordering: NATALIA DEMPSEY Exam Date: 02/21/2018/9:27 Family Phys: LOWELL HINKLE Charge Code: [id number] Physician: Grady Order #: [id number] P Dose#: PROCEDURE: RUQ (GB) ULTRASOUND COMPARISON: [...] LEIVA MD ON 02/21/2018 AT 10:09 Normal [facility] Depart Summaryon 02-19-2018 Depart Summary Normal [facility] [place] 02-20-20 18 Discharge Summary Normal [facility] [place] Normal [facility] [place] EMERGENCY REPORTon 8 EMERGENCY REPORT [facility] EMERGENCY ROOM REPORT NAME ACCOUNT SEX AGE ADMIT DISCHARGE PT MED. RECORD# NUMBER DATE DATE TYPE SHANT [id number] F 42 02/16/18 02/17/18 3 LOUIS Yadav [id number] ROOM: ER DATE OF : 1975 DICTATING [...] transferred. She will be transferred up to [facility]. We do not have a Neurologist here, which I think with her history of seizure disorder, mental health issues, she would benefit from that. She has had at least 3 seizures today. Dictated By: Darron Jaramillo DO 02/17/18 00:48 JOB #: [id number] Transcribed By: jennifer 02/17/18 08:53 Electronically signed by: POLINA Jaramillo D.O. 02/19/18 11:04 Page 2 of 2 LOUIS BRAN Emergency Room Report Normal [facility] EMERGENCY REPORT [facility] EMERGENCY ROOM REPORT NAME ACCOUNT SEX AGE ADMIT DISCHARGE PT MED. RECORD# NUMBER DATE DATE TYPE SHANT [id number] F 42 02/16/18 02/17/18 3 LOUIS Yadav [id number] ROOM: ER DATE OF : 1975 DICTATING PHYSICIAN: Darron Jaramillo DIAGNOSTIC DATA: EKG shows rate of 79. No axis deviation. No obvious ST elevation or depression. DIAGNOSIS: _ _ _ _ _ EKG performed on December 17, 2017, see no obvious changes. Dictated By: Darron Jaramillo DO 02/17/18 00:58 JOB #: [id number] Transcribed By: jennifer 02/17/18 09:05 Electronically signed by: POLINA Jaramillo D.O. 02/19/18 11:04 Page 1 of 1 [facility] Emergency Room Report Normal [facility] Inpatient Patient Summaryon 02-19-2018 Inpatient Patient Summary Normal [facility] ([place]) KEPPRAon 02-19-2018 Acetaminophen mass conc 5.3 UG/ML Low 12.0-46.0 A [facility] ([place]) Comment on above: Result Comment: This test was developed and its performance characteristics determined by [facility] [place] ([facility]). It has not been cleared or approved by the FDA. [facility] is regulated under CLIA as qualified to perform high-complexity testing. This test is used for clinical purposes. It should not be regarded as investigational or for research.Performed By:[facility] [place], [place] [address]Nzn Director: Dahlia Geiger M.D.IA#: [id number]#: Performed By: #### C JOHNNY MCGRAW ANEU, BMP, GFR ####[address] [address] .Auto Diffon 02-18-2018 Basophils Auto #/vol (Bld) 0.00 10 3/mcL Normal 0.00-0.27 [facility] ([place]) Comment on above: Performed By: #### C BCJOHNNY ANEU, BMP, MG, GFR ####[address] [address] Basophils/100 WBC Auto (Bld) 0.5 % Normal 0.0-2.5 [facility] ([place]) Comment on above: Performed By: #### C BCJOHNNY, ANEU, BMP, MG, GFR ####[address] [address] Eosinophils 0.10 10 3/mcL Normal 0.00-0.65 [facility] ([place] Comment on above: Performed By: #### C BC, ADIFF, ANEU, BMP, MG, GFR ####[address] [address] Eosinophils/100 leukocytes 2.8 % Normal 0.0-6.0 [facility] ([place] Comment on above: Performed By: #### C BC, ADIFF, ANEU, BMP, MG, GFR ####[address] [address] Lymphocytes 2.00 10 3/mcL Normal 0.90-4.32 [facility] ([place] Comment on above: Performed By: #### C BC, ADIFF, ANEU, BMP, MG, GFR ####[address] [address] Lymphocytes/100 leukocytes 41.4 % High 20.0-40.0 [facility] ([place] Comment on above: Performed By: #### C BC, ADIFF, ANEU, BMP, MG, GFR ####[address] [address] Monocytes 0.50 10 3/mcL Normal 0.09-1.40 [facility] ([place] Comment on above: Performed By: #### C BC, ADIFF, ANEU, BMP, MG, GFR ####[address] [address] Monocytes/100 leukocytes 10.0 % Normal 2.0-13.0 [facility] ([place] Comment on above: Performed By: #### C BC, ADIFF, ANEU, BMP, MG, GFR ####[address] [address] Neutrophils/100 WBC Auto (Bld) 45.3 % Low 50.0-75.0 [facility] ([place] Comment on above: Performed By: #### C BC, ADIFF, ANEU, BMP, MG, GFR ####[address] [address] .GFRon 02-18-2018 eGFR (non-black) mL/min/{1.73_m2} Normal [facility] ([place]) Comment on above: Result Comment: GFR Population [...] C BC, ADIFF, ANEU, BMP, MG, GFR ####[place] [address] .NEUABSon 02-18-2018 Neutrophils 2.20 10 3/mcL Low 2.25-8.10 [facility] ([place] Comment on above: Performed By: #### C BC, ADIFF, ANEU, BMP, MG, GFR ####[place] [address] BMPon 02-18-2018 BUN/Creatinine Ratio 11.3 ratio Normal 10.0-22.0 [facility] ([place]) Comment on above: Performed By: #### C BC, ADIFF, ANEU, BMP, MG, GFR ####[place] [address] Calcium 8.7 mg/dL Normal 8.4-10.1 [facility] ([place] Comment on above: Performed By: #### C BC, ADIFF, ANEU, BMP, MG, GFR ####[place] [address] Chloride 110 mmol/L Normal 98-110 [facility] ([place] Comment on above: Performed By: #### C BC, ADIFF, ANEU, BMP, MG, GFR ####[place] [address] CO2 23 mmol/L Normal 22-32 [facility] ([place] Comment on above: Performed By: #### C BC, ADIFF, ANEU, BMP, MG, GFR ####[place] [address] Creatinine 0.62 mg/dL Normal 0.50-1.20 [facility] ([place] Comment on above: Performed By: #### C BC, ADIFF, ANEU, BMP, MG, GFR ####[place] [address] Electrolyte Balance 7.0 mEq/L Normal 4.0-15.0 [facility] ([place]) Comment on above: Performed By: #### C BC, ADIFF, ANEU, BMP, MG, GFR ####[place] [address] Glucose mass conc 121 mg/dL High 70-110 [facility] ([place] Comment on above: Performed By: #### C BC, ADIFF, ANEU, BMP, MG, GFR ####[place] [address] Potassium molar conc 4.2 mmol/L Normal 3.5-5.0 [facility] ([place]) Comment on above: Performed By: #### C BC, ADIFF, ANEU, BMP, MG, GFR ####[place] [address] Sodium 140 mmol/L Normal 136-145 [facility] ([place]) Comment on above: Performed By: #### C BC, ADIFF, ANEU, BMP, MG, GFR ####[place] [address] Urea nitrogen 7.0 mg/dL Low 8.0-22.0 [facility] ([place] Comment on above: Performed By: #### C BC, ADIFF, ANEU, BMP, MG, GFR ####[place] [address] CBCon 02-18-2018 Erythrocyte distribution width Auto Ratio (RBC) 15.4 % Normal 11.5-15.5 [facility] ([place] Comment on above: Performed By: #### C BC, ADIFF, ANEU, BMP, MG, GFR ####[place] [address] Erythrocytes (RBC) 4.28 10 6/mcL Normal 4.10-5.30 [facility] ([place]) Comment on above: Performed By: #### C BC, ADIFF, ANEU, BMP, MG, GFR ####[place] [address] Hematocrit (HCT) 37.3 % Normal 34.0-46.0 [facility] ([place] Comment on above: Performed By: #### C BC, ADIFF, ANEU, BMP, MG, GFR ####[place] [address] Hemoglobin mass conc (Bld) 12.3 G/dL Normal 12.0-16.0 [facility] ([place] Comment on above: Performed By: #### C BC, ADIFF, ANEU, BMP, MG, GFR ####[place] [address] MCH 28.8 pg Normal 27.0-33.0 [facility] ([place] Comment on above: Performed By: #### C BC, ADIFF, ANEU, BMP, MG, GFR ####[place] [address] MCHC mass conc (RBC) 33.1 G/dL Normal 32.0-36.0 [facility] ([place] Comment on above: Performed By: #### C BC, ADIFF, ANEU, BMP, MG, GFR ####[place] [address] MCV 87.1 fL Normal 80.0-99.0 [facility] ([place] Comment on above: Performed By: #### C BC, ADIFF, ANEU, BMP, MG, GFR ####[place] [address] Platelet mean volume (PMV) 8.2 fL Normal 6.6-10.5 [facility] ([place] Comment on above: Performed By: #### C BC, ADIFF, ANEU, BMP, MG, GFR ####[address] [address] Platelets 247 10 3/mcL Normal 150-450 [facility] ([place] Comment on above: Performed By: #### C BC, ADIFF, ANEU, BMP, MG, GFR ####[address] [address] WBC (Leukocytes) 4.90 10 3/mcL Normal 4.50-10.80 [facility] ([place]) Comment on above: Performed By: #### C BC, ADIFF, ANEU, BMP, MG, GFR ####[address] [address] MGon 02-18-2018 Magnesium 2.0 mg/dL Normal 1.6-2.4 [facility] ([place] Comment on above: Performed By: #### C BC, ADIFF, ANEU, BMP, MG, GFR ####[address] [address] Neurology Progress Noteon Neurology Progress Note Normal A [facility] ([place]) Pat Eduon 02-18-2018 Pat Edu Normal [facility] ([place]) .Auto Diffon 02-17-2018 Basophils Auto #/vol (Bld) 0.00 10 3/mcL Normal 0.00-0.27 [facility] ([place] Comment on above: Performed By: #### C BC, ADIFF, ANEU, BMP, GFR ####[address] [address] Basophils/100 WBC Auto (Bld) 0.3 % Normal 0.0-2.5 [facility] ([place] Comment on above: Performed By: #### C BC, ADIFF, ANEU, BMP, GFR ####[address] [address] Eosinophils 0.10 10 3/mcL Normal 0.00-0.65 [facility] ([place] Comment on above: Performed By: #### C BC, ADIFF, ANEU, BMP, GFR ####[address] [address] Eosinophils/100 leukocytes 1.4 % Normal 0.0-6.0 [facility] ([place] Comment on above: Performed By: #### C BC, ADIFF, ANEU, BMP, GFR ####[address] [address] Lymphocytes 3.00 10 3/mcL Normal 0.90-4.32 [facility] ([place] Comment on above: Performed By: #### C BC, ADIFF, ANEU, BMP, GFR ####[address] [address] Lymphocytes/100 leukocytes 31.0 % Normal 20.0-40.0 [facility] ([place] Comment on above: Performed By: #### C BC, ADIFF, ANEU, BMP, GFR ####[address] [address] Monocytes 0.70 10 3/mcL Normal 0.09-1.40 [facility] ([place] Comment on above: Performed By: #### C BC, ADIFF, ANEU, BMP, GFR ####[address] [address] Monocytes/100 leukocytes 7.2 % Normal 2.0-13.0 [facility] ([place] Comment on above: Performed By: #### C BC, ADIFF, ANEU, BMP, GFR ####[address] [address] Neutrophils/100 WBC Auto (Bld) 60.1 % Normal 50.0-75.0 [facility] ([place] Comment on above: Performed By: #### C BC, ADIFF, ANEU, BMP, GFR ####[address] [address] .GFRon 02-17-2018 eGFR (non-black) mL/min/{1.73_m2} Normal [facility] ([place]) Comment on above: Result Comment: GFR Population [...] #### C BC, ADIFF, ANEU, BMP, GFR ####[place] [address] .NEUABSon 02-17-2018 Neutrophils 5.90 10 3/mcL Normal 2.25-8.10 [facility] ([place] Comment on above: Performed By: #### C BC, ADIFF, ANEU, BMP, GFR ####[place] [address] BMPon 02-17-2018 BUN/Creatinine Ratio 9.4 ratio Low 10.0-22.0 [facility] ([place] Comment on above: Performed By: #### C BC, ADIFF, ANEU, BMP, GFR ####[place] [address] Calcium 8.7 mg/dL Normal 8.4-10.1 [facility] ([place] Comment on above: Performed By: #### C BC, ADIFF, ANEU, BMP, GFR ####[place] [address] Chloride 110 mmol/L Normal 98-110 [facility] ([place] Comment on above: Performed By: #### C BC, ADIFF, ANEU, BMP, GFR ####[place] [address] CO2 20 mmol/L Low 22-32 [facility] ([place] Comment on above: Performed By: #### C BC, ADIFF, ANEU, BMP, GFR ####[place] [address] Creatinine 0.64 mg/dL Normal 0.50-1.20 [facility] ([place] Comment on above: Performed By: #### C BC, ADIFF, ANEU, BMP, GFR ####[place] [address] Electrolyte Balance 11.0 mEq/L Normal 4.0-15.0 [facility] ([place] Comment on above: Performed By: #### C BC, ADIFF, ANEU, BMP, GFR ####[place] [address] Glucose mass conc 130 mg/dL High 70-110 [facility] ([place] Comment on above: Performed By: #### C BC, ADIFF, ANEU, BMP, GFR ####[place] [address] Potassium molar conc 3.4 mmol/L Low 3.5-5.0 [facility] ([place] Comment on above: Performed By: #### C BC, ADIFF, ANEU, BMP, GFR ####[place] [address] Sodium 141 mmol/L Normal 136-145 [facility] ([place] Comment on above: Performed By: #### C BC, ADIFF, ANEU, BMP, GFR ####[place] [address] Urea nitrogen 6.0 mg/dL Low 8.0-22.0 [facility] ([place] Comment on above: Performed By: #### C BC, ADIFF, ANEU, BMP, GFR ####[place] [address] CBCon 02-17-2018 Erythrocyte distribution width Auto Ratio (RBC) 15.0 % Normal 11.5-15.5 [facility] ([place] Comment on above: Performed By: #### C BC, ADIFF, ANEU, BMP, GFR ####[place] [address] Erythrocytes (RBC) 4.24 10 6/mcL Normal 4.10-5.30 [facility] ([place] Comment on above: Performed By: #### C BC, ADIFF, ANEU, BMP, GFR ####[place] [address] Hematocrit (HCT) 36.9 % Normal 34.0-46.0 [facility] ([place] Comment on above: Performed By: #### C BC, ADIFF, ANEU, BMP, GFR ####[address] [address] Hemoglobin mass conc (Bld) 12.5 G/dL Normal 12.0-16.0 [facility] ([place] Comment on above: Performed By: #### C BC, ADIFF, ANEU, BMP, GFR ####[place] [address] MCH 29.5 pg Normal 27.0-33.0 [facility] ([place] Comment on above: Performed By: #### C BC, ADIFF, ANEU, BMP, GFR ####[place] [address] MCHC mass conc (RBC) 33.9 G/dL Normal 32.0-36.0 [facility] ([place] Comment on above: Performed By: #### C BC, ADIFF, ANEU, BMP, GFR ####[place] [address] MCV 87.0 fL Normal 80.0-99.0 [facility] ([place] Comment on above: Performed By: #### C BC, ADIFF, ANEU, BMP, GFR ####[place] [address] Platelet mean volume (PMV) 8.2 fL Normal 6.6-10.5 [facility] ([place] Comment on above: Performed By: #### C BC, ADIFF, ANEU, BMP, GFR ####[place] [address] Platelets 321 10 3/mcL Normal 150-450 [facility] ([place] Comment on above: Performed By: #### C BC, ADIFF, ANEU, BMP, GFR ####[place] [address] WBC (Leukocytes) 9.80 10 3/mcL Normal 4.50-10.80 [facility] ([place] Comment on above: Performed By: #### C BC, ADIFF, ANEU, BMP, GFR ####[place] [address] Basophils Auto #/vol (Bld) 0.20 x10EE3/UL High 0.00 - 0.10 [facility] Comment on above: Performed By: #### 2 23226 ####[facility],[address] [place] [address] Basophils/100 WBC Auto (Bld) 1.2 % Normal 0.0 - 2.0 [facility] Comment on above: Performed By: #### 2 71591 ####[facility],[address] [place] [address] CBC Normal [facility] Comment on above: Result Comment: CBC- COMPLETE BLOOD COUNT Performed By: #### 2 86566 ####[facility],[address] [place] [address] Eosinophils Auto #/vol (Bld) 0.10 x10EE3/UL Normal 0.00 - 0.50 [facility] Comment on above: Performed By: #### 2 57912 ####[facility],[address] [place] [address] Eosinophils/100 WBC Auto (Bld) 0.7 % Normal 0.0 - 7.0 [facility] Comment on above: Performed By: #### 2 23383 ####[facility],[address] [place] [address] Erythrocyte distribution width Auto Ratio (RBC) 15.0 % Normal 12.0 - 15.6 [facility] Comment on above: Performed By: #### 2 38957 ####[facility],[address] [place] [address] Hematocrit Auto Volume Fraction (Bld) 39.8 % Normal 34.0 - 46.0 [facility] Comment on above: Performed By: #### 2 97211 ####[facility],[address] [place] [address] Hemoglobin mass conc (Bld) 13.8 g/dL Normal 12.0 - 16.0 [facility] Comment on above: Performed By: #### 2 78620 ####[facility],[address] [place] [address] Lymphocytes Auto #/vol (Bld) 4.50 x10EE3/UL High 0.80 - 2.80 [facility] Comment on above: Performed By: #### 2 63771 ####[facility],[address] [place] [address] Lymphocytes/100 WBC Auto (Bld) 27.5 % Normal 20.0 - 45.0 [facility] Comment on above: Performed By: #### 2 89142 ####[facility],[address] [place] [address] MANUAL DIFF N/A Normal [facility] Comment on above: Performed By: #### 2 82774 ####[facility],[address] [place] [address] MCH Auto Entitic mass (RBC) 30 pg Normal 27 - 33 [facility] Comment on above: Performed By: #### 2 92730 ####[facility],[address] [place] [address] MCHC Auto mass conc (RBC) 35 X10 3 Normal 32 - 36 [facility] Comment on above: Performed By: #### 2 55935 ####[facility],[address] [place] [address] MCV Auto Entitic volume (RBC) 86 fL Normal 80 - 99 [facility] Comment on above: Performed By: #### 2 68930 ####[facility],[address] [place] [address] Monocytes Auto #/vol (Bld) 0.80 x10EE3/UL Normal 0.20 - 1.00 [facility] Comment on above: Performed By: #### 2 01926 ####[facility],[address] [place] [address] MONOS % 4.8 % Normal 0.0 - 10.0 [facility] Comment on above: Performed By: #### 2 12924 ####[facility],[address] [place], [place] [address] Morphology Interp Jonathan (Bld) N/A Normal [facility] Comment on above: Result Comment: {CD] Performed By: #### 2 22688 ####[facility],[address] [place] [address] Neutrophils Auto #/vol (Bld) 10.80 x10EE3/UL High 1.50 - 7.10 [facility] Comment on above: Performed By: #### 2 69794 ####[facility],[address] [place] [address] Neutrophils/100 WBC Auto (Bld) 65.8 % Normal 46.0 - 76.0 [facility] Comment on above: Performed By: #### 2 28854 ####[facility],[address] [place], [place] [address] Platelet mean volume Auto Entitic volume (Bld) 8.3 fL Normal 6.6 - 10.5 [facility] Comment on above: Result Comment: AUTO MATED DIFFERENTIAL Performed By: #### 2 04508 ####[facility],[address] [place] [address] Platelets Auto #/vol (Bld) 434 x10EE3/UL Normal 150 - 450 [facility] Comment on above: Performed By: #### 2 74099 ####[facility],[address] [place] [address] RBC Auto #/vol (Bld) 4.63 x 10EE6/UL Normal 4.10 - 5.3 0 [facility] Comment on above: Performed By: #### 2 83095 ####[facility],[address] [place] [address] WBC Auto #/vol (Bld) 16.5 x 10EE3/UL High 4.5 - 10.8 [facility] Comment on above: Performed By: #### 2 78374 ####[facility],[address] [place] [address] CHEST 1 VIEWon 02-17-2018 CHEST 1 VIEW [facility] [address] [place] [address] Patient: LOUIS BRAN Phone#: : 1975 Age: 42 Gender: F Pt. Type: ER Account: [id number] Location: 2 Ordering: DARRON JARAMILLO Exam Date: 02/16/2018/23:21 Family Phys: LOWELL HINKLE Charge Code: [id number] Physician: Grady Order #: [id number] DLP Dose#: PROCEDURE: X-RAY CHEST 1 VIEW COMPARISON: [facility], XR, CHEST PA/LAT, 12/14/2016, 14:22. INDICATIONS: [...] Leiva MD on 02/17/2018 at 16:36 Normal [facility] CMP with eGFRon 02-17-2018 Age Reported 42 years Normal [facility] Comment on above: Performed By: #### 2 98611 ####[facility],[address] [place] [address] Albumin mass conc 4.2 g/dL Normal 3.4 - 4.8 [facility] Comment on above: Performed By: #### 2 85100 ####[facility],[address] [place], [place] [phone] Albumin/Globulin mass ratio 1.3 {ratio} Normal 0.9 - 1.6 [facility] Comment on above: Performed By: #### 2 56662 ####[facility],[address] [place], [place] [address] ALK PHOS 104 U/L Normal 38 - 126 [facility] Comment on above: Performed By: #### 2 69181 ####[facility],[address] [place] [address] ALT/SGPT 12 U/L Normal 8 - 35 [facility] Comment on above: Performed By: #### 2 94549 ####[facility],[address] [place], [place] [address] Anion gap 3 molar conc 8 mmol/L Low 10 - 20 [facility] Comment on above: Performed By: #### 2 10450 ####[facility],[address] [place] [address] AST/SGOT 14 U/L Normal 13 - 39 [facility] Comment on above: Performed By: #### 2 81578 ####[facility],[address] [place], [place] [address] B/C RATIO 10 ratio Normal 0 - 30 [facility] Comment on above: Performed By: #### 2 48934 ####[facility],[address] [place] [address] Bilirubin mass conc 0.3 mg/dL Normal 0.0 - 1.5 [facility] Comment on above: Performed By: #### 2 42879 ####[facility],[address] [place] [address] Calcium mass conc 9.1 mg/dL Normal 8.6 - 10.2 [facility] Comment on above: Performed By: #### 2 81481 ####[facility],[address] [place] [address] Chloride molar conc 110 mmol/L High 98 - 107 [facility] Comment on above: Performed By: #### 2 19513 ####[facility],[address] [place] [address] CO2 molar conc 19.7 mmol/L Low 21.0 - 31.[address] [facility] Comment on above: Performed By: #### 2 89971 ####[facility],[address] [place] [address] Creatinine mass conc 0.9 mg/dL Normal 0.6 - 1.2 [facility] Comment on above: Performed By: #### 2 92846 ####[facility],[address] [place] [address] GFR/1.73 sq M predicted among non-blacks MDRD vol rate/area (S/P/Bld) Normal [facility] Comment on above: Result Comment: COMP REHENSIVE METABOLIC PANEL Performed By: #### 2 47865 ####[facility],[address] [place] [address] GFR/1.73 sq M predicted among non-blacks MDRD vol rate/area (S/P/Bld) mL/min/{1.73_m2} Normal 60 - 999 [facility] Comment on above: Result Comment: ACCO RDING TO THE NATIONAL KIDNEY DISEASE EDUCATION PROGRAM(NKDE), A NORMAL eGFRIS A VALUE GREATER THAN OR EQUAL TO 60 ML/MIN/1.73 SQ METERS.CHRONIC KIDNEY DISEASE: <60mL/MIN/1.73 SQ METERSKIDNEY FAILURE: <15mL/MIN/1.73 SQ METERSTHIS TEST SHOULD ONLY BE USED FOR PATIENTS 18 YEARS OF AGE AND OLDER. Performed By: #### 2 42194 ####[facility],[address] [place] [address] Globulin Calculated mass conc (S) 3.2 g/dL Normal 1.5 - 3.8 [facility] Comment on above: Performed By: #### 2 58246 ####[facility],[address] [place] [address] Glucose mass conc 139 mg/dL High 74 - 106 [facility] Comment on above: Performed By: #### 2 84596 ####[facility],[address] [place], [place] [address] Potassium molar conc 3.4 mmol/L Low 3.5 - 5.1 [facility] Comment on above: Performed By: #### 2 12871 ####[facility],[address] [place] [address] Protein mass conc 7.4 g/dL Normal 6.4 - 8.3 [facility] Comment on above: Performed By: #### 2 66984 ####[facility],[address] [place] [address] Sodium molar conc 134 mmol/L Low 136 - 145 [facility] Comment on above: Performed By: #### 2 94682 ####[facility],[address] [place] [address] Urea nitrogen mass conc 9 mg/dL Normal 6 - 20 [facility] Comment on above: Performed By: #### 2 17394 ####[facility],[address] [place] [address] BRAIN W/O CONTRASTon 02-01 CT BRAIN W/O CONTRAST [place] [address] Patient: LOUIS BRAN Phone#: : 1975 Age: 42 Gender: F Pt. Type: ER Account: [id number] Location: [facility] Ordering: DARRON JARAMILLO Exam Date: 02/16/2018/23:17 Family Phys: LOWELL HINKLE Charge Code: [id number] Physician: Grady Order #: [id number] DLP Dose#: PROCEDURE: CT BRAIN WITHOUT CONTRAST COMPARISON: [facility], CT, BRAIN W/O CON, 12/17/2017, 20:51. [...] Leiva MD on 02/17/2018 at 16:48 Normal [facility] DRUG SCREEN URINE MEDICon AMPHETAMINES Negative [facility] Comment on above: Performed By: #### 2 66675 ####[facility],[address] [place] [address] B-DIAZEPINES Negative [facility] Comment on above: Performed By: #### 2 60408 ####[facility],[address] [place] [address] BARBITURATES Negative [facility] Comment on above: Performed By: #### 2 82902 ####[facility],[address] [place] [address] COCAINE Negative [facility] Comment on above: Performed By: #### 2 28794 ####[facility],[address] [place] [address] DRUG SCREEN URINE MEDIC Normal [facility] Comment on above: Result Comment: DRUG SCREEN - URINE Performed By: #### 2 56833 ####[facility],[address] [place] [address] METHADONE Negative [facility] Comment on above: Performed By: #### 2 91833 ####[facility],[address] [place], [place] [address] OPIATES Negative [facility] Comment on above: Performed By: #### 2 26114 ####[facility],[address] [place] [address] 23590 PCP Negative Normal [facility] Comment on above: Performed By: #### 2 16731 ####[facility],[address] [place] [address] 63588 TCA Positive Normal [facility] Comment on above: Performed By: #### 2 97230 ####[facility],[address] [place] [address] 87986 THC Positive Normal [facility] Comment on above: Result Comment: TR ENTS RECEIVING PROTON PUMP INHIBITORS MAY DEMONSTRATE FALSE POSITIVETHC/CANNABINOID RESULTS. AN ALTERNATIVE CONFIRMATORY METHOD SHOULD BE CONSIDEREDTO VERIFY POSITIVE RESULTS. Performed By: #### 2 90836 ####[facility],[address] [place] [address] 63798 History and Physicalon 02-17 History and Physical Normal [facility] ([place] Neurology Consultation[place] Neurology Consultation Normal [facility] ([place] URINALYSIS[place] 02-17-2018 Amorphous TRACE Normal [facility] Comment on above: Performed By: #### 2 02193 ####[facility],[address] [place] [address] 39565 Bacteria 1+ Normal [facility] Comment on above: Performed By: #### 2 67283 ####[facility],[address] [place] [address] 70815 Bilirubin Negative Normal NORMAL: NEGATIVE [facility] Comment on above: Performed By: #### 2 12532 ####[facility],[address] [place] [address] 29344 Blood Negative Normal NORMAL: NEGATIVE [facility] Comment on above: Performed By: #### 2 07662 ####[facility],[address] [place] [address] 40064 Calcium mass conc 1+ Normal NORMAL: NONE [facility] Comment on above: Performed By: #### 2 34807 ####[facility],[address] [place] [address],[facility] [address] Casts NONE Normal [facility] Comment on above: Performed By: #### 2 10957 ####[facility],[address] [place] [address],[facility] [address] Clarity clear Normal NORMAL: CLEAR [facility] Comment on above: Performed By: #### 2 77743 ####[facility],[address] [place] [address],[facility] [address] Color emy Normal NORMAL: YELLOW [facility] Comment on above: Performed By: #### 2 97335 ####[facility],[address] [place] [address],[facility] [address] Crystals SEE BELOW Normal [facility] Comment on above: Performed By: #### 2 41808 ####[facility],[address] [place] [address] 07005 Epi Cells FEW Normal [facility] Comment on above: Performed By: #### 2 89322 ####[facility],[address] [place] [address] 57293 Glucose NORM Normal NORMAL: NORMAL [facility] Comment on above: Performed By: #### 2 73494 ####[facility],[address] [place] [address] 55079 Ketone Negative Normal NORMAL: NEGATIVE [facility] Comment on above: Performed By: #### 2 20514 ####[facility],[address] [place] [address] 90976 Leukocytes 25 Abnormal NORMAL: NEGATIVE [facility] Comment on above: Performed By: #### 2 17033 ####[facility],[address] [place] [address] 09203 Microscopic SEE BELOW Normal [facility] Comment on above: Result Comment: MICR OSCOPIC Performed By: #### 2 20859 ####[facility],[address] [place] [address] 29701 Mucous 1+ Normal [facility] Comment on above: Performed By: #### 2 11990 ####[facility],[address] [place] [address] 70804 Nitrite Negative Normal NORMAL: NEGATIVE [facility] Comment on above: Performed By: #### 2 78200 ####[facility],[address] [place] [address] 24497 ph 6 Normal NORMAL: 5.0-8.0 [facility] Comment on above: Performed By: #### 2 50927 ####[facility],[address] [place] [address] Protein mass conc 30 g/dL Abnormal NORMAL: NEGATIVE [facility] Comment on above: Performed By: #### 2 00562 ####[facility],[address] [place] [address] 50518 Rbc NONE Normal 0-3/hpf [facility] Comment on above: Performed By: #### 2 29725 ####[facility],[address] [place], [place] [address] Sp New Century 1.020 Normal NORMAL: 1.010-1.030 [facility] Comment on above: Performed By: #### 2 92480 ####[facility],[address] [place], [place] [address] Specimen type Void Normal [facility] Comment on above: Performed By: #### 2 12836 ####[facility],[address] [place] [address] 59508 Urobilinog 1 Abnormal NORMAL: NORMAL [facility] Comment on above: Performed By: #### 2 31552 ####[facility],[address] [place] [address] 56778 Wbc 1-5 Normal 0-5/hpf [facility] Comment on above: Performed By: #### 2 77599 ####[facility],[address] [place], [place] [address] Yeast NONE Normal [facility] Comment on above: Performed By: #### 2 23434 ####Jose Ramon [facility],[address] [facility] [address] [place] [address] Emergency Room Note on 01-23-2018 [facility] Note Normal [facility] ([place]) Pat Eduon 01-23-2018 Pat Edu Normal [facility] [place] Patient Summary Documentson 01-23-2018 Patient Summary Documents Normal [facility] [place] XR CHEST 2 VIEWSon 8 XR CHEST [...] PM Sign Date: 01/23/2018 7:56:06 PM Normal [facility] ([place] XR RIBS 2 VIEWS RIGHTon 01-02 XR [...] Interpreted By: Jeff Sosareliminary Report By: Denia Hoffmna MDElectronically Signed By: Jeff Sosa DO Dictated Date: 01/23/2018 7:39:55 PM Prelim Date: 01/23/2018 7:40:29 PM Sign Date: 01/23/2018 7:57:52 PM Normal [facility] ([place] EMERGENCY REPORTon 8 EMERGENCY REPORT [facility] EMERGENCY ROOM REPORT NAME ACCOUNT SEX AGE ADMIT DISCHARGE PT MED. RECORD# NUMBER DATE DATE EDELMIRA BRAN [id number] Shameka 42 12/25/17 12/25/17 Lizett Yadav [id number] ROOM: ER DATE OF : 1975 DICTATING [...] and talk to Dr. Dickerson who is consumer services consultant for him and explained this as well. Patient is told to follow up in the office within the next several days to make sure that she gets further evaluation for this kidney mass. In the meantime, her abdominal pain, I think is most likely secondary to constipation. I recommended Dulcolax suppositories, uqum-moy-voxjcct magnesium citrate. I did give her some tramadol for pain. Is to follow up with family doctor in 2 to 3 days if no better, returning if symptoms worsen. Dictated By: Guanako Cantrell MD JOB #: [id number] Transcribed by: jennifer TD: 12/26/17 12:13 Electronically signed by: POLINA Cantrell M.D. 12/31/17 07:33 Page 2 of 2 LOUIS BRAN Emergency Room Report Normal [facility] AMYLASEon 12-25-2017 Amylase enzyme act/vol 24 U/L Low 29 - 103 [facility] Comment on above: Performed By: #### 2 08330 ####[facility],[address] [place], [place] [address] C-REACTIVE PROTEINon 018 CRP mass conc 0.50 mg/dl Normal 0.00 - 1.00 [facility] Comment on above: Performed By: #### 2 57937 ####[facility],[address] [place], [place] [address] CBCon 12-25-2017 Basophils Auto #/vol (Bld) 0.10 x10EE3/UL Normal 0.00 - 0.10 [facility] Comment on above: Performed By: #### 2 07518 ####[facility],[address] [place] [address] 92281 Basophils/100 WBC Auto (Bld) 0.9 % Normal 0.0 - 2.0 [facility] Comment on above: Performed By: #### 2 16549 ####[facility],[address] [place] [address] CBC Normal [facility] Comment on above: Result Comment: CBC- COMPLETE BLOOD COUNT Performed By: #### 2 56580 ####[facility],[address] [place] [address] Eosinophils Auto #/vol (Bld) 0.30 x10EE3/UL Normal 0.00 - 0.50 [facility] Comment on above: Performed By: #### 2 59921 ####[facility],[address] [place], [place] [address] Eosinophils/100 WBC Auto (Bld) 3.1 % Normal 0.0 - 7.0 [facility] Comment on above: Performed By: #### 2 24996 ####[facility],[address] [place] [address] Erythrocyte distribution width Auto Ratio (RBC) 15.2 % Normal 12.0 - 15.6 [facility] Comment on above: Performed By: #### 2 16165 ####[facility],[address] [place] [address] Hematocrit Auto Volume Fraction (Bld) 38.1 % Normal 34.0 - 46.0 [facility] Comment on above: Performed By: #### 2 75583 ####[facility],[address],[place] [address] Hemoglobin mass conc (Bld) 12.9 g/dL Normal 12.0 - 16.0 [facility] Comment on above: Performed By: #### 2 31953 ####[facility],[address] [place] [address] Lymphocytes Auto #/vol (Bld) 2.80 x10EE3/UL Normal 0.80 - 2.80 [facility] Comment on above: Performed By: #### 2 51925 ####[facility],[address] [place] [address] Lymphocytes/100 WBC Auto (Bld) 32.0 % Normal 20.0 - 45.0 [facility] Comment on above: Performed By: #### 2 36152 ####[facility],[address] [place] [address] MANUAL DIFF N/A Normal [facility] Comment on above: Performed By: #### 2 29405 ####[facility],[address] [place] [address] MCH Auto Entitic mass (RBC) 29 pg Normal 27 - 33 [facility] Comment on above: Performed By: #### 2 07512 ####[facility],[address] [place] [address] MCHC Auto mass conc (RBC) 34 X10 3 Normal 32 - 36 [facility] Comment on above: Performed By: #### 2 26940 ####[facility],[address] [place] [address] MCV Auto Entitic volume (RBC) 85 fL Normal 80 - 99 [facility] Comment on above: Performed By: #### 2 09035 ####[facility],[address] [place] [address] Monocytes Auto #/vol (Bld) 0.60 x10EE3/UL Normal 0.20 - 1.00 [facility] Comment on above: Performed By: #### 2 55486 ####[facility],[address] [place] [address] 80521 MONOS % 7.2 % Normal 0.0 - 10.0 [facility] Comment on above: Performed By: #### 2 10353 ####[facility],[address] [place] [address] 21070 Morphology Interp Jonathan (Bld) N/A Normal [facility] Comment on above: Result Comment: {CD] Performed By: #### 2 27727 ####[facility],[address] [place] [address] 50608 Neutrophils Auto #/vol (Bld) 5.00 x10EE3/UL Normal 1.50 - 7.10 [facility] Comment on above: Performed By: #### 2 83547 ####[facility],[address] [place] [address] 54129 Neutrophils/100 WBC Auto (Bld) 56.8 % Normal 46.0 - 76.0 [facility] Comment on above: Performed By: #### 2 11564 ####[facility],[address] [place] [address] 46130 Platelet mean volume Auto Entitic volume (Bld) 8.3 fL Normal 6.6 - 10.5 [facility] Comment on above: Result Comment: AUTO MATED DIFFERENTIAL Performed By: #### 2 79109 ####[facility],[address] [place] [address] 87097 Platelets Auto #/vol (Bld) 378 x10EE3/UL Normal 150 - 450 [facility] Comment on above: Performed By: #### 2 04556 ####[facility],[address] [place] [address] 49951 RBC Auto #/vol (Bld) 4.48 x 10EE6/UL Normal 4.10 - 5.3 0 [facility] Comment on above: Performed By: #### 2 69347 ####[facility],[address] [place] [address] 23153 WBC Auto #/vol (Bld) 8.8 x 10EE3/UL Normal 4.5 - 10.8 [facility] Comment on above: Performed By: #### 2 04022 ####[facility],[address] [place], [place] [address] CMP with eGFRon 12-25-2017 Age Reported 42 years Normal [facility] Comment on above: Performed By: #### 2 05373 ####[facility],[address] [place] [address] Albumin mass conc 3.7 g/dL Normal 3.4 - 4.8 [facility] Comment on above: Performed By: #### 2 36026 ####[facility],[address] [place] [address] Albumin/Globulin mass ratio 1.3 {ratio} Normal 0.9 - 1.6 [facility] Comment on above: Performed By: #### 2 54125 ####[facility],[address] [place] [address] ALK PHOS 121 U/L Normal 38 - 126 [facility] Comment on above: Performed By: #### 2 23472 ####[facility],[address] [place] [address] ALT/SGPT 23 U/L Normal 8 - 35 [facility] Comment on above: Performed By: #### 2 30303 ####[facility],[address] [place] [address] Anion gap 3 molar conc 10 mmol/L Normal 10 - 20 [facility] Comment on above: Performed By: #### 2 13492 ####[facility],[address] [place], [place] [address] AST/SGOT 16 U/L Normal 13 - 39 [facility] Comment on above: Performed By: #### 2 95603 ####[facility],[address] [place] [address] B/C RATIO 7 ratio Normal 0 - 30 [facility] Comment on above: Performed By: #### 2 07393 ####[facility],[address] [place] [address] 57516 Bilirubin mass conc 0.2 mg/dL Normal 0.0 - 1.5 [facility] Comment on above: Performed By: #### 2 62568 ####[facility],[address] [place] [address] 74612 Calcium mass conc 8.8 mg/dL Normal 8.6 - 10.2 [facility] Comment on above: Performed By: #### 2 07974 ####[facility],[address] [place] [address] 67892 Chloride molar conc 107 mmol/L Normal 98 - 107 [facility] Comment on above: Performed By: #### 2 60112 ####[facility],[address] [place] [address] 95708 CO2 molar conc 24.4 mmol/L Normal 21.0 - 31.[address] [facility] Comment on above: Performed By: #### 2 39397 ####[facility],[address] [place] [address] 80985 Creatinine mass conc 0.6 mg/dL Normal 0.6 - 1.2 [facility] Comment on above: Performed By: #### 2 80322 ####[facility],[address] [place] [address] 94298 GFR/1.73 sq M predicted among non-blacks MDRD vol rate/area (S/P/Bld) mL/min/{1.73_m2} Normal 60 - 999 [facility] Comment on above: Performed By: #### 2 25923 ####[facility],[address] [place] [address] 18603 Result Comment: ACCO RDING TO THE NATIONAL KIDNEY DISEASE EDUCATION PROGRAM(NKDE), A NORMAL eGFRIS A VALUE GREATER THAN OR EQUAL TO 60 ML/MIN/1.73 SQ METERS.CHRONIC KIDNEY DISEASE: <60mL/MIN/1.73 SQ METERSKIDNEY FAILURE: <15mL/MIN/1.73 SQ METERSTHIS TEST SHOULD ONLY BE USED FOR PATIENTS 18 YEARS OF AGE AND OLDER. GFR/1.73 sq M predicted among non-blacks MDRD vol rate/area (S/P/Bld) Normal [facility] Comment on above: Result Comment: COMP REHENSIVE METABOLIC PANEL Performed By: #### 2 87585 ####[facility],[address] [place] [address] 81963 Globulin Calculated mass conc (S) 2.8 g/dL Normal 1.5 - 3.8 [facility] Comment on above: Performed By: #### 2 22453 ####[facility],[address] [place] [address] 22701 Glucose mass conc 81 mg/dL Normal 74 - 106 [facility] Comment on above: Performed By: #### 2 40328 ####[facility],[address] [place], [place] [address] Potassium molar conc 3.8 mmol/L Normal 3.5 - 5.1 [facility] Comment on above: Performed By: #### 2 63208 ####[address] [address] Protein mass conc 6.5 g/dL Normal 6.4 - 8.3 [facility] Comment on above: Performed By: #### 2 75042 ####[facility],[address] [place] [address] 60351 Sodium molar conc 138 mmol/L Normal 136 - 145 [facility] Comment on above: Performed By: #### 2 29611 ####[facility],[address] [place] [address] 79922 Urea nitrogen mass conc 4 mg/dL Low 6 - 20 [facility] Comment on above: Performed By: #### 2 58821 ####[facility],[address] [place] [address] ABDOMEN/PELVIS Won 2017 CT ABDOMEN/PELVIS W [facility] [address] [place], [place] [address] Patient: LOUIS BRAN Phone#: : 1975 Age: 42 Gender: F Pt. Type: ER Account: [id number] Location: 052 Ordering: GUANAKO CANTRELL Exam Date: 12/25/2017/16:25 Family Phys: LOWELL DouglasAly HINKLE Charge Code: [id number] Physician: Grady Order #: [id number] DLP Dose#: PROCEDURE: CT ABDOMEN/PELVIS WITH CONTRAST COMPARISON: [facility], CT, CHEST PE W CON, 12/14/2016, 16:01. [facility], CT, CHEST PE W CON, 09/17/2016, 13:10. [facility], CT, ABDOMEN/PELVIS W CON, 04/30/2017, 18:39. [...] 42 Gender: F Pt. Type: ER Account: [id number] Location: 052 Ordering: GUANAKO CANTRELL Exam Date: 12/25/2017/16:25 Family Phys: LOWELL HINKLE Charge Code: [id number] Physician: Grady Order #: [id number] DLP Dose#: BOWEL/MESENTERY: No bowel obstruction or [...] Julien MD on 12/25/2017 at 17:13 Normal [facility] EMERGENCY REPORTon 12-25- 8 EMERGENCY REPORT [facility] EMERGENCY ROOM REPORT NAME ACCOUNT SEX AGE ADMIT DISCHARGE PT MED. RECORD# NUMBER DATE DATE TYPE SHANT [id number] F 42 12/17/17 12/17/17 Lizett Yadav [id number] ROOM: ER DATE OF : 1975 DICTATING [...] Report The patient will be transferred to [place] because she had a syncopal episode, but she is a trauma with her cervical fracture and nasal fracture and also a history of pseudoseizures. Dictated By: Darron Jaramillo DO TD: 12/18/17 12:45 JOB #: [id number] Transcribed by: demetra Electronically signed by: POLINA Jaramillo D.O. 12/25/17 01:36 Page 2 of 2 LOUIS BRAN Emergency Room Report Normal [facility] LIPASEon 12-25-2017 Lipase enzyme act/vol 15.0 U/L Low 18.0 - 51.0 [facility] Comment on above: Performed By: #### 2 01979 ####[facility],[address] [place] [address] URINALYSISon 12-25-2017 Bilirubin Negative Normal NORMAL: NEGATIVE [facility] Comment on above: Performed By: #### 2 58823 ####[facility],[address] [place] [address] Blood Negative Normal NORMAL: NEGATIVE [facility] Comment on above: Performed By: #### 2 12365 ####[facility],[address] [place] [address] Clarity clear Normal NORMAL: CLEAR [facility] Comment on above: Performed By: #### 2 27578 ####[facility],[address] [place] [address] Color p.yel Normal NORMAL: YELLOW [facility] Comment on above: Performed By: #### 2 61210 ####[facility],[address] [place] [address] Glucose NORM Normal NORMAL: NORMAL [facility] Comment on above: Performed By: #### 2 87442 ####[facility],[address] [place] [address] Ketone Negative Normal NORMAL: NEGATIVE [facility] Comment on above: Performed By: #### 2 35455 ####[facility],[address] [place], [place] [address] Leukocytes Negative Normal NORMAL: NEGATIVE [facility] Comment on above: Performed By: #### 2 73759 ####[facility],[address] [place] [address] Microscopic NOT INDICATED Normal [facility] Comment on above: Performed By: #### 2 62436 ####[facility],[address] [place] [address] Nitrite Negative Normal NORMAL: NEGATIVE [facility] Comment on above: Performed By: #### 2 51917 ####[facility],[address] [place] [address] 38803 ph 7 Normal NORMAL: 5.0-8.0 [facility] Comment on above: Performed By: #### 2 43813 ####[facility],[address] [place] [address] 41696 Protein mass conc Negative Normal NORMAL: NEGATIVE [facility] Comment on above: Performed By: #### 2 82330 ####[facility],[address] [place] [address] 51182 Sp New Century 1.005 Low NORMAL: 1.010-1.030 [facility] Comment on above: Performed By: #### 2 02731 ####[facility],[address] [place] [address] 15140 Specimen type UNSPECIFIED Normal [facility] Comment on above: Performed By: #### 2 00529 ####[facility],[address] [place] [address] 38254 Urobilinog NORM Normal NORMAL: NORMAL [facility] Comment on above: Performed By: #### 2 99669 ####[facility],[address] [place] [address] 65309 Depart Summaryon 12-19-2017 Depart Summary Normal [facility]) Discharge Summaryon 12-20-19 18 Discharge Summary Normal [facility]) EEGon 12-19-2017 EEG Normal [facility]) History and Physicalon 12-19 History and Physical Normal [facility]) Inpatient Patient Summaryon 12-19-2017 Inpatient Patient Summary Normal [facility]) MRI BRAIN W/O CONTRASTon MRI BRAIN W/O [...] PM Sign Date: 12/19/2017 1:11:09 PM Normal [facility] ([place] Neurology Progress Noteon Neurology Progress Note Normal A [facility] ([place] Pat Eduon 12-19-2017 Pat Edu Normal [facility] [place] Progress Noteon 12-19-2017 Progress Note Normal [facility] [place] .Auto Diffon 12-18-2017 Basophils Auto #/vol (Bld) 0.00 10 3/mcL Normal 0.00-0.27 [facility] ([place] Comment on above: Performed By: #### C BC, ADIFF, ANEU, BMP, GFR ####[address] [address] Basophils/100 WBC Auto (Bld) 0.3 % Normal 0.0-2.5 [facility] ([place] Comment on above: Performed By: #### C BC, ADIFF, ANEU, BMP, GFR ####[address] [address] Eosinophils 0.10 10 3/mcL Normal 0.00-0.65 [facility] ([place] Comment on above: Performed By: #### C BC, ADIFF, ANEU, BMP, GFR ####[address] [address] Eosinophils/100 leukocytes 1.1 % Normal 0.0-6.0 [facility] ([place] Comment on above: Performed By: #### C BC, ADIFF, ANEU, BMP, GFR ####[address] [address] Lymphocytes 2.80 10 3/mcL Normal 0.90-4.32 [facility] ([place] Comment on above: Performed By: #### C BC, ADIFF, ANEU, BMP, GFR ####[address] [address] Lymphocytes/100 leukocytes 29.1 % Normal 20.0-40.0 [facility] ([place]) Comment on above: Performed By: #### C BC, ADIFF, ANEU, BMP, GFR ####[address] [address] Monocytes 0.60 10 3/mcL Normal 0.09-1.40 [facility] ([place] Comment on above: Performed By: #### C BC, ADIFF, ANEU, BMP, GFR ####[address] [address] Monocytes/100 leukocytes 6.8 % Normal 2.0-13.0 [facility] ([place] Comment on above: Performed By: #### C BC, ADIFF, ANEU, BMP, GFR ####[address] [address] Neutrophils/100 WBC Auto (Bld) 62.7 % Normal 50.0-75.0 [facility] ([place] Comment on above: Performed By: #### C BC, ADIFF, ANEU, BMP, GFR ####[address] [address] .GFRon 12-18-2017 eGFR (non-black) mL/min/{1.73_m2} Normal [facility] ([place]) Comment on above: Result Comment: GFR Population [...] #### C BC, ADIFF, ANEU, BMP, GFR ####[place] [address] .NEUABSon 12-18-2017 Neutrophils 6.00 10 3/mcL Normal 2.25-8.10 [facility] ([place] Comment on above: Performed By: #### C BC, ADIFF, ANEU, BMP, GFR ####[place] [address] BMPon 12-18-2017 BUN/Creatinine Ratio 10.0 ratio Normal 10.0-22.0 [facility] ([place] Comment on above: Performed By: #### C BC, ADIFF, ANEU, BMP, GFR ####[place] [address] Calcium 9.2 mg/dL Normal 8.4-10.1 [facility] ([place] Comment on above: Performed By: #### C BC, ADIFF, ANEU, BMP, GFR ####[place] [address] Chloride 102 mmol/L Normal 98-110 [facility] ([place] Comment on above: Performed By: #### C BC, ADIFF, ANEU, BMP, GFR ####[place] [address] CO2 27 mmol/L Normal 22-32 [facility] ([place] Comment on above: Performed By: #### C BC, ADIFF, ANEU, BMP, GFR ####[place] [address] Creatinine 0.60 mg/dL Normal 0.50-1.20 [facility] ([place] Comment on above: Performed By: #### C BC, ADIFF, ANEU, BMP, GFR ####[place] [address] Electrolyte Balance 9.0 mEq/L Normal 4.0-15.0 [facility] ([place]) Comment on above: Performed By: #### C BC, ADIFF, ANEU, BMP, GFR ####[place] [address] Glucose mass conc 78 mg/dL Normal 70-110 [facility] ([place] Comment on above: Performed By: #### C BC, ADIFF, ANEU, BMP, GFR ####[place] [address] Potassium molar conc 4.2 mmol/L Normal 3.5-5.0 [facility] ([place] Comment on above: Performed By: #### C BC, ADIFF, ANEU, BMP, GFR ####[place] [address] Sodium 138 mmol/L Normal 136-145 [facility] ([place] Comment on above: Performed By: #### C BC, ADIFF, ANEU, BMP, GFR ####[place] [address] Urea nitrogen 6.0 mg/dL Low 8.0-22.0 [facility] ([place] Comment on above: Performed By: #### C BC, ADIFF, ANEU, BMP, GFR ####[place] [address] CBCon 12-18-2017 Erythrocyte distribution width Auto Ratio (RBC) 15.0 % Normal 11.5-15.5 [facility] ([place] Comment on above: Performed By: #### C BC, ADIFF, ANEU, BMP, GFR ####[place] [address] Erythrocytes (RBC) 4.52 10 6/mcL Normal 4.10-5.30 [facility] ([place]) Comment on above: Performed By: #### C BC, ADIFF, ANEU, BMP, GFR ####[place] [address] Hematocrit (HCT) 39.2 % Normal 34.0-46.0 [facility] ([place] Comment on above: Performed By: #### C BC, ADIFF, ANEU, BMP, GFR ####[place] [address] Hemoglobin mass conc (Bld) 13.1 G/dL Normal 12.0-16.0 [facility] ([place] Comment on above: Performed By: #### C BC, ADIFF, ANEU, BMP, GFR ####[place] [address] MCH 28.8 pg Normal 27.0-33.0 [facility] ([place] Comment on above: Performed By: #### C BC, ADIFF, ANEU, BMP, GFR ####[place] [address] MCHC mass conc (RBC) 33.3 G/dL Normal 32.0-36.0 [facility] ([place] Comment on above: Performed By: #### C BC, ADIFF, ANEU, BMP, GFR ####[place] [address] MCV 86.5 fL Normal 80.0-99.0 [facility] ([place] Comment on above: Performed By: #### C BC, ADIFF, ANEU, BMP, GFR ####[place] [address] Platelet mean volume (PMV) 8.7 fL Normal 6.6-10.5 [facility] ([place] Comment on above: Performed By: #### C BC, ADIFF, ANEU, BMP, GFR ####[place] [address] Platelets 338 10 3/mcL Normal 150-450 [facility] ([place] Comment on above: Performed By: #### C BC, ADIFF, ANEU, BMP, GFR ####[place] [address] WBC (Leukocytes) 9.50 10 3/mcL Normal 4.50-10.80 [facility] ([place] Comment on above: Performed By: #### C BC, ADIFF, ANEU, BMP, GFR ####[place] [address] ED Note-Provideron 8 ED Note-Provider Normal [facility] ([place] History and Physicalon 12-18 History and Physical Normal [facility] ([place] Neurology Consultationon Neurology Consultation Normal [facility] ([place] Neurosurgery Consultationon 12-18-2017 Neurosurgery Consultation Normal [facility] ([place] Patient Summary Documentson 12-18-2017 Patient Summary Documents Normal [facility] ([place] TROPONINon 12-18-2017 Troponin I.cardiac mass conc ng/mL Normal 0.00 - 0.05 [facility] Comment on above: Result Comment: Elev ated [...] as heterophile antibodies). Performed By: #### 2 [id number] ####[facility],[address] [place] [address] XR HIP MINIMUM 2 VIEWS RIGHT on [...] changes. No acute osseous abnormality Interpreted By: Wes Russoreliminary Report By: Wes Russo MDElectronically Signed By: Wes Russo MD Dictated Date: 12/18/2017 1:51:17 AM Prelim Date: 12/18/2017 1:51:17 AM Sign Date: 12/18/2017 1:52:51 AM Normal [facility] ([place]) CBCon 12-17-2017 Basophils Auto #/vol (Bld) 0.00 x10EE3/UL Normal 0.00 - 0.10 [facility] Comment on above: Performed By: #### 2 26888 ####[facility],[address] [place] [address] Basophils/100 WBC Auto (Bld) 0.3 % Normal 0.0 - 2.0 [facility] Comment on above: Performed By: #### 2 45796 ####[facility],[address] [place] [address] CBC Normal [facility] Comment on above: Result Comment: CBC- COMPLETE BLOOD COUNT Performed By: #### 2 47940 ####[facility],[address] [place] [address] Eosinophils Auto #/vol (Bld) 0.00 x10EE3/UL Normal 0.00 - 0.50 [facility] Comment on above: Performed By: #### 2 28840 ####[facility],[address] [place] [address] Eosinophils/100 WBC Auto (Bld) 0.5 % Normal 0.0 - 7.0 [facility] Comment on above: Performed By: #### 2 28017 ####[facility],[address] [place] [address] Erythrocyte distribution width Auto Ratio (RBC) 15.0 % Normal 12.0 - 15.6 [facility] Comment on above: Performed By: #### 2 84411 ####[facility],[address] [place] [address] Hematocrit Auto Volume Fraction (Bld) 40.0 % Normal 34.0 - 46.0 [facility] Comment on above: Performed By: #### 2 96146 ####[facility],[address] [place] [address] Hemoglobin mass conc (Bld) 13.5 g/dL Normal 12.0 - 16.0 [facility] Comment on above: Performed By: #### 2 50559 ####[facility],[address] [place] [address] Lymphocytes Auto #/vol (Bld) 1.30 x10EE3/UL Normal 0.80 - 2.80 [facility] Comment on above: Performed By: #### 2 82876 ####[facility],[address] [place] [address] Lymphocytes/100 WBC Auto (Bld) 13.7 % Low 20.0 - 45.0 [facility] Comment on above: Performed By: #### 2 26230 ####[facility],[address] [place] [address] MANUAL DIFF N/A Normal [facility] Comment on above: Performed By: #### 2 92409 ####[facility],[address] [place] [address] MCH Auto Entitic mass (RBC) 29 pg Normal 27 - 33 [facility] Comment on above: Performed By: #### 2 58645 ####[facility],[address] [place] [address] MCHC Auto mass conc (RBC) 34 X10 3 Normal 32 - 36 [facility] Comment on above: Performed By: #### 2 79261 ####[facility],[address] [place] [address] MCV Auto Entitic volume (RBC) 85 fL Normal 80 - 99 [facility] Comment on above: Performed By: #### 2 27054 ####[facility],[address] [place] [address] Monocytes Auto #/vol (Bld) 0.40 x10EE3/UL Normal 0.20 - 1.00 [facility] Comment on above: Performed By: #### 2 23151 ####[facility],[address] [place] [address] MONOS % 4.8 % Normal 0.0 - 10.0 [facility] Comment on above: Performed By: #### 2 30989 ####[facility],[address] [place] [address] Morphology Interp Jonathan (Bld) N/A Normal [facility] Comment on above: Result Comment: {CD] Performed By: #### 2 62525 ####[place] [address] Neutrophils Auto #/vol (Bld) 7.50 x10EE3/UL High 1.50 - 7.10 [facility] Comment on above: Performed By: #### 2 97336 ####[facility],[address] [place] [address] Neutrophils/100 WBC Auto (Bld) 80.7 % High 46.0 - 76.0 [facility] Comment on above: Performed By: #### 2 19921 ####[facility],[address] [place] [address] Platelet mean volume Auto Entitic volume (Bld) 8.5 fL Normal 6.6 - 10.5 [facility] Comment on above: Result Comment: AUTO MATED DIFFERENTIAL Performed By: #### 2 40470 ####[address] [address] Platelets Auto #/vol (Bld) 323 x10EE3/UL Normal 150 - 450 [facility] Comment on above: Performed By: #### 2 67406 ####[facility],[address] [place] [address] RBC Auto #/vol (Bld) 4.71 x 10EE6/UL Normal 4.10 - 5.3 0 [facility] Comment on above: Performed By: #### 2 98320 ####[facility],[address] [place] [address] WBC Auto #/vol (Bld) 9.3 x 10EE3/UL Normal 4.5 - 10.8 [facility] Comment on above: Performed By: #### 2 01161 ####[facility],[address] [place] [address] CMP with eGFRon 12-17-2017 Age Reported 42 years Normal [facility] Comment on above: Performed By: #### 2 63342 ####[facility],[address] [place] [address] Albumin mass conc 3.8 g/dL Normal 3.4 - 4.8 [facility] Comment on above: Performed By: #### 2 45361 ####[facility],[address] [place] [address] Albumin/Globulin mass ratio 1.2 {ratio} Normal 0.9 - 1.6 [facility] Comment on above: Performed By: #### 2 89785 ####[facility],[address] [place] [address] ALK PHOS 115 U/L Normal 38 - 126 [facility] Comment on above: Performed By: #### 2 05641 ####[facility],[address] [place] [address] ALT/SGPT 37 U/L High 8 - 35 [facility] Comment on above: Performed By: #### 2 48642 ####[facility],[address] [place] [address] Anion gap 3 molar conc 11 mmol/L Normal 10 - 20 [facility] Comment on above: Performed By: #### 2 51501 ####[facility],[address] [place] [address] AST/SGOT 32 U/L Normal 13 - 39 [facility] Comment on above: Performed By: #### 2 88928 ####[facility],[address] [place] [address] B/C RATIO 9 ratio Normal 0 - 30 [facility] Comment on above: Performed By: #### 2 97335 ####[facility],[address] [place] [address] Bilirubin mass conc 0.3 mg/dL Normal 0.0 - 1.5 [facility] Comment on above: Performed By: #### 2 30648 ####[facility],[address] [place] [address] Calcium mass conc 9.2 mg/dL Normal 8.6 - 10.2 [facility] Comment on above: Performed By: #### 2 09208 ####[facility],[address] [place] [address] Chloride molar conc 100 mmol/L Normal 98 - 107 [facility] Comment on above: Performed By: #### 2 50980 ####[facility],[address] [place] [address] CO2 molar conc 25.5 mmol/L Normal 21.0 - 31.[address] [facility] Comment on above: Performed By: #### 2 03227 ####[facility],[address] [place] [address] Creatinine mass conc 0.7 mg/dL Normal 0.6 - 1.2 [facility] Comment on above: Performed By: #### 2 82693 ####[facility],[address] [place] [address] GFR/1.73 sq M predicted among non-blacks MDRD vol rate/area (S/P/Bld) mL/min/{1.73_m2} Normal 60 - 999 [facility] Comment on above: Result Comment: ACCO RDING TO THE NATIONAL KIDNEY DISEASE EDUCATION PROGRAM(NKDE), A NORMAL eGFRIS A VALUE GREATER THAN OR EQUAL TO 60 ML/MIN/1.73 SQ METERS.CHRONIC KIDNEY DISEASE: <60mL/MIN/1.73 SQ METERSKIDNEY FAILURE: <15mL/MIN/1.73 SQ METERSTHIS TEST SHOULD ONLY BE USED FOR PATIENTS 18 YEARS OF AGE AND OLDER. Performed By: #### 2 26401 ####[facility],[address] [place] [address] GFR/1.73 sq M predicted among non-blacks MDRD vol rate/area (S/P/Bld) Normal [facility] Comment on above: Result Comment: COMP REHENSIVE METABOLIC PANEL Performed By: #### 2 80671 ####[facility],[address] [place] [address] Globulin Calculated mass conc (S) 3.1 g/dL Normal 1.5 - 3.8 [facility] Comment on above: Performed By: #### 2 57837 ####[facility],[address] [place] [address] Glucose mass conc 140 mg/dL High 74 - 106 [facility] Comment on above: Performed By: #### 2 17208 ####[facility],[address] [place] [address] Potassium molar conc 3.9 mmol/L Normal 3.5 - 5.1 [facility] Comment on above: Performed By: #### 2 91660 ####[facility],[address] [place] [address] Protein mass conc 6.9 g/dL Normal 6.4 - 8.3 [facility] Comment on above: Performed By: #### 2 85047 ####[facility],[address] [place] [address] Sodium molar conc 133 mmol/L Low 136 - 145 [facility] Comment on above: Performed By: #### 2 23936 ####[facility],[address] [place] [address] Urea nitrogen mass conc 6 mg/dL Normal 6 - 20 [facility] Comment on above: Performed By: #### 2 18010 ####[facility],[address] [place] [address] BRAIN W/O CONTRASTon 12-02 CT BRAIN W/O CONTRAST [place] [address] Patient: LOUIS BRAN Phone#: : 1975 Age: 42 Gender: F Pt. Type: ER Account: [id number] Location: [facility] Ordering: DARRON JARAMILLO Exam Date: 12/17/2017/20:51 Family Phys: LOWLEL HINKLE Charge Code: [id number] Physician: Grady Order #: [id number] DLP Dose#: PROCEDURE: CT BRAIN WITHOUT CONTRAST COMPARISON: [facility], CT, BRAIN W/O CON, 03/31/2017, 15:27. [...] is no evidence of acute intracranial abnormality. [place] [address] Patient: LOUIS BRAN Phone#: : 1975 Age: 42 Gender: F Pt. Type: ER Account: [id number] Location: [facility] Ordering: DARRON JARAMILLO Exam Date: 12/17/2017/20:51 Family Phys: LOWELL HINKLE Charge Code: [id number] Physician: Grady Order #: [id number] DLP Dose#: Dictated by: Alisia Leiva MD on 12/18/2017 at 8:33 Approved by: Alisia Leiva MD on 12/18/2017 at 8:33 Normal [facility] CT CERVICAL W/O CONTRASTon 0 12-17-2017 CT CERVICAL W/O CONTRAST [place] [address] Patient: LOUIS BRAN Phone#: : 1975 Age: 42 Gender: F Pt. Type: ER Account: [id number] Location: 052 Ordering: [employer] Exam Date: 12/17/2017/20:51 Family Phys: LOWELL I. CEBUL Charge Code: [id number] Physician: Grady Order #: [id number] DLP Dose#: PROCEDURE: CT CERVICAL WITHOUT CONTRAST COMPARISON: [facility], XR, CERVICAL SPINE COMPLETE, 12/16/2014, 13:44. [...] 42 Gender: F Pt. Type: ER Account: [id number] Location: 052 Ordering: [employer] Exam Date: 12/17/2017/20:51 Family Phys: LOWELL I. CEBUL Charge Code: [id number] Physician: Grady Order #: [id number] DLP Dose#: [id number]: No significant disc/facet abnormality, [...] Leiva MD on 12/18/2017 at 8:52 Normal [facility] CT FACIAL BONES W/O CONTRAST on 12-17-2017 CT FACIAL BONES W/O CONTRAST [place] [address] Patient: LOUIS BRAN Phone#: : 1975 Age: 42 Gender: F Pt. Type: ER Account: [id number] Location: [facility] Ordering: DARRON JARAMILLO Exam Date: 12/17/2017/20:51 Family Phys: LOWELL HINKLE Charge Code: [id number] Physician: Grady Order #: [id number] DLP Dose#: PROCEDURE: CT FACIAL BONES WITHOUT [...] 42 Gender: F Pt. Type: ER Account: [id number] Location: 052 Ordering: DARRON JARAMILLO Exam Date: 12/17/2017/20:51 Family Phys: LOWELL HINKLE Charge Code: [id number] Physician: Grady Order #: [id number] DLP Dose#: 1. Comminuted fracture the nasal bridge. Soft tissue swelling and air is present overlying the nasal bone. Dictated by: Alisia Leiva MD on 12/18/2017 at 8:43 Approved by: Alisia Leiva MD on 12/18/2017 at 8:43 Normal [facility] OPERATIVE PROCEDURESon 11-28 Protein mass [facility] OPERATIVE REPORT NAME ACCOUNT SEX AGE ADMIT DISCHARGE PT MED. RECORD# NUMBER DATE DATE TYPE SHANT [id number] F 42 11/27/17 11/27/17 2 LOUIS Yadav [id number] ROOM: [facility] DATE OF : 1975 DICTATING PHYSICIAN: Melba Dixon DATE OF SURGERY: 11/27/2017 SURGEON: Melba Dixon MD LIFE GUARD: ANESTHESIOLOGIST: Dimitry Hancock CRNA ANESTHETIC: PREOPERATIVE DIAGNOSIS: [...] Dixon MD TD: 11/27/17 21:10 JOB #: [id number] Transcribed by: rd Electronically signed by: E-Sign Dr. Melba Dixon MD 11/28/17 19:07 Page 2 of 2 LOUIS BRAN Operative Report Normal [facility] Protein mass [facility] OPERATIVE REPORT NAME ACCOUNT SEX AGE ADMIT DISCHARGE PT MED. RECORD# NUMBER DATE DATE TYPE SHANT [id number] F 42 11/27/17 11/27/17 Gonzalez Yadav [id number] ROOM: [facility] DATE OF : 1975 DICTATING PHYSICIAN: Melba Dixon ADDENDUM Correction for dictation #[id number] The correction should be at the end of the dictation where it says, The patient tolerated the procedure well. Add this statement: Patient can have repeat endoscopy in 10 years unless she has GI bleedings or other problems. D: Melba Dixon MD TD: 11/27/17 22:14 JOB #: [id number] Transcribed by: rd Electronically signed by: E-Sign Dr. Melba Dixon MD 11/28/17 19:07 Page 1 of 1 LOUIS BRAN Operative Report Normal [facility] Protein mass [facility] OPERATIVE REPORT NAME ACCOUNT SEX AGE ADMIT DISCHARGE PT MED. RECORD# NUMBER DATE DATE TYPE SHANT [id number] F 42 11/27/17 11/27/17 2 LOUIS Yadav [id number] ROOM: [facility] DATE OF : 1975 DICTATING PHYSICIAN: Melba Dixon DATE OF SURGERY: 11/27/2017. SURGEON: Melba Dixon M.D. LIFE GUARD: ANESTHESIOLOGIST: Dimitry Hancock C.R.N.A. ANESTHETIC: PREOPERATIVE DIAGNOSIS: [...] Dixon MD TD: 11/28/17 08:08 JOB #: [id number] Transcribed by: so Electronically signed by: E-Sign Dr. Melba Dixon MD 11/28/17 19:07 Page 2 of 2 LOUIS BRAN Operative Report Normal [facility] URINEon 11-27-2017 EXTERNAL QC DONE? YES Normal [facility] Comment on above: Performed By: #### 2 75181 ####[facility],[address] [place] [address] INTERNAL QC PASS Normal [facility] Comment on above: Performed By: #### 2 38812 ####[facility],[address] [place] [address] UR Negative Normal NEGATIVE [facility] Comment on above: Performed By: #### 2 02561 ####[facility],[address] [place] [address] Vital Signs Date Time Vital Sign Value Performing Clinician Facility 11-24-2024 14:52-0400 Body height 177.[address] Anali Dolan MD Work Phone: [facility] 11-24-2024 14:52-0400 Body mass index (BMI) [Ratio] 33 kg/m2 Dr. Anali Dolan MD Work Phone: [facility] 11-24-2024 14:52-0400 Body temperature 98.6 [degF] Dr. Anali Dolan MD Work Phone: [facility] 11-24-2024 14:52-0400 Body weight 104.[address] Anali Dolan MD Work Phone: [facility] 11-24-2024 14:52-0400 Diastolic blood pressure 82 mm[Hg] Dr. Anali Dolan MD Work Phone: [facility] 11-24-2024 14:52-0400 Heart rate 71 /min Dr. Anali Dolan MD Work Phone: [facility] 11-24-2024 14:52-0400 Respiratory rate 16 /min Dr. Anali Dolan MD Work Phone: [facility] 11-24-2024 14:52-0400 SaO2% (BldA) [Mass fraction] 92 % Dr. Anali Dolan MD Work Phone: [facility] 11-24-2024 14:52-0400 Systolic blood pressure 126 mm[Hg] Dr. Anali Dolan MD Work Phone: [facility] 10-15-2024 10:00-0500 Body mass index (BMI) [Ratio] 36.63 kg/m2 Will Ross MD Work Phone: [facility] 10-15-2024 10:00-0500 Body temperature 98.2 [degF] Will Ross MD Work Phone: [facility] 10-15-2024 10:00-0500 Body weight 101.8 kg Will Ross MD Work Phone: [facility] 10-15-2024 10:00-0500 Diastolic blood pressure 72 mm[Hg] Will Ross MD Work Phone: [facility] 10-15-2024 10:00-0500 Heart rate 65 /min Will Ross MD Work Phone: [facility] 10-15-2024 10:00-0500 Respiratory rate 21 /min Will Ross MD Work Phone: [facility] 10-15-2024 10:00-0500 SaO2% (BldA) [Mass fraction] 93 % Will Ross MD Work Phone: [facility] 10-15-2024 10:00-0500 Systolic blood pressure 110 mm[Hg] Will Ross MD Work Phone: [facility] 08-25-2024 14:32-0500 Body mass index (BMI) [Ratio] 33 kg/m2 Dr. Anali Dolan MD Work Phone: [facility] 08-25-2024 14:32-0500 Body temperature 98.2 [degF] Dr. Anali Dolan MD Work Phone: [facility] 08-25-2024 14:32-0500 Body weight 104.[address] Anali Dolan MD Work Phone: [facility] 08-25-2024 14:32-0500 Diastolic blood pressure 82 mm[Hg] Dr. Anali Dolan MD Work Phone: [facility] 08-25-2024 14:32-0500 Heart rate 77 /min Dr. Anali Dolan MD Work Phone: [facility] 08-25-2024 14:32-0500 Respiratory rate 16 /min Dr. Anali Dolan MD Work Phone: [facility] 08-25-2024 14:32-0500 SaO2% (BldA) [Mass fraction] 92 % Dr. Anali Dolan MD Work Phone: [facility] 08-25-2024 14:32-0500 Systolic blood pressure 122 mm[Hg] Dr. Anali Dolan MD Work Phone: [facility] 08-18-2024 12:52-0500 Body mass index (BMI) [Ratio] 32.3 kg/m2 Dr. Anali Dolan MD Work Phone: [facility] 08-18-2024 12:52-0500 Body temperature 98.4 [degF] Dr. Anali Dolan MD Work Phone: [facility] 08-18-2024 12:52-0500 Body weight 102.[address] Anali Dolan MD Work Phone: [facility] 08-18-2024 12:52-0500 Diastolic blood pressure 84 mm[Hg] Dr. Anali Dolan MD Work Phone: [facility] 08-18-2024 12:52-0500 Heart rate 86 /min Dr. Anali Dolan MD Work Phone: [facility] 08-18-2024 12:52-0500 Respiratory rate 16 /min Dr. Anali Dolan MD Work Phone: [facility] 08-18-2024 12:52-0500 SaO2% (BldA) [Mass fraction] 91 % Dr. Anali Dolan MD Work Phone: [facility] [facility] 08-18-2024 12:52-0500 Systolic blood pressure 124 mm[Hg] Dr. Anali Dolan MD Work Phone: [facility] 10-14-2022 11:48-0500 Body temperature 97.81 [degF] Rand Salas PLANNING RN.SENIOR INFORMATION SECURITY CONSULTANT Work Phone: [facility] 10-14-2022 11:48-0500 Body weight 103.87 kg Rand Salas PLANNING RN.SENIOR INFORMATION SECURITY CONSULTANT Work Phone: [facility] 10-14-2022 11:48-0500 Diastolic blood pressure 60 mm[Hg] Rand Salas PLANNING RN.SENIOR INFORMATION SECURITY CONSULTANT Work Phone: [facility] 10-14-2022 11:48-0500 Heart rate 110 /min Rand Salas PLANNING RN.SENIOR INFORMATION SECURITY CONSULTANT Work Phone: [facility] 10-14-2022 11:48-0500 Respiratory rate 18 /min Rand Salas PLANNING RN.SENIOR INFORMATION SECURITY CONSULTANT Work Phone: [facility] 10-14-2022 11:48-0500 SaO2% (BldA) [Mass fraction] 95 % Rand Salas PLANNING RN.SENIOR INFORMATION SECURITY CONSULTANT Work Phone: [facility] 10-14-2022 11:48-0500 Systolic blood pressure 110 mm[Hg] Rand Salas PLANNING RN.SENIOR INFORMATION SECURITY CONSULTANT Work Phone: [facility] 05-10-2022 13:54-0400 Body temperature 97.3 [degF] Dr. Anali Dolan Work Phone: [facility] Work Phone: 05-10-2022 13:54-0400 Body weight 101.[address] Anali Dolan Work Phone: [facility] Work Phone: 05-10-2022 13:54-0400 Diastolic blood pressure 86 mm[Hg] Dr. Anali Dolan Work Phone: [facility] Work Phone: 05-10-2022 13:54-0400 Heart rate 91 /min Dr. Anali Dolan Work Phone: [facility] Work Phone: 05-10-2022 13:54-0400 Respiratory rate 18 /min Dr. Anali Dolan Work Phone: [facility] Work Phone: 05-10-2022 13:54-0400 SaO2% (BldA) [Mass fraction] 92 % Dr. Anali Dolan Work Phone: [facility] Work Phone: 05-10-2022 13:54-0400 Systolic blood pressure 123 mm[Hg] Dr. Anali Dolan Work Phone: [facility] Work Phone: Encounters Encounter Date Encounter Type Care Provider Facility Start: 04-27-2025 ambulatory Anali Dolan Facility :[facility] Start: 11-24-2024 End: 11-24-[address] Anali Dolan [facility] -[facility] Work Phone: Start: 11-24-2024 End: 11-24-2024 ambulatory Anali Dolan Facility:[facility] Start: 11-20-2024 End: 11-20-[address] Anali Dolan MD Work Phone: [facility] Work Phone: Start: 11-20-2024 End: 11-20-[address] Anali Dolan MD -[facility] Start: 11-20-2024 End: 11-20-2024 ambulatory Anali Dolan Facility:[facility] Start: 10-29-2024 End: 10-29-2024 ambulatory MICHAEL JOHNSON Facility:[facility] Start: 10-15-2024 End: 10-15-2024 ambulatory MAYCO JOYCE Facility:[facility] Start: 10-15-2024 End: 10-15-2024 Office outpatient visit 25 minutes Will Ross MD Work Phone: [facility] Comment on above: Influenza-like illne ss (Primary Dx); Asthma with COPD with exacerbation (HCC) Start: 10-14-2024 End: 12-14-2024 Follow-up encounter Michael Johnson Work Phone: Podiatry Start: 10-10-2024 End: 10-10-2024 Subsequent hospital visit by physician [facility] Work Phone: Radiology Comment on above: Ingrowing toenail of right foot [L60.0] Start: 10-10-2024 End: 10-10-2024 ambulatory MAYCO COOK Facility:[facility] Start: 10-10-2024 End: 10-10-2024 Patient encounter procedure Michael Johnson Work Phone: Podiatry Comment on above: Ingrowing toenail of right foot (Primary Dx); Onychodystrophy; Diminished pulses in lower extremity Start: 08-25-2024 End: 08-25-[address] Anali Dolan MD -[facility] Work Phone: Start: 08-25-2024 End: 08-25-2024 ambulatory Anali Dolan Facility:[facility] Start: 08-19-2024 End: 08-19-[address] Anali Dolan MD -[facility] Start: 08-18-2024 End: 08-18-[address] Anali Dolan MD -[facility] Work Phone: Start: 08-18-2024 End: 08-19-2024 ambulatory Anali Dolan Facility:[facility] Start: 10-14-2022 End: 10-14-2022 Patient encounter procedure Rand Josue FARFANSENIOR INFORMATION SECURITY CONSULTANT Work Phone: [facility] Comment on above: Acute otitis media, left (Primary Dx) Start: 06-02-2022 End: 06-02-[address] nAali Dolan Work Phone: [facility] Work Phone: Start: 06-02-2022 End: 06-02-[address] Anali Dolan Work Phone: [facility] Start: 05-10-2022 End: 05-10-[address] Anali Dolan Work Phone: [facility] Start: 03-01-2022 ambulatory Mayco TRINH RN.SENIOR INFORMATION SECURITY CONSULTANT, DNP Work Phone: [facility] [place] Start: 05-29-2018 End: 05-29-2018 Emergency department patient visit POLLY BARKER [facility] Start: 04-20-2018 End: 04-20-2018 Emergency department patient visit DINESH YOO [facility] Start: 04-12-2018 End: 04-12-2018 Patient encounter MELBA DESTINY [facility] Start: 03-19-2018 End: 03-19-2018 Patient encounter MELBA DIXON [facility] Start: 02-26-2018 End: 02-27-2018 Emergency department patient visit LYDIA SOLIZ [facility] Start: 02-21-2018 End: 02-21-2018 Emergency department patient visit DARRON Magdaleno EZRA [facility] Start: 02-21-2018 End: 02-21-2018 Patient encounter NATALIA DEMPSEY [facility] Start: 02-17-2018 End: 02-19-2018 Ambulatory LOWELL A III CEBUL Facility:A Start: 02-17-2018 End: 02-17-2018 Emergency department patient visit DARRON Magdaleno EZRA [facility] Start: 02-11-2018 Patient encounter NATALIA Alejo [facility] Start: 01-23-2018 End: 01-23-2018 Emergency department patient visit JOSE RAMON Armando SHERMAN Facility:[facility] Start: 12-25-2017 End: 12-25-2017 Emergency department patient visit GUANAKO CANTRELL [facility] Start: 12-18-2017 End: 12-19-2017 Ambulatory LOWELL A III CEBUL Facility:[facility] Start: 12-17-2017 End: 12-18-2017 Emergency department patient visit DARRON Sharla [facility] Start: 11-27-2017 End: 11-27-2017 Patient encounter MELBA [facility] Start: 11-15-2017 End: 11-15-2017 Patient encounter MELBA [facility] Start: 02-19-2017 End: 02-19-2017 Ambulatory [facility] Start: 11-30-2016 End: 12-01-2016 Evaluation and management of inpatient Mayco Trevinorafianoop Facility:[facility] Start: 01-22-2016 End: 01-22-[address] Facility:[facility] Procedures Date Procedure Procedure Detail Performing Clinician Start: 11-08-2020 Adult depression scr eening assessment Mayco Cook PLANNING RN.SENIOR INFORMATION SECURITY CONSULTANT, DNP Work Phone: Start: 06-17-2018 Lipid 1996 panel - S paresh or Plasma Xr Mob Work Phone: Start: 02-17-2018 Urinalysis MELBA Gleason Comment on above: Result Comment: URIN ALYSIS Performed By: [id number] ####[facility],[address] [place] [address] Start: 12-25-2017 Urinalysis MELBA Gleason Comment on above: Result Comment: URIN ALYSIS Performed By: [id number] ####Jose Ramon [facility],[address] [place] [id number] Start: 07-24-2017 Mammography Mayco carrero APRN.TITA, FITO Work Phone: Start: 11-07-2013 Colonoscopy Mayco carrero APRN.TITA, FITO Work Phone: Plan of Treatment Date Care Activity Detail Author Start: 10-29-2024 End: 10-29-2024 Patient encounter procedure 10/29/2024 3:30 PM EST Office Visit [facility] [address] [place] [address] Diminished pulses in lower extremity [R09.89] [facility] Comment on above: Diminished pulses in lower extremity [R09.89] Start: 05-04-2024 Covid-19 Vaccine ( season) Covid-19 Vaccine ( season) [facility] Start: 05-04-2024 Influenza vaccination Influenza Vacc ine (#1) [facility] Start: 11-09-2023 DIABETES SCREEN [facility] Start: 11-09-2023 Diabetes Screening Diabetes Screenin g [facility] Start: 2023 Pneumococcal Vaccine : 50+ (3 of 3 - PCV20 or PCV21) Pneumococcal Vaccine: 50+ (3 of 3 - PCV20 or PCV21) [facility] Start: 2023 Shingrix Vaccine (1 of 2) Shingrix Vaccine (1 of 2) [facility] Start: 06-17-2023 Lipid panel Lipid Screening [facility] Start: 06-17-2023 LIPID SCREEN LIPID SCREEN [facility] Start: 11-26-2022 HPV TESTING HPV TESTING [facility] Start: 11-26-2022 PAP TESTING PAP TESTING [facility] Start: 11-26-2022 Screening for malign ant neoplasm of cervix Cervical Cancer Screening [facility] Start: 09-03-2022 DEPRESSION ASSESSMENT DEPRESSION ASS ESSMENT [facility] Start: 05-04-2022 Influenza vaccination INFLUENZA (#1) [facility] Start: 01-18-2022 ANNUAL PCP TEAM DOUGH RAISER KANE DISEASE VISIT ANNUAL PCP TEAM CHRONIC DISEASE VISIT [facility] Start: 11-08-2021 Adult depression screening assessment DEPRESSION SCREENING [facility] Start: 09-02-2021 COVID-19 VACCINE (3 - Booster for Marcela series) COVID-19 VACCINE (3 - Booster for Marcela series) [facility] Start: 2018 COLOGUARD (FIT-DNA) COLOGUARD (FIT-D NA) [facility] Start: 2018 Colonoscopy COLONOSCOPY [facility] Start: 2018 COLORECTAL CANCER SCREENING COLORECTAL CANCER SCREENING [facility] Start: [address] COLONOGRAPHY [facility] Start: 2018 FECAL OCCULT BLOOD FECAL OCCULT BLOO D [facility] Start: 2018 Screening for malign ant neoplasm of colon [facility] Start: 2018 SIGMOIDOSCOPY SIGMOIDOSCOPY [facility] Start: 07-24-2018 Mammography MAMMOGRAM [facility] Start: 07-24-2018 Screening for malign ant neoplasm of breast Mammogram Screening [facility] Start: 07-11-2012 PNEUMOCOCCAL (2 - PCV) PNEUMOCOCCAL (2 - PCV) [facility] Start: 2003 Zoledronic acid therapy ALPHA- 1 ANTITRYPSIN DEFICIENCY SCREENING [facility] Start: 1992 Hepatitis B Vaccine (1 of 3 - 19+ 3-dose series) Hepatitis B Vaccine (1 of 3 - 19+ 3-dose series) [facility] Start: 1992 Urine microalbumin profile [facility] Start: 1991 Depression Screening Depression Scre ening [facility] Start: 1991 SPIROMETRY SPIROMETRY [facility] Start: 03-27-1974 COVID-19 VACCINE (#1) COVID-19 VACCI NE (#1) [facility] Start: 1973 HEPATITIS B (1 of 3 - 3-dose series) HEPATITIS B (1 of 3 - 3-dose series) [facility] Comprehensive metabo lic 1999 panel - Serum or Plasma [facility] Hemoglobin A1c/Hemoglobin.total in Blood [facility] Lipid 1996 panel - S paresh or Plasma [facility] End: 03-31-2023 Screening mammography bi 2-view breast inc cad SCOTT SCREENING Radiology Routine Encounter for screening mammogram for breast cancer 1 Occurrences starting 03/01/2022 until 03/31/2023 [facility] Work Phone: Comment on above: 1 Occurrences starti ng 03/01/2022 until 03/31/2023 Thyroid stimulating hormone measurement [facility] End: 10-10-2025 US.doppler Extremity arteries - bilateral for physiologic artery study PVR ANK [facility] Routine Diminished pulses in lower extremity 1 Occurrences starting 10/10/2024 until 10/10/2025 [facility] Work Phone: Comment on above: 1 Occurrences starti ng 10/10/2024 until 10/10/2025 Vitamin D, 25-hydrox y measurement [facility] XR Toes - right 3 Views XR TOE A P/LAT/OBL RIGHT Radiology Routine Ingrowing toenail of right foot 10/10/2024 12:08 PM EST [facility] Work Phone: End: 11-09-2025 XR Toes - right 3 Views XR TOE AP/LAT/OBL RIGHT Radiology Routine Ingrowing toenail of right foot 1 Occurrences starting 10/10/2024 until 11/09/2025 [facility] Comment on above: 1 Occurrences starti ng 10/10/2024 until 11/09/2025 Immunizations Immunization Date Immunization Notes Care Provider Andrews godinez 07-08-2021 Covid (Moderna) Dr. Anali schreiber Work Phone: [facility] 07-08-[address] Anali Dolan Work Phone: [facility] 07-08-2021 influenza virus vacc ine, unspecified formulation Xr Mob Work Phone: [facility] 01-20-2021 Covid ([facility]) Dr. Anali Dolan Work Phone: [facility] 07-11-[address] Anali Dolan Work Phone: [facility] 07-01-2018 influenza, injectabl e, quadrivalent, contains preservative Mayco Cook PLANNING RN.SENIOR INFORMATION SECURITY CONSULTANT, DNP Work Phone: [facility] 07-24-2017 influenza, injectabl e, quadrivalent, contains preservative Mayco Cook PLANNING RN.[facility] Work Phone: [facility] 06-03-2017 pneumococcal conjuga te vaccine, [address] Anali Dolan Work Phone: [facility] 06-28-2016 influenza, injectabl e, quadrivalent, contains preservative Mayco Cook PLANNING RN.[facility] Work Phone: [facility] 06-16-2015 influenza, injectabl e, quadrivalent, contains preservative Mayco Blaz PLANNING RN.[facility] Work Phone: [facility] Work Phone: 06-26-2013 influenza virus vacc ine, unspecified formulation Mayco Blaz PLANNING RN.[facility] Work Phone: [facility] 07-09-2012 influenza virus vacc ine, unspecified formulation Mayco Blaz PLANNING RN.[facility] Work Phone: [facility] 07-11-2011 influenza virus vacc ine, unspecified formulation Mayco Blaz PLANNING RN.[facility] Work Phone: [facility] Work Phone: 07-11-2011 pneumococcal polysaccharide vaccine, 23 valent Mayco Cook PLANNING RN.[facility] Work Phone: [facility] Work Phone: 08-10-2010 influenza virus vacc ine, unspecified formulation Mayco Blaz PLANNING RN.[facility] Work Phone: [facility] Payers Date Payer Category Payer Self-pay [id number] 2022 Medicaid [id number] 2022 Medicaid [id number] 2020 Medicaid [employer] MEDICAID [id number] 2020-Present [phone] [address] [place] [address] Medicaid [id number] 2020 Unknown [employer] BLUE CARD HMO OOS [id number] 2020-Present [phone] [address] [place] [address] HMO [id number] 2016 Medicaid [id number] 1973 Unknown [id number] 1973 Unknown [id number] [id number] 1973 Unknown [id number] [id number] 1973 Unknown [id number] [id number] 1973 Unknown [id number] [id number] 1973 Unknown [id number] 2.16.840.1.507752.3.579.2.651 1973 Unknown [id number] [id number] 1973 Unknown [id number] 2.16.840.1.401170.3.579.2.651 1973 Unknown [id number] 2.16.840.1.042560.3.579.2.651 1973 Unknown [id number] 2.16.840.1.538845.3.579.2.651 1973 Unknown [id number] [id number] 1973 Unknown [id number] 2.16.840.1.873859.3.579.2.651 1973 Unknown [id number] [id number] Unknown [id number] [id number] Unknown [id number] [id number] Unknown [id number] [id number] Unknown [id number] [id number] Unknown [id number] [id number] Unknown [id number] Social History Date Type Detail Facility Start: 02-17-2016 End: 10-10-2024 Tobacco smoking status NHIS Smokes tobacco daily [facility] History of tobacco use Cigarette Smoker [facility] Start: 02-17-2016 End: 09-16-2024 Cigarettes smoked current (pack per day) - Reported 0.5 [facility] Start: 02-17-2016 End: 10-10-2024 Tobacco use and exposure Smokeless tobacco non-user [facility] Start: 01-18-2021 End: 10-10-2024 Alcohol intake Current non-drinker of alcohol (finding) [facility] Start: 07-24-2017 End: 10-14-2022 Tobacco Comment smokes 5 cigs a day [facility] Start: 1975 Sex Assigned At Not on file [facility] Start: 05-10-2022 Tobacco smoking stat us NCIS Unknown if ever smoked [facility] Work Phone: Start: 03-15-2017 None [facility] Start: 07-18-2018 - [facility] Start: 07-13-2021 Cigarettes [facility] Start: 1975 Sex Assigned At Female [facility] Start: 09-16-2024 End: 10-10-2024 Tobacco use panel [facility] Adult Depression Screening Assessment 0 [facility] Start: 11-27-2024 Sex Female (finding) Rehana gleason [facility] Medical Equipment Procedure Code Equipment Code Equipment Origin al Text Equipment Identifier Dates Ddl-[id number] Implant - [id number] Start: 02-19-2017 Comment on above: Description: flexgra ft Functional Status Date Assessment Result Facility 12-31-2017 Are you deaf, or do you have serious difficulty hearing No 12/31/2017 5:33 PM EDT Lowell Hinkle III, MD No [facility] 12-31-2017 Are you blind, or do you have serious difficulty seeing, even when wearing glasses No 12/31/2017 5:33 PM EDT Lowell Hinkle III, MD No [facility] 12-31-2017 Do you have serious difficulty walking or climbing stairs No 12/31/2017 5:33 PM EDT Lowell Hinkle III, MD No [facility] 12-31-2017 Do you have difficul ty dressing or bathing No 12/31/2017 5:33 PM EDT Lowell Hinkle III, MD No [facility] 12-31-2017 Because of a physica l, mental, or emotional condition, do you have difficulty doing errands alone such as visiting a physician's office or shopping No 12/31/2017 5:33 PM EDT Lowell Hinkle III, MD [facility] Mental Status Date Assessment Result Facility 12-31-2017 Because of a physica l, mental, or emotional condition, do you have serious difficulty concentrating, remembering, or making decisions No 12/31/2017 5:33 PM EDT Lowell Hinkle III, MD No [facility] Clinical Notes 12-21-2017 to 11-03-2024 [...] is going to monitor Michael Johnson DPM [facility] Work Phone: 11-03-2024 Telephone encounter Note ----- Message from Rosanna Almaraz LPN sent at 10/30/2024 9:48 AM EST ----- ----- Message from Michael Johnson sent at 10/14/2024 11:25 AM EST ----- Please call patient to inform her that xrays do not show any evidence of infection or fracture [facility] 11-03-2024 Miscellaneous Notes I called [...] starting the antibiotics. documented in this encounter [facility] 10-30-2024 Telephone encounter Note Patient notified of results. Patient verbalizes understanding. Patient states toe is still red. Please advise. Rosanna Almaraz LPN [facility] 10-15-2024 Note HNO ID: [id number] Author: WILL ROSS MD Service: ? 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[facility]) COREEN (obstructive sleep apnea) Patellar tendinitis Peripheral neuropathy 01/09/2013 Seizure disorder ([facility]) 07/30/2012 Statin intolerance 10/07/2014 Tracheostomy status ([facility]) Unspecified asthma(493.90) Unspecified schizophrenia, unspecified condition MEDICATIONS: [...] A500 [Prop* GI Upset Flagyl [Metronidazo* Vomiting Schubert Unknown Lodine [Etodolac] rash Prozac [Fluoxetine * [...] - INHALATIONAL SPACING DEVICE Will Ross MD [facility] 10-15-2024 History of Presen t illness Narrative [...] mention of panic attacks Bipolar disorder, unspecified ([facility]) Fracture, talus closed 08/10/2010 Gastroesophageal reflux disease without esophagitis 04/06/2015 Hyperlipidemia LDL goal <100 06/16/2015 Obesity, unspecified 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[facility]) COREEN (obstructive sleep apnea) Patellar tendinitis Peripheral neuropathy 01/09/2013 Seizure disorder ([facility]) 07/30/2012 Statin intolerance 10/07/2014 Tracheostomy status ([facility]) Unspecified asthma(493.90) Unspecified schizophrenia, unspecified condition MEDICATIONS: [...] A500 [Prop* GI Upset Flagyl [Metronidazo* Vomiting Schubert Unknown Lodine [Etodolac] rash Prozac [Fluoxetine * [...] Will Ross MD documented in this encounter [facility] 10-14-2024 Progress note Formatting of t his note might be different from the original. Called patient and informed her of below results. Patient verbalized understanding. States that her toe seems to be doing better after starting the antibiotics. [facility] 10-10-2024 History of Presen t [...] PATIENT PRESENTS WITH AN IMPLANTABLE OR ATTACHED SHEET METAL FORMER: No RADIOLOGY DEPARTMENT: General X-ray: Exam(s) Completed: Lower Extremity X-Ray(s): Toes, Right, GREAT TOE ONLY PERIPHERAL IV DATA: Not applicable SIGNED BY: RT Pedro(Victorino) October 10, 2024 12:29 PM documented in this encounter [facility] 10-10-2024 Note HNO ID: [id number] Author: RISSA LEE RT(R) Service: ? Author [...] PATIENT PRESENTS WITH AN IMPLANTABLE OR ATTACHED SHEET METAL FORMER: No RADIOLOGY DEPARTMENT: General X-ray: Exam(s) Completed: Lower Extremity X-Ray(s): Toes, Right, GREAT TOE ONLY PERIPHERAL IV DATA: Not applicable SIGNED BY: Rissa Lee RT(R) October 10, 2024 12:29 PM [facility] 10-10-2024 Instructions Michael Johnson - 10/10/2024 11:37 [...] (or decreased sensation in your feet) a basting puller should always cut your toenails. Be Careful [...] Go to your health care provider or basting puller to treat these conditions. documented in this encounter [facility] 10-10-2024 Note HNO ID: [id number] Author: MICHAEL JOHNSON, ? Service: ? 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[facility]) COREEN (obstructive sleep apnea) Patellar tendinitis Peripheral neuropathy 01/09/2013 Seizure disorder ([facility]) 07/30/2012 Statin intolerance 10/07/2014 Tracheostomy status ([facility]) Unspecified asthma(493.90) Unspecified schizophrenia, unspecified condition Current [...] (SEROQUEL) 400 mg tablet (2x 400mg) + 637wd=206 mg at bedtime (Patient not taking: No sig reported) QUEtiapine (SEROQUEL) 100 mg tablet (2x 400mg) + 950ob=566 mg at bedtime (Patient not taking: No sig reported) COMPOUNDED PRESCRIPTION shower bench (Patient not taking: No sig reported) amitriptyline (ELAVIL) 50 mg tablet Take 2 tablets by mouth daily at bedtime. (Patient not taking: No sig reported) COMPOUNDED PRESCRIPTION New mask and tubing for nebulizer. (Patient not taking: No sig reported) No current facility-administered medi (more content not included)... 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[facility]) COREEN (obstructive sleep apnea) Patellar tendinitis Peripheral neuropathy 01/09/2013 Seizure disorder ([facility]) 07/30/2012 Statin intolerance 10/07/2014 Tracheostomy status ([facility]) Unspecified asthma(493.90) Unspecified schizophrenia, unspecified condition Current [...] (SEROQUEL) 400 mg tablet (2x 400mg) + 922gk=451 mg at bedtime (Patient not taking: No sig reported) QUEtiapine (SEROQUEL) 100 mg tablet (2x 400mg) + 607fu=732 mg at bedtime (Patient not taking: No [...] A500 [Prop* GI Upset Flagyl [Metronidazo* Vomiting Schubert Unknown Lodine [Etodolac] rash Prozac [Fluoxetine * [...] Michael Johnson DPM Podiatry [address] [facility] [address] Dept: [phone] Dept AMB ROOMING INTAKE FLOWSHEET DATA Risk [...] Rosanna Almaraz LPN documented in this encounter [facility] 10-10-2024 Note HNO ID: [id number] Author: ROSANNA ALMARAZ LPN Service: ? Author [...] Established Patient, Follow Up Rosanna Almaraz LPN [facility] 08-18-2024 Evaluation note Diagnosis Onset Date Resolution Muscle spasm acute August 12:38pm Rash acute August 18, 2024 12:38pm HLD (hyperlipidemia) chronic Dece mb 2023 12:38pm Schizoaffective disorder chronic August 18, 2024 12:38pm Tobacco use disorder chronic Dece [facility] 2023 12:38pm COPD (chronic obstructive pulmonary disease) suspected August 12:38pm Type II diabetes mellitus, uncontrolled inactive August 18, 2024 12:38pm [facility] Work Phone: [phone] 149-480702-11-2023 History of Present illness Narrative* Rand Salas APRN.SENIOR INFORMATION SECURITY CONSULTANT - 10/14/2022 11:52 AM EST This note was created using Apogenixriter. Subjective Louis Bran is a 47 year old female. 47 year old female with PMH migraine, asthma, COPD, GERD, IBS, presents for ear pain. Acute onset 2 days ago Left ear +sharp Sore Denies accompanying URI sx. Denies cough Denies fever or chills Denies SOB or CP. Denies skin rash or lesions. The history is provided by the patient. No wire fence erector was used. Ear Pain This is a [...] (HCC) 07/30/2012 Statin intolerance 10/07/2014 Tracheostomy status ([facility]) Unspecified asthma(493.90) Unspecified schizophrenia, unspecified condition PAST [...] A500 [Propoxyphene N- Acetaminophen], Flagyl [Metronidazole Hcl], Schubert, Lodine [Etodolac], Prozac [Fluoxetine Hcl], Wellbutrin [Bupropion [...] (SEROQUEL) 400 mg tablet (2x 400mg) + 046zz=599 mg at bedtime (Patient not taking: No sig reported) QUEtiapine (SEROQUEL) 100 mg tablet (2x 400mg) + 866dp=390 mg at bedtime (Patient not taking: No [...] worsen. Rand Salas APRN.TITA [facility] of Past illness Narrative* [...] of this encounter (statuses as of 03/06/2022) [facility] History of Past illness Narrative* [...] of this encounter (statuses as of 10/14/2022) [facility] Diagnosis Encounter for screening mammogram for breast cancer [facility] Diagnosis Onset Date Resolution Status COPD (chronic obstructive pulmonary disease) chronic HLD (hyperlipidemia) chronic Schizoaffective disorder chr onic Tobacco use disorder chronic [facility] Work Phone: Evaluation note* Diagnosis Acute otitis media, left- Primary Unspecified otitis media [facility] Diagnosis Ingrowing toenail of right foot Ingrowing nail [facility] Diagnosis Ingrowing toenail of right foot- Primary Ingrowing nail Onychodystrophy Other specified disease of nail Diminished pulses in lower extremity Other symptoms involving cardiovascular system [facility] Diagnosis Influenza-like illness- Primary Influenza with other respiratory manifestations Asthma with COPD with exacerbation (HCC) Chronic obstructive asthma with exacerbation documented in this encounter [facility] for referral (narrative)* Diagnostic Procedure Only (Routine) - Pending Review Specialty Diagnoses / Procedures Referred By Leslie bee Referred To Contact [facility] Diagnoses Encounter for screening mammogram for breast cancer Procedures SCOTT SCREENING SCREENING MAMMOGRAPHY BI 2-VIEW BREAST INC Mayco Moct[place], [facility].SENIOR INFORMATION SECURITY CONSULTANT, DNP [address] [place] [address] [facility] [address] [place] [address] Referral ID Status Reason Start Date Expiration Date Visits Requested Visits Authorized [id number] Pending Review Auto-Generat ed Referral 03/01/2022 03/31/2023 1 1 [facility] (narrative)No reason for referral information availableWShelby [facility] Work Phone: Reason for visit Narrative* Diagnostic Procedure Only (Routine) - Closed Specialty Diagnoses / Procedures Referred By Contac t Referred To Contact XR IMAGING Diagnoses Ingrowing toenail of right foot Procedures XR TOE AP/LAT/OBL RIGHT RADEX TOE MINIMUM 2 VIEWS Michael Johnson [address] [address] Phone: tel: fax: [place] [address] Referral ID Status Reason Start Date Expiration Date V isits Requested Visits Authorized [id number] Closed Auto-Generate d Referral 10/10/2024 11/09/2025 1 1 [facility] Summary Purpose Family History No Family History Records Found Relationship Condition Age at Onset Recorded Date/T milli Not Specified Cardiac disease Unknown Myocardial infarction Unknown Seizure Unknown Malignant neoplasm Unknown Asthma Unknown Advance Directives No Advanced Directives Records FoundDocuments on File Type Date Recorded 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 No September 14, 2021 3:59pm Chief Complaint [...] section and content) DATE CREATED AUTHOR 02/20/2018 [facility] ([place]) DATE CREATED AUTHOR AUTHOR'S ORGANIZ ATION 02/27/2018 [facility] DATE CREATED AUTHOR AUTHOR'S ORGANIZ ATION 02/27/2018 [facility] DATE CREATED AUTHOR AUTHOR'S ORGANIZ ATION 02/27/2018 [facility] DATE CREATED AUTHOR AUTHOR'S ORGANIZ ATION 07/07/2018 [facility] DATE CREATED AUTHOR AUTHOR'S ORGANIZ ATION 10/31/2024 [facility] DATE CREATED AUTHOR AUTHOR'S ORGANIZ ATION 04/26/2025 [facility] Source Comments (unrecognize d section and content) In the event this informatio n is protected by the Federal Confidentiality of Alcohol and Drug Abuse Patient Records regulations: The Federal rules restrict any use of the information to criminally investigate or prosecute any alcohol or drug abuse patient.[facility] Hospital[facility] the event this information is protected by the Federal Confidentiality of Alcohol and Drug Abuse Patient Records regulations: The Federal rules restrict any use of the information to criminally investigate or prosecute any alcohol or drug abuse patient.[facility] HospitalIn the event this information is protected by the Federal Confidentiality of Alcohol and Drug Abuse Patient Records regulations: The Federal rules restrict any use of the information to criminally investigate or prosecute any alcohol or drug abuse patient.[facility] HospitalIn the event this information is protected by the Federal Confidentiality of Alcohol and Drug Abuse Patient Records regulations: The Federal rules restrict any use of the information to criminally investigate or prosecute any alcohol or drug abuse patient.[facility] HospitalIn the event this information is protected by the Federal Confidentiality of Alcohol and Drug Abuse Patient Records regulations: The Federal rules restrict any use of the information to criminally investigate or prosecute any alcohol or drug abuse patient.[facility] HospitalIn the event this information is protected by the Federal Confidentiality of Alcohol and Drug Abuse Patient Records regulations: The Federal rules restrict any use of the information to criminally investigate or prosecute any alcohol or drug abuse patient.[facility] Care Teams (unrecognized sec tion and content) 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 Tailor Apprentice Relationship Specialty Start Date End Date Mayco Cook APRN.[employer] [address] [place] [address] PCP - General Family Practice 06/24/21 Finisher Tailor Apprentice Relationship Specialty Start Date End Date Mayco Cook APRN.[employer] [address] [place] [address] PCP - General Family Medicine 06/24/21 Finisher Tailor Apprentice Relationship Specialty Start Date End Date Mayco Coko APRN.[employer] [address] [facility] [place] [address] PCP - General Family Medicine 06/24/21 Finisher Tailor Apprentice Relationship Specialty Start Date End Date Mayco Cook APRN.[employer] [address] [facility] [place] [address] PCP - General Family Medicine 06/24/21 Finisher Tailor Apprentice Relationship Specialty Start Date End Date Mayco Cook APRN.[employer] [address] [facility] [place] [address] PCP - General Family Medicine 06/24/21 Team [...] November 24, 2024 End: November 24, 2024 Finisher Tailor Apprentice Relationship Specialty Start Date End Date Mayco Cook APRN.SENIOR INFORMATION SECURITY CONSULTANT, DNP [address] [place] [address] PCP - General Family Medicine 06/24/21 Goals [...] BE BASED ON THE PRIMARY CLINICAL RECORDS. [facility], [facility]. provides no warranty or guarantee of the accuracy or completeness of information in this document.
[2025-08-19 10:05] LABS: AST(SGOT) 14 U/L (<=31); Alanine Aminotransfer ALT/SGPT 11 U/L (<=34); Albumin, Serum 4.1 g/dL (3.5-5.0); Alkaline Phosphatase 147 U/L (35-104); Anion Gap 10 (5-15); BUN 4 mg/dL (4-19); BUN/Creat Ratio 6.5 RATIO (10-20); Calcium,Total 9.6 mg/dL (7.6-11.0); Carbon Dioxide 26.6 mmol/L (21.0-32.0); Chloride 99 mmol/L (98-108); Cholesterol 221 mg/dL (<=200); Globulin 3.6 g/dL (2.2-4.2); Glucose 216 mg/dL (70-99); Low Density Lipoprotein Calc. 109 mg/dL; Potassium 4.6 mmol/L (3.3-5.1); Pro- Brain NATRIURETIC PEPTIDE 71 pg/mL (<=900); Triglycerides 413 mg/dL; Very Low Density Lipoprotein 83 mg/dL (5-40); Vitamin D,25 Hydroxy 37.8 ng/mL (30-100); cholesterol:hdl ratio screen 5.40
== END | disposition home or self-care (01) ==
LOC: PAVLAB 08:48
PROVIDERS: PCP Internal Medicine; Referring Provider Internal Medicine; Visit Provider Internal Medicine
DX: E11.65 Type 2 diabetes mellitus with hyperglycemia (principal); F25.9 Schizoaffective disorder, unspecified; J43.2 Centrilobular emphysema; E78.5 Hyperlipidemia, unspecified; E55.9 Vitamin D deficiency, unspecified; Z13.220 Encounter for screening for lipoid disorders; M54.6 Pain in thoracic spine
CPT/HCPCS: 36415; 80053; 80061; 82306; 83036; 83880; 84443; 85025